=== PATIENT | female | born 1935 | race Caucasian/White ===

== ENCOUNTER → 2017-03-10 | Outpatient (CLI) | payer MEDICARE ==
--- NOTE | 2017-03-10 14:37 | REP ---
Clinical: COPD . Comparison: 06/25/2014 . Technique: PA and lateral. Findings: The mediastinum and cardiac silhouette are stable and within normal limits. The lung reese demonstrate chronic changes consistent with a history of COPD without acute consolidation, effusion, or pneumothorax. The skeletal structures are intact and normal. Impression: 1. No acute cardiopulmonary process. Signed by Fernando Pham MD 03/10/2017 02:28 P
== END ==
LOC: M SMT 13:45
PROVIDERS: ATTEND Internal Medicine Pulmonary Disease
DX: J44.9 Chronic obstructive pulmonary disease, unspecified (principal)

== ENCOUNTER → 2017-07-15 | Outpatient (CLI) | payer MEDICARE, MEDICAID | LOC: M SMT 14:03 | DX: J44.9 Chronic obstructive pulmonary disease, unspecified (principal); I51.7 Cardiomegaly | CPT/HCPCS: 71046 ==

== ENCOUNTER 2017-07-16 08:38 | Inpatient (IN) | payer MEDICARE, BC, OTHER ==
[2017-07-16 09:34] LABS: BASO % 0.2 % (0.0-1.0); EOS # 0.3 10^3/uL (0.0-0.50); EOS % 2.9 % (0.0-3.0); HEMATOCRIT 34.8 % (36.0-47.0); HEMOGLOBIN 10.9 g/dl (12.0-16.0); IMMATURE GRANULOCYTE % 0.3 % (0-3.0); LYMPH # 0.8 10^3/uL (1.5-4.5); MEAN CORPUSCULAR HEMOGLOBIN 28.2 pg (27.0-33.0); MEAN CORPUSCULAR HGB CONC 31.3 g/dl (32.0-36.5); MEAN CORPUSCULAR VOLUME 89.9 fl (80.0-96.0); MONO # 0.5 10^3/uL (0.0-0.8); MONO % 5.8 % (0.0-5.0); NEUTROPHILS # 7.7 10^3/uL (1.8-7.7); NEUTROPHILS % 82.8 % (36.0-66.0); PLATELET COUNT, AUTOMATED 266 10^3/uL (150-450); RED BLOOD COUNT 3.87 10^6/uL (4.00-5.40); RED CELL DISTRIBUTION WIDTH 15.9 % (11.5-14.5); WHITE BLOOD COUNT 9.4 10^3/uL (4.0-10.0)
[2017-07-16 09:45] LABS: PROTHROMBIN TIME 14.4 SECONDS (12.4-14.5)
[2017-07-16 10:04] LABS: ALBUMIN 2.5 GM/DL (3.2-5.2); ALBUMIN/GLOBULIN RATIO 0.66 (1.00-1.93); ALKALINE PHOSPHATASE 97 U/L (45-117); ALT/SGPT 43 U/L (12-78); ANION GAP 7 MEQ/L (8-16); AST/SGOT 18 U/L (7-37); BILIRUBIN,TOTAL 0.3 MG/DL (0.2-1.0); BLOOD UREA NITROGEN 16 MG/DL (7-18); CALCIUM LEVEL 7.9 MG/DL (8.8-10.2); CARBON DIOXIDE LEVEL 31 MEQ/L (21-32); CHLORIDE LEVEL 103 MEQ/L (98-107); CREATININE FOR GFR 0.84 MG/DL (0.55-1.30); GLOMERULAR FILTRATION RATE > 60.0 (>32); GLUCOSE, FASTING 149 MG/DL (70-100); POTASSIUM SERUM 3.2 MEQ/L (3.5-5.1); SODIUM LEVEL 141 MEQ/L (136-145); TOTAL PROTEIN 6.3 GM/DL (6.4-8.2)
[2017-07-16] MEDS ORDERED: KCL 10MEQ IN STERILE WATER 100ML As Ordered (10:10)
[2017-07-16] MEDS: KCL 10MEQ/100ML SWI (KRUN) 10 MEQ in APPROPRIATE DILUENT 1 EA IV ×2 (10:19→11:15)
[2017-07-16] MEDS ORDERED: MIDAZOLAM INJ 2 MG/2 ML VIAL (J2250) As Ordered ×4 (11:12)
[2017-07-16] MEDS ORDERED: FLUMAZENIL 0.5 MG/5 ML VIAL As Ordered (11:12)
[2017-07-16] MEDS ORDERED: LIDOCAINE 1% MDV 20ML VIAL As Ordered (11:13)
[2017-07-16] MEDS: NS 1,000 ML IV ×2 (11:25→16:15)
[2017-07-16] MEDS: MIDAZOLAM INJ 2 MG/2 ML VIAL (J2250) IV (11:30)
[2017-07-16] MEDS: LIDOCAINE 1% MDV 20ML VIAL SC (11:30)
[2017-07-16 11:36] LABS: CPK CREATINE PHOSPHOKINASE 39 U/L (26-192)
[2017-07-16] MEDS ORDERED: fentaNYL 100 MCG/2 ML INJECTION (J3010) As Ordered (11:43)
[2017-07-16] MEDS: fentaNYL 100 MCG/2 ML INJECTION (J3010) IV (11:50)
[2017-07-16 11:52] LABS: CK-MB VALUE MASS 1.2 NG/ML (<3.6); MB/CK RELATIVE INDEX 3.07 (< OR =4); TROPONIN I < 0.02 NG/ML (< 0.10)
[2017-07-16] MEDS ORDERED: POTASSIUM CHLORIDE 10% LIQ 20 MEQ/15 ML UDC PO (13:15)
[2017-07-16 13:18] LABS: LDH LACTATE DEHYDROGENASE 310 U/L (84-246)
[2017-07-16 13:55] LABS: BF MONONUCLEAR CELL % 52.1 % (0-0); BF POLYMORPHONUCLEAR CELL % 47.9 % (0-0); RBC BODY FLUID 8 10^3/uL (<2); WBC BODY FLUID 666 /uL (0-10)
[2017-07-16 14:06] LABS: SOURCE, BODY FLUID ALBUMIN PLEURAL; SOURCE, BODY FLUID TOT PROTEIN PLEURAL; TOTAL PROTEIN, BODY FLUID 3.3 G/DL (NOT ESTABLISHED)
[2017-07-16 14:07] LABS: SOURCE, BODY FLUID PLEURAL
[2017-07-16 14:08] LABS: APPEARANCE, BODY FLUID CLOUDY (CLEAR); BF DIFF IF INDICATED? YES (NO); PLEURAL FL COLOR YELLOW (COLORLESS)
[2017-07-16 14:38] LABS: AMYLASE, BODY FLUID 9 U/L (NOT ESTABLISHED); CHOLESTEROL, BODY FLUID < 50 MG/DL (NOT ESTABLISHED); LDH, BODY FLUID 383 U/L (NOT ESTABLISHED); SOURCE, BODY FLUID AMYLASE PLEURAL; SOURCE, BODY FLUID CHOL PLEURAL; SOURCE, BODY FLUID GLUCOSE PLEURAL; SOURCE, BODY FLUID LDH PLEURAL; SOURCE, BODY FLUID TRIG PLEURAL; TRIGLYCERIDE, BODY FLUID 20 MG/DL (NOT ESTABLISHED)
[2017-07-16] MEDS ORDERED: PILL CUTTER/CRUSHER XX (14:45)
[2017-07-16] MEDS: POTASSIUM CHLORIDE 10 MEQ SR TABLET PO (14:46)
[2017-07-16] MEDS: KETOROLAC 30 MG/ML VIAL (J1885) IV ×2 (14:50→20:02)
[2017-07-16] MEDS: PANTOPRAZOLE 40MG INJ (PROTONIX) (C9113) IV (14:50)
[2017-07-16 14:54] LABS: SOURCE, BODY FLUID pH PLEURAL
[2017-07-16 14:58] LABS: PH BODY FLUID > 7.800 UNITS (NOT ESTABLISHED)
[2017-07-16 16:28] LABS: CK-MB VALUE MASS 1.2 NG/ML (<3.6); CPK CREATINE PHOSPHOKINASE 36 U/L (26-192); MB/CK RELATIVE INDEX 3.33 (< OR =4); TROPONIN I 0.02 NG/ML (< 0.10)
[2017-07-16] MEDS: COLCHICINE 0.6 MG TAB PO (17:30)
[2017-07-16 18:11] LABS: BEDSIDE GLUCOSE 94 MG/DL (83-110)
[2017-07-16 22:33] LABS: CK-MB VALUE MASS 1.1 NG/ML (<3.6); CPK CREATINE PHOSPHOKINASE 40 U/L (26-192); MB/CK RELATIVE INDEX 2.75 (< OR =4); TROPONIN I 0.02 NG/ML (< 0.10)
[2017-07-17 01:00] LABS: BEDSIDE GLUCOSE 88 MG/DL (83-110)
[2017-07-17] MEDS: KETOROLAC 30 MG/ML VIAL (J1885) IV ×2 (02:41→12:39)
[2017-07-17 04:33] LABS: BASO % 0.3 % (0.0-1.0); EOS # 0.3 10^3/uL (0.0-0.50); EOS % 4.2 % (0.0-3.0); HEMATOCRIT 31.1 % (36.0-47.0); HEMOGLOBIN 9.5 g/dl (12.0-16.0); IMMATURE GRANULOCYTE % 0.2 % (0-3.0); LYMPH # 0.8 10^3/uL (1.5-4.5); LYMPH % 13.3 % (24.0-44.0); MEAN CORPUSCULAR HEMOGLOBIN 28.2 pg (27.0-33.0); MEAN CORPUSCULAR HGB CONC 30.5 g/dl (32.0-36.5); MEAN CORPUSCULAR VOLUME 92.3 fl (80.0-96.0); MONO # 0.4 10^3/uL (0.0-0.8); MONO % 7.1 % (0.0-5.0); NEUTROPHILS # 4.5 10^3/uL (1.8-7.7); NEUTROPHILS % 74.9 % (36.0-66.0); PLATELET COUNT, AUTOMATED 194 10^3/uL (150-450); RED BLOOD COUNT 3.37 10^6/uL (4.00-5.40); RED CELL DISTRIBUTION WIDTH 15.9 % (11.5-14.5); WHITE BLOOD COUNT 5.9 10^3/uL (4.0-10.0)
[2017-07-17 05:01] LABS: ALBUMIN 2.2 GM/DL (3.2-5.2); ALBUMIN/GLOBULIN RATIO 0.56 (1.00-1.93); ALKALINE PHOSPHATASE 81 U/L (45-117); ALT/SGPT 31 U/L (12-78); ANION GAP 4 MEQ/L (8-16); AST/SGOT 13 U/L (7-37); BILIRUBIN,TOTAL 0.3 MG/DL (0.2-1.0); BLOOD UREA NITROGEN 17 MG/DL (7-18); CALCIUM LEVEL 7.5 MG/DL (8.8-10.2); CARBON DIOXIDE LEVEL 32 MEQ/L (21-32); CHLORIDE LEVEL 110 MEQ/L (98-107); GLOMERULAR FILTRATION RATE > 60.0 (>32); GLUCOSE, FASTING 91 MG/DL (70-100); POTASSIUM SERUM 3.5 MEQ/L (3.5-5.1); SODIUM LEVEL 146 MEQ/L (136-145); TOTAL PROTEIN 6.1 GM/DL (6.4-8.2)
[2017-07-17] MEDS: PANTOPRAZOLE 40MG INJ (PROTONIX) (C9113) IV (09:32)
[2017-07-17] MEDS: COLCHICINE 0.6 MG TAB PO (09:32)
[2017-07-17] MEDS ORDERED: MIDAZOLAM INJ 2 MG/2 ML VIAL (J2250) As Ordered ×3 (10:55→10:56)
[2017-07-17] MEDS ORDERED: LIDOCAINE 1% MDV 20ML VIAL As Ordered (10:55)
[2017-07-17] MEDS ORDERED: fentaNYL 100 MCG/2 ML INJECTION (J3010) As Ordered (11:01)
[2017-07-17] MEDS: fentaNYL 100 MCG/2 ML INJECTION (J3010) IV (11:34)
[2017-07-17] MEDS: MIDAZOLAM INJ 2 MG/2 ML VIAL (J2250) IV (11:36)
[2017-07-17 12:37] LABS: LDH LACTATE DEHYDROGENASE 265 U/L (84-246); PH BODY FLUID 7.766 UNITS (NOT ESTABLISHED); SOURCE, BODY FLUID pH PLEURAL
[2017-07-17 12:44] LABS: BF MONONUCLEAR CELL % 77.8 % (0-0); BF POLYMORPHONUCLEAR CELL % 22.2 % (0-0); RBC BODY FLUID 503 10^3/uL (<2); WBC BODY FLUID 3285 /uL (0-10)
[2017-07-17 12:48] LABS: APPEARANCE, BODY FLUID TURBID (CLEAR); PLEURAL FL COLOR BROWN (COLORLESS); SOURCE, BODY FLUID PLEURAL
[2017-07-17 12:49] LABS: BF DIFF IF INDICATED? YES (NO)
[2017-07-17 12:51] LABS: SOURCE, BODY FLUID ALBUMIN PLEURAL; SOURCE, BODY FLUID TOT PROTEIN PLEURAL; TOTAL PROTEIN, BODY FLUID 4.2 G/DL (NOT ESTABLISHED)
[2017-07-17 12:59] LABS: AMYLASE, BODY FLUID 6 U/L (NOT ESTABLISHED); CHOLESTEROL, BODY FLUID 57 MG/DL (NOT ESTABLISHED); LDH, BODY FLUID 1682 U/L (NOT ESTABLISHED); SOURCE, BODY FLUID AMYLASE PLEURAL; SOURCE, BODY FLUID CHOL PLEURAL; SOURCE, BODY FLUID GLUCOSE PLEURAL; SOURCE, BODY FLUID LDH PLEURAL; SOURCE, BODY FLUID TRIG PLEURAL; TRIGLYCERIDE, BODY FLUID 60 MG/DL (NOT ESTABLISHED)
[2017-07-17] MEDS: ENOXAPARIN 30 MG/0.3 ML SYR (J1650) SC (14:16)
[2017-07-17] MEDS: PERCOCET 5MG/325MG TAB PO ×2 (16:36→21:06)
[2017-07-18 00:29] LABS: BEDSIDE GLUCOSE 114 MG/DL (83-110)
[2017-07-18] MEDS: KETOROLAC 30 MG/ML VIAL (J1885) IV (02:28)
[2017-07-18 04:35] LABS: BASO % 0.4 % (0.0-1.0); EOS # 0.3 10^3/uL (0.0-0.50); EOS % 4.3 % (0.0-3.0); HEMATOCRIT 32.1 % (36.0-47.0); HEMOGLOBIN 9.9 g/dl (12.0-16.0); IMMATURE GRANULOCYTE % 0.3 % (0-3.0); LYMPH # 0.9 10^3/uL (1.5-4.5); LYMPH % 12.8 % (24.0-44.0); MEAN CORPUSCULAR HEMOGLOBIN 28.3 pg (27.0-33.0); MEAN CORPUSCULAR HGB CONC 30.8 g/dl (32.0-36.5); MEAN CORPUSCULAR VOLUME 91.7 fl (80.0-96.0); MONO # 0.5 10^3/uL (0.0-0.8); MONO % 7.9 % (0.0-5.0); NEUTROPHILS % 74.3 % (36.0-66.0); PLATELET COUNT, AUTOMATED 199 10^3/uL (150-450); RED CELL DISTRIBUTION WIDTH 15.7 % (11.5-14.5); WHITE BLOOD COUNT 6.7 10^3/uL (4.0-10.0)
[2017-07-18 05:01] LABS: ALBUMIN 2.2 GM/DL (3.2-5.2); ALBUMIN/GLOBULIN RATIO 0.58 (1.00-1.93); ALKALINE PHOSPHATASE 79 U/L (45-117); ALT/SGPT 25 U/L (12-78); ANION GAP 3 MEQ/L (8-16); AST/SGOT 11 U/L (7-37); BILIRUBIN,TOTAL 0.2 MG/DL (0.2-1.0); BLOOD UREA NITROGEN 19 MG/DL (7-18); CALCIUM LEVEL 7.6 MG/DL (8.8-10.2); CARBON DIOXIDE LEVEL 32 MEQ/L (21-32); CHLORIDE LEVEL 109 MEQ/L (98-107); CREATININE FOR GFR 0.63 MG/DL (0.55-1.30); GLOMERULAR FILTRATION RATE > 60.0 (>32); GLUCOSE, FASTING 94 MG/DL (70-100); POTASSIUM SERUM 3.3 MEQ/L (3.5-5.1); SODIUM LEVEL 144 MEQ/L (136-145)
[2017-07-18] MEDS: PANTOPRAZOLE 40MG INJ (PROTONIX) (C9113) IV (09:08)
[2017-07-18] MEDS: ENOXAPARIN 30 MG/0.3 ML SYR (J1650) SC (09:08)
[2017-07-18] MEDS: POTASSIUM CHLORIDE 10% LIQ 20 MEQ/15 ML UDC PO (10:15)
[2017-07-18] MEDS ORDERED: IPRATROPIUM 0.5MG/ALBUTEROL 2.5MG INH SOL UD 3ML (DUONEB)(J7620) NEB (22:30)
[2017-07-18] MEDS: METOPROLOL 5 MG/5 ML VIAL IV (22:44)
[2017-07-18] MEDS: ACETAMINOPHEN TAB 650MG DOSE (2X325MG) PO (22:45)
[2017-07-18] MEDS: FUROSEMIDE 40 MG/4 ML VIAL (J1940) IV (23:00)
[2017-07-18] MEDS: IPRATROPIUM 0.5MG/ALBUTEROL 2.5MG INH SOL UD 3ML (DUONEB)(J7620) NEB (23:03)
[2017-07-18] MEDS: amLODIPine 10 MG TAB PO (23:47)
[2017-07-19] MEDS: IPRATROPIUM 0.5MG/ALBUTEROL 2.5MG INH SOL UD 3ML (DUONEB)(J7620) NEB ×6 (02:56→23:39)
[2017-07-19 03:18] LABS: BEDSIDE GLUCOSE 133 MG/DL (83-110)
[2017-07-19 04:26] LABS: BASO % 0.3 % (0.0-1.0); EOS # 0.2 10^3/uL (0.0-0.50); EOS % 3.5 % (0.0-3.0); HEMATOCRIT 34.2 % (36.0-47.0); HEMOGLOBIN 10.6 g/dl (12.0-16.0); IMMATURE GRANULOCYTE % 0.3 % (0-3.0); LYMPH # 0.9 10^3/uL (1.5-4.5); LYMPH % 14.6 % (24.0-44.0); MEAN CORPUSCULAR HEMOGLOBIN 27.8 pg (27.0-33.0); MEAN CORPUSCULAR VOLUME 89.8 fl (80.0-96.0); MONO # 0.5 10^3/uL (0.0-0.8); MONO % 7.8 % (0.0-5.0); NEUTROPHILS # 4.6 10^3/uL (1.8-7.7); NEUTROPHILS % 73.5 % (36.0-66.0); PLATELET COUNT, AUTOMATED 200 10^3/uL (150-450); RED BLOOD COUNT 3.81 10^6/uL (4.00-5.40); RED CELL DISTRIBUTION WIDTH 15.4 % (11.5-14.5); WHITE BLOOD COUNT 6.3 10^3/uL (4.0-10.0)
[2017-07-19 04:44] LABS: ALBUMIN 2.3 GM/DL (3.2-5.2); ALBUMIN/GLOBULIN RATIO 0.56 (1.00-1.93); ALKALINE PHOSPHATASE 83 U/L (45-117); ALT/SGPT 22 U/L (12-78); ANION GAP 3 MEQ/L (8-16); AST/SGOT 11 U/L (7-37); BILIRUBIN,TOTAL 0.3 MG/DL (0.2-1.0); BLOOD UREA NITROGEN 11 MG/DL (7-18); CALCIUM LEVEL 7.6 MG/DL (8.8-10.2); CARBON DIOXIDE LEVEL 37 MEQ/L (21-32); CHLORIDE LEVEL 104 MEQ/L (98-107); CREATININE FOR GFR 0.62 MG/DL (0.55-1.30); GLOMERULAR FILTRATION RATE > 60.0 (>32); GLUCOSE, FASTING 101 MG/DL (70-100); POTASSIUM SERUM 3.2 MEQ/L (3.5-5.1); SODIUM LEVEL 144 MEQ/L (136-145); TOTAL PROTEIN 6.4 GM/DL (6.4-8.2)
[2017-07-19] MEDS: METOPROLOL TART 25 MG TABLET PO (09:00)
[2017-07-19] MEDS: ADVAIR HFA 230/21MCG INHALER INH ×2 (09:14→20:37)
[2017-07-19] MEDS ORDERED: PILL CUTTER/CRUSHER XX (09:15)
[2017-07-19] MEDS: PANTOPRAZOLE 40MG TAB (PROTONIX) PO (09:24)
[2017-07-19] MEDS: POTASSIUM CHLORIDE 10 MEQ SR TABLET PO ×2 (09:25→12:47)
[2017-07-19] MEDS: SENNA 8.6 MG TAB (SENOKOT) PO (09:25)
[2017-07-19] MEDS: SERTRALINE HCL 50 MG TAB PO (09:25)
[2017-07-19] MEDS: amLODIPine 10 MG TAB PO (09:29)
[2017-07-19] MEDS: ENOXAPARIN 30 MG/0.3 ML SYR (J1650) SC (09:29)
[2017-07-19] MEDS: hydroCHLOROthiazide 12.5 MG CAPSULE PO (09:38)
[2017-07-19] MEDS: busPIRone 5 MG TAB PO ×2 (09:38→21:17)
[2017-07-19] MEDS: clonazePAM 0.5 MG TAB PO ×2 (14:09→21:17)
[2017-07-19] MEDS: ROSUVASTATIN 10 MG TAB (CRESTOR) PO (21:17)
[2017-07-20] MEDS: IPRATROPIUM 0.5MG/ALBUTEROL 2.5MG INH SOL UD 3ML (DUONEB)(J7620) NEB ×2 (03:44→08:00)
[2017-07-20 04:42] LABS: BASO % 0.5 % (0.0-1.0); EOS # 0.3 10^3/uL (0.0-0.50); EOS % 5.8 % (0.0-3.0); HEMATOCRIT 31.6 % (36.0-47.0); HEMOGLOBIN 9.8 g/dl (12.0-16.0); IMMATURE GRANULOCYTE % 0.2 % (0-3.0); LYMPH # 1.3 10^3/uL (1.5-4.5); LYMPH % 21.2 % (24.0-44.0); MEAN CORPUSCULAR HEMOGLOBIN 28.1 pg (27.0-33.0); MEAN CORPUSCULAR VOLUME 90.5 fl (80.0-96.0); MONO # 0.5 10^3/uL (0.0-0.8); MONO % 7.6 % (0.0-5.0); NEUTROPHILS # 3.8 10^3/uL (1.8-7.7); NEUTROPHILS % 64.7 % (36.0-66.0); PLATELET COUNT, AUTOMATED 173 10^3/uL (150-450); RED BLOOD COUNT 3.49 10^6/uL (4.00-5.40); WHITE BLOOD COUNT 5.9 10^3/uL (4.0-10.0)
[2017-07-20 05:19] LABS: ALBUMIN 2.2 GM/DL (3.2-5.2); ALBUMIN/GLOBULIN RATIO 0.59 (1.00-1.93); ALKALINE PHOSPHATASE 75 U/L (45-117); ALT/SGPT 21 U/L (12-78); ANION GAP 3 MEQ/L (8-16); AST/SGOT 10 U/L (7-37); BILIRUBIN,TOTAL 0.3 MG/DL (0.2-1.0); BLOOD UREA NITROGEN 17 MG/DL (7-18); CALCIUM LEVEL 7.9 MG/DL (8.8-10.2); CARBON DIOXIDE LEVEL 33 MEQ/L (21-32); CHLORIDE LEVEL 107 MEQ/L (98-107); GLOMERULAR FILTRATION RATE > 60.0 (>32); GLUCOSE, FASTING 100 MG/DL (70-100); POTASSIUM SERUM 3.7 MEQ/L (3.5-5.1); SODIUM LEVEL 143 MEQ/L (136-145); TOTAL PROTEIN 5.9 GM/DL (6.4-8.2)
[2017-07-20] MEDS: clonazePAM 0.5 MG TAB PO (08:27)
[2017-07-20] MEDS: SENNA 8.6 MG TAB (SENOKOT) PO (08:28)
[2017-07-20] MEDS: PANTOPRAZOLE 40MG TAB (PROTONIX) PO (08:28)
[2017-07-20] MEDS: SERTRALINE HCL 50 MG TAB PO (08:29)
[2017-07-20] MEDS: ENOXAPARIN 30 MG/0.3 ML SYR (J1650) SC (08:29)
[2017-07-20] MEDS: busPIRone 5 MG TAB PO (08:30)
[2017-07-20] MEDS: BISACODYL 5 MG TAB PO (08:30)
[2017-07-20] MEDS: ADVAIR HFA 230/21MCG INHALER INH (09:14)
[2017-07-20] MEDS: MAGNESIUM CITRATE 300 ML BTL PO (11:05)
== END 2017-07-20 11:40 | DRG 314 ==
LOC: M ICU 08:38
PROC: 0W9B30Z Drainage of Left Pleural Cavity with Drainage Device, Percutaneous Approach (ICD-10-PCS; principal; 2017-07-16)
PROC: 0W9D30Z Drainage of Pericardial Cavity with Drainage Device, Percutaneous Approach (ICD-10-PCS; 2017-07-17)
DX: T82.897A Other specified complication of cardiac prosthetic devices, implants and grafts, initial encounter (principal); I50.31 Acute diastolic (congestive) heart failure; I31.3 Pericardial effusion (noninflammatory); E87.0 Hyperosmolality and hypernatremia; J95.811 Postprocedural pneumothorax; J44.9 Chronic obstructive pulmonary disease, unspecified; I11.0 Hypertensive heart disease with heart failure; E78.5 Hyperlipidemia, unspecified; K44.9 Diaphragmatic hernia without obstruction or gangrene; S22.41XD Multiple fractures of ribs, right side, subsequent encounter for fracture with routine healing; I95.9 Hypotension, unspecified; F32.9 Major depressive disorder, single episode, unspecified; K59.00 Constipation, unspecified; E87.6 Hypokalemia; D64.9 Anemia, unspecified; I48.91 Unspecified atrial fibrillation; G47.33 Obstructive sleep apnea (adult) (pediatric); G25.0 Essential tremor; Z86.73 Personal history of transient ischemic attack (TIA), and cerebral infarction without residual deficits; Z79.02 Long term (current) use of antithrombotics/antiplatelets; Z79.899 Other long term (current) drug therapy; Z88.8 Allergy status to other drugs, medicaments and biological substances

== ENCOUNTER → 2017-08-05 | Outpatient (REF) ==
[2017-08-05 09:37] LABS: ANION GAP 7 MEQ/L (8-16); BLOOD UREA NITROGEN 14 MG/DL (7-18); CALCIUM LEVEL 8.6 MG/DL (8.8-10.2); CARBON DIOXIDE LEVEL 29 MEQ/L (21-32); CHLORIDE LEVEL 106 MEQ/L (98-107); CREATININE FOR GFR 0.89 MG/DL (0.55-1.30); GLOMERULAR FILTRATION RATE > 60.0 (>32); GLUCOSE, FASTING 147 MG/DL (70-100); POTASSIUM SERUM 4.1 MEQ/L (3.5-5.1); SODIUM LEVEL 142 MEQ/L (136-145)
== END ==
LOC: SKLAB5 07:45
DX: I10 Essential (primary) hypertension (principal)

== ENCOUNTER 2017-08-14 15:08 | Inpatient (IN) | payer MEDICARE ==
[2017-08-14] MEDS: predniSONE 20 MG TAB PO (09:00)
[2017-08-14 16:06] LABS: BASO % 0.4 % (0.0-1.0); EOS # 0.1 10^3/uL (0.0-0.50); EOS % 1.8 % (0.0-3.0); HEMATOCRIT 37.8 % (36.0-47.0); HEMOGLOBIN 11.8 g/dl (12.0-15.5); IMMATURE GRANULOCYTE % 0.4 % (0-3.0); LYMPH # 1.3 10^3/uL (1.5-4.5); LYMPH % 16.2 % (24.0-44.0); MEAN CORPUSCULAR HEMOGLOBIN 28.2 pg (27.0-33.0); MEAN CORPUSCULAR HGB CONC 31.2 g/dl (32.0-36.5); MEAN CORPUSCULAR VOLUME 90.2 fl (80.0-96.0); MONO # 0.5 10^3/uL (0.0-0.8); MONO % 6.3 % (0.0-5.0); NEUTROPHILS # 5.8 10^3/uL (1.8-7.7); NEUTROPHILS % 74.9 % (36.0-66.0); PLATELET COUNT, AUTOMATED 193 10^3/uL (150-450); RED BLOOD COUNT 4.19 10^6/uL (4.00-5.40); RED CELL DISTRIBUTION WIDTH 17.1 % (11.5-14.5); WHITE BLOOD COUNT 7.8 10^3/uL (4.0-10.0)
[2017-08-14 16:10] LABS: INR 1.06; PROTHROMBIN TIME 13.9 SECONDS (12.4-14.5)
[2017-08-14 16:13] LABS: D-DIMER QUANT 2319.2 ng/ml (<500)
[2017-08-14 16:20] LABS: ALBUMIN 3.6 GM/DL (3.2-5.2); ALBUMIN/GLOBULIN RATIO 0.73 (1.00-1.93); ALT/SGPT 20 U/L (12-78); ANION GAP 5 MEQ/L (8-16); AST/SGOT 13 U/L (7-37); BILIRUBIN,DIRECT < 0.1 MG/DL (0.0-0.2); BILIRUBIN,TOTAL 0.3 MG/DL (0.2-1.0); BLOOD UREA NITROGEN 15 MG/DL (7-18); C REACTIVE PROTEIN QUANTITATIV 2.49 MG/DL (0.00-0.30); CALCIUM LEVEL 8.6 MG/DL (8.8-10.2); CARBON DIOXIDE LEVEL 31 MEQ/L (21-32); CHLORIDE LEVEL 103 MEQ/L (98-107); CPK CREATINE PHOSPHOKINASE 50 U/L (26-192); CREATININE FOR GFR 0.75 MG/DL (0.55-1.30); GLOMERULAR FILTRATION RATE > 60.0 (>32); GLUCOSE, FASTING 96 MG/DL (70-100); LIPASE 69 U/L (73-393); SODIUM LEVEL 139 MEQ/L (136-145); TOTAL PROTEIN 8.5 GM/DL (6.4-8.2); TROPONIN I < 0.02 NG/ML (< 0.10)
[2017-08-14 16:25] LABS: ALKALINE PHOSPHATASE 77 U/L (45-117); CK-MB VALUE MASS < 1.0 NG/ML (<3.6); FREE T4 0.87 NG/DL (0.76-1.46); NT-PRO BNP 267 PG/ML (<450)
[2017-08-14] MEDS: ENOXAPARIN 80 MG/0.8 ML SYRINGE (J1650) SC (17:09)
[2017-08-14] MEDS ORDERED: FLEET ENEMA PR (18:45)
[2017-08-14] MEDS ORDERED: IPRATROPIUM 0.5MG/ALBUTEROL 2.5MG INH SOL UD 3ML (DUONEB)(J7620) NEB (18:45)
[2017-08-14] MEDS ORDERED: ACETAMINOPHEN TAB 650MG DOSE (2X325MG) PO (18:45)
[2017-08-14] MEDS ORDERED: ONDANSETRON 4 MG TAB (S0181) PO (18:45)
[2017-08-14] MEDS: IPRATROPIUM 0.5MG/ALBUTEROL 2.5MG INH SOL UD 3ML (DUONEB)(J7620) NEB (20:00)
[2017-08-14 20:20] LABS: NT-PRO BNP 273 PG/ML (<450)
[2017-08-14 20:20] LABS: CK-MB VALUE MASS < 1.0 NG/ML (<3.6); CPK CREATINE PHOSPHOKINASE 52 U/L (26-192); MB/CK RELATIVE INDEX 1.92 (< OR =4); TROPONIN I < 0.02 NG/ML (< 0.10)
[2017-08-14] MEDS: ADVAIR HFA 230/21MCG INHALER INH (21:00)
[2017-08-14] MEDS ORDERED: PILL CRUSHER/CUTTER 1 EACH XX (21:00)
[2017-08-14] MEDS: clonazePAM 1 MG TAB PO (21:52)
[2017-08-14] MEDS: ROSUVASTATIN 10 MG TAB (CRESTOR) PO (21:52)
[2017-08-14] MEDS: GABAPENTIN 100 MG CAP PO (21:53)
[2017-08-14] MEDS: SENOKOT S TAB PO (21:53)
[2017-08-14] MEDS: SIMETHICONE 80 MG CHEW TAB PO (21:55)
[2017-08-14] MEDS: busPIRone 5 MG TAB PO (23:14)
[2017-08-15 00:14] LABS: CK-MB VALUE MASS < 1.0 NG/ML (<3.6); CPK CREATINE PHOSPHOKINASE 42 U/L (26-192); MB/CK RELATIVE INDEX 2.38 (< OR =4); TROPONIN I < 0.02 NG/ML (< 0.10)
[2017-08-15] MEDS: IPRATROPIUM 0.5MG/ALBUTEROL 2.5MG INH SOL UD 3ML (DUONEB)(J7620) NEB ×5 (01:33→23:35)
[2017-08-15 04:03] LABS: BASO % 0.3 % (0.0-1.0); EOS # 0.1 10^3/uL (0.0-0.50); EOS % 2.3 % (0.0-3.0); HEMATOCRIT 33.6 % (36.0-47.0); HEMOGLOBIN 10.5 g/dl (12.0-15.5); IMMATURE GRANULOCYTE % 0.3 % (0-3.0); LYMPH # 1.2 10^3/uL (1.5-4.5); LYMPH % 20.8 % (24.0-44.0); MEAN CORPUSCULAR HEMOGLOBIN 27.4 pg (27.0-33.0); MEAN CORPUSCULAR HGB CONC 31.3 g/dl (32.0-36.5); MEAN CORPUSCULAR VOLUME 87.7 fl (80.0-96.0); MONO # 0.5 10^3/uL (0.0-0.8); MONO % 8.6 % (0.0-5.0); NEUTROPHILS % 67.7 % (36.0-66.0); PLATELET COUNT, AUTOMATED 174 10^3/uL (150-450); RED BLOOD COUNT 3.83 10^6/uL (4.00-5.40); RED CELL DISTRIBUTION WIDTH 16.9 % (11.5-14.5)
[2017-08-15 04:22] LABS: ANION GAP 6 MEQ/L (8-16); BLOOD UREA NITROGEN 14 MG/DL (7-18); CALCIUM LEVEL 8.4 MG/DL (8.8-10.2); CARBON DIOXIDE LEVEL 30 MEQ/L (21-32); CHLORIDE LEVEL 103 MEQ/L (98-107); CREATININE FOR GFR 0.65 MG/DL (0.55-1.30); GLOMERULAR FILTRATION RATE > 60.0 (>32); GLUCOSE, FASTING 89 MG/DL (70-100); POTASSIUM SERUM 3.8 MEQ/L (3.5-5.1); SODIUM LEVEL 139 MEQ/L (136-145)
[2017-08-15 05:04] LABS: INFLUENZA A AMPLIFICATION NEGATIVE (NEGATIVE); INFLUENZA B AMPLIFICATION NEGATIVE (NEGATIVE)
[2017-08-15] MEDS ORDERED: GI COCKTAIL 50ML BTL(HYOSCYAMINE/MAALOX/LIDOCAINE VISCOUS)(1:3:1) PO (08:15)
[2017-08-15] MEDS ORDERED: NITROGLYCERIN 0.4 MG SUBL TABLET SL (08:15)
[2017-08-15 08:18] LABS: CK-MB VALUE MASS < 1.0 NG/ML (<3.6); CPK CREATINE PHOSPHOKINASE 33 U/L (26-192); MB/CK RELATIVE INDEX 3.03 (< OR =4); TROPONIN I < 0.02 NG/ML (< 0.10)
[2017-08-15] MEDS: NITROGLYCERIN 0.4 MG SUBL TABLET SL (08:20)
[2017-08-15] MEDS: KETOROLAC 30 MG/ML VIAL (J1885) IV (08:22)
[2017-08-15] MEDS: FUROSEMIDE 40 MG/4 ML VIAL (J1940) IV (08:31)
[2017-08-15] MEDS: SERTRALINE HCL 50 MG TAB PO (08:32)
[2017-08-15] MEDS: PANTOPRAZOLE 40MG TAB (PROTONIX) PO (08:32)
[2017-08-15] MEDS: predniSONE 20 MG TAB PO (08:32)
[2017-08-15] MEDS: ADVAIR HFA 230/21MCG INHALER INH ×2 (08:43→21:00)
[2017-08-15] MEDS: GI COCKTAIL 50ML BTL(HYOSCYAMINE/MAALOX/LIDOCAINE VISCOUS)(1:3:1) PO (09:56)
[2017-08-15] MEDS: SUCRALFATE SUSP 1GM/10ML UD PO ×4 (09:56→20:54)
[2017-08-15] MEDS: busPIRone 5 MG TAB PO ×2 (09:56→20:55)
[2017-08-15] MEDS: MULTIVITAMINS/MINERALS THERAP 1 TAB PO (09:57)
[2017-08-15] MEDS: VITAMIN D 1,000 INTERNATIONAL UNITS TABLET PO (09:57)
[2017-08-15] MEDS: clonazePAM 1 MG TAB PO ×2 (09:57→20:55)
[2017-08-15] MEDS: CLOPIDOGREL 75 MG TAB PO (09:57)
[2017-08-15] MEDS: SENOKOT S TAB PO ×2 (09:57→20:54)
[2017-08-15] MEDS: traMADol 50 MG TAB PO (09:58)
[2017-08-15] MEDS: BISACODYL 5 MG TAB PO (11:09)
[2017-08-15] MEDS: MOM 30ML SUSPENSION UDC PO (11:09)
[2017-08-15] MEDS: ROSUVASTATIN 10 MG TAB (CRESTOR) PO (20:54)
[2017-08-15] MEDS: GABAPENTIN 100 MG CAP PO (20:55)
[2017-08-16 02:50] LABS: APPEARANCE, URINE HAZY (CLEAR); BACTERIA, URINE AUTO NEGATIVE (NEGATIVE); BILIRUBIN, URINE AUTO NEGATIVE (NEGATIVE); BLOOD, URINE BLOOD NEGATIVE (NEGATIVE); COLOR, URINE YELLOW (YELLOW); GLUCOSE, URINE (UA) AUTO NEGATIVE (NEGATIVE); KETONE, URINE AUTO NEGATIVE (NEGATIVE); LEUKOCYTE ESTERASE, URINE AUTO NEGATIVE (NEGATIVE); MUCUS, URINE SMALL (NEGATIVE); NITRITE, URINE AUTO NEGATIVE (NEGATIVE); PROTEIN, URINE AUTO NEGATIVE (NEGATIVE); RBC, URINE AUTO 3 /HPF (0-3); SPECIFIC GRAVITY URINE AUTO 1.017 (1.002-1.035); SQUAMOUS EPITHELIAL CELL UR AU 1 /HPF (0-6); UROBILINOGEN, URINE AUTO 0.2 mg/dL (0.0-2.0); WBC, URINE AUTO 4 /HPF (0-3)
[2017-08-16 06:46] LABS: BASO % 0.1 % (0.0-1.0); EOS # 0.1 10^3/uL (0.0-0.50); EOS % 0.9 % (0.0-3.0); HEMATOCRIT 31.1 % (36.0-47.0); HEMOGLOBIN 9.9 g/dl (12.0-15.5); IMMATURE GRANULOCYTE % 0.3 % (0-3.0); LYMPH # 1.4 10^3/uL (1.5-4.5); LYMPH % 18.5 % (24.0-44.0); MEAN CORPUSCULAR HEMOGLOBIN 28.1 pg (27.0-33.0); MEAN CORPUSCULAR HGB CONC 31.8 g/dl (32.0-36.5); MEAN CORPUSCULAR VOLUME 88.4 fl (80.0-96.0); MONO # 0.5 10^3/uL (0.0-0.8); MONO % 6.9 % (0.0-5.0); NEUTROPHILS # 5.4 10^3/uL (1.8-7.7); NEUTROPHILS % 73.3 % (36.0-66.0); PLATELET COUNT, AUTOMATED 169 10^3/uL (150-450); RED BLOOD COUNT 3.52 10^6/uL (4.00-5.40); RED CELL DISTRIBUTION WIDTH 16.9 % (11.5-14.5); WHITE BLOOD COUNT 7.4 10^3/uL (4.0-10.0)
[2017-08-16 07:06] LABS: ANION GAP 6 MEQ/L (8-16); BLOOD UREA NITROGEN 23 MG/DL (7-18); CALCIUM LEVEL 8.3 MG/DL (8.8-10.2); CARBON DIOXIDE LEVEL 30 MEQ/L (21-32); CHLORIDE LEVEL 105 MEQ/L (98-107); CREATININE FOR GFR 0.79 MG/DL (0.55-1.30); GLOMERULAR FILTRATION RATE > 60.0 (>32); GLUCOSE, FASTING 108 MG/DL (70-100); LDH LACTATE DEHYDROGENASE 132 U/L (84-246); POTASSIUM SERUM 3.9 MEQ/L (3.5-5.1); SODIUM LEVEL 141 MEQ/L (136-145); TOTAL PROTEIN 7.3 GM/DL (6.4-8.2)
[2017-08-16] MEDS: IPRATROPIUM 0.5MG/ALBUTEROL 2.5MG INH SOL UD 3ML (DUONEB)(J7620) NEB ×3 (07:11→20:00)
[2017-08-16] MEDS: ADVAIR HFA 230/21MCG INHALER INH ×2 (07:12→21:39)
[2017-08-16 08:21] LABS: RETIC HEMOGLOBIN EQUIVALENT 30.2 pg (24-36); RETICULOCYTE % 1.5 % (0.5-1.5)
[2017-08-16 08:38] LABS: SLIDE REVIEW Report; SOURCE PERIPHERAL SMEAR
[2017-08-16] MEDS: MULTIVITAMINS/MINERALS THERAP 1 TAB PO (08:47)
[2017-08-16] MEDS: SUCRALFATE SUSP 1GM/10ML UD PO ×4 (08:47→20:15)
[2017-08-16] MEDS: busPIRone 5 MG TAB PO ×2 (08:48→20:14)
[2017-08-16] MEDS: PANTOPRAZOLE 40MG TAB (PROTONIX) PO (08:48)
[2017-08-16] MEDS: SENOKOT S TAB PO ×2 (08:48→20:15)
[2017-08-16] MEDS: SERTRALINE HCL 50 MG TAB PO (08:48)
[2017-08-16] MEDS: predniSONE 20 MG TAB PO (08:48)
[2017-08-16] MEDS: VITAMIN D 1,000 INTERNATIONAL UNITS TABLET PO (08:48)
[2017-08-16] MEDS: clonazePAM 1 MG TAB PO ×2 (08:48→20:15)
[2017-08-16] MEDS: CLOPIDOGREL 75 MG TAB PO (10:00)
[2017-08-16 10:32] LABS: FERRITIN 129 NG/ML (8-252); IRON (FE) 27 UG/DL (50-170); PERCENT SATURATION 9.3 % (13.2-45.0); TOTAL IRON BINDING CAPACITY 291 UG/DL (250-450)
[2017-08-16 11:04] LABS: VITAMIN B12 LEVEL 1171 PG/ML (247-911)
[2017-08-16 11:05] LABS: FOLATE > 24.0 NG/ML (>5.4)
[2017-08-16] MEDS: MOM 30ML SUSPENSION UDC PO (12:46)
[2017-08-16] MEDS: FERROUS SULFATE 325MG TAB PO (12:47)
[2017-08-16] MEDS: ASCORBIC ACID 500 MG TAB PO (12:47)
[2017-08-16] MEDS: BISACODYL 5 MG TAB PO (12:47)
[2017-08-16] MEDS: GABAPENTIN 100 MG CAP PO (20:14)
[2017-08-16] MEDS: ROSUVASTATIN 10 MG TAB (CRESTOR) PO (20:14)
[2017-08-17] MEDS: IPRATROPIUM 0.5MG/ALBUTEROL 2.5MG INH SOL UD 3ML (DUONEB)(J7620) NEB ×2 (02:00→07:41)
[2017-08-17 07:12] LABS: BASO % 0.4 % (0.0-1.0); EOS # 0.1 10^3/uL (0.0-0.50); EOS % 1.1 % (0.0-3.0); HEMATOCRIT 32.4 % (36.0-47.0); HEMOGLOBIN 10.3 g/dl (12.0-15.5); IMMATURE GRANULOCYTE % 0.3 % (0-3.0); LYMPH # 1.5 10^3/uL (1.5-4.5); LYMPH % 19.6 % (24.0-44.0); MEAN CORPUSCULAR HEMOGLOBIN 28.2 pg (27.0-33.0); MEAN CORPUSCULAR HGB CONC 31.8 g/dl (32.0-36.5); MEAN CORPUSCULAR VOLUME 88.8 fl (80.0-96.0); MONO # 0.5 10^3/uL (0.0-0.8); MONO % 6.2 % (0.0-5.0); NEUTROPHILS # 5.5 10^3/uL (1.8-7.7); NEUTROPHILS % 72.4 % (36.0-66.0); PLATELET COUNT, AUTOMATED 210 10^3/uL (150-450); RED BLOOD COUNT 3.65 10^6/uL (4.00-5.40); RED CELL DISTRIBUTION WIDTH 16.7 % (11.5-14.5); WHITE BLOOD COUNT 7.6 10^3/uL (4.0-10.0)
[2017-08-17 07:25] LABS: ANION GAP 4 MEQ/L (8-16); BLOOD UREA NITROGEN 23 MG/DL (7-18); CALCIUM LEVEL 8.4 MG/DL (8.8-10.2); CARBON DIOXIDE LEVEL 30 MEQ/L (21-32); CHLORIDE LEVEL 107 MEQ/L (98-107); CREATININE FOR GFR 0.73 MG/DL (0.55-1.30); GLOMERULAR FILTRATION RATE > 60.0 (>32); GLUCOSE, FASTING 90 MG/DL (70-100); POTASSIUM SERUM 4.4 MEQ/L (3.5-5.1); SODIUM LEVEL 141 MEQ/L (136-145)
[2017-08-17] MEDS: ADVAIR HFA 230/21MCG INHALER INH (07:38)
[2017-08-17 08:06] LABS: HAPTOGLOBIN 276 mg/dL (34-200)
[2017-08-17] MEDS: SERTRALINE HCL 50 MG TAB PO (08:14)
[2017-08-17] MEDS: SUCRALFATE SUSP 1GM/10ML UD PO (08:14)
[2017-08-17] MEDS: ASCORBIC ACID 500 MG TAB PO (08:14)
[2017-08-17] MEDS: FERROUS SULFATE 325MG TAB PO (08:14)
[2017-08-17] MEDS: MULTIVITAMINS/MINERALS THERAP 1 TAB PO (08:14)
[2017-08-17] MEDS: CLOPIDOGREL 75 MG TAB PO (08:14)
[2017-08-17] MEDS: PANTOPRAZOLE 40MG TAB (PROTONIX) PO (08:14)
[2017-08-17] MEDS: SENOKOT S TAB PO (08:15)
[2017-08-17] MEDS: clonazePAM 1 MG TAB PO (08:15)
[2017-08-17] MEDS: VITAMIN D 1,000 INTERNATIONAL UNITS TABLET PO (08:15)
[2017-08-17] MEDS: busPIRone 5 MG TAB PO (08:15)
[2017-08-17] MEDS: predniSONE 20 MG TAB PO (09:53)
== END 2017-08-17 10:15 | DRG 187 ==
LOC: M MS5PR 08-15 18:22 → M ED 15:08 → M ED INP 17:54 → M PCU 20:34
DX: J90 Pleural effusion, not elsewhere classified (principal); I31.3 Pericardial effusion (noninflammatory); J44.1 Chronic obstructive pulmonary disease with (acute) exacerbation; G47.33 Obstructive sleep apnea (adult) (pediatric); E78.5 Hyperlipidemia, unspecified; K21.9 Gastro-esophageal reflux disease without esophagitis; F32.9 Major depressive disorder, single episode, unspecified; G62.9 Polyneuropathy, unspecified; K59.00 Constipation, unspecified; Z86.73 Personal history of transient ischemic attack (TIA), and cerebral infarction without residual deficits; Z95.0 Presence of cardiac pacemaker; Z79.899 Other long term (current) drug therapy; Z88.8 Allergy status to other drugs, medicaments and biological substances; Z88.5 Allergy status to narcotic agent; Z90.710 Acquired absence of both cervix and uterus; Z90.49 Acquired absence of other specified parts of digestive tract

== ENCOUNTER → 2017-08-31 | Outpatient (REF) | payer MEDICARE | LOC: SKLAB3 11:42 | DX: R06.02 Shortness of breath (principal); J90 Pleural effusion, not elsewhere classified | CPT/HCPCS: 71046 ==

== ENCOUNTER → 2017-09-01 | Outpatient (REF) ==
[2017-09-01 11:52] LABS: HEMATOCRIT 36.2 % (36.0-47.0); HEMOGLOBIN 11.3 g/dl (12.0-15.5); MEAN CORPUSCULAR HEMOGLOBIN 27.9 pg (27.0-33.0); MEAN CORPUSCULAR HGB CONC 31.2 g/dl (32.0-36.5); MEAN CORPUSCULAR VOLUME 89.4 fl (80.0-96.0); PLATELET COUNT, AUTOMATED 187 10^3/uL (150-450); RED BLOOD COUNT 4.05 10^6/uL (4.00-5.40); RED CELL DISTRIBUTION WIDTH 17.1 % (11.5-14.5); WHITE BLOOD COUNT 7.3 10^3/uL (4.0-10.0)
[2017-09-01 12:23] LABS: ANION GAP 6 MEQ/L (8-16); BLOOD UREA NITROGEN 14 MG/DL (7-18); CALCIUM LEVEL 8.1 MG/DL (8.8-10.2); CARBON DIOXIDE LEVEL 29 MEQ/L (21-32); CHLORIDE LEVEL 106 MEQ/L (98-107); CREATININE FOR GFR 0.69 MG/DL (0.55-1.30); GLOMERULAR FILTRATION RATE > 60.0 (>32); GLUCOSE, FASTING 134 MG/DL (70-100); POTASSIUM SERUM 3.8 MEQ/L (3.5-5.1); SODIUM LEVEL 141 MEQ/L (136-145)
== END ==
LOC: SKLAB3 11:08
DX: R50.9 Fever, unspecified (principal)

== ENCOUNTER → 2017-10-13 | Outpatient (REF) | payer MEDICARE ==
[2017-10-13 20:52] LABS: BASO % 0.5 % (0.0-1.0); EOS # 0.1 10^3/uL (0.0-0.50); EOS % 1.7 % (0.0-3.0); HEMATOCRIT 39.2 % (36.0-47.0); HEMOGLOBIN 12.2 g/dl (12.0-15.5); IMMATURE GRANULOCYTE % 0.4 % (0-3.0); LYMPH % 26.1 % (24.0-44.0); MEAN CORPUSCULAR HEMOGLOBIN 27.3 pg (27.0-33.0); MEAN CORPUSCULAR HGB CONC 31.1 g/dl (32.0-36.5); MEAN CORPUSCULAR VOLUME 87.7 fl (80.0-96.0); MONO # 0.7 10^3/uL (0.0-0.8); MONO % 8.5 % (0.0-5.0); NEUTROPHILS # 4.8 10^3/uL (1.8-7.7); NEUTROPHILS % 62.8 % (36.0-66.0); PLATELET COUNT, AUTOMATED 258 10^3/uL (150-450); RED BLOOD COUNT 4.47 10^6/uL (4.00-5.40); RED CELL DISTRIBUTION WIDTH 16.6 % (11.5-14.5); WHITE BLOOD COUNT 7.7 10^3/uL (4.0-10.0)
[2017-10-13 21:05] LABS: ESTIMATED AVERAGE GLUCOSE 123 MG/DL (60-110); HEMOGLOBIN A1c 5.9 %
[2017-10-13 21:07] LABS: ALBUMIN 3.5 GM/DL (3.2-5.2); ALBUMIN/GLOBULIN RATIO 0.78 (1.00-1.93); ALKALINE PHOSPHATASE 67 U/L (45-117); ALT/SGPT 32 U/L (12-78); ANION GAP 8 MEQ/L (8-16); AST/SGOT 19 U/L (7-37); BILIRUBIN,TOTAL 0.3 MG/DL (0.2-1.0); BLOOD UREA NITROGEN 19 MG/DL (7-18); CALCIUM LEVEL 8.3 MG/DL (8.8-10.2); CARBON DIOXIDE LEVEL 30 MEQ/L (21-32); CHLORIDE LEVEL 104 MEQ/L (98-107); CHOLESTEROL LEVEL 144 MG/DL (<200); CREATININE FOR GFR 0.92 MG/DL (0.55-1.30); GLOMERULAR FILTRATION RATE > 60.0 (>32); GLUCOSE, FASTING 90 MG/DL (70-100); HDL CHOLESTEROL 60 MG/DL (>40); NON-HDL-C 84 MG/DL; POTASSIUM SERUM 4.5 MEQ/L (3.5-5.1); SODIUM LEVEL 142 MEQ/L (136-145); TRIGLYCERIDES LEVEL 120 MG/DL (<150)
[2017-10-13 21:27] LABS: CREATININE, URINE 46.9 MG/DL; MALB URINE SIEMENS 13.1 MG/L; MAU/CREAT RATIO 27.9 MCG/MG (0.0-30.0)
== END ==
LOC: M SFHCLERA 16:46
DX: I10 Essential (primary) hypertension (principal); F41.9 Anxiety disorder, unspecified; G25.0 Essential tremor; M25.512 Pain in left shoulder
CPT/HCPCS: 84443

== ENCOUNTER → 2017-10-18 | Outpatient (CLI) | payer MEDICARE | LOC: M SMT 13:43 | DX: J94.8 Other specified pleural conditions (principal); R91.8 Other nonspecific abnormal finding of lung field; I51.7 Cardiomegaly | CPT/HCPCS: 71046 ==

== ENCOUNTER 2017-10-22 17:37 | Emergency (ER) | payer MEDICARE ==
[2017-10-22 16:30] LABS: ABG BASE EXCESS 2.5 (-2.0-2.0); ABG O2 SATURATION 96.1 % (95.0-99.0); ABG PARTIAL PRESSURE CO2 41.1 mmHg (35.0-45.0); ABG STANDARD HCO3 26.7 MEQ/L (22.0-26.0); ABG TOTAL CO2 28.2 MEQ/L (23.0-31.0); ABG pH (ARTERIAL) 7.435 UNITS (7.350-7.450)
[2017-10-22 16:59] LABS: BASO % 0.5 % (0.0-1.0); EOS # 0.1 10^3/uL (0.0-0.50); EOS % 2.3 % (0.0-3.0); HEMATOCRIT 39.1 % (36.0-47.0); HEMOGLOBIN 12.6 g/dl (12.0-15.5); IMMATURE GRANULOCYTE % 0.3 % (0-3.0); LYMPH # 1.3 10^3/uL (1.5-4.5); LYMPH % 22.9 % (24.0-44.0); MEAN CORPUSCULAR HEMOGLOBIN 27.9 pg (27.0-33.0); MEAN CORPUSCULAR HGB CONC 32.2 g/dl (32.0-36.5); MEAN CORPUSCULAR VOLUME 86.7 fl (80.0-96.0); MONO # 0.4 10^3/uL (0.0-0.8); MONO % 6.8 % (0.0-5.0); NEUTROPHILS # 3.8 10^3/uL (1.8-7.7); NEUTROPHILS % 67.2 % (36.0-66.0); PLATELET COUNT, AUTOMATED 236 10^3/uL (150-450); RED BLOOD COUNT 4.51 10^6/uL (4.00-5.40); RED CELL DISTRIBUTION WIDTH 16.1 % (11.5-14.5); WHITE BLOOD COUNT 5.7 10^3/uL (4.0-10.0)
[2017-10-22 17:21] LABS: ANION GAP 6 MEQ/L (8-16); BLOOD UREA NITROGEN 15 MG/DL (7-18); CALCIUM LEVEL 8.4 MG/DL (8.8-10.2); CARBON DIOXIDE LEVEL 30 MEQ/L (21-32); CHLORIDE LEVEL 110 MEQ/L (98-107); CREATININE FOR GFR 0.68 MG/DL (0.55-1.30); GLOMERULAR FILTRATION RATE > 60.0 (>32); GLUCOSE, FASTING 85 MG/DL (70-100); POTASSIUM SERUM 3.9 MEQ/L (3.5-5.1); SODIUM LEVEL 146 MEQ/L (136-145)
== END 2017-10-22 18:57 | disposition home or self-care (01) ==
LOC: M ED 17:37
DX: G47.14 Hypersomnia due to medical condition (principal); G47.33 Obstructive sleep apnea (adult) (pediatric); I51.7 Cardiomegaly; K21.9 Gastro-esophageal reflux disease without esophagitis; K44.9 Diaphragmatic hernia without obstruction or gangrene; J44.9 Chronic obstructive pulmonary disease, unspecified; Z87.891 Personal history of nicotine dependence; Z79.899 Other long term (current) drug therapy; Z91.013 Allergy to seafood; Z91.89 Other specified personal risk factors, not elsewhere classified; Z91.010 Allergy to peanuts; Z88.5 Allergy status to narcotic agent; Z88.8 Allergy status to other drugs, medicaments and biological substances
CPT/HCPCS: 71046

== ENCOUNTER 2017-11-08 21:38 | Inpatient (IN) | payer MEDICARE ==
[2017-11-08 22:51] LABS: BASO % 0.7 % (0.0-1.0); EOS # 0.2 10^3/uL (0.0-0.50); EOS % 2.6 % (0.0-3.0); HEMATOCRIT 39.4 % (36.0-47.0); HEMOGLOBIN 12.7 g/dl (12.0-15.5); IMMATURE GRANULOCYTE % 0.3 % (0-3.0); LYMPH # 1.6 10^3/uL (1.5-4.5); LYMPH % 27.2 % (24.0-44.0); MEAN CORPUSCULAR HEMOGLOBIN 27.9 pg (27.0-33.0); MEAN CORPUSCULAR HGB CONC 32.2 g/dl (32.0-36.5); MEAN CORPUSCULAR VOLUME 86.6 fl (80.0-96.0); MONO # 0.6 10^3/uL (0.0-0.8); MONO % 9.6 % (0.0-5.0); NEUTROPHILS # 3.6 10^3/uL (1.8-7.7); NEUTROPHILS % 59.6 % (36.0-66.0); PLATELET COUNT, AUTOMATED 202 10^3/uL (150-450); RED BLOOD COUNT 4.55 10^6/uL (4.00-5.40)
[2017-11-08 22:55] LABS: INR 1.01; PROTHROMBIN TIME 13.4 SECONDS (12.1-14.4)
[2017-11-08] MEDS: fentaNYL 100 MCG/2 ML INJECTION (J3010) IV (23:04)
[2017-11-08 23:06] LABS: ALBUMIN 3.5 GM/DL (3.2-5.2); ALBUMIN/GLOBULIN RATIO 0.88 (1.00-1.93); ALKALINE PHOSPHATASE 59 U/L (45-117); ALT/SGPT 29 U/L (12-78); ANION GAP 10 MEQ/L (8-16); AST/SGOT 21 U/L (7-37); BILIRUBIN,DIRECT < 0.1 MG/DL (0.0-0.2); BILIRUBIN,TOTAL 0.1 MG/DL (0.2-1.0); BLOOD UREA NITROGEN 17 MG/DL (7-18); C REACTIVE PROTEIN QUANTITATIV 0.44 MG/DL (0.00-0.30); CALCIUM LEVEL 8.3 MG/DL (8.8-10.2); CARBON DIOXIDE LEVEL 27 MEQ/L (21-32); CHLORIDE LEVEL 108 MEQ/L (98-107); CPK CREATINE PHOSPHOKINASE 250 U/L (26-192); CREATININE FOR GFR 0.69 MG/DL (0.55-1.30); FREE T4 0.88 NG/DL (0.76-1.46); GLOMERULAR FILTRATION RATE > 60.0 (>32); GLUCOSE, FASTING 88 MG/DL (70-100); POTASSIUM SERUM 3.3 MEQ/L (3.5-5.1); SODIUM LEVEL 145 MEQ/L (136-145); TOTAL PROTEIN 7.5 GM/DL (6.4-8.2); TROPONIN I < 0.02 NG/ML (< 0.10)
[2017-11-08 23:12] LABS: CK-MB VALUE MASS 3.9 NG/ML (<3.6); MB/CK RELATIVE INDEX 1.56 (< OR =4); NT-PRO BNP 366 PG/ML (<450)
[2017-11-09] MEDS: POTASSIUM CHLORIDE 10 MEQ SR TABLET PO ×2 (00:46→02:23)
[2017-11-09] MEDS: hydrALAZINE INJ 20 MG/ML VIAL IV (00:47)
[2017-11-09] MEDS ORDERED: IPRATROPIUM 0.5MG/ALBUTEROL 2.5MG INH SOL UD 3ML (DUONEB)(J7620) NEB (01:00)
[2017-11-09] MEDS: ADVAIR HFA 230/21MCG INHALER INH ×3 (01:12→21:00)
[2017-11-09] MEDS ORDERED: ACETAMINOPHEN TAB 650MG DOSE (2X325MG) PO (01:15)
[2017-11-09] MEDS ORDERED: BISACODYL 10 MG SUPP PR (01:15)
[2017-11-09] MEDS ORDERED: LORazepam 2 MG/ML VIAL (J2060) As Ordered (02:05)
[2017-11-09] MEDS: LORazepam 2 MG/ML VIAL (J2060) IV (02:18)
[2017-11-09] MEDS: LABETALOL HCL 100 MG/20 ML VIAL IV (02:24)
[2017-11-09] MEDS: AUGMENTIN 875 MG TAB PO ×3 (02:24→20:58)
[2017-11-09] MEDS: clonazePAM 1 MG TAB PO ×3 (02:45→20:57)
[2017-11-09] MEDS: GABAPENTIN 100 MG CAP PO ×2 (02:47→20:58)
[2017-11-09] MEDS: busPIRone 5 MG TAB PO ×3 (02:48→20:58)
[2017-11-09] MEDS: ROSUVASTATIN 10 MG TAB (CRESTOR) PO ×2 (02:48→20:57)
[2017-11-09] MEDS: SENOKOT S TAB PO ×2 (02:48→20:58)
[2017-11-09] MEDS: LACTOBACILLUS ACIDOPHILUS CAP (BACID) PO ×3 (02:48→20:58)
[2017-11-09] MEDS: NIFEdipine 30 MG XL TAB PO (02:49)
[2017-11-09 06:16] LABS: HEMOGLOBIN 11.7 g/dl (12.0-15.5); MEAN CORPUSCULAR HEMOGLOBIN 28.5 pg (27.0-33.0); MEAN CORPUSCULAR HGB CONC 32.5 g/dl (32.0-36.5); MEAN CORPUSCULAR VOLUME 87.6 fl (80.0-96.0); PLATELET COUNT, AUTOMATED 177 10^3/uL (150-450); RED BLOOD COUNT 4.11 10^6/uL (4.00-5.40); RED CELL DISTRIBUTION WIDTH 17.1 % (11.5-14.5); WHITE BLOOD COUNT 5.4 10^3/uL (4.0-10.0)
[2017-11-09 06:39] LABS: ANION GAP 7 MEQ/L (8-16); BLOOD UREA NITROGEN 15 MG/DL (7-18); CALCIUM LEVEL 7.9 MG/DL (8.8-10.2); CARBON DIOXIDE LEVEL 29 MEQ/L (21-32); CHLORIDE LEVEL 109 MEQ/L (98-107); CREATININE FOR GFR 0.64 MG/DL (0.55-1.30); GLOMERULAR FILTRATION RATE > 60.0 (>32); GLUCOSE, FASTING 98 MG/DL (70-100); POTASSIUM SERUM 3.5 MEQ/L (3.5-5.1); SODIUM LEVEL 145 MEQ/L (136-145); TROPONIN I 0.02 NG/ML (< 0.10)
[2017-11-09] MEDS: SUCRALFATE 1 GM TAB PO ×2 (08:52→17:44)
[2017-11-09] MEDS: SERTRALINE HCL 50 MG TAB PO (08:52)
[2017-11-09] MEDS: CLOPIDOGREL 75 MG TAB PO (08:52)
[2017-11-09] MEDS: ENOXAPARIN 40 MG/0.4 ML SYRINGE (J1650) SC (08:52)
[2017-11-09] MEDS: FERROUS SULFATE 325MG TAB PO (08:52)
[2017-11-09] MEDS: VITAMIN D 1,000 INTERNATIONAL UNITS TABLET PO (08:52)
[2017-11-09] MEDS: VALSARTAN 80 MG TAB (DIOVAN) PO (08:53)
[2017-11-09] MEDS: FAMOTIDINE 20 MG TAB PO (08:53)
[2017-11-09] MEDS ORDERED: ENOXAPARIN 40 MG/0.4 ML SYRINGE (J1650) SC (09:00)
[2017-11-09 14:18] LABS: TROPONIN I < 0.02 NG/ML (< 0.10)
[2017-11-09] MEDS ORDERED: SLF 3 ML SYR IV (17:30)
[2017-11-09] MEDS: SLF 3 ML SYR IV (21:01)
[2017-11-10] MEDS: SLF 3 ML SYR IV ×3 (06:00→21:57)
[2017-11-10 06:16] LABS: HEMATOCRIT 36.6 % (36.0-47.0); HEMOGLOBIN 11.6 g/dl (12.0-15.5); MEAN CORPUSCULAR HEMOGLOBIN 27.6 pg (27.0-33.0); MEAN CORPUSCULAR HGB CONC 31.7 g/dl (32.0-36.5); MEAN CORPUSCULAR VOLUME 86.9 fl (80.0-96.0); PLATELET COUNT, AUTOMATED 191 10^3/uL (150-450); RED BLOOD COUNT 4.21 10^6/uL (4.00-5.40); RED CELL DISTRIBUTION WIDTH 17.2 % (11.5-14.5); WHITE BLOOD COUNT 5.6 10^3/uL (4.0-10.0)
[2017-11-10 06:34] LABS: ANION GAP 7 MEQ/L (8-16); BLOOD UREA NITROGEN 15 MG/DL (7-18); CALCIUM LEVEL 8.3 MG/DL (8.8-10.2); CARBON DIOXIDE LEVEL 28 MEQ/L (21-32); CHLORIDE LEVEL 110 MEQ/L (98-107); CREATININE FOR GFR 0.63 MG/DL (0.55-1.30); GLOMERULAR FILTRATION RATE > 60.0 (>32); GLUCOSE, FASTING 88 MG/DL (70-100); POTASSIUM SERUM 3.7 MEQ/L (3.5-5.1); SODIUM LEVEL 145 MEQ/L (136-145)
[2017-11-10] MEDS: ADVAIR HFA 230/21MCG INHALER INH ×2 (08:16→21:00)
[2017-11-10] MEDS: SUCRALFATE 1 GM TAB PO ×2 (08:54→17:02)
[2017-11-10] MEDS: AUGMENTIN 875 MG TAB PO ×2 (08:54→21:56)
[2017-11-10] MEDS: VALSARTAN 80 MG TAB (DIOVAN) PO (08:55)
[2017-11-10] MEDS: LACTOBACILLUS ACIDOPHILUS CAP (BACID) PO ×2 (08:55→21:56)
[2017-11-10] MEDS: SERTRALINE HCL 50 MG TAB PO (08:56)
[2017-11-10] MEDS: VITAMIN D 1,000 INTERNATIONAL UNITS TABLET PO (08:56)
[2017-11-10] MEDS: amLODIPine 5 MG TAB PO (08:56)
[2017-11-10] MEDS: FERROUS SULFATE 325MG TAB PO (08:56)
[2017-11-10] MEDS: clonazePAM 1 MG TAB PO ×2 (08:56→21:54)
[2017-11-10] MEDS: FAMOTIDINE 20 MG TAB PO (08:56)
[2017-11-10] MEDS: CLOPIDOGREL 75 MG TAB PO (08:56)
[2017-11-10] MEDS: busPIRone 5 MG TAB PO ×2 (08:57→21:55)
[2017-11-10] MEDS: ENOXAPARIN 40 MG/0.4 ML SYRINGE (J1650) SC (08:57)
[2017-11-10] MEDS ORDERED: PILL CRUSHER/CUTTER 1 EACH XX (21:45)
[2017-11-10] MEDS: GABAPENTIN 100 MG CAP PO (21:55)
[2017-11-10] MEDS: SENOKOT S TAB PO (21:56)
[2017-11-10] MEDS: ROSUVASTATIN 10 MG TAB (CRESTOR) PO (21:56)
[2017-11-11] MEDS: SLF 3 ML SYR IV ×3 (05:19→21:42)
[2017-11-11 05:37] LABS: HEMATOCRIT 36.5 % (36.0-47.0); HEMOGLOBIN 11.4 g/dl (12.0-15.5); MEAN CORPUSCULAR HEMOGLOBIN 27.9 pg (27.0-33.0); MEAN CORPUSCULAR HGB CONC 31.2 g/dl (32.0-36.5); MEAN CORPUSCULAR VOLUME 89.5 fl (80.0-96.0); PLATELET COUNT, AUTOMATED 162 10^3/uL (150-450); RED BLOOD COUNT 4.08 10^6/uL (4.00-5.40); RED CELL DISTRIBUTION WIDTH 17.2 % (11.5-14.5); WHITE BLOOD COUNT 4.3 10^3/uL (4.0-10.0)
[2017-11-11 05:59] LABS: ANION GAP 7 MEQ/L (8-16); BLOOD UREA NITROGEN 14 MG/DL (7-18); CALCIUM LEVEL 8.2 MG/DL (8.8-10.2); CARBON DIOXIDE LEVEL 27 MEQ/L (21-32); CHLORIDE LEVEL 110 MEQ/L (98-107); CREATININE FOR GFR 0.61 MG/DL (0.55-1.30); GLOMERULAR FILTRATION RATE > 60.0 (>32); GLUCOSE, FASTING 87 MG/DL (70-100); POTASSIUM SERUM 4.1 MEQ/L (3.5-5.1); SODIUM LEVEL 144 MEQ/L (136-145)
[2017-11-11] MEDS: ADVAIR HFA 230/21MCG INHALER INH ×2 (07:44→20:42)
[2017-11-11] MEDS: SUCRALFATE 1 GM TAB PO ×2 (08:55→17:28)
[2017-11-11] MEDS: LACTOBACILLUS ACIDOPHILUS CAP (BACID) PO ×2 (08:56→20:33)
[2017-11-11] MEDS: VALSARTAN 80 MG TAB (DIOVAN) PO (08:56)
[2017-11-11] MEDS: busPIRone 5 MG TAB PO ×2 (08:56→20:33)
[2017-11-11] MEDS: AUGMENTIN 875 MG TAB PO ×2 (08:56→20:32)
[2017-11-11] MEDS: FERROUS SULFATE 325MG TAB PO (08:56)
[2017-11-11] MEDS: FAMOTIDINE 20 MG TAB PO (08:57)
[2017-11-11] MEDS: VITAMIN D 1,000 INTERNATIONAL UNITS TABLET PO (08:57)
[2017-11-11] MEDS: amLODIPine 5 MG TAB PO ×2 (08:57→21:42)
[2017-11-11] MEDS: CLOPIDOGREL 75 MG TAB PO (08:57)
[2017-11-11] MEDS: clonazePAM 1 MG TAB PO ×2 (08:57→20:33)
[2017-11-11] MEDS: SERTRALINE HCL 50 MG TAB PO (08:57)
[2017-11-11] MEDS: ENOXAPARIN 40 MG/0.4 ML SYRINGE (J1650) SC (08:58)
[2017-11-11 10:07] LABS: C REACTIVE PROTEIN QUANTITATIV < 0.30 MG/DL (0.00-0.30)
[2017-11-11] MEDS: ROSUVASTATIN 10 MG TAB (CRESTOR) PO (20:31)
[2017-11-11] MEDS: SENOKOT S TAB PO (20:31)
[2017-11-11] MEDS: ACETAMINOPHEN TAB 650MG DOSE (2X325MG) PO (20:32)
[2017-11-11] MEDS: GABAPENTIN 100 MG CAP PO (20:33)
[2017-11-12 05:53] LABS: HEMATOCRIT 37.3 % (36.0-47.0); HEMOGLOBIN 11.8 g/dl (12.0-15.5); MEAN CORPUSCULAR HEMOGLOBIN 27.4 pg (27.0-33.0); MEAN CORPUSCULAR HGB CONC 31.6 g/dl (32.0-36.5); MEAN CORPUSCULAR VOLUME 86.7 fl (80.0-96.0); PLATELET COUNT, AUTOMATED 189 10^3/uL (150-450); RED CELL DISTRIBUTION WIDTH 17.3 % (11.5-14.5); WHITE BLOOD COUNT 5.4 10^3/uL (4.0-10.0)
[2017-11-12] MEDS: SLF 3 ML SYR IV ×3 (06:01→21:55)
[2017-11-12 06:16] LABS: ANION GAP 7 MEQ/L (8-16); BLOOD UREA NITROGEN 18 MG/DL (7-18); CALCIUM LEVEL 8.6 MG/DL (8.8-10.2); CARBON DIOXIDE LEVEL 27 MEQ/L (21-32); CHLORIDE LEVEL 109 MEQ/L (98-107); CREATININE FOR GFR 0.64 MG/DL (0.55-1.30); GLOMERULAR FILTRATION RATE > 60.0 (>32); GLUCOSE, FASTING 89 MG/DL (70-100); POTASSIUM SERUM 3.9 MEQ/L (3.5-5.1); SODIUM LEVEL 143 MEQ/L (136-145)
[2017-11-12] MEDS: ADVAIR HFA 230/21MCG INHALER INH ×2 (07:47→20:29)
[2017-11-12] MEDS: busPIRone 5 MG TAB PO ×2 (08:21→19:47)
[2017-11-12] MEDS: FAMOTIDINE 20 MG TAB PO (08:22)
[2017-11-12] MEDS: VITAMIN D 1,000 INTERNATIONAL UNITS TABLET PO (08:22)
[2017-11-12] MEDS: FERROUS SULFATE 325MG TAB PO (08:22)
[2017-11-12] MEDS: clonazePAM 1 MG TAB PO ×2 (08:22→19:46)
[2017-11-12] MEDS: AUGMENTIN 875 MG TAB PO ×2 (08:22→19:47)
[2017-11-12] MEDS: LACTOBACILLUS ACIDOPHILUS CAP (BACID) PO ×2 (08:22→19:50)
[2017-11-12] MEDS: VALSARTAN 80 MG TAB (DIOVAN) PO (08:22)
[2017-11-12] MEDS: CLOPIDOGREL 75 MG TAB PO (08:22)
[2017-11-12] MEDS: SUCRALFATE 1 GM TAB PO ×2 (08:22→17:09)
[2017-11-12] MEDS: amLODIPine 5 MG TAB PO (08:22)
[2017-11-12] MEDS: ENOXAPARIN 40 MG/0.4 ML SYRINGE (J1650) SC (08:23)
[2017-11-12] MEDS: SERTRALINE HCL 50 MG TAB PO (08:23)
[2017-11-12] MEDS: **hydrALAZINE** 10 MG TAB PO ×2 (12:00→19:49)
[2017-11-12] MEDS: ACETAMINOPHEN TAB 650MG DOSE (2X325MG) PO (18:48)
[2017-11-12] MEDS: GABAPENTIN 100 MG CAP PO (19:48)
[2017-11-12] MEDS: ROSUVASTATIN 10 MG TAB (CRESTOR) PO (19:49)
[2017-11-12] MEDS: SENOKOT S TAB PO (19:49)
[2017-11-13] MEDS: SLF 3 ML SYR IV ×3 (05:18→20:31)
[2017-11-13] MEDS: **hydrALAZINE** 10 MG TAB PO ×3 (05:18→20:30)
[2017-11-13 05:58] LABS: HEMATOCRIT 37.3 % (36.0-47.0); MEAN CORPUSCULAR HEMOGLOBIN 27.8 pg (27.0-33.0); MEAN CORPUSCULAR HGB CONC 32.2 g/dl (32.0-36.5); MEAN CORPUSCULAR VOLUME 86.5 fl (80.0-96.0); PLATELET COUNT, AUTOMATED 203 10^3/uL (150-450); RED BLOOD COUNT 4.31 10^6/uL (4.00-5.40); RED CELL DISTRIBUTION WIDTH 17.3 % (11.5-14.5); WHITE BLOOD COUNT 5.2 10^3/uL (4.0-10.0)
[2017-11-13 06:20] LABS: ANION GAP 7 MEQ/L (8-16); BLOOD UREA NITROGEN 22 MG/DL (7-18); CALCIUM LEVEL 8.8 MG/DL (8.8-10.2); CARBON DIOXIDE LEVEL 30 MEQ/L (21-32); CHLORIDE LEVEL 109 MEQ/L (98-107); CREATININE FOR GFR 0.67 MG/DL (0.55-1.30); GLOMERULAR FILTRATION RATE > 60.0 (>32); GLUCOSE, FASTING 84 MG/DL (70-100); POTASSIUM SERUM 3.9 MEQ/L (3.5-5.1); SODIUM LEVEL 146 MEQ/L (136-145)
[2017-11-13] MEDS: SUCRALFATE 1 GM TAB PO ×2 (07:43→17:57)
[2017-11-13] MEDS: AUGMENTIN 875 MG TAB PO ×2 (08:28→20:30)
[2017-11-13] MEDS: busPIRone 5 MG TAB PO ×2 (08:28→20:29)
[2017-11-13] MEDS: VALSARTAN 80 MG TAB (DIOVAN) PO (08:29)
[2017-11-13] MEDS: VITAMIN D 1,000 INTERNATIONAL UNITS TABLET PO (08:29)
[2017-11-13] MEDS: LACTOBACILLUS ACIDOPHILUS CAP (BACID) PO ×2 (08:29→20:30)
[2017-11-13] MEDS: FAMOTIDINE 20 MG TAB PO (08:29)
[2017-11-13] MEDS: FERROUS SULFATE 325MG TAB PO (08:29)
[2017-11-13] MEDS: CLOPIDOGREL 75 MG TAB PO (08:29)
[2017-11-13] MEDS: clonazePAM 1 MG TAB PO ×2 (08:29→20:29)
[2017-11-13] MEDS: ENOXAPARIN 40 MG/0.4 ML SYRINGE (J1650) SC (08:30)
[2017-11-13] MEDS: SERTRALINE HCL 50 MG TAB PO (08:30)
[2017-11-13] MEDS: ADVAIR HFA 230/21MCG INHALER INH ×2 (12:29→20:55)
[2017-11-13] MEDS: SENOKOT S TAB PO (20:29)
[2017-11-13] MEDS: ROSUVASTATIN 10 MG TAB (CRESTOR) PO (20:30)
[2017-11-13] MEDS: GABAPENTIN 100 MG CAP PO (20:30)
[2017-11-14] MEDS: SLF 3 ML SYR IV (05:32)
[2017-11-14] MEDS: **hydrALAZINE** 10 MG TAB PO ×2 (05:32→13:27)
[2017-11-14 05:57] LABS: HEMATOCRIT 36.7 % (36.0-47.0); HEMOGLOBIN 11.6 g/dl (12.0-15.5); MEAN CORPUSCULAR HEMOGLOBIN 27.8 pg (27.0-33.0); MEAN CORPUSCULAR HGB CONC 31.6 g/dl (32.0-36.5); PLATELET COUNT, AUTOMATED 196 10^3/uL (150-450); RED BLOOD COUNT 4.17 10^6/uL (4.00-5.40); RED CELL DISTRIBUTION WIDTH 17.8 % (11.5-14.5); WHITE BLOOD COUNT 6.3 10^3/uL (4.0-10.0)
[2017-11-14 06:22] LABS: ANION GAP 8 MEQ/L (8-16); BLOOD UREA NITROGEN 22 MG/DL (7-18); CALCIUM LEVEL 8.4 MG/DL (8.8-10.2); CARBON DIOXIDE LEVEL 27 MEQ/L (21-32); CHLORIDE LEVEL 108 MEQ/L (98-107); CREATININE FOR GFR 0.71 MG/DL (0.55-1.30); GLOMERULAR FILTRATION RATE > 60.0 (>32); GLUCOSE, FASTING 86 MG/DL (70-100); POTASSIUM SERUM 3.8 MEQ/L (3.5-5.1); SODIUM LEVEL 143 MEQ/L (136-145)
[2017-11-14] MEDS: SUCRALFATE 1 GM TAB PO (07:44)
[2017-11-14] MEDS: busPIRone 5 MG TAB PO (08:38)
[2017-11-14] MEDS: clonazePAM 1 MG TAB PO (08:38)
[2017-11-14] MEDS: VITAMIN D 1,000 INTERNATIONAL UNITS TABLET PO (08:38)
[2017-11-14] MEDS: LACTOBACILLUS ACIDOPHILUS CAP (BACID) PO (08:38)
[2017-11-14] MEDS: AUGMENTIN 875 MG TAB PO (08:38)
[2017-11-14] MEDS: FERROUS SULFATE 325MG TAB PO (08:39)
[2017-11-14] MEDS: CLOPIDOGREL 75 MG TAB PO (08:39)
[2017-11-14] MEDS: SERTRALINE HCL 50 MG TAB PO (08:39)
[2017-11-14] MEDS: FAMOTIDINE 20 MG TAB PO (08:39)
[2017-11-14] MEDS: VALSARTAN 80 MG TAB (DIOVAN) PO (08:39)
[2017-11-14] MEDS: ENOXAPARIN 40 MG/0.4 ML SYRINGE (J1650) SC (08:39)
[2017-11-14] MEDS: ADVAIR HFA 230/21MCG INHALER INH (09:05)
[2017-11-14] MEDS: ACETAMINOPHEN TAB 650MG DOSE (2X325MG) PO (11:28)
== END 2017-11-14 14:00 | disposition home or self-care (01) | DRG 305 ==
LOC: M ED 21:38 → M ED INP 21:39 → M ICU 11-09 02:26 → M PCU 11-09 22:21
DX: I16.0 Hypertensive urgency (principal); I10 Essential (primary) hypertension; E78.5 Hyperlipidemia, unspecified; J44.9 Chronic obstructive pulmonary disease, unspecified; G47.33 Obstructive sleep apnea (adult) (pediatric); E87.6 Hypokalemia; K21.9 Gastro-esophageal reflux disease without esophagitis; F32.9 Major depressive disorder, single episode, unspecified; S50.811A Abrasion of right forearm, initial encounter; M19.012 Primary osteoarthritis, left shoulder; F41.9 Anxiety disorder, unspecified; J01.01 Acute recurrent maxillary sinusitis; W54.8XXA Other contact with dog, initial encounter; Z90.49 Acquired absence of other specified parts of digestive tract; Z90.710 Acquired absence of both cervix and uterus; Z79.02 Long term (current) use of antithrombotics/antiplatelets; Z95.0 Presence of cardiac pacemaker; Z79.899 Other long term (current) drug therapy; Y93.K9 Activity, other involving animal care; Y92.9 Unspecified place or not applicable

== ENCOUNTER 2018-01-06 20:41 | Inpatient (IN) | payer MEDICARE ==
[2018-01-06 21:27] LABS: BASO % 0.4 % (0.0-1.0); EOS # 0.1 10^3/uL (0.0-0.50); EOS % 1.5 % (0.0-3.0); HEMATOCRIT 38.7 % (36.0-47.0); HEMOGLOBIN 12.6 g/dl (12.0-15.5); LYMPH # 1.8 10^3/uL (1.5-4.5); MEAN CORPUSCULAR HEMOGLOBIN 29.6 pg (27.0-33.0); MEAN CORPUSCULAR HGB CONC 32.6 g/dl (32.0-36.5); MEAN CORPUSCULAR VOLUME 90.8 fl (80.0-96.0); MONO # 0.4 10^3/uL (0.0-0.8); NEUTROPHILS # 2.9 10^3/uL (1.8-7.7); NEUTROPHILS % 55.1 % (36.0-66.0); PLATELET COUNT, AUTOMATED 173 10^3/uL (150-450); RED BLOOD COUNT 4.26 10^6/uL (4.00-5.40); RED CELL DISTRIBUTION WIDTH 16.7 % (11.5-14.5); WHITE BLOOD COUNT 5.3 10^3/uL (4.0-10.0)
[2018-01-06 21:29] LABS: KETONE, URINE AUTO RFX NEGATIVE (NEGATIVE); LEUKOCYTE ESTERASE UR AUTO RFX NEGATIVE (NEGATIVE); NITRITE, URINE AUTO RFX NEGATIVE (NEGATIVE); RBC, URINE AUTO RFX 1 /HPF (0-3); SPECIFIC GRAVITY UR AUTO RFX 1.002 (1.002-1.035); SQUAM EPITHELIAL CELL UR AURFX 0 /HPF (0-6); WBC, URINE AUTO RFX 1 /HPF (0-3)
[2018-01-06] MEDS: hydrALAZINE INJ 20 MG/ML VIAL IV ×2 (21:39→23:52)
[2018-01-06 21:51] LABS: BEDSIDE GLUCOSE 90 MG/DL (83-110)
[2018-01-06 22:11] LABS: AMMONIA 24 uMOL/L (<32)
[2018-01-06 22:14] LABS: LACTIC ACID SEPSIS PROTOCOL 0.8 MMOL/L (0.4-2.0)
[2018-01-06 22:19] LABS: ALBUMIN 3.9 GM/DL (3.2-5.2); ALBUMIN/GLOBULIN RATIO 1.11 (1.00-1.93); ALKALINE PHOSPHATASE 44 U/L (45-117); ALT/SGPT 34 U/L (12-78); ANION GAP 8 MEQ/L (8-16); AST/SGOT 25 U/L (7-37); BILIRUBIN,DIRECT < 0.1 MG/DL (0.0-0.2); BILIRUBIN,TOTAL 0.2 MG/DL (0.2-1.0); BLOOD UREA NITROGEN 14 MG/DL (7-18); CALCIUM LEVEL 8.6 MG/DL (8.8-10.2); CARBON DIOXIDE LEVEL 25 MEQ/L (21-32); CHLORIDE LEVEL 113 MEQ/L (98-107); CPK CREATINE PHOSPHOKINASE 413 U/L (26-192); CREATININE FOR GFR 0.75 MG/DL (0.55-1.30); GLOMERULAR FILTRATION RATE > 60.0 (>32); GLUCOSE, FASTING 84 MG/DL (70-100); MB/CK RELATIVE INDEX 1.82 (< OR =4); POTASSIUM SERUM 3.6 MEQ/L (3.5-5.1); SODIUM LEVEL 146 MEQ/L (136-145); TOTAL PROTEIN 7.4 GM/DL (6.4-8.2); TROPONIN I < 0.02 NG/ML (< 0.10)
[2018-01-07] MEDS ORDERED: **hydrALAZINE HCL** 25 MG TAB As Ordered (01:33)
[2018-01-07] MEDS ORDERED: BISACODYL 10 MG SUPP PR (01:45)
[2018-01-07] MEDS: clonazePAM 1 MG TAB PO ×3 (01:52→21:45)
[2018-01-07] MEDS: **hydrALAZINE** 50 MG TAB PO ×3 (01:52→18:11)
[2018-01-07] MEDS: busPIRone 5 MG TAB PO ×3 (01:53→21:45)
[2018-01-07] MEDS: SENOKOT S TAB PO ×2 (01:53→21:45)
[2018-01-07] MEDS: GABAPENTIN 100 MG CAP PO ×2 (01:53→21:45)
[2018-01-07] MEDS: ADVAIR HFA 230/21MCG INHALER INH ×3 (01:54→20:51)
[2018-01-07] MEDS: ROSUVASTATIN 10 MG TAB (CRESTOR) PO ×2 (01:55→21:45)
[2018-01-07 06:08] LABS: TROPONIN I < 0.02 NG/ML (< 0.10)
[2018-01-07] MEDS: HEPARIN SOD (PORCINE) 5000 UNITS/ML VIAL SC ×3 (06:38→21:45)
[2018-01-07] MEDS ORDERED: PILL CRUSHER/CUTTER 1 EACH XX (08:10)
[2018-01-07] MEDS: SUCRALFATE 1 GM TAB PO ×2 (08:12→18:09)
[2018-01-07] MEDS: SERTRALINE HCL 50 MG TAB PO (08:12)
[2018-01-07] MEDS: FERROUS SULFATE 325MG TAB PO (08:13)
[2018-01-07] MEDS: CLOPIDOGREL 75 MG TAB PO (08:15)
[2018-01-07] MEDS: PANTOPRAZOLE 40MG TAB (PROTONIX) PO (08:15)
[2018-01-07] MEDS: VALSARTAN 80 MG TAB (DIOVAN) PO (08:15)
[2018-01-07] MEDS: VITAMIN D 1,000 INTERNATIONAL UNITS TABLET PO (08:16)
[2018-01-08] MEDS: **hydrALAZINE** 50 MG TAB PO ×3 (02:40→18:16)
[2018-01-08] MEDS: HEPARIN SOD (PORCINE) 5000 UNITS/ML VIAL SC ×3 (06:04→20:58)
[2018-01-08 06:14] LABS: HEMATOCRIT 36.3 % (36.0-47.0); HEMOGLOBIN 11.3 g/dl (12.0-15.5); MEAN CORPUSCULAR HEMOGLOBIN 28.8 pg (27.0-33.0); MEAN CORPUSCULAR HGB CONC 31.1 g/dl (32.0-36.5); MEAN CORPUSCULAR VOLUME 92.6 fl (80.0-96.0); PLATELET COUNT, AUTOMATED 161 10^3/uL (150-450); RED BLOOD COUNT 3.92 10^6/uL (4.00-5.40); RED CELL DISTRIBUTION WIDTH 17.5 % (11.5-14.5); WHITE BLOOD COUNT 4.7 10^3/uL (4.0-10.0)
[2018-01-08 06:48] LABS: ANION GAP 7 MEQ/L (8-16); BLOOD UREA NITROGEN 18 MG/DL (7-18); CALCIUM LEVEL 8.1 MG/DL (8.8-10.2); CARBON DIOXIDE LEVEL 28 MEQ/L (21-32); CHLORIDE LEVEL 111 MEQ/L (98-107); CREATININE FOR GFR 0.77 MG/DL (0.55-1.30); GLOMERULAR FILTRATION RATE > 60.0 (>32); GLUCOSE, FASTING 85 MG/DL (70-100); POTASSIUM SERUM 3.6 MEQ/L (3.5-5.1); SODIUM LEVEL 146 MEQ/L (136-145)
[2018-01-08] MEDS: ADVAIR HFA 230/21MCG INHALER INH ×2 (08:00→21:30)
[2018-01-08] MEDS: FERROUS SULFATE 325MG TAB PO (09:46)
[2018-01-08] MEDS: SUCRALFATE 1 GM TAB PO ×2 (09:46→16:38)
[2018-01-08] MEDS: busPIRone 5 MG TAB PO ×2 (09:46→20:58)
[2018-01-08] MEDS: SERTRALINE HCL 50 MG TAB PO (09:47)
[2018-01-08] MEDS: CLOPIDOGREL 75 MG TAB PO (09:47)
[2018-01-08] MEDS: PANTOPRAZOLE 40MG TAB (PROTONIX) PO (09:47)
[2018-01-08] MEDS: VITAMIN D 1,000 INTERNATIONAL UNITS TABLET PO (09:49)
[2018-01-08] MEDS: clonazePAM 1 MG TAB PO ×2 (09:50→20:58)
[2018-01-08] MEDS: VALSARTAN 80 MG TAB (DIOVAN) PO (09:50)
[2018-01-08] MEDS: ACETAMINOPHEN 500 MG TAB PO (09:50)
[2018-01-08] MEDS: ROSUVASTATIN 10 MG TAB (CRESTOR) PO (20:57)
[2018-01-08] MEDS: SENOKOT S TAB PO (20:57)
[2018-01-08] MEDS: GABAPENTIN 100 MG CAP PO (20:58)
[2018-01-09] MEDS: **hydrALAZINE** 50 MG TAB PO ×3 (02:32→18:16)
[2018-01-09] MEDS: HEPARIN SOD (PORCINE) 5000 UNITS/ML VIAL SC ×3 (06:05→21:11)
[2018-01-09 06:12] LABS: HEMATOCRIT 35.2 % (36.0-47.0); HEMOGLOBIN 11.1 g/dl (12.0-15.5); MEAN CORPUSCULAR HEMOGLOBIN 29.4 pg (27.0-33.0); MEAN CORPUSCULAR HGB CONC 31.5 g/dl (32.0-36.5); MEAN CORPUSCULAR VOLUME 93.4 fl (80.0-96.0); PLATELET COUNT, AUTOMATED 150 10^3/uL (150-450); RED BLOOD COUNT 3.77 10^6/uL (4.00-5.40); RED CELL DISTRIBUTION WIDTH 17.3 % (11.5-14.5); WHITE BLOOD COUNT 4.4 10^3/uL (4.0-10.0)
[2018-01-09 06:29] LABS: ANION GAP 7 MEQ/L (8-16); BLOOD UREA NITROGEN 15 MG/DL (7-18); CALCIUM LEVEL 8.3 MG/DL (8.8-10.2); CARBON DIOXIDE LEVEL 27 MEQ/L (21-32); CHLORIDE LEVEL 111 MEQ/L (98-107); CREATININE FOR GFR 0.74 MG/DL (0.55-1.30); GLOMERULAR FILTRATION RATE > 60.0 (>32); GLUCOSE, FASTING 83 MG/DL (70-100); POTASSIUM SERUM 3.6 MEQ/L (3.5-5.1); SODIUM LEVEL 145 MEQ/L (136-145)
[2018-01-09] MEDS: PANTOPRAZOLE 40MG TAB (PROTONIX) PO (08:35)
[2018-01-09] MEDS: SUCRALFATE 1 GM TAB PO ×2 (08:35→16:31)
[2018-01-09] MEDS: clonazePAM 1 MG TAB PO ×2 (08:35→21:12)
[2018-01-09] MEDS: VITAMIN D 1,000 INTERNATIONAL UNITS TABLET PO (08:36)
[2018-01-09] MEDS: SERTRALINE HCL 50 MG TAB PO (08:36)
[2018-01-09] MEDS: busPIRone 5 MG TAB PO ×2 (08:36→21:12)
[2018-01-09] MEDS: VALSARTAN 80 MG TAB (DIOVAN) PO (08:36)
[2018-01-09] MEDS: CLOPIDOGREL 75 MG TAB PO (08:36)
[2018-01-09] MEDS: FERROUS SULFATE 325MG TAB PO (08:36)
[2018-01-09] MEDS: ADVAIR HFA 230/21MCG INHALER INH ×2 (09:06→22:18)
[2018-01-09] MEDS ORDERED: LEVALBUTEROL 1.25 MG/0.5 ML CONCENTRATE NEB INH (13:30)
[2018-01-09] MEDS: ALBUTEROL SULFATE 2.5 MG/0.5 ML INH NEB SOLN NEB (15:49)
[2018-01-09] MEDS: SENOKOT S TAB PO (21:12)
[2018-01-09] MEDS: GABAPENTIN 100 MG CAP PO (21:12)
[2018-01-09] MEDS: ROSUVASTATIN 10 MG TAB (CRESTOR) PO (21:12)
[2018-01-10] MEDS: **hydrALAZINE** 50 MG TAB PO ×3 (02:47→17:00)
[2018-01-10 06:25] LABS: HEMATOCRIT 36.6 % (36.0-47.0); HEMOGLOBIN 11.7 g/dl (12.0-15.5); MEAN CORPUSCULAR HEMOGLOBIN 29.7 pg (27.0-33.0); MEAN CORPUSCULAR VOLUME 92.9 fl (80.0-96.0); PLATELET COUNT, AUTOMATED 152 10^3/uL (150-450); RED BLOOD COUNT 3.94 10^6/uL (4.00-5.40); RED CELL DISTRIBUTION WIDTH 17.2 % (11.5-14.5); WHITE BLOOD COUNT 4.2 10^3/uL (4.0-10.0)
[2018-01-10] MEDS: SUCRALFATE 1 GM TAB PO ×2 (06:27→17:00)
[2018-01-10] MEDS: HEPARIN SOD (PORCINE) 5000 UNITS/ML VIAL SC ×3 (06:27→22:52)
[2018-01-10 06:46] LABS: ANION GAP 10 MEQ/L (8-16); BLOOD UREA NITROGEN 16 MG/DL (7-18); CALCIUM LEVEL 8.5 MG/DL (8.8-10.2); CARBON DIOXIDE LEVEL 26 MEQ/L (21-32); CHLORIDE LEVEL 110 MEQ/L (98-107); CREATININE FOR GFR 0.76 MG/DL (0.55-1.30); GLOMERULAR FILTRATION RATE > 60.0 (>32); GLUCOSE, FASTING 90 MG/DL (70-100); SODIUM LEVEL 146 MEQ/L (136-145)
[2018-01-10] MEDS: ADVAIR HFA 230/21MCG INHALER INH ×2 (08:04→20:22)
[2018-01-10] MEDS: CLOPIDOGREL 75 MG TAB PO (09:16)
[2018-01-10] MEDS: PANTOPRAZOLE 40MG TAB (PROTONIX) PO (09:16)
[2018-01-10] MEDS: SERTRALINE HCL 50 MG TAB PO (09:17)
[2018-01-10] MEDS: VITAMIN D 1,000 INTERNATIONAL UNITS TABLET PO (09:17)
[2018-01-10] MEDS: busPIRone 5 MG TAB PO ×2 (09:17→20:08)
[2018-01-10] MEDS: FERROUS SULFATE 325MG TAB PO (09:18)
[2018-01-10] MEDS: clonazePAM 1 MG TAB PO ×2 (09:18→20:08)
[2018-01-10] MEDS: VALSARTAN 80 MG TAB (DIOVAN) PO (09:19)
[2018-01-10] MEDS: SENOKOT S TAB PO (20:09)
[2018-01-10] MEDS: GABAPENTIN 100 MG CAP PO (20:09)
[2018-01-10] MEDS: ROSUVASTATIN 10 MG TAB (CRESTOR) PO (20:09)
[2018-01-10] MEDS: ALBUTEROL SULFATE 2.5 MG/0.5 ML INH NEB SOLN NEB (20:22)
[2018-01-11] MEDS: **hydrALAZINE** 50 MG TAB PO ×3 (02:45→17:09)
[2018-01-11 05:48] LABS: HEMATOCRIT 35.1 % (36.0-47.0); HEMOGLOBIN 11.2 g/dl (12.0-15.5); MEAN CORPUSCULAR HEMOGLOBIN 29.5 pg (27.0-33.0); MEAN CORPUSCULAR HGB CONC 31.9 g/dl (32.0-36.5); MEAN CORPUSCULAR VOLUME 92.4 fl (80.0-96.0); PLATELET COUNT, AUTOMATED 166 10^3/uL (150-450); RED CELL DISTRIBUTION WIDTH 17.1 % (11.5-14.5); WHITE BLOOD COUNT 4.4 10^3/uL (4.0-10.0)
[2018-01-11 06:13] LABS: ANION GAP 5 MEQ/L (8-16); BLOOD UREA NITROGEN 19 MG/DL (7-18); CARBON DIOXIDE LEVEL 29 MEQ/L (21-32); CHLORIDE LEVEL 110 MEQ/L (98-107); CREATININE FOR GFR 0.85 MG/DL (0.55-1.30); GLOMERULAR FILTRATION RATE > 60.0 (>32); GLUCOSE, FASTING 90 MG/DL (70-100); SODIUM LEVEL 144 MEQ/L (136-145)
[2018-01-11] MEDS: HEPARIN SOD (PORCINE) 5000 UNITS/ML VIAL SC ×3 (06:15→20:21)
[2018-01-11] MEDS: ADVAIR HFA 230/21MCG INHALER INH ×2 (07:56→22:23)
[2018-01-11] MEDS: busPIRone 5 MG TAB PO ×2 (09:02→20:21)
[2018-01-11] MEDS: CLOPIDOGREL 75 MG TAB PO (09:02)
[2018-01-11] MEDS: SUCRALFATE 1 GM TAB PO ×2 (09:02→17:08)
[2018-01-11] MEDS: VITAMIN D 1,000 INTERNATIONAL UNITS TABLET PO (09:02)
[2018-01-11] MEDS: FERROUS SULFATE 325MG TAB PO (09:02)
[2018-01-11] MEDS: SERTRALINE HCL 50 MG TAB PO (09:02)
[2018-01-11] MEDS: PANTOPRAZOLE 40MG TAB (PROTONIX) PO (09:03)
[2018-01-11] MEDS: clonazePAM 1 MG TAB PO ×2 (09:03→20:22)
[2018-01-11] MEDS: VALSARTAN 80 MG TAB (DIOVAN) PO (09:05)
[2018-01-11] MEDS: ROSUVASTATIN 10 MG TAB (CRESTOR) PO (20:21)
[2018-01-11] MEDS: GABAPENTIN 100 MG CAP PO (20:22)
[2018-01-11] MEDS: SENOKOT S TAB PO (20:22)
[2018-01-12] MEDS: **hydrALAZINE** 50 MG TAB PO (02:22)
[2018-01-12] MEDS: HEPARIN SOD (PORCINE) 5000 UNITS/ML VIAL SC (05:16)
[2018-01-12 06:45] LABS: HEMATOCRIT 35.9 % (36.0-47.0); HEMOGLOBIN 11.3 g/dl (12.0-15.5); MEAN CORPUSCULAR HEMOGLOBIN 29.4 pg (27.0-33.0); MEAN CORPUSCULAR HGB CONC 31.5 g/dl (32.0-36.5); MEAN CORPUSCULAR VOLUME 93.2 fl (80.0-96.0); PLATELET COUNT, AUTOMATED 154 10^3/uL (150-450); RED BLOOD COUNT 3.85 10^6/uL (4.00-5.40); RED CELL DISTRIBUTION WIDTH 17.2 % (11.5-14.5); WHITE BLOOD COUNT 4.8 10^3/uL (4.0-10.0)
[2018-01-12 07:14] LABS: ANION GAP 7 MEQ/L (8-16); BLOOD UREA NITROGEN 21 MG/DL (7-18); CALCIUM LEVEL 8.3 MG/DL (8.8-10.2); CARBON DIOXIDE LEVEL 27 MEQ/L (21-32); CHLORIDE LEVEL 110 MEQ/L (98-107); CREATININE FOR GFR 0.83 MG/DL (0.55-1.30); GLOMERULAR FILTRATION RATE > 60.0 (>32); GLUCOSE, FASTING 84 MG/DL (70-100); POTASSIUM SERUM 4.1 MEQ/L (3.5-5.1); SODIUM LEVEL 144 MEQ/L (136-145)
[2018-01-12] MEDS: PANTOPRAZOLE 40MG TAB (PROTONIX) PO (07:47)
[2018-01-12] MEDS: busPIRone 5 MG TAB PO (07:47)
[2018-01-12] MEDS: SUCRALFATE 1 GM TAB PO (07:47)
[2018-01-12] MEDS: VALSARTAN 80 MG TAB (DIOVAN) PO (07:48)
[2018-01-12] MEDS: FERROUS SULFATE 325MG TAB PO (07:48)
[2018-01-12] MEDS: CLOPIDOGREL 75 MG TAB PO (07:48)
[2018-01-12] MEDS: VITAMIN D 1,000 INTERNATIONAL UNITS TABLET PO (07:48)
[2018-01-12] MEDS: SERTRALINE HCL 50 MG TAB PO (07:48)
[2018-01-12] MEDS: clonazePAM 1 MG TAB PO (07:49)
[2018-01-12] MEDS: ADVAIR HFA 230/21MCG INHALER INH (08:26)
== END 2018-01-12 13:17 | disposition home or self-care (01) | DRG 305 ==
LOC: M ED INP 01-07 00:15 → M MSPAV 01-07 13:03 → M ED 20:41
DX: I16.0 Hypertensive urgency (principal); E78.5 Hyperlipidemia, unspecified; J44.9 Chronic obstructive pulmonary disease, unspecified; G47.33 Obstructive sleep apnea (adult) (pediatric); K21.9 Gastro-esophageal reflux disease without esophagitis; F41.9 Anxiety disorder, unspecified; D64.9 Anemia, unspecified; Z86.73 Personal history of transient ischemic attack (TIA), and cerebral infarction without residual deficits; Z95.0 Presence of cardiac pacemaker; Z79.02 Long term (current) use of antithrombotics/antiplatelets; Z79.899 Other long term (current) drug therapy; Z88.6 Allergy status to analgesic agent; Z88.5 Allergy status to narcotic agent; Z91.010 Allergy to peanuts; Z88.8 Allergy status to other drugs, medicaments and biological substances; Z91.14 Patient's other noncompliance with medication regimen; G62.9 Polyneuropathy, unspecified

== ENCOUNTER → 2018-02-18 | Outpatient (CLI) | payer MEDICARE | LOC: M SLEEP 20:00 | DX: G47.33 Obstructive sleep apnea (adult) (pediatric) (principal) | CPT/HCPCS: 95811 ==

== ENCOUNTER → 2018-02-22 | Outpatient (CLI) | payer MEDICARE | LOC: M LRY 09:13 | DX: M19.012 Primary osteoarthritis, left shoulder (principal) | CPT/HCPCS: 73030; G0463 ==

== ENCOUNTER → 2018-08-15 | Outpatient (REF) | payer MEDICARE ==
[~2018-08-15] MED LIST: ACET-683 PO; ACET1TAB55 PO; ADVA230A INH; ALIG4CAP PO; AMLO5TAB6 PO; AMOX875T2 PO; BUDE0.5S6 INH; BUSP1TAB PO; CARA1TAB6 PO; CLON0.5T8 PO; CLON1TAB8 PO; CLOP75TA2 PO; CRES10TA PO; DEXI30CA2; DEXI30CA2 PO; DIOV80TA3 PO; DULC10SU2 PR; ENEMENE4 PR; ENEMENE6 PR; FERR1TAB8 PO; FOLBTAB3 PO; GABA-845 PO; HYDR-3910 PO; HYDR12.55 PO; HYDR50TA PO; IPRA0.00 INH; MILK120011 PO; NEUR100C PO; ONDA4TAB5 PO; PRED10TA2 PO; PROB1TAB PO; PROP80TA PO; PROT1TAB2 PO; RANI300T PO; SENN-50 PO; SENN1TAB10 PO; SERT-141 PO; SIME80TA PO; SUCR10SS PO; VALS1TAB66; VALS1TAB66 PO; VENTAER; VENTAER INH; VITA2000 PO; VITA500T PO; VITMTA PO
== END ==
LOC: M LAB REF 18:12
PROVIDERS: ATTEND Physician Assistant
DX: J44.1 Chronic obstructive pulmonary disease with (acute) exacerbation (principal)

== ENCOUNTER → 2018-09-07 | Outpatient (REF) | payer MEDICARE ==
[2018-09-07 11:20] LABS: BLOOD UREA NITROGEN 21 MG/DL (7-18); CALCIUM LEVEL 8.3 MG/DL (8.8-10.2); CARBON DIOXIDE LEVEL 28 MEQ/L (21-32); CHLORIDE LEVEL 107 MEQ/L (98-107); CREATININE FOR GFR 0.94 MG/DL (0.55-1.30); GLOMERULAR FILTRATION RATE > 60.0 (>32); GLUCOSE, FASTING 94 MG/DL (70-100); POTASSIUM SERUM 3.8 MEQ/L (3.5-5.1); SODIUM LEVEL 142 MEQ/L (136-145)
[2018-09-07 12:06] LABS: HEMOGLOBIN A1c 5.7 %
== END ==
LOC: M SFHCLERA 09:09
PROVIDERS: ATTEND Family Medicine
DX: I10 Essential (primary) hypertension (principal)

== ENCOUNTER → 2019-01-23 | Outpatient (REF) | payer MEDICARE ==
[2019-01-23 20:17] LABS: BASO % 0.7 % (0.0-1.0); EOS # 0.1 10^3/uL (0.0-0.5); EOS % 1.5 % (0.0-3.0); HEMATOCRIT 40.4 % (36.0-47.0); HEMOGLOBIN 13.2 g/dl (12.0-15.5); LYMPH # 1.8 10^3/uL (1.5-5.0); LYMPH % 29.4 % (24.0-44.0); MEAN CORPUSCULAR HEMOGLOBIN 31.8 pg (27.0-33.0); MEAN CORPUSCULAR HGB CONC 32.7 g/dl (32.0-36.5); MEAN CORPUSCULAR VOLUME 97.3 fl (80.0-96.0); MONO # 0.5 10^3/uL (0.0-0.8); MONO % 8.1 % (0.0-5.0); NEUTROPHILS # 3.7 10^3/uL (1.5-8.5); NEUTROPHILS % 60.1 % (36.0-66.0); PLATELET COUNT, AUTOMATED 182 10^3/uL (150-450); RED BLOOD COUNT 4.15 10^6/uL (4.00-5.40); WHITE BLOOD COUNT 6.1 10^3/uL (4.0-10.0)
[2019-01-23 20:38] LABS: CALCIUM LEVEL 8.3 MG/DL (8.8-10.2); CREATININE FOR GFR 1.07 MG/DL (0.55-1.30); POTASSIUM SERUM 3.7 MEQ/L (3.5-5.1); THYROID STIMULATING HORMONE 2.95 uIU/ML (0.358-3.740)
[2019-01-23 21:02] LABS: HEMOGLOBIN A1c 5.5 %
== END ==
LOC: M SFHCLERA 16:16
PROVIDERS: ATTEND Family Medicine
DX: R53.83 Other fatigue (principal); R63.5 Abnormal weight gain
CPT/HCPCS: 80048; 83036; 84443; 85025; 90471; 90715; G0463

== ENCOUNTER → 2019-01-26 | Outpatient (CLI) | payer MEDICARE ==
--- NOTE | 2019-01-26 15:31 | REP ---
HISTORY: Chest pain. COMPARISON: All priors were reviewed, the latest of which is dated 11/08/2017. The lack of intravenous contrast decreases the sensitivity of the exam. The mediastinum and pulmonary tee are unchanged. There is no gross mass or adenopathy. There is a large hiatal hernia, status quo. There are no pleural or pericardial effusions. There is no significant change in the appearance of the imaged upper abdomen or imaged osseous structures. The bones are demineralized and there are spinal degenerative changes. Evaluation of the lung reese shows a new tiny slightly asymmetric density in the anterior right upper lobe which measures 6 mm. Bibasilar curvilinear densities are noted, status quo. There is cylindrical bronchiectasis, status quo. There is a calcified granuloma in the right lower lobe, status quo. IMPRESSION: 1. New 6 mm sized slightly irregular and nodular density in the right upper lobe. According to the revised Lina Society criteria three month followup chest CT is recommended as the lesion represents a category 4A lesion. 2. There are chronic lung field changes as described above. 3. Stable large hiatal hernia. 4. Other findings and limitations as described above. Electronically Signed by Mihir Olvera DO 01/26/2019 04:43 P
== END ==
LOC: M RAD 12:05
PROVIDERS: ATTEND Internal Medicine Pulmonary Disease
DX: R07.89 Other chest pain (principal); R91.1 Solitary pulmonary nodule; K44.9 Diaphragmatic hernia without obstruction or gangrene; J47.9 Bronchiectasis, uncomplicated

== ENCOUNTER → 2019-05-04 | Outpatient (CLI) | payer MEDICARE ==
[~2019-05-04] MED LIST changes: +CLON0.5T2 PO; -CLON0.5T8 PO
--- NOTE | 2019-05-04 13:48 | REP ---
CT CHEST WITHOUT CONTRAST: HISTORY: Abnormal finding of the lung reese. Comparison CT study January 26, 2019. There is a November 08, [address] CT study from January 26, 2019 was dictated as showing a new 6 mm right upper lobe nodule. CT FINDINGS: There are stable linear fibrotic changes in both lower lobes. There is a hiatal hernia behind the heart. Pacemaker is seen in the right heart via the left side. There are degenerative changes in the thoracic spine. Minimal wedging is seen in what appears to be the L1 vertebral body. This is unchanged. I do not see a right upper lobe pulmonary nodule 6 mm in diameter. There is a alyssa-fissural nodule in the middle lobe along the minor fissure on the right on page 52 of 96 in series 201 of today's study. This is unchanged from October 2017 and January 26, 2019. There is another tiny alyssa-fissural nodule 2-3 mm in diameter medially adjacent to this. These are both unchanged. There are two bullae, which are small one in the right upper lobe and one in the superior segment right lower lobe. There is a centrally calcified nodule consistent with a granuloma in the right lower lobe on page 70 of 96, series 201. This is unchanged. There is a granulomatous calcification in the right lobe of the liver unchanged. There are clips in the gallbladder fossa. No adrenal lesion is seen. Some vascular calcification is noted. No mediastinal mass or adenopathy is seen. No bony destructive lesion. IMPRESSION: Stable chest CT findings. Hiatal hernia. Bibasilar fibrosis. Granulomatous change. Electronically Signed by Adriano Morrow MD 05/04/2019 06:29 P
== END ==
LOC: M RAD 08:20
PROVIDERS: ATTEND Internal Medicine Pulmonary Disease
DX: R91.8 Other nonspecific abnormal finding of lung field (principal)

== ENCOUNTER → 2019-07-31 | Outpatient (REF) | payer MEDICARE ==
[~2019-07-31] MED LIST changes: +ONDA-83 PO; -ONDA4TAB5 PO; -SUCR10SS PO; +SUCR1ORA2 PO
[2019-07-31 11:51] LABS: BASO # 0.1 10^3/uL (0.0-0.2); EOS # 0.1 10^3/uL (0.0-0.5); EOS % 2.4 % (0.0-3.0); LYMPH # 1.4 10^3/uL (1.5-5.0); LYMPH % 29.3 % (24.0-44.0); MEAN CORPUSCULAR HEMOGLOBIN 30.8 pg (27.0-33.0); MEAN CORPUSCULAR HGB CONC 32.5 g/dl (32.0-36.5); MEAN CORPUSCULAR VOLUME 94.8 fl (80.0-96.0); MONO # 0.5 10^3/uL (0.0-0.8); MONO % 9.6 % (0.0-5.0); NEUTROPHILS # 2.8 10^3/uL (1.5-8.5); NEUTROPHILS % 57.5 % (36.0-66.0); PLATELET COUNT, AUTOMATED 179 10^3/uL (150-450); RED BLOOD COUNT 4.22 10^6/uL (4.00-5.40); WHITE BLOOD COUNT 4.9 10^3/uL (4.0-10.0)
[2019-07-31 12:13] LABS: ALBUMIN 3.8 GM/DL (3.2-5.2); BILIRUBIN,TOTAL 0.4 MG/DL (0.2-1.0); CHOLESTEROL RISK RATIO 2.785 (<5); CREATININE FOR GFR 1.08 MG/DL (0.55-1.30); GLOMERULAR FILTRATION RATE 51.5 (>32); POTASSIUM SERUM 3.5 MEQ/L (3.5-5.1); THYROID STIMULATING HORMONE 3.51 uIU/ML (0.358-3.740); THYROXINE (T4) 9.2 UG/DL (4.5-12.0)
== END ==
LOC: M SFHCCLAY 08:21
PROVIDERS: ATTEND Family Medicine
DX: I10 Essential (primary) hypertension (principal); R73.01 Impaired fasting glucose; E55.9 Vitamin D deficiency, unspecified

== ENCOUNTER → 2019-08-06 | Outpatient (REF) | payer MEDICARE ==
[~2019-08-06] MED LIST changes: +VITA-243 PO; -VITA500T PO
== END ==
LOC: M LAB REF 11:20
PROVIDERS: ATTEND Physician Assistant
DX: R13.10 Dysphagia, unspecified (principal); R19.7 Diarrhea, unspecified; R14.3 Flatulence

== ENCOUNTER → 2019-08-08 | Outpatient (REF) | payer MEDICARE | LOC: M LAB REF 18:34 | PROVIDERS: ATTEND Dermatology | DX: C44.01 Basal cell carcinoma of skin of lip (principal) | CPT/HCPCS: 11102; 88305; G0463 ==

== ENCOUNTER → 2019-08-10 | Outpatient (CLI) | payer MEDICARE ==
[~2019-08-10] MED LIST changes: +BARIUM SULFATE 700 MG TABLET (E-Z-DISK) As Ordered ONE; +E-Z-GAS II EFFERVESCENT PACKET (SODIUM BICARB./CITRIC ACID/SIMETHICONE) As Ordered ONE; +E-Z-HD 98% w/w 340GM SUSP BTL As Ordered ONE; +E-Z-PAQUE 96% w/w SUSP 176GM BTL As Ordered ONE; +VARIBAR NECTAR 40% w/v 240ML SUSP BTL As Ordered ONE; +VARIBAR PUDDING 40% w/v 230ML TUBE As Ordered ONE
--- NOTE | 2019-08-10 14:41 | REP ---
COOKIE SWALLOW The procedure was performed under the direct supervision of Dr. Pop. The procedure was performed with Keesha Taylor from speech pathology present. 5 ml aliquots of thin, pudding, soft and mixed fruit consistency barium as well as a barium pill were administered. There is no evidence of penetration or aspiration. A detailed report of this examination will be provided by speech pathology. 1.3 minutes of fluoroscopy time was utilized for this procedure. Electronically Signed by ALTHEA Knight 08/10/2019 10:39 A Electronically Signed by Ibrahima Pop MD 08/10/2019 02:28 P
--- NOTE | 2019-08-10 14:41 | REP ---
Esophagram The procedure was performed under the direct supervision of Dr. Pop. The images were reviewed with Dr. Pop. A single view PA chest x-ray is submitted as a bowling ball mold assembler film. There is no change compared to a previous chest x-ray performed on 01/07/2018. Liquid barium was given in the erect and prone oblique positions in order to perform a single contrast esophagram examination. During the oral and pharyngeal stages of deglutition there is laryngeal penetration. There are esophageal transport there are tertiary waves demonstrated. There is no esophagitis stricture or mucosal ring. There is a large fixed hiatal hernia. There is gastroesophageal reflux demonstrated to above the level of the caryl. Impression: 1. There is laryngeal penetration. 2. Tertiary waves. 3. There is a large fixed hiatal hernia. There is gastroesophageal reflux demonstrated to above the level of the caryl. 1.9 minutes of fluoro time was utilized for this procedure. Electronically Signed by ALTHEA Knight 08/10/2019 10:37 A Electronically Signed by Ibrahima Pop MD 08/10/2019 02:28 P
== END ==
LOC: M RAD 08:18
PROVIDERS: ATTEND Physician Assistant
DX: R13.10 Dysphagia, unspecified (principal)

== ENCOUNTER → 2019-08-17 | Outpatient (REF) | payer MEDICARE ==
[~2019-08-17] MED LIST changes: -BARIUM SULFATE 700 MG TABLET (E-Z-DISK) As Ordered ONE; -E-Z-GAS II EFFERVESCENT PACKET (SODIUM BICARB./CITRIC ACID/SIMETHICONE) As Ordered ONE; -E-Z-HD 98% w/w 340GM SUSP BTL As Ordered ONE; -E-Z-PAQUE 96% w/w SUSP 176GM BTL As Ordered ONE; -VARIBAR NECTAR 40% w/v 240ML SUSP BTL As Ordered ONE; -VARIBAR PUDDING 40% w/v 230ML TUBE As Ordered ONE
== END ==
LOC: M LAB REF 10:24
PROVIDERS: ATTEND Dermatology
DX: C44.01 Basal cell carcinoma of skin of lip (principal); L90.5 Scar conditions and fibrosis of skin

== ENCOUNTER → 2019-08-21 | Outpatient (CLI) | payer MEDICARE | LOC: M ST 08:19 | PROVIDERS: ATTEND Physician Assistant | DX: R13.11 Dysphagia, oral phase (principal) ==

== ENCOUNTER → 2019-09-15 | Outpatient (REF) | payer MEDICARE | LOC: M LAB REF 16:19 | PROVIDERS: ATTEND Dermatology | DX: L57.0 Actinic keratosis (principal) | CPT/HCPCS: 11102; 88305; G0463 ==

== ENCOUNTER → 2019-09-25 | Outpatient (REF) | payer MEDICARE ==
[2019-09-26 12:08] LABS: CALCIUM LEVEL 8.5 MG/DL (8.8-10.2); CREATININE FOR GFR 1.07 MG/DL (0.55-1.30); URIC ACID 7.1 MG/DL (2.6-6.0)
== END ==
LOC: M SFHCCLAY 13:48
PROVIDERS: ATTEND Family Medicine
DX: M79.672 Pain in left foot (principal)

== ENCOUNTER → 2019-09-25 | Outpatient (CLI) | payer MEDICARE ==
--- NOTE | 2019-09-25 15:37 | REP ---
REASON FOR EXAM: Atraumatic foot pain. There are no priors for comparison. The bones are demineralized. Degenerative change is seen throughout the foot. Plantar and retrocalcaneal heel spurs are present. There is no evidence of acute fracture. IMPRESSION: Chronic changes as described above. Electronically Signed by Mihir Olvera DO 09/25/2019 05:13 P
== END ==
LOC: M CLY 13:59
PROVIDERS: ATTEND Family Medicine
DX: M19.072 Primary osteoarthritis, left ankle and foot (principal); M79.672 Pain in left foot
CPT/HCPCS: 73630; 80048; 84550; G0463

== ENCOUNTER → 2020-01-12 | Outpatient (REF) | payer MEDICARE ==
[~2020-01-12] MED LIST changes: +AMLO1TAB24 PO; -AMLO5TAB6 PO
== END ==
LOC: M LAB REF 17:04
PROVIDERS: ATTEND Physician Assistant
DX: J44.1 Chronic obstructive pulmonary disease with (acute) exacerbation (principal)

== ENCOUNTER → 2020-07-15 | Outpatient (CLI) | payer MEDICARE, OTHER ==
[~2020-07-15] MED LIST changes: +E-Z-GAS II EFFERVESCENT PACKET (SODIUM BICARB./CITRIC ACID/SIMETHICONE) As Ordered ONE; +E-Z-HD 98% w/w 340GM SUSP BTL As Ordered ONE; +E-Z-PAQUE 96% w/w SUSP 176GM BTL As Ordered ONE; +SIME80CH5 PO; -SIME80TA PO
== END ==
LOC: M RAD 08:18
PROVIDERS: ATTEND Specialist
DX: K21.9 Gastro-esophageal reflux disease without esophagitis (principal); K44.9 Diaphragmatic hernia without obstruction or gangrene

== ENCOUNTER → 2020-07-15 | Outpatient (CLI) | payer OTHER ==
[~2020-07-15] MED LIST changes: -E-Z-GAS II EFFERVESCENT PACKET (SODIUM BICARB./CITRIC ACID/SIMETHICONE) As Ordered ONE; -E-Z-HD 98% w/w 340GM SUSP BTL As Ordered ONE; -E-Z-PAQUE 96% w/w SUSP 176GM BTL As Ordered ONE
[2020-07-15 08:57] LABS: BASO % 0.6 % (0.0-1.0); EOS # 0.1 10^3/uL (0.0-0.5); EOS % 2.7 % (0.0-3.0); HEMATOCRIT 38.9 % (36.0-47.0); HEMOGLOBIN 12.8 g/dl (12.0-15.5); LYMPH # 1.4 10^3/uL (1.5-5.0); LYMPH % 27.9 % (24.0-44.0); MEAN CORPUSCULAR HEMOGLOBIN 31.4 pg (27.0-33.0); MEAN CORPUSCULAR HGB CONC 32.9 g/dl (32.0-36.5); MEAN CORPUSCULAR VOLUME 95.3 fl (80.0-96.0); MONO # 0.4 10^3/uL (0.0-0.8); NEUTROPHILS # 2.9 10^3/uL (1.5-8.5); NEUTROPHILS % 59.4 % (36.0-66.0); PLATELET COUNT, AUTOMATED 170 10^3/uL (150-450); RED BLOOD COUNT 4.08 10^6/uL (4.00-5.40); WHITE BLOOD COUNT 4.9 10^3/uL (4.0-10.0)
[2020-07-15 09:40] LABS: ALBUMIN 3.6 GM/DL (3.2-5.2); BILIRUBIN,TOTAL 0.3 MG/DL (0.2-1.0); CALCIUM LEVEL 8.2 MG/DL (8.8-10.2); CREATININE FOR GFR 1.35 MG/DL (0.55-1.30); GLOMERULAR FILTRATION RATE 39.7 (>32); POTASSIUM SERUM 3.7 MEQ/L (3.5-5.1); THYROID STIMULATING HORMONE 2.85 uIU/ML (0.358-3.740); TOTAL PROTEIN 6.9 GM/DL (6.4-8.2)
[2020-07-15 10:29] LABS: HEMOGLOBIN A1c 5.4 %
--- NOTE | 2020-07-15 18:41 | REP ---
INDICATION: IMPAIRED FASTING GLUCOSE/ PT HAS LABS FIRST. COMPARISON: Esophagram dated 08/10/2019 TECHNIQUE: This procedure was performed by Katia Payne [facility], under the direct supervision of Dr. Pop. Images were reviewed with Dr. Pop prior to dictation. Liquid barium and gas producing crystals were given in the erect position, as well as liquid barium in the prone oblique position in order to perform a double contrast upper GI examination. FINDINGS: The skinner pelts film shows no organomegaly or pathological masses. The intestinal gas pattern is unremarkable. There are surgical traci in the right upper quadrant. The oral and pharyngeal stages of deglutition were unremarkable. Esophageal transport is prompt and efficient and there is no evidence of esophagitis, stricture, or mucosal ring. However tertiary contractions were visualized during the exam. There is evidence of a large fixed hiatal hernia. Gastroesophageal reflux was again visualized to above the level of the caryl.. The stomach torrez are normally outlined. The rugal folds are smooth and regular. There is no gastritis, neoplasm, or ulcerative disease. The duodenal torrez are normally outlined. The mucosal folds are smooth and regular. There is no duodenitis, peptic ulcer disease or neoplasm. The visualized portion of the proximal small bowel appears normal in course and caliber. IMPRESSION: 1. Tertiary contractions. 2. Gastroesophageal reflux to above the level of the caryl. 3. Again visualized is a large fixed hiatal hernia. 1.3 minutes of fluoroscopy time was utilized for this procedure. Some fluoroscopic images are performed with last image hold technology. These images require no additional radiation. <Electronically signed by Katia Payne > 07/15/20 1603 <Electronically signed by Ibrahima Pop > 07/15/20 [id number]
== END ==
LOC: M LAB 08:21
PROVIDERS: ATTEND Family Medicine
DX: K44.9 Diaphragmatic hernia without obstruction or gangrene (principal); K21.9 Gastro-esophageal reflux disease without esophagitis; R73.01 Impaired fasting glucose; I10 Essential (primary) hypertension; I49.5 Sick sinus syndrome; E55.9 Vitamin D deficiency, unspecified

== ENCOUNTER → 2020-09-10 | Outpatient (REF) | payer MEDICARE ==
[~2020-09-10] MED LIST changes: +GABA-283 PO; -GABA-845 PO
== END ==
LOC: M LAB REF 17:01
PROVIDERS: ATTEND Internal Medicine Pulmonary Disease
DX: J44.9 Chronic obstructive pulmonary disease, unspecified (principal)

== ENCOUNTER → 2020-12-16 | Outpatient (REF) | payer OTHER ==
[~2020-12-16] MED LIST changes: +SIME125T PO
[2020-12-16 11:35] LABS: BASO % 0.7 % (0.0-1.0); EOS # 0.1 10^3/uL (0.0-0.5); HEMATOCRIT 39.8 % (36.0-47.0); HEMOGLOBIN 12.8 g/dl (12.0-15.5); LYMPH # 1.2 10^3/uL (1.5-5.0); LYMPH % 21.8 % (24.0-44.0); MEAN CORPUSCULAR HEMOGLOBIN 30.6 pg (27.0-33.0); MEAN CORPUSCULAR HGB CONC 32.2 g/dl (32.0-36.5); MEAN CORPUSCULAR VOLUME 95.2 fl (80.0-96.0); MONO # 0.5 10^3/uL (0.0-0.8); MONO % 9.1 % (2.0-8.0); NEUTROPHILS # 3.7 10^3/uL (1.5-8.5); PLATELET COUNT, AUTOMATED 191 10^3/uL (150-450); RED BLOOD COUNT 4.18 10^6/uL (4.00-5.40); WHITE BLOOD COUNT 5.6 10^3/uL (4.0-10.0)
[2020-12-16 11:53] LABS: HEMOGLOBIN A1c 5.7 %
[2020-12-16 12:34] LABS: ALBUMIN 3.4 GM/DL (3.2-5.2); BILIRUBIN,TOTAL 0.3 MG/DL (0.2-1.0); CALCIUM LEVEL 8.1 MG/DL (8.8-10.2); CREATININE FOR GFR 1.32 MG/DL (0.55-1.30); GLOMERULAR FILTRATION RATE 40.6 (>32); POTASSIUM SERUM 4.1 MEQ/L (3.5-5.1); TOTAL PROTEIN 6.9 GM/DL (6.4-8.2)
== END ==
LOC: M SFHCCLAY 09:12
PROVIDERS: ATTEND Nurse Practitioner Family
DX: R73.01 Impaired fasting glucose (principal); I10 Essential (primary) hypertension
CPT/HCPCS: 80053; 83036; 85025; G0463

== ENCOUNTER → 2021-02-01 | Outpatient (CLI) | payer OTHER | LOC: M LABSMTC 09:20 | PROVIDERS: ATTEND Anesthesiology | DX: Z01.818 Encounter for other preprocedural examination (principal); Z11.52 Encounter for screening for COVID-19 ==

== ENCOUNTER → 2021-02-06 | Day surgery (SDC) | payer OTHER ==
[~2021-02-06] VITALS: Ht 152.4 cm; Wt 64.0 kg
[~2021-02-06] MED LIST changes: +NS 1,000 ML IV ONE
--- OUTSIDE RECORDS SUMMARY | 2021-02-06 12:38 | CCD | Continuity of Care Document ---
Author Author Estefania GUPTA MD Organization Unknown Address [address] [place] [address] Phone [phone] Care Team Providers Care Agricultural Mechanic Name Role Phone Min Peters D.O. AUTM [phone] Problems Active Problems Provider Date Benign hypertension Clovis Chicas MD Onset: 10/10/2013 Slowing of urinary stream SANDY Marquez C.U.N.P[facility] Onset : 10/10/2013 Urge incontinence of urine SANDY Marquez C.U.N.P[facility] Onse t: 10/10/2013 Social History Type Date Description Comments Sex Unknown Tobacco Use Start: Unknown Never Smoked Cigarettes ETOH Use Never used alcohol Allergies and adverse reactions Active Allergies Criticality Reaction | Severity Comments Date Iodine Unable to assess criticality 10/10/2013 Wellbutrin Unable to assess criticality 10/10/2013 Bee Sting Unable to assess criticality 10/10/2013 Peanuts Unable to assess criticality 10/10/2013 Medications Active Medications SIG Qnty Indications Ordering Provide r Date Acetaminophen PM 500-25mg Tablets Unknown Clonazepam 1mg Tablets Unknown Epipen 2-Salo 0.3mg/0 .3ML Solution Auto-Inject Unknown Propranolol HCL 10mg Tablets Unknown Sertraline HCL 100mg Tablets Unknown Amlodipine Besylate 5mg Tablets Unknown Meclizine HCL 12.5mg Tablets Unknown Albuterol Sulfate 2mg Tablets Unknown Foltx 1.13-25-2mg Tablets Unknown Amitriptyline HCL 10mg Tablets 1 by mouth every night at bedtime 30tabs Unknown 0 Immunizations Description No Information Available Vital Signs Date Vital Result Comment 10/10/2013 1:26pm Height 60 inches 5'0" Weight 169.00 lb Weight 76.658 kg BMI (Body Mass Index) 33.0 kg/m2 BP Systolic 135 mmHg BP Diastolic 55 mmHg Heart Rate 59 /min Results Description No Information Available Procedures Date Code Description Status 01/11/2021 31970 Initial Hospital Car e; New Or Established Patient, Per Day For Completed Medical Devices Description No Information Available Encounters Type Date Location Provider Dx Diagnosis Office Visit 01/11/2021 2:07p [place]/ 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 10/10/2013 - FRANCOIS Marquez- C.U.N.P.* 788.33-1 Urinary Urgency * 788.31 Incontinence Urge * 788.62 Decreased Stream * 789.0-3 Flank Pain,NOS * All * Comments:* Impression: History of diminished force of stream with occasional urge incontinence, microhematuria and intermittent flank pain.Plan: Followup evaluation with CT of the abdomen and pelvis and cystoscopy. Urine cytology obtained and pending. Functional Status Description No Information Available Mental Status Description No Information Available Referrals Description No Information Available
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
--- OUTSIDE RECORDS SUMMARY | 2021-02-06 12:38 | CCD | Continuity of Care Document ---
Author Author [facility] Organization Unknown Address [address] [place] [address] Phone Unavailable Care Team Providers Care Ripening Room Attendant Name Role Phone Ray Gaston M.D. AUTM [phone] Min Peters D.O. AUTM [phone] Problems Active Problems Provider Date Transient cerebral ischemia Pantera Warren M.D. Onset: 11/30 Anxiety state Pantera Warren M.D. Onset: 11/30/2016 Essential hypertension Pantera Warren M.D. Onset: 11/30/2016 Pure hypercholesterolemia Pantera Warren M.D. Onset: 017 Sleep disorder Pantera Warren M.D. Onset: 11/30/2016 Carotid artery occlusion Pantera Warren M.D. Onset: 12/01/19 17 Social History Type Date Description Comments Sex Unknown ETOH Use Denies alcohol use Tobacco Use Start: Unknown End: Unknown Patient is a former smoker briefly smoked as a teenager Smoking Status Reviewed: 12/09/17 Patient is a former smoker br iefly smoked as a teenager Allergies, Adverse Reactions, Alerts Description No Known Drug Allergies Medications Active Medications SIG Qnty Indications Ordering Provide r Date Sertraline HCL 50mg Tablets q d Unknown Rosuvastatin Calcium 10mg Tablets Take One Tablet By Mouth Every Evening Unknown Esomeprazole Magnesium 40mg Capsul es DR Take One Capsule By Mouth Twice Daily Unknown Clopidogrel Bisulfate 75mg Tablets Take One Tablet By Mouth Once Daily Unknown 0 Amlodipine Besylate/Benazepril Hydrochlo ride 5-20mg Capsules Take One Capsule By Mouth Once Daily Unknown Clonazepam 1mg Tablets bid Fernando Stephenson P.A. Breo Ellipta 100-25mcg/Inh Aerosol Inhale One puff By Mouth Every Day Unknown Folic Acid qd Unknown Buspirone HCL 7.5mg Tablets q d Unknown Dexilant 30mg Capsules DR marroquin Unknown Iron 325(65Fe) mg Tablets qd Unknown Gabapentin 100mg Capsules 2 times a day Unknown Sucralfate 1gm Tablets fou r times a day Unknown Vitamin C 500mg Chewtabs 1 by mouth every day Unknown Vitamin D (Ergocalciferol) 2000Unit Capsules qd Unknown Immunizations Description No Information Available Vital Signs Date Vital Result Comment 12/04/2020 9:35am BP Systolic Right Arm 135 mmHg BP Diastolic Right Arm 60 mmHg BP Systolic Left Arm 117 mmHg BP Diastolic Left Arm 57 mmHg Heart Rate 60 /min Body Temperature 96.7 F Height 60 inches 5'0" 12/04/2019 8:54am BP Systolic Right Arm 120 mmHg BP Diastolic Right Arm 70 mmHg BP Systolic Left Arm 110 mmHg BP Diastolic Left Arm 70 mmHg Height 60 inches 5'0" Weight 154.00 lb Weight 69.854 kg BMI (Body Mass Index) 30.1 kg/m2 Results Test Acquired Date Facility Test Result H/L Range Note Xray 12/04/2020 Main Office [phone] Carotid Ultrasound Bilateral <pending> Procedures Date Code Description Status 12/04/2020 51441 Duplex Scan Extracranial Arterie s, Complete Bilateral Study Completed Medical Devices Description No Information Available Encounters Description No Information Available Assessments Date Code Description Provider 12/04/2020 I65.23 Occlusion and stenosis of bilate ral carotid arteries Pantera Warren M.D. 12/04/2020 I65.23 Occlusion and stenosis of bilate ral carotid arteries Vascular Lab Plan of Treatment Future Appointment(s):* 12/10/2021 11:00 am - Vascular Lab at Main Office 12/09/2017 - Miladys Woo* I65.23 Occlusion and stenosis of bilateral carotid arteries * * Follow up:* 1 YEAR OV/US/ CAROTID BILATERAL/ Functional Status Description No Information Available Mental Status Description No Information Available Referrals Description No Information Available
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
--- OUTSIDE RECORDS SUMMARY | 2021-02-06 12:38 | CCD | Continuity of Care Document ---
Author Author Estefania DOTSON MD Organization Unknown Address [address] [facility] [address] [place] [address] Phone [phone] Care Team Providers Care Ciaio Lumite Injector Name Role Phone AUTM Unavailable Min Peters D.O. AUTM [phone] Problems Active Problems Provider Date Chronic obstructive lung disease HERBER Arriaga Onset: 03/22/2017 Asthma without status asthmaticus HERBER Arriaga Onset: 03/22/2017 Abnormal weight gain HERBER Arriaga Onset: 03/22/2017 Obstructive sleep apnea syndrome HERBER Arriaga Onset: 03/22/2017 Disorder of pericardium Dilshad Sears, D.O. Onset: 8 Other specified pleural conditions Dilshad Sears, D.O. Onset : 2017 Cough Dilshad Sears, D.O. Onset: 01/10/2019 Dyspnea Dilshad Sears, D.O. Onset: 01/10/2019 Abdominal pain Dilshad Sears, D.O. Onset: 01/10/2019 Allergic rhinitis Dilshad Sears, D.O. Onset: 01/10/2019 Atypical chest pain Dilshad Sears, D.O. Onset: 01/10/2019 Abnormal findings on diagnostic imaging of lung Dilshad Sears, D.O. Onset: 02/06/2019 Social History Type Date Description Comments Sex Unknown ETOH Use Denies alcohol use Tobacco Use Reviewed: 01/12/20 Patient has never smoked Recreational Drug Use Denies Drug Use Smoking Status Reviewed: 09/10/20 Patient has never smoked Allergies, Adverse Reactions, Alerts Active Allergies Criticality Reaction | Severity Comments Date Wellbutrin Unable to assess criticality 01/27/2017 Peanut-containing Drug Products Unable to assess criticality 01/27/2017 Latex Unable to assess criticality 01/27/2017 Iodine Unable to assess criticality 07/28/2017 Morphine Unable to assess criticality 07/28/2017 Medications Active Medications SIG Qnty Indications Ordering Provide r Date Albuterol Sulfate (2 .5mg/3ML) 0.083% Nebulizer 1 vial four times a day as needed 360units J44.1 Dilshad pink D.O. 08/15/2018 CPAP 7cm lcw Dilshad Dasilva D.O. 02/25/20 18 Rosuvastatin Calcium 10mg Tablets 1 po qd Unknown Clopidogrel Bisulfate 75mg Tablets 1 tab by mouth every day 30tabs Unknown Sertraline HCL 100mg Tablets 1 tab by mouth every day 30tabs Unknown Buspirone HCL 7.5mg Tablets 1 tab by mouth every day 60tabs Unknown Advair HFA 230-21mcg/Act Aerosol 2 puff twice a day 12gm Dilshad Dasilva D.O. Ferrous Sulfate 325(65Fe) mg Table ts 1 tab by mouth every day 60tabs Unknown Gabapentin 100mg Capsules 2 by mouth at bedtime 90caps Unknown Folbic 1 tab by mouth every day Unknown Valsartan-Hydrochlorothiazide 320-25mg Tablets 1 tab by mouth every day Unknown Pantoprazole Sodium 40mg Tablets D R 1 tab by mouth every day Unknown Clonazepam 1mg Tablets 1 tab 2 times a day for tremors Unknown History Medications Cefdinir 300mg Capsules 1 tab by mouth twice a day x 10 days 20caps J44.1 Dilshad Dasilva D.O. 1 - 10/01/2020 Prednisone 10mg Tablets 4 tabs daily x 5days, then 3 tabs daily x 5 days, then 2 tabs daily x 5 days, then 1 tab daily x 5 days 50tabs J44.1 Dilshad Dasilva D.O. 09/10/2020 - Immunizations Description No Information Available Vital Signs Date Vital Result Comment 01/27/2021 10:54am BP Systolic 112 mmHg BP Diastolic 48 mmHg Heart Rate 76 /min Body Temperature 98.4 F Height 60 inches 5'0" Weight 142.50 lb BMI (Body Mass Index) 27.8 kg/m2 [place] Body Weight 100 lb Weight 64.638 kg BSA (Body Surface Area) 1.62 m2 10/01/2020 1:27pm BP Systolic 132 mmHg BP Diastolic 68 mmHg Heart Rate 61 /min O2 % BldC Oximetry 96 % Height 59.5 inches 4'11.50" Weight 152.00 lb BMI (Body Mass Index) 30.2 kg/m2 [place] Body Weight 100 lb Weight 68.947 kg BSA (Body Surface Area) 1.65 m2 Results Test Acquired Date Facility Test Result H/L Range Note FVL/[facility] 10/01/2020 [facility] SEE IMAGE FVC-Pred 1.86 L FVC-Pre 1.60 L FVC-%Pred-Pre 86 L FVC-LLN 1.26 L Fev1-Pred 1.35 L Fev1-Pre 1.07 L Fev1-%Pred-Pre 79 L Fev1-LLN 0.84 L Fev6-Pred 1.73 L Fev6-Pre 1.58 L Fev6-%Pred-Pre 91 L Fev6-LLN 1.14 L Yxx8wak-Iftr 73 % Vna9vnt-Yla 67 % Scn4hlo-%Pred-Pre 91 % Jtt1tdm-OGS 63 % Afo6zhw-Xazw 93 % Vbs3qmy-Jsb 99 % Xxn7phf-%Pred-Pre 106 % FEFMax-Pred 3.62 L/E/sec FEFMax-Pre 3.59 L/E/sec FEFMax-%Pred-Pre 99 L/E/sec FEFMax-LLN 2.14 L/E/sec Tig6941-Ekfl 0.90 L/E/sec Dww6587-Zom 0.59 L/E/sec Oua2136-%Pred-Pre 65 L/E/sec Pcc0415-NCU -0.17 L/E/sec ExpTime-Pre 7.68 sec Plx7mlf0-Jjxy 77 % Bjw5kku0-Wmf 68 % Kkv0xtb1-%Pred-Pre 88 % Aza5isc7-MPK 68 % Laboratory test finding 09/10/2020 [facility] [address] [place] [address] [phone] Sputum Culture And Gram Stain (SEE NOTE) Normal 1 1 QUALITY: GOOD MODERATE WBCS MODERATE EPITHELIAL CELLS MODERATE GRAM POSITIVE COCCI IN PAIRS, CHAINS AND CLUSTERS FEW GRAM NEGATIVE COCCI Procedures Date Code Description Status 10/01/2020 89449 Office/Outpatient Established Mo d MDM 30-39 Min Completed 10/01/2020 91048 Spirometry Completed 09/10/2020 03296 Office/Outpatient Established Mo d MDM 30-39 Min Completed Medical Devices Description No Information Available Encounters Type Date Location Provider Dx Diagnosis Office Visit 10/01/2020 1:30p [facility] Pulmonary/Thoracic HERBER Arriaga J44.9 Chronic obstructive pulmonary disease, u nspecified G47.33 Obstructive sleep apnea (khushboo lt) (pediatric) Office Visit 09/10/2020 12:30p [facility] Pulmonary/Thoracic HERBER Arriaga J44.1 Chronic obstructive pulmonary disease w (acute) exacerbation G47.33 Obstructive sleep apnea ([place]ushboo lt) (pediatric) Assessments Date Code Description Provider 10/01/2020 J44.9 Chronic obstructive pulmonary di sease, unspecified HERBER Arriaga 10/01/2020 G47.33 Obstructive sleep apnea (adult) (pediatric) HERBER Arriaga 09/10/2020 J44.1 Chronic obstructive pulmonary disease with (acute) exacerbation HERBER Arriaga 09/10/2020 G47.33 Obstructive sleep apnea (adult) (pediatric) HERBER Arriaga Plan of Treatment Future Appointment(s):* 02/25/2021 3:30 pm - Dilshad Dasilva D.O. at [facility] Pulmonary/Thoracic 10/01/2020 - HERBER Arriaga* J44.9 Chronic obstructive pulmonary disease, unspecified * G47.33 Obstructive sleep apnea (adult) (pediatric) * * New Labs:* FVL/[facility], Scheduled: 01/01/21 * Follow up:* Follow up in 3 months with Clancy Functional Status Description No Information Available Mental Status Description No Information Available Referrals Refer to Reason for Referral Status Appt Date Erwin Dotson JR, MD PEG TUBE Scheduled 1 [address] [facility] [address] [place] [address] [phone]
--- OUTSIDE RECORDS SUMMARY | 2021-02-06 12:38 | CCD | Continuity of Care Document ---
Author Author [facility] Organization Unknown Address [address] [place] [address] Phone Unavailable Care Team Providers Care Cushion Installer Name Role Phone Ray Gaston M.D. AUTM [phone] Min Peters D.O. AUTM [phone] Problems Active Problems Provider Date Transient cerebral [...] Unknown Clonazepam 1mg Tablets bid Fernando Stephenson P.AJoy Breo Ellipta 100-25mcg/Inh Aerosol Inhale One puff [...] Signs Date Vital Result Comment 12/04/2020 9:35am Body Temperature 96.7 F 12/04/2019 8:54am BP Systolic Right Arm 120 mmHg BP Diastolic Right Arm 70 mmHg BP Systolic Left Arm 110 mmHg BP Diastolic Left Arm 70 mmHg Height 60 inches 5'0" Weight 154.00 lb Weight 69.854 kg BMI (Body Mass Index) 30.1 kg/m2 Results Test Acquired Date Facility Test Result H/L Range Note Xray 12/04/2020 Main Office [phone] Carotid Ultrasound Bilateral <pending> Procedures Date Code Description Status 12/04/2020 11118 Duplex Scan Extracranial Arterie s, Complete Bilateral Study Completed Medical Devices Description No Information Available Encounters Description No Information Available Assessments Date Code Description Provider 12/04/2020 I65.23 Occlusion and stenosis of bilate ral carotid arteries [facility] Plan of Treatment 12/09/2017 - Ward Woo.* I65.23 Occlusion and stenosis of bilateral carotid arteries * * Follow up:* 1 YEAR OV/US/ CAROTID BILATERAL/ Functional Status Description No Information Available Mental Status Description No Information Available Referrals Description No Information Available
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
--- OUTSIDE RECORDS SUMMARY | 2021-02-06 12:43 | CCD ---
Author Author [facility] Organization [facility] Address Unknown Phone Unavailable Support Name Relationship Address Phone LATASHA JD Next Of Kin [address] [place] [address] [address] [place] [address] LATASHA TEX Next Of Kin [address] [place] [address] [address] [place] [address] LATASHA TEX/JD Next Of Kin [address] [place] [address] HEIDI PAGAN Next Of Kin Unknown Florencio BARTON Next Of Kin [address] [place] [address] Florencio PAGAN Next Of Kin [address] [place] [address] RET Next Of Kin Unknown Unavailable CONTACT, NO Next Of Kin Unknown Unavailable LAMONT PAGAN Next Of Kin [address] [place] [address] ARLIN PAGAN Next Of Kin [address] [place] [address] Unavailable JULIA PAGAN Next Of Kin [address] [place] [address] Unavailable RE Next Of Kin Unknown Unavailable UE Next Of Kin Unknown Unavailable LAMONT PAGAN/JULIA Next Of Kin Unknown RETIRED Next Of Kin Unknown Unavailable LAMONT PAGAN AND JULIA Next Of Kin MAYETTA, Sergey PAGAN Next Of Kin [address] [place] [address] TEX PAGAN/JD ECON [address] [place] [address] [phone] Care Team Providers Care Streetcar Motorman Name Role Phone Gilma DELGADILLO Unavailable Unavailable Gilma DELGADILLO Unavailable Unavailable Gilma DELGADILLO Unavailable Unavailable LEONA, W JOSE Unavailable Unavailable LEONA, W JOSE Unavailable Unavailable LEONA, W JOSE Unavailable Unavailable LEONA, W JOSE Unavailable Unavailable LEONA, W JOSE Unavailable Unavailable LEONA, W JOSE Unavailable Unavailable LEONA, W JOSE Unavailable Unavailable LEONA, W JOSE Unavailable Unavailable LEONA, W JOSE Unavailable Unavailable LEONA, W JOSE Unavailable Unavailable LEONA, W JOSE Unavailable Unavailable LEONA, W JOSE Unavailable Unavailable LEONA, W JOSE Unavailable Unavailable LEONA, W JOSE Unavailable Unavailable LEONA, W JOSE Unavailable Unavailable LEONA, W JOSE Unavailable Unavailable LEONA, W JOSE Unavailable Unavailable LEONA, W JOSE Unavailable Unavailable LEONA, W JOSE Unavailable Unavailable LEONA, W JOSE Unavailable Unavailable LEONA, W JOSE Unavailable Unavailable LEONA, W JOSE Unavailable Unavailable LEONA, W JOSE Unavailable Unavailable LEONA, W JOSE Unavailable Unavailable LEONA, W JOSE Unavailable Unavailable LEONA, W JOSE Unavailable Unavailable LEONA, W JOSE Unavailable Unavailable LEONA, W JOSE Unavailable Unavailable LEONA, W JOSE Unavailable Unavailable LEONA, W JOSE Unavailable Unavailable LEONA, W JOSE Unavailable Unavailable LEONA, W JOSE Unavailable Unavailable LEONA, W JOSE Unavailable Unavailable LEONA, W JOSE Unavailable Unavailable LEONA, W JOSE Unavailable Unavailable LEONA, W JOSE Unavailable Unavailable AzizBrandyy Renan MD Unavailable Unavailable AzizBrandyy Renan MD Unavailable Unavailable AzizBrandyy Renan MD Unavailable Unavailable AzizBrandyy Renan Unavailable Unavailable AzizBrandyy Renan MD Unavailable Unavailable AzizBrandyy Renan MD Unavailable Unavailable AzizBrandyy Renan MD Unavailable Unavailable AzizBrandyy Renan MD Unavailable Unavailable Aziz Adly Renan MD Unavailable Unavailable AzizBrandyy Renan MD Unavailable Unavailable AzizBrandyy Renan MD Unavailable Unavailable Aziz Adly Renan MD Unavailable Unavailable Aziz Adly Renan MD Unavailable Unavailable Aziz Adly Renan MD Unavailable Unavailable Aziz Adly Renan MD Unavailable Unavailable Aziz Adly Renan MD Unavailable Unavailable AzizBrandyy Renan Unavailable Unavailable AzizBrandyy Renan MD Unavailable Unavailable AzizBrandyy Renan MD Unavailable Unavailable AzizBrandyy Renan MD Unavailable Unavailable Aziz Adly Renan MD Unavailable Unavailable AzizBrandyy Renan MD Unavailable Unavailable AzizBrandyy Renan MD Unavailable Unavailable AzizBrandyy Renan Unavailable Unavailable Aziz Adly Renan MD Unavailable Unavailable Aziz, Adly Renan MD Unavailable Unavailable Aziz, Adly Renan MD Unavailable Unavailable Aziz, Adly Renan MD Unavailable Unavailable Aziz, Adly Renan MD Unavailable Unavailable Aziz, Adly Renan MD Unavailable Unavailable Aziz, Adly Renan MD Unavailable Unavailable Aziz, Adly Renan MD Unavailable Unavailable Aziz, Adly Renan MD Unavailable Unavailable Aziz, Adly Renan MD Unavailable Unavailable Aziz, Adly Renan MD Unavailable Unavailable Aziz, Adly Renan MD Unavailable Unavailable Aziz, Adly Renan MD Unavailable Unavailable Aziz, Adly Renan MD Unavailable Unavailable Aziz, Adly Renan MD Unavailable Unavailable Aziz, Adly Renan MD Unavailable Unavailable Aziz, Adly Renan MD Unavailable Unavailable Aziz, Adly Renan MD Unavailable Unavailable Aziz, Adly Renan MD Unavailable Unavailable Aziz, Adly Renan MD Unavailable Unavailable Aziz, Adly Renan MD Unavailable Unavailable Aziz, Adly Renan MD Unavailable Unavailable Aziz, Adly Renan MD Unavailable Unavailable Aziz, Adly Renan MD Unavailable Unavailable Aziz, Adly Renan MD Unavailable Unavailable Aziz, Adly Renan MD Unavailable Unavailable Aziz, Adly Renan MD Unavailable Unavailable Aziz, Adly Renan MD Unavailable Unavailable Aziz, Adly Renan MD Unavailable Unavailable Aziz, Adly Renan MD Unavailable Unavailable Aziz, Adly Renan MD Unavailable Unavailable Aziz, Adly Renan MD Unavailable Unavailable Aziz, Adly Renan MD Unavailable Unavailable Aziz, Adly Renan MD Unavailable Unavailable Aziz, Adly Renan MD Unavailable Unavailable Aziz, Adly Renan MD Unavailable Unavailable Aziz, Adly Renan MD Unavailable Unavailable Aziz, Adly Renan MD Unavailable Unavailable Aziz, Adly Renan MD Unavailable Unavailable Aziz, Adly Renan MD Unavailable Unavailable Aziz, Adly Renan MD Unavailable Unavailable Aziz, Adly Renan MD Unavailable Unavailable Aziz, Adly Renan MD Unavailable Unavailable Aziz, Adly Renan MD Unavailable Unavailable Aziz, Adly Renan MD Unavailable Unavailable Aziz, Adly Renan MD Unavailable Unavailable Aziz, Adly Reann MD Unavailable Unavailable Aziz, Adly Renan MD Unavailable Unavailable Aziz, Adly Renan MD Unavailable Unavailable Aziz, Adly Renan MD Unavailable Unavailable Aziz, Adly Renan MD Unavailable Unavailable Aziz, Adly Renan MD Unavailable Unavailable Aziz, Adly Renan MD Unavailable Unavailable Aziz, Adly Renan MD Unavailable Unavailable Aziz, Adly Renan MD Unavailable Unavailable Aziz, Adly Renan MD Unavailable Unavailable Aziz, Adly Renan MD Unavailable Unavailable Aziz, Adly Renan MD Unavailable Unavailable Aziz, Adly Renan MD Unavailable Unavailable Aziz, Adly Renan MD Unavailable Unavailable Aziz, Adly Renan MD Unavailable Unavailable Aziz, Adly Renan MD Unavailable Unavailable Aziz, Adly Renan MD Unavailable Unavailable Aziz, Adly Renan MD Unavailable Unavailable Aziz, Adly Renan MD Unavailable Unavailable Aziz, Adly Renan MD Unavailable Unavailable Aziz, Adly Renan MD Unavailable Unavailable Aziz, Adly Renan MD Unavailable Unavailable Aziz, Adly Renan MD Unavailable Unavailable Dator Rodrigo BALBUENA MD Unavailable Unavailable Dator Rodrigo BALBUENA MD Unavailable Unavailable Dator Rodrigo BALBUENA MD Unavailable Unavailable Dator Rodrigo BALBUENA MD Unavailable Unavailable Dator Rodrigo BALBUENA MD Unavailable Unavailable Dator Rodrigo BALBUENA MD Unavailable Unavailable Dator Rodrigo BALBUENA MD Unavailable Unavailable Dator Rodrigo BALBUENA MD Unavailable Unavailable Dator Rodrigo BALBUENA MD Unavailable Unavailable Dator Rodrigo BALBUENA MD Unavailable Unavailable Dator Rodrigo BALBEUNA MD Unavailable Unavailable Dator Rodrigo BALBUENA MD Unavailable Unavailable Dator Rodrigo BALBUENA MD Unavailable Unavailable Dator Rodrigo BALBUENA MD Unavailable Unavailable Dator Rodrigo BALBUENA MD Unavailable Unavailable Dator Rodrigo BALBUENA MD Unavailable Unavailable Dator Rodrigo BALBUENA MD Unavailable Unavailable Dator Rodrigo BALBUENA MD Unavailable Unavailable Dator Rodrigo BALBUENA MD Unavailable Unavailable Dator Rodrigo BALBUENA MD Unavailable Unavailable Dator Rodrigo BALBUENA MD Unavailable Unavailable Dator Rodrigo BALBUENA MD Unavailable Unavailable Dator Rodrigo BALBUENA MD Unavailable Unavailable Dator Rodrigo BALBUENA MD Unavailable Unavailable Dator Rodrigo BALBUENA MD Unavailable Unavailable Dator Rodrigo BALBUENA MD Unavailable Unavailable Dator Rodrigo BALBUENA MD Unavailable Unavailable Dator Rodrigo BALBUENA MD Unavailable Unavailable MATTES, L MARLY PA Unavailable Unavailable MATTES, L MARLY PA Unavailable Unavailable MATTES, L MARLY PA Unavailable Unavailable MATTES, L MARLY PA Unavailable Unavailable MATTES, L MARLY PA Unavailable Unavailable MATTES, L MARLY PA Unavailable Unavailable MATTES, L MARLY PA Unavailable Unavailable MATTES, L MARLY PA Unavailable Unavailable MATTES, L MARLY PA Unavailable Unavailable MATTES, L MARLY PA Unavailable Unavailable MATTES, L MARLY PA Unavailable Unavailable MATTES, L MARLY PA Unavailable Unavailable MATTES, L MARLY PA Unavailable Unavailable MATTES, L MARLY PA Unavailable Unavailable MATTES, L MARLY PA Unavailable Unavailable MATTES, L MARLY PA Unavailable Unavailable MATTES, L MARLY PA Unavailable Unavailable MATTES, L MARLY PA Unavailable Unavailable MATTES, L MARLY PA Unavailable Unavailable MATTES, L MARLY PA Unavailable Unavailable MATTES, L MARLY PA Unavailable Unavailable SYMENOW, G CHRISTOPHER PA Unavailable Unavailable SYMENOW, G CHRISTOPHER PA Unavailable Unavailable SYMENOW, G CHRISTOPHER PA Unavailable Unavailable SYMENOW, G CHRISTOPHER PA Unavailable Unavailable SYMENOW, G CHRISTOPHER PA Unavailable Unavailable SYMENOW, G CHRISTOPHER PA Unavailable Unavailable SYMENOW, G CHRISTOPHER PA Unavailable Unavailable SYMENOW, G CHRISTOPHER PA Unavailable Unavailable SYMENOW, G CHRISTOPHER PA Unavailable Unavailable SYMENOW, G CHRISTOPHER PA Unavailable Unavailable SYMENOW, G CHRISTOPHER PA Unavailable Unavailable SYMENOW, G CHRISTOPHER PA Unavailable Unavailable SYMENOW, G CHRISTOPHER PA Unavailable Unavailable SYMENOW, G CHRISTOPHER PA Unavailable Unavailable SYMENOW, G CHRISTOPHER PA Unavailable Unavailable SYMENOW, G CHRISTOPHER PA Unavailable Unavailable AMAIRANI (KAREL), Adrianna DUBOIS MD Unavailable Unavailab le AMAIRANI (KAREL), Adrianna DUBOIS MD Unavailable Unavailab le AMAIRANI (KAREL), Adrianna DUBOIS MD Unavailable Unavailab le AMAIRANI (KAREL), Adrianna DUBOIS MD Unavailable Unavailab le AMAIRANI (KAREL), Adrianna DUBOIS MD Unavailable Unavailab le AMAIRANI (KAREL), Adrianna DUBOIS MD Unavailable Unavailab le AMAIRANI (KAREL), Adrianna DUBOIS MD Unavailable Unavailab le AMAIRANI (KAREL), Adrianna DUBOIS MD Unavailable Unavailab le AMAIRANI (KAREL), Adrianna DUBOIS MD Unavailable Unavailab le AMAIRANI (KAREL), Adrianna DUBOIS MD Unavailable Unavailab le AMAIRANI (KAREL), Adrianna DUBOIS MD Unavailable Unavailab le AMAIRANI (KAREL), Adrianna DUBOIS MD Unavailable Unavailab le AMAIRANI (KAREL), Adrianna DUBOIS MD Unavailable Unavailab le AMAIRANI (KAREL), Adrianna DUBOIS MD Unavailable Unavailab le AMAIRANI (KAREL), Adrianna DUBOIS MD Unavailable Unavailab le AMAIRANI (KAREL), Adrianna DUBOIS MD Unavailable Unavailab le AMAIRANI (KAREL), Adrianna DUBOIS MD Unavailable Unavailab le AMAIRANI (KAREL), Adrianna DUBOIS MD Unavailable Unavailab le AMAIRANI (KAREL), Adrianna DUBOIS MD Unavailable Unavailab le AMAIRANI (KAREL), Adrianna DUBOIS MD Unavailable Unavailab le AMAIRANI (KAREL), Adrianna DUBOIS MD Unavailable Unavailab le AMAIRANI (KAREL), Adrianna DUBOIS MD Unavailable Unavailab le AMAIRANI (KAREL), Adrianna DUBOIS MD Unavailable Unavailab le AMAIRANI (KAREL), Adrianna DUBOIS MD Unavailable Unavailab le AMAIRANI (KAREL), Adrianna DUBOIS MD Unavailable Unavailab le AMAIRANI (KAREL), Adrianna DUBOIS MD Unavailable Unavailab le AMAIRANI (KAREL), Adrianna DUBOIS MD Unavailable Unavailab le AMAIRANI (KAREL), Adrianna DUBOIS MD Unavailable Unavailab le AMAIRANI (KAREL), Adrianna DUBOIS MD Unavailable Unavailab le AMAIRANI (KAREL), Adrianna DUBOIS MD Unavailable Unavailab le AMAIRANI (KAREL), Adrianna DUBOIS MD Unavailable Unavailab le AMAIRANI (KAREL), Adrianna DUBOIS MD Unavailable Unavailab le AMAIRANI (KAREL), Adrianna DUBOIS MD Unavailable Unavailab le AMAIRANI (KAREL), Adrianna DUBOIS MD Unavailable Unavailab le AMAIRANI (KAREL), Adrianna DUBOIS MD Unavailable Unavailab le AMAIRANI (KAREL), Adrianna DUBOIS MD Unavailable Unavailab le AMAIRANI (KAREL), Adrianna DUBOIS MD Unavailable Unavailab le AMAIRANI (KAREL), Adrianna DUBOIS MD Unavailable Unavailab le AMAIRANI (KAREL), Adrianna DUBOIS MD Unavailable Unavailab le AMAIRANI (KAREL), Adrianna DUBOIS MD Unavailable Unavailab le AMAIRANI (KAREL), Adrianna DUBOIS MD Unavailable Unavailab le AMAIRANI (KAREL), Adrianna DUBOIS MD Unavailable Unavailab le AMAIRANI (KAREL), Adrianna DUBOIS MD Unavailable Unavailab le AMAIRANI (KAREL), Adrianna DUBOIS MD Unavailable Unavailab le AMAIRANI (KAREL), Adrianna DUBOIS MD Unavailable Unavailab le AMAIRANI (KAREL), Adrinana DUBOIS MD Unavailable Unavailab le AMAIRANI (KAREL), Adrianna DUBOIS MD Unavailable Unavailab le AMAIRANI (KAREL), Adrianna DUBOIS MD Unavailable Unavailab le AMAIRANI (KAREL), Adrianna DUBOIS MD Unavailable Unavailab le AMAIRANI (KAREL), Adrianna DUBOIS MD Unavailable Unavailab le AMAIRANI (KAREL), Adrianna DUBOIS MD Unavailable Unavailab le AMAIRANI (KAREL), Adrianna DUBOIS MD Unavailable Unavailab le AMAIRANI (KAREL), Adrianna DUBOIS MD Unavailable Unavailab le AMAIRANI (KAREL), Adrianna DUBOIS MD Unavailable Unavailab le AMAIRANI (KAREL), Adrianna DUBOIS MD Unavailable Unavailab le AMAIRANI (KAREL), Adrianna DUBOIS MD Unavailable Unavailab le AMAIRANI (KAREL), Adrianna DUBOIS MD Unavailable Unavailab le AMAIRANI (KAREL), Adrianna DUBOIS MD Unavailable Unavailab le AMAIRANI (KAREL), Adrianna DUBOIS MD Unavailable Unavailab le AMAIRANI (KAREL), Adrianna DUBOIS MD Unavailable Unavailab le AMAIRANI (KAREL), Adrianna DUBOIS MD Unavailable Unavailab le AMAIRANI (KAREL), Adrianna DUBOIS MD Unavailable Unavailab le AMAIRANI (KAREL), Adrianna DUBOIS MD Unavailable Unavailab le AMAIRANI (KAREL), Adrianna DUBOIS MD Unavailable Unavailab le AMAIRANI (KAREL), Adrianna DUBOIS MD Unavailable Unavailab le AMAIRANI (KAREL), Adrianna DUBOIS MD Unavailable Unavailab le AMAIRANI (KAREL), Adrianna DUBOIS MD Unavailable Unavailab le AMAIRANI (KAREL), Adrianna DUBOIS MD Unavailable Unavailab le AMAIRANI (KAREL), Adrianna DUBOIS MD Unavailable Unavailab le AMAIRANI (KAREL), Adrianna DUBOIS MD Unavailable Unavailab le AMAIRANI (KAREL), Adrianna DUBOIS MD Unavailable Unavailab le AMAIRANI (KAREL), Adrianna DUBOIS MD Unavailable Unavailab le AMAIRANI (KAREL), Adrianna DUBOIS MD Unavailable Unavailab le AMAIRANI (KAREL), Adrianna DUBOIS MD Unavailable Unavailab le AMAIRANI (KAREL), Adrianna DUBOIS MD Unavailable Unavailab le AMAIRANI (KAREL), Adrianna DUBOIS MD Unavailable Unavailab le AMAIRANI (KAREL), Adrianna DUBOIS MD Unavailable Unavailab le AMAIRANI (KAREL), Adrianna DUBOIS MD Unavailable Unavailab le AMAIRANI (KAREL), Adrianna DUBOIS MD Unavailable Unavailab le MAAIRANI (KAREL), Adrianna DUBOIS MD Unavailable Unavailab le AMAIRANI (KAREL), Adrianna DUBOIS MD Unavailable Unavailab le AMAIRANI (KAREL), Adrianna DUBOIS MD Unavailable Unavailab le AMAIRANI (KAREL), Adrianna DUBOIS MD Unavailable Unavailab le AMAIRANI (KAREL), Adrianna DUBOIS MD Unavailable Unavailab le AMAIRANI (KAREL), Adrianna DUBOIS MD Unavailable Unavailab le AMAIRANI (KAREL), Adrianna DUBOIS MD Unavailable Unavailab le AMAIRANI (KAREL), Adrianna DUBOIS MD Unavailable Unavailab le Diliberto, A Cherie PA Unavailable Unavailable Diliberto, A Cherie PA Unavailable Unavailable Diliberto, A Cherie PA Unavailable Unavailable Diliberto, A Cherie PA Unavailable Unavailable Diliberto, A Cherie PA Unavailable Unavailable Diliberto, A Cherie PA Unavailable Unavailable Diliberto, A Cherie PA Unavailable Unavailable Diliberto, A Cherie PA Unavailable Unavailable Diliberto, A Cherie PA Unavailable Unavailable Diliberto, A Cherie PA Unavailable Unavailable Diliberto, A Cherie PA Unavailable Unavailable Diliberto, A Cherie PA Unavailable Unavailable Diliberto, A Cherie PA Unavailable Unavailable Diliberto, A Cherie PA Unavailable Unavailable Diliberto, A Cherie PA Unavailable Unavailable Diliberto, A Cherie PA Unavailable Unavailable Diliberto, A Cherie PA Unavailable Unavailable Diliberto, A Cherie PA Unavailable Unavailable Diliberto, A Cherie PA Unavailable Unavailable Diliberto, A Cherie PA Unavailable Unavailable Diliberto, A Cherie PA Unavailable Unavailable Diliberto, A Cherie PA Unavailable Unavailable Diliberto, A Cherie PA Unavailable Unavailable Diliberto, A Cherie PA Unavailable Unavailable Diliberto, A Cherie PA Unavailable Unavailable Diliberto, A Cherie PA Unavailable Unavailable Diliberto, A Cherie PA Unavailable Unavailable Diliberto, A Cherie PA Unavailable Unavailable Diliberto, A Cherie PA Unavailable Unavailable Diliberto, A Cherie PA Unavailable Unavailable Diliberto, A Cherie PA Unavailable Unavailable Diliberto, A Cherie PA Unavailable Unavailable GUNNFlorencia Barney MD Unavailable Unavailable GUNNFlorencia Barney MD Unavailable Unavailable GUNN, S MILLIE MD Unavailable Unavailable GUNN, S MILLIE HARTMAN Unavailable Unavailable GUNN, S MILLIE HARTMAN Unavailable Unavailable GUNN, S MILLIE HARTMAN Unavailable Unavailable GUNN, S MILLIE HARTMAN Unavailable Unavailable GUNN S MILLIE MD Unavailable Unavailable GUNN, S MILLIE HARTMAN Unavailable Unavailable GUNN, S MILLIE HARTMAN Unavailable Unavailable GUNN S MILLIE MD Unavailable Unavailable GUNN S MILLIE HARTMAN Unavailable Unavailable GUNN S MILLIE HARTMAN Unavailable Unavailable GUNN S MILLIE HARTMAN Unavailable Unavailable GUNN, S MILLIE HARTMAN Unavailable Unavailable GUNN, S MILLIE MD Unavailable Unavailable GUNN, S MILLIE HARTMAN Unavailable Unavailable GUNN, S MILLIE MD Unavailable Unavailable GUNN, S MILLIE MD Unavailable Unavailable GUNN, S MILLIE MD Unavailable Unavailable GUNN, S MILLIE MD Unavailable Unavailable GUNN, S MILLIE MD Unavailable Unavailable GUNN, S MILLIE MD Unavailable Unavailable GUNN, S MILLIE MD Unavailable Unavailable GUNN, S MILLIE MD Unavailable Unavailable GUNN, S MILLIE MD Unavailable Unavailable GUNN, S MILLIE MD Unavailable Unavailable GUNN, S MILLIE MD Unavailable Unavailable GUNN, S MILLIE MD Unavailable Unavailable GUNN, S MILLIE MD Unavailable Unavailable GUNN, S MILLIE MD Unavailable Unavailable GUNN, S MILLIE MD Unavailable Unavailable GUNN, S MILLIE MD Unavailable Unavailable GUNN, S MILLIE MD Unavailable Unavailable GUNN, S MILLIE MD Unavailable Unavailable GUNN, S MILLIE MD Unavailable Unavailable GUNN, S MILLIE MD Unavailable Unavailable GUNN, S MILLIE MD Unavailable Unavailable GUNN, S MILLIE MD Unavailable Unavailable GUNN, S MILLIE MD Unavailable Unavailable GUNN, S MILLIE MD Unavailable Unavailable GUNN, S MILLIE MD Unavailable Unavailable GUNN, S MILLIE MD Unavailable Unavailable GUNN, S MILLIE MD Unavailable Unavailable GUNN, S MILLIE MD Unavailable Unavailable GUNN, S MILLIE MD Unavailable Unavailable GUNN, S MILLIE MD Unavailable Unavailable GUNN, S MILLIE MD Unavailable Unavailable GUNN, S MILLIE MD Unavailable Unavailable GUNN, S MILLIE MD Unavailable Unavailable GUNN, S MILLIE MD Unavailable Unavailable GUNN, S MILLIE MD Unavailable Unavailable GUNN, S MILLIE MD Unavailable Unavailable FREY, M KENNETH PA Unavailable Unavailable FREY, M KENNETH PA Unavailable Unavailable FREY, M KENNETH PA Unavailable Unavailable FREY, M KENNETH PA Unavailable Unavailable FREY, M KENNETH PA Unavailable Unavailable FREY, M KENNETH PA Unavailable Unavailable FREY, M KENNETH PA Unavailable Unavailable FREY, M KENNETH PA Unavailable Unavailable FREY, M KENNETH PA Unavailable Unavailable FREY, M KENNETH PA Unavailable Unavailable FREY, M KENNETH PA Unavailable Unavailable FREY, M KENNETH PA Unavailable Unavailable FREY, M KENNETH PA Unavailable Unavailable FREY, M KENNETH PA Unavailable Unavailable FREY, M KENNETH PA Unavailable Unavailable FREY, M KENNETH PA Unavailable Unavailable FREY, M KENNETH PA Unavailable Unavailable FREY, M KENNETH PA Unavailable Unavailable FREY, M KENNETH PA Unavailable Unavailable FREY, M KENNETH PA Unavailable Unavailable FREY, M KENNETH PA Unavailable Unavailable FREY, M KENNETH PA Unavailable Unavailable FREY, M KENNETH PA Unavailable Unavailable FREY, M KENNETH PA Unavailable Unavailable FREY, M KENNETH PA Unavailable Unavailable FREY, M KENNETH PA Unavailable Unavailable FREY, M KENNETH PA Unavailable Unavailable FREY, M KENNETH PA Unavailable Unavailable FREY, M KENNETH PA Unavailable Unavailable FREY, M KENNETH PA Unavailable Unavailable FREY, M KENNETH PA Unavailable Unavailable FREY, M KENNETH PA Unavailable Unavailable FREY, M KENNETH PA Unavailable Unavailable FREY, M KENNETH PA Unavailable Unavailable FREY, M KENNETH PA Unavailable Unavailable MAINI, EMILY MD Unavailable Unavailable MAINI, EMILY MD Unavailable Unavailable MAINI, EMILY MD Unavailable Unavailable MAINI, EMILY MD Unavailable Unavailable MAINI, EMILY MD Unavailable Unavailable MAINI, EMILY MD Unavailable Unavailable MAINI, EMILY MD Unavailable Unavailable MAINI, EMILY MD Unavailable Unavailable MAINI, EMILY MD Unavailable Unavailable MAINI, EMILY MD Unavailable Unavailable MAINI, EMILY MD Unavailable Unavailable MAINI, EMILY MD Unavailable Unavailable MAINI, EMILY MD Unavailable Unavailable MAINI, EMILY MD Unavailable Unavailable MAINI, EMILY MD Unavailable Unavailable MAINI, EMILY MD Unavailable Unavailable MAINI, EMILY MD Unavailable Unavailable MAINI, EMILY MD Unavailable Unavailable MAINI, EMILY MD Unavailable Unavailable MAINI, EMILY MD Unavailable Unavailable MAINI, EMILY MD Unavailable Unavailable MAINI, EMILY MD Unavailable Unavailable MAINI, EMILY MD Unavailable Unavailable MAINI, EMILY MD Unavailable Unavailable MAINI, EMILY MD Unavailable Unavailable MAINI, EMILY MD Unavailable Unavailable MAINI, EMILY MD Unavailable Unavailable MAINI, EMILY MD Unavailable Unavailable MAINI, EMILY MD Unavailable Unavailable MAINI, EMILY MD Unavailable Unavailable MAINI, EMILY MD Unavailable Unavailable MAINI, EMILY MD Unavailable Unavailable MAINI, EMILY MD Unavailable Unavailable MAINI, EMILY MD Unavailable Unavailable MAINI, EMILY MD Unavailable Unavailable MAINI, EMILY MD Unavailable Unavailable MAINI, EMILY MD Unavailable Unavailable MAINI, EMILY MD Unavailable Unavailable MAINI, EMILY MD Unavailable Unavailable MAINI, EMILY MD Unavailable Unavailable MAINI, EMILY MD Unavailable Unavailable MAINI, EMILY MD Unavailable Unavailable MAINI, EMILY MD Unavailable Unavailable MAINI, EMILY MD Unavailable Unavailable MAINI, EMILY MD Unavailable Unavailable MAINI, EMILY MD Unavailable Unavailable MAINI, EMILY MD Unavailable Unavailable MAINI, EMILY MD Unavailable Unavailable MAINI, EMILY MD Unavailable Unavailable MAINI, EMILY MD Unavailable Unavailable MAINI, EMILY MD Unavailable Unavailable MAINI, EMILY MD Unavailable Unavailable MAINI, EMILY MD Unavailable Unavailable MAINI, EMILY MD Unavailable Unavailable MAINI, EMILY MD Unavailable Unavailable MAINI, EMILY MD Unavailable Unavailable MAINI, EMILY MD Unavailable Unavailable MAINI, EMILY MD Unavailable Unavailable MAINI, EMILY MD Unavailable Unavailable MAINI, EMILY MD Unavailable Unavailable MAINI, EMILY MD Unavailable Unavailable MAINI, EMILY MD Unavailable Unavailable MAINI, EMILY MD Unavailable Unavailable MAINI, EMILY MD Unavailable Unavailable MAINI, EMILY MD Unavailable Unavailable MAINI, EMILY MD Unavailable Unavailable MAINI, EMILY MD Unavailable Unavailable MAINI, EMILY MD Unavailable Unavailable Gilma Alan MD Unavailable Unavailable Gilma Alan MD Unavailable Unavailable Gilma Alan MD Unavailable Unavailable JahairazGilma prado MD Unavailable Unavailable JahairazGilma prado MD Unavailable Unavailable JahairazGilma prado MD Unavailable Unavailable SalzGilma prado MD Unavailable Unavailable SalzGilma prado MD Unavailable Unavailable JahairazGilma prado MD Unavailable Unavailable Gilma Alan MD Unavailable Unavailable JahairazGilma prado MD Unavailable Unavailable Gilma Alan MD Unavailable Unavailable Gilma Alan MD Unavailable Unavailable Gilma Alan MD Unavailable Unavailable Gilma Alan MD Unavailable Unavailable Gilma Alan MD Unavailable Unavailable JahairazGilma prado MD Unavailable Unavailable JahairazGilma prado MD Unavailable Unavailable SalzGilma prado MD Unavailable Unavailable JahairazGilma prado MD Unavailable Unavailable SalzGilma prado MD Unavailable Unavailable JahairazGilma prado MD Unavailable Unavailable JahairazGilma prado MD Unavailable Unavailable JahairazGilma prado MD Unavailable Unavailable SalzGilma prado MD Unavailable Unavailable JahairazGilma prado MD Unavailable Unavailable JahairazGilma prado MD Unavailable Unavailable SalzGilma prado MD Unavailable Unavailable SalzGilma prado MD Unavailable Unavailable JahairazGilma prado MD Unavailable Unavailable Salzhakenji, Gilma Kirk MD Unavailable Unavailable Salzhauer, Gilma Kirk MD Unavailable Unavailable Salzhauer, Gilma Kirk MD Unavailable Unavailable Salzhauer, Gilma Kirk MD Unavailable Unavailable Salzhauer, Gilma Kirk MD Unavailable Unavailable Salzhauer, Gilma Kirk MD Unavailable Unavailable Salzhauer, Gilma Kirk MD Unavailable Unavailable Salzhauer, Gilma Kirk MD Unavailable Unavailable Salzhauer, Gilma Kirk MD Unavailable Unavailable Salzhauer, Gilma Kirk MD Unavailable Unavailable Salzhauer, Gilma Kirk MD Unavailable Unavailable Salzhauer, Gilma Kirk MD Unavailable Unavailable Salzhauer, Gilma Kirk MD Unavailable Unavailable Salzhauer, Gilma Kirk MD Unavailable Unavailable Salzhauer, Gilma Kirk MD Unavailable Unavailable Salzhauer, Gilma Kirk MD Unavailable Unavailable Salzhauer, Gilma Kirk MD Unavailable Unavailable Salzhauer, Gilma Kirk MD Unavailable Unavailable Salzhauer, Gilma Kirk MD Unavailable Unavailable Salzhauer, Gilma Kirk MD Unavailable Unavailable Salzhauer, Gilma Kirk MD Unavailable Unavailable Salzhauer, Gilma Kirk MD Unavailable Unavailable Salzhauer, Gilma Kirk MD Unavailable Unavailable Salzhauer, Gilma Kirk MD Unavailable Unavailable Salzhauer, Gilma Kirk MD Unavailable Unavailable Salzhakenji, Gilma Kirk MD Unavailable Unavailable Salzhauer, Gilma Kirk MD Unavailable Unavailable Salzhauer, Gilma Kirk MD Unavailable Unavailable Salzhakenji, Gilma Kirk MD Unavailable Unavailable Salzjohan, Gilma Kirk MD Unavailable Unavailable Salzhauer, Gilma Kirk MD Unavailable Unavailable Salzhauer, Gilma Kirk MD Unavailable Unavailable Salzhauer, Gilma Kirk MD Unavailable Unavailable Salzhauer, Gilma Kirk MD Unavailable Unavailable Salzhauer, Gilma Kirk MD Unavailable Unavailable Salzhauer, Gilma Kirk MD Unavailable Unavailable Salzhakenji, Gilma Kirk MD Unavailable Unavailable Salzhauer, Gilma Kirk MD Unavailable Unavailable Salzhakenji, Gilma Kirk MD Unavailable Unavailable Salzjohan, Gilma Kirk MD Unavailable Unavailable Salzjohan, Gilma Kirk MD Unavailable Unavailable Salzjohan, Gilma Kirk MD Unavailable Unavailable Salzjohan, Gilma Kirk MD Unavailable Unavailable Salzjohan, Gilma Krik MD Unavailable Unavailable Salzhakenji, Gilma Kirk MD Unavailable Unavailable SalzhaGilma phillip MD Unavailable Unavailable Gilma Alan MD Unavailable Unavailable Gilma Alan MD Unavailable Unavailable Gilma Alan MD Unavailable Unavailable Aziz, Adly Renan MD Unavailable Unavailable Aziz, Adly Renan MD Unavailable Unavailable Aziz, Adly Renan MD Unavailable Unavailable Aziz, Adly Renan MD Unavailable Unavailable Aziz, Adly Renan MD Unavailable Unavailable Aziz, Adly Renan MD Unavailable Unavailable Aziz, Adly Renan MD Unavailable Unavailable Aziz, Adly Renan MD Unavailable Unavailable Aziz, Adly Renan MD Unavailable Unavailable Aziz, Adly Renan MD Unavailable Unavailable Aziz, Adly Renan MD Unavailable Unavailable Aziz, Adly Renan MD Unavailable Unavailable Aziz, Adly Renan MD Unavailable Unavailable Aziz, Adly Renan MD Unavailable Unavailable Aziz, Adly Renan MD Unavailable Unavailable Aziz, Adly Renan MD Unavailable Unavailable Aziz, Adly Renan MD Unavailable Unavailable Aziz, Adly Renan MD Unavailable Unavailable Aziz, Adly Renan MD Unavailable Unavailable Aziz, Adly Renan MD Unavailable Unavailable Aziz, Adly Renan MD Unavailable Unavailable Aziz, Adly Renan MD Unavailable Unavailable Aziz, Adly Renan MD Unavailable Unavailable Aziz, Adly Renan MD Unavailable Unavailable Aziz, Adly Renan MD Unavailable Unavailable Aziz, Adly Renan MD Unavailable Unavailable Aziz, Adly Renan MD Unavailable Unavailable Aziz, Adly Renan MD Unavailable Unavailable Aziz, Adly Renan MD Unavailable Unavailable Aziz, Adly Renan MD Unavailable Unavailable Aziz, Adly Renan MD Unavailable Unavailable Aziz, Adly Renan MD Unavailable Unavailable Aziz, Adly Renan MD Unavailable Unavailable Aziz, Adly Renan MD Unavailable Unavailable Aziz, Adly Renan MD Unavailable Unavailable Aziz, Adly Renan MD Unavailable Unavailable Aziz, Adly Renan MD Unavailable Unavailable Aziz, Adly Renan MD Unavailable Unavailable Aziz, Adly Renan MD Unavailable Unavailable Aziz, Adly Renan MD Unavailable Unavailable Aziz, Adly Renan MD Unavailable Unavailable Aziz, Adly Renan MD Unavailable Unavailable Aziz, Adly Renan MD Unavailable Unavailable Aziz, Adly Renan MD Unavailable Unavailable Aziz, Adly Renan MD Unavailable Unavailable Aziz, Adly Renan MD Unavailable Unavailable Aziz, Adly Renan MD Unavailable Unavailable Aziz, Adly Renan MD Unavailable Unavailable Aziz, Adly Renan MD Unavailable Unavailable Aziz, Adly Renan MD Unavailable Unavailable Aziz, Adly Renan MD Unavailable Unavailable Aziz, Adly Renan MD Unavailable Unavailable Aziz, Adly Renan MD Unavailable Unavailable Aziz, Adly Renan MD Unavailable Unavailable Aziz, Adly Renan MD Unavailable Unavailable Aziz, Adly Renan MD Unavailable Unavailable Aziz, Adly Renan MD Unavailable Unavailable Aziz, Adly Renan MD Unavailable Unavailable Aziz, Adly Renan MD Unavailable Unavailable Aziz, Adly Renan MD Unavailable Unavailable Aziz, Adly Renan MD Unavailable Unavailable Aziz, Adly Renan MD Unavailable Unavailable Aziz, Adly Renan MD Unavailable Unavailable Aziz, Adly Renan MD Unavailable Unavailable Aziz, Adly Renan MD Unavailable Unavailable Aziz, Adly Renan MD Unavailable Unavailable Aziz, Adly Renan MD Unavailable Unavailable Aziz, Adly Renan MD Unavailable Unavailable Aziz, Adly Renan MD Unavailable Unavailable Aziz, Adly Renan MD Unavailable Unavailable Aziz, Adly Renan MD Unavailable Unavailable Aziz, Adly Renan MD Unavailable Unavailable Aziz, Adly Renan MD Unavailable Unavailable Aziz, Adly Renan MD Unavailable Unavailable Aziz, Adly Renan MD Unavailable Unavailable Aziz, Adly Renan MD Unavailable Unavailable Aziz, Adly Renan MD Unavailable Unavailable Aziz, Adly Renan MD Unavailable Unavailable Aziz, Adly Renan MD Unavailable Unavailable Aziz, Adly Renan MD Unavailable Unavailable Aziz, Adly Renan MD Unavailable Unavailable Aziz, Adly Renan MD Unavailable Unavailable Aziz, Adly Renan MD Unavailable Unavailable Aziz, Adly Renan MD Unavailable Unavailable Aziz, Adly Renan MD Unavailable Unavailable Aziz, Adly Renan MD Unavailable Unavailable Aziz, Adly Renan MD Unavailable Unavailable Aziz, Adly Renan MD Unavailable Unavailable Aziz, Adly Renan MD Unavailable Unavailable Aziz, Adly Renan MD Unavailable Unavailable Aziz, Adly Renan MD Unavailable Unavailable Aziz, Adly Renan MD Unavailable Unavailable Aziz, Adly Renan MD Unavailable Unavailable Strong, A Ginger MODEL AND DYE PERSON Unavailable Unavailable Strong, A Ginger MODEL AND DYE PERSON Unavailable Unavailable Strong, A Ginger MODEL AND DYE PERSON Unavailable Unavailable Strong, A Ginger MODEL AND DYE PERSON Unavailable Unavailable Strong, A Ginger MODEL AND DYE PERSON Unavailable Unavailable Strong, A Ginger MODEL AND DYE PERSON Unavailable Unavailable Strong, A Ginger MODEL AND DYE PERSON Unavailable Unavailable Strong, A Ginger MODEL AND DYE PERSON Unavailable Unavailable Strong, A Ginger MODEL AND DYE PERSON Unavailable Unavailable Strong, A Ginger MODEL AND DYE PERSON Unavailable Unavailable Strong, A Ginger MODEL AND DYE PERSON Unavailable Unavailable Strong, A Ginger MODEL AND DYE PERSON Unavailable Unavailable Strong, A Ginger MODEL AND DYE PERSON Unavailable Unavailable Strong, A Ginger MODEL AND DYE PERSON Unavailable Unavailable Strong, A Ginger MODEL AND DYE PERSON Unavailable Unavailable Strong, A Ginger MODEL AND DYE PERSON Unavailable Unavailable Strong, A Ginger MODEL AND DYE PERSON Unavailable Unavailable Strong, A Ginger MODEL AND DYE PERSON Unavailable Unavailable Strong, A Ginger MODEL AND DYE PERSON Unavailable Unavailable Strong, A Ginger MODEL AND DYE PERSON Unavailable Unavailable Strong, A Ginger MODEL AND DYE PERSON Unavailable Unavailable Derosalia, R Keven HARTMAN Unavailable Unavailable Derosalia, R Keven HARTMAN Unavailable Unavailable Derosalia, R Keven HARTMAN Unavailable Unavailable Derosalia, R Keven HARTMAN Unavailable Unavailable Derosalia, R Keven HARTMAN Unavailable Unavailable Derosalia, R Keven HARTMAN Unavailable Unavailable Derosalia, R Keven HARTMAN Unavailable Unavailable Derosalia, R Keven HARTMAN Unavailable Unavailable Derosalia, R Keven HARTMAN Unavailable Unavailable Derosalia, R Keven HARTMAN Unavailable Unavailable Derosalia, R Keven HARTMAN Unavailable Unavailable Derosalia, R Keven HARTMAN Unavailable Unavailable Derosalia, R Keven HARTMAN Unavailable Unavailable Derosalia, R Keven HARTMAN Unavailable Unavailable Derosalia, R Keven HARTMAN Unavailable Unavailable Derosalia, R Keven HARTMAN Unavailable Unavailable Derosalia, R Keven HARTMAN Unavailable Unavailable Derosalia, R Keven HARTMAN Unavailable Unavailable Derosalia, R Keven HARTMAN Unavailable Unavailable Derosalia, R Keven HARTMAN Unavailable Unavailable Derosalia, R Keven HARTMAN Unavailable Unavailable Derosalia, R Keven HARTMAN Unavailable Unavailable Derosalia, R Keven HARTMAN Unavailable Unavailable Derosalia, R Keven HARTMAN Unavailable Unavailable Derosalia, R Keven HARTMAN Unavailable Unavailable Derosalia, R Keven HARTMAN Unavailable Unavailable Derosalia, R Keven HARTMAN Unavailable Unavailable Derosalia, R Keven HARTMAN Unavailable Unavailable Derosalia, R Keven HARTMAN Unavailable Unavailable Derosalia, R Keven HARTMAN Unavailable Unavailable Derosalia, R Keven HARTMAN Unavailable Unavailable Derosalia, R Keven HARTMAN Unavailable Unavailable Derosalia, R Keven HARTMAN Unavailable Unavailable Derosalia, R Keven HARTMAN Unavailable Unavailable Derosalia, R Keven MD Unavailable Unavailable Derosalia, R Keven MD Unavailable Unavailable Derosalia, R Keven MD Unavailable Unavailable Derosalia, R Keven MD Unavailable Unavailable Derosalia, R Keven MD Unavailable Unavailable Derosalia, R Keven MD Unavailable Unavailable Derosalia, R Keven MD Unavailable Unavailable Derosalia, R Keven MD Unavailable Unavailable Derosalia, R Keven MD Unavailable Unavailable Derosalia, R Keven MD Unavailable Unavailable Derosalia, R Keven MD Unavailable Unavailable Derosalia, R Keven MD Unavailable Unavailable Derosalia, R Keven MD Unavailable Unavailable Derosalia, R Keven MD Unavailable Unavailable Derosalia, R Keven MD Unavailable Unavailable Derosalia, R Keven MD Unavailable Unavailable Derosalia, R Keven MD Unavailable Unavailable Derosalia, R Keven MD Unavailable Unavailable Derosalia, R Keven MD Unavailable Unavailable Derosalia, R Keven MD Unavailable Unavailable Derosalia, R Keven MD Unavailable Unavailable Derosalia, R Keven MD Unavailable Unavailable Derosalia, R Keven MD Unavailable Unavailable Derosalia, R Keven MD Unavailable Unavailable Derosalia, R Keven MD Unavailable Unavailable Derosalia, R Keven MD Unavailable Unavailable Derosalia, R Keven MD Unavailable Unavailable Derosalia, R Keven MD Unavailable Unavailable Derosalia, R Keven MD Unavailable Unavailable Derosalia, R Keven MD Unavailable Unavailable Derosalia, R Keven MD Unavailable Unavailable Derosalia, R Keven MD Unavailable Unavailable SEARS, A YOHAN DO Unavailable Unavailable SEARS, A YOHAN DO Unavailable Unavailable SEARS, A YOHAN DO Unavailable Unavailable SEARS, A YOHAN DO Unavailable Unavailable SEARS, A YOHAN DO Unavailable Unavailable SEARS, A YOHAN DO Unavailable Unavailable SEARS, A YOHAN DO Unavailable Unavailable SEARS, A YOHAN DO Unavailable Unavailable SEARS, A YOHAN DO Unavailable Unavailable SEARS, A YOHAN DO Unavailable Unavailable SEARS, A YOHAN DO Unavailable Unavailable SEARS, A YOHAN DO Unavailable Unavailable SEARS, A YOHAN DO Unavailable Unavailable SEARS, A YOHAN DO Unavailable Unavailable SEARS, A YOHAN DO Unavailable Unavailable SEARS, A YOHAN DO Unavailable Unavailable SEARS, A YOHAN DO Unavailable Unavailable SEARS, A YOHAN DO Unavailable Unavailable SEARS, A YOHAN DO Unavailable Unavailable SEARS, A YOHAN DO Unavailable Unavailable SEARS, A YOHAN DO Unavailable Unavailable SEARS, A YOHAN DO Unavailable Unavailable SEARS, A YOHAN DO Unavailable Unavailable SEARS, A YOHAN DO Unavailable Unavailable SEARS, A YOHAN DO Unavailable Unavailable SEARS, A YOHAN DO Unavailable Unavailable SEARS, A YOHAN DO Unavailable Unavailable SEARS, A YOHAN DO Unavailable Unavailable SEARS, A YOHAN DO Unavailable Unavailable SEARS, A YOHAN DO Unavailable Unavailable SEARS, A YOHAN DO Unavailable Unavailable SEARS, A YOHAN DO Unavailable Unavailable SEARS, A YOHAN DO Unavailable Unavailable SEARS, A YOHAN DO Unavailable Unavailable SEARS, A YOHAN DO Unavailable Unavailable SEARS, A YOHAN DO Unavailable Unavailable SEARS, A YOHAN DO Unavailable Unavailable SEARS, A YOHAN DO Unavailable Unavailable SEARS, A YOHAN DO Unavailable Unavailable SEARS, A YOHAN DO Unavailable Unavailable SEARS, A YOHAN DO Unavailable Unavailable SEARS, A YOHAN DO Unavailable Unavailable SEARS, A YOHAN DO Unavailable Unavailable SEARS, A YOHAN DO Unavailable Unavailable SEARS, A YOHAN DO Unavailable Unavailable SEARS, A YOHAN DO Unavailable Unavailable SEARS, A YOHAN DO Unavailable Unavailable SEARS, A YOHAN DO Unavailable Unavailable Sun, Lew DO Unavailable Unavailable Sun, Lew DO Unavailable Unavailable Sun, Lew DO Unavailable Unavailable Sun, Lew DO Unavailable Unavailable Sun, Lew DO Unavailable Unavailable Sun, Lew DO Unavailable Unavailable Sun, Lew DO Unavailable Unavailable Sun, Lew DO Unavailable Unavailable Sun, Lew DO Unavailable Unavailable Sun, Lew DO Unavailable Unavailable Sun, Lew DO Unavailable Unavailable Sun, Lew DO Unavailable Unavailable Sun, Lew DO Unavailable Unavailable Sun, Lew DO Unavailable Unavailable Sun, Lew DO Unavailable Unavailable Sun, Lew DO Unavailable Unavailable Sun, Lew DO Unavailable Unavailable Sun, Lew DO Unavailable Unavailable Sun, Lew DO Unavailable Unavailable Sun, Lew DO Unavailable Unavailable Sun, Lew DO Unavailable Unavailable Sun, Lew DO Unavailable Unavailable Sun, Lew DO Unavailable Unavailable Sun, Lew DO Unavailable Unavailable Sun, Lew DO Unavailable Unavailable Sun, Lew DO Unavailable Unavailable Sun, Lew DO Unavailable Unavailable Sun, Lew DO Unavailable Unavailable Sun, Lew DO Unavailable Unavailable Sun, Lew DO Unavailable Unavailable Sun, Lew DO Unavailable Unavailable Sun, Lew DO Unavailable Unavailable Sun, Lew DO Unavailable Unavailable Sun, Lew DO Unavailable Unavailable Sun, Lew DO Unavailable Unavailable Sun, Lew DO Unavailable Unavailable Sun, Lew DO Unavailable Unavailable Sun, Lew DO Unavailable Unavailable Sun, Lew DO Unavailable Unavailable Sun, Lew DO Unavailable Unavailable Sun, Lew DO Unavailable Unavailable Sun, Lew DO Unavailable Unavailable Sun, Lew DO Unavailable Unavailable Sun, Lew DO Unavailable Unavailable Sun, Lew DO Unavailable Unavailable Sun, Lew DO Unavailable Unavailable Sun, Lew DO Unavailable Unavailable Sun, Lew DO Unavailable Unavailable Sun, Lew DO Unavailable Unavailable Sun, Lew DO Unavailable Unavailable Sun, Lew DO Unavailable Unavailable Sun, Lew DO Unavailable Unavailable Sun, Lew DO Unavailable Unavailable Sun, Lew DO Unavailable Unavailable Sun, Lew DO Unavailable Unavailable Sun, Lew DO Unavailable Unavailable Sun, Lew DO Unavailable Unavailable Sun, Lew DO Unavailable Unavailable Sun, Lew DO Unavailable Unavailable Sun, Lew DO Unavailable Unavailable Sun, Lew DO Unavailable Unavailable Sun, Lew DO Unavailable Unavailable Sun, Lew DO Unavailable Unavailable Sun, Lew DO Unavailable Unavailable Sun, Lew DO Unavailable Unavailable Sun, Lew DO Unavailable Unavailable Wadsworth, L Keesha PA Unavailable Unavailable Wadsworth, L Keesha PA Unavailable Unavailable Wadsworth, L Keesha PA Unavailable Unavailable Wadsworth, L Keesha PA Unavailable Unavailable Wadsworth, L Keesha PA Unavailable Unavailable Wadsworth, L Keesha PA Unavailable Unavailable Wadsworth, L Keesha PA Unavailable Unavailable Wadsworth, L Keesha PA Unavailable Unavailable Wadsworth, L Keesha PA Unavailable Unavailable Wadsworth, L Keesha PA Unavailable Unavailable Wadsworth, L Keesha PA Unavailable Unavailable Wadsworth, L Keesha PA Unavailable Unavailable Wadsworth, L Keesha PA Unavailable Unavailable Wadsworth, L Keesha PA Unavailable Unavailable Wadsworth, L Keesha PA Unavailable Unavailable Wadsworth, L Keesha PA Unavailable Unavailable Wadsworth, L Keesha PA Unavailable Unavailable Wadsworth, L Keesha PA Unavailable Unavailable Wadsworth, L Keesha PA Unavailable Unavailable Wadsworth, L Keesha PA Unavailable Unavailable Wadsworth, L Keesha PA Unavailable Unavailable Wadsworth, L Keesha PA Unavailable Unavailable Wadsworth, L Keesha PA Unavailable Unavailable Wadsworth, L Keesha PA Unavailable Unavailable Wadsworth, L Keesha PA Unavailable Unavailable Wadsworth, L Keesha PA Unavailable Unavailable Wadsworth, L Keesha PA Unavailable Unavailable Wadsworth, L Keesha PA Unavailable Unavailable Wadsworth, L Keesha PA Unavailable Unavailable Wadsworth, L Keesha PA Unavailable Unavailable Wadsworth, L Keesha PA Unavailable Unavailable Wadsworth, L Keesha PA Unavailable Unavailable Wadsworth, L Keesha PA Unavailable Unavailable Wadsworth, L Keesha PA Unavailable Unavailable Wadsworth, L Keesha PA Unavailable Unavailable Wadsworth, L Keesha PA Unavailable Unavailable Wadsworth, L Keesha PA Unavailable Unavailable Wadsworth, L Keesha PA Unavailable Unavailable Wadsworth, L Keesha PA Unavailable Unavailable HUMAYUN, U ARSALAN MD Unavailable Unavailable HUMAYUN, U ARSALAN MD Unavailable Unavailable HUMAYUN, U ARSALAN MD Unavailable Unavailable HUMAYUN, U ARSALAN MD Unavailable Unavailable HUMAYUN, U ARSALAN MD Unavailable Unavailable HUMAYUN, U ARSALAN MD Unavailable Unavailable HUMAYUN, U ARSALAN MD Unavailable Unavailable HUMAYUN, U ARSALAN MD Unavailable Unavailable HUMAYUN, U ARSALAN MD Unavailable Unavailable HUMAYUN, U ARSALAN MD Unavailable Unavailable HUMAYUN, U ARSALAN MD Unavailable Unavailable HUMAYUN, U ARSALAN MD Unavailable Unavailable HUMAYUN, U ARSALAN MD Unavailable Unavailable HUMAYUN, U ARSALAN MD Unavailable Unavailable HUMAYUN, U ARSALAN MD Unavailable Unavailable HUMAYUN, U ARSALAN MD Unavailable Unavailable HUMAYUN, U ARSALAN MD Unavailable Unavailable HUMAYUN, U ARSALAN MD Unavailable Unavailable HUMAYUN, U ARSALAN MD Unavailable Unavailable HUMAYUN, U ARSALAN MD Unavailable Unavailable HUMAYUN, U ARSALAN MD Unavailable Unavailable HUMAYUN, U ARSALAN MD Unavailable Unavailable HUMAYUN, U ARSALAN MD Unavailable Unavailable HUMAYUN, U ARSALAN MD Unavailable Unavailable HUMAYUN, U ARSALAN MD Unavailable Unavailable HUMAYUN, U ARSALAN MD Unavailable Unavailable HUMAYUN, U ARSALAN MD Unavailable Unavailable HUMAYUN, U ARSALAN MD Unavailable Unavailable HUMAYUN, U ARSALAN MD Unavailable Unavailable HUMAYUN, U ARSALAN MD Unavailable Unavailable HUMAYUN, U ARSALAN MD Unavailable Unavailable HUMAYUN, U ARSALAN MD Unavailable Unavailable HUMAYUN, U ARSALAN MD Unavailable Unavailable HUMAYUN, U ARSALAN MD Unavailable Unavailable Adrianna RODRIGUEZ MD Unavailable Unavailable Adrianna RODRIGUEZ MD Unavailable Unavailable Adrianna RODRIGUEZ MD Unavailable Unavailable Adrianna RODRIGUEZ MD Unavailable Unavailable Adrianna RODRIGUEZ MD Unavailable Unavailable Adrianna RODRIGUEZ MD Unavailable Unavailable Adrianna RODRIGUEZ MD Unavailable Unavailable Adrianna RODRIGUEZ MD Unavailable Unavailable Adrianna RODRIGUEZ MD Unavailable Unavailable Adrianna RODRIGUEZ MD Unavailable Unavailable Adrianna RODRIGUEZ MD Unavailable Unavailable Adrianna RODRIGUEZ MD Unavailable Unavailable Adrianna RODRIGUEZ MD Unavailable Unavailable VANVALKENBURG, Adrianna ROJAS MD Unavailable Unavailable VANVALKENBURG, Adrianna ROJAS MD Unavailable Unavailable VANVALKENBURG, Adrianna ROJAS MD Unavailable Unavailable VANVALKENBURG, Adrianna ROJAS MD Unavailable Unavailable VANVALKENBURG, M BOB HARTMAN Unavailable Unavailable VANVALKENBURG, Adrianna ROJAS MD Unavailable Unavailable VANVALKENBURG, Adrianna ROJAS MD Unavailable Unavailable VANVALKENBURG, Adrianna ROJAS MD Unavailable Unavailable VANVALKENBURG, Adrianna ROJAS MD Unavailable Unavailable VANVALKENBURG, Adrianna ROJAS MD Unavailable Unavailable VANVALKENBURG, M BOB HARTMAN Unavailable Unavailable VANVALKENBURG, M BOB HARTMAN Unavailable Unavailable VANVALKENBURG, M BOB HARTMAN Unavailable Unavailable VANVALKENBURG, M BOB HARTMAN Unavailable Unavailable VANVALKENBURG, M BOB HARTMAN Unavailable Unavailable VANVALKENBURG, M BOB HARTMAN Unavailable Unavailable VANVALKENBURG, M BOB HARTMAN Unavailable Unavailable VANVALKENBURG, M BOB HARTMAN Unavailable Unavailable VANVALKENBURG, Adrianna ROJAS MD Unavailable Unavailable VANVALKENBURG, Adrianna ROJAS MD Unavailable Unavailable VANVALKENBURG, Adrianna ROJAS MD Unavailable Unavailable VANVALKENBURG, Adrianna ROJAS MD Unavailable Unavailable VANVALKENBURG, Adrianna ROJAS MD Unavailable Unavailable VANVALKENBURG, M BOB HARTMAN Unavailable Unavailable VANVALKENBURG, Adrianna ROJAS MD Unavailable Unavailable VANVALKENBURG, Adrianna ROJAS MD Unavailable Unavailable VANVALKENBURG, Adrianna ROJAS MD Unavailable Unavailable VANVALKENBURG, Adrianna ROJAS MD Unavailable Unavailable VANVALKENBURG, Adrianna ROJAS MD Unavailable Unavailable VANVALKENBURG, Adrianna ROJAS MD Unavailable Unavailable VANVALKENBURG, Adrianna ROJAS MD Unavailable Unavailable VANVALKENBURG, Adrianna ROJAS MD Unavailable Unavailable VANVALKENBURG, Adrianna ROJAS MD Unavailable Unavailable VANVALKENBURG, Adrianna ROJAS MD Unavailable Unavailable VANVALKENBURG, Adrianna ROJAS MD Unavailable Unavailable VANVALKENBURG, Adrianna ROJAS MD Unavailable Unavailable VANVALKENBURG, Adrianna ROJAS MD Unavailable Unavailable VANVALKENBURG, Adrianna ROJAS MD Unavailable Unavailable VANVALKENBURG, Adrianna ROJAS MD Unavailable Unavailable VANVALKENBURG, Adrianna ROJAS MD Unavailable Unavailable VANVALKENBURG, Adrianna ROJAS MD Unavailable Unavailable VANVALKENBURG, Adrianna ROJAS MD Unavailable Unavailable VANVALKENBURG, Adrianna ROJAS MD Unavailable Unavailable VANVALKENBURG, Adrianna ROJAS MD Unavailable Unavailable VANVALKENBURG, Adrianna ROJAS MD Unavailable Unavailable VANVALKENBURG, Adrianna ROJAS MD Unavailable Unavailable VANVALKENBURG, Adrianna ROJAS MD Unavailable Unavailable VANVALKENBURG, Adrianna ROJAS MD Unavailable Unavailable VANVALKENBURG, Adrianna ROJAS MD Unavailable Unavailable VANVALKENBURG, Adrianna ROJAS MD Unavailable Unavailable VANVALKENBURG, Adrianna ROJAS MD Unavailable Unavailable VANVALKENBURG, Adrianna ROJAS MD Unavailable Unavailable VANVALKENBURG, Adrianna ROJAS MD Unavailable Unavailable VANVALKENBURG, Adrianna ROJAS MD Unavailable Unavailable VANVALKENBURG, Adrianna ROJAS MD Unavailable Unavailable VANVALKENBURG, Adrianna ROJAS MD Unavailable Unavailable VANVALKENBURG, Adrianna ROJAS MD Unavailable Unavailable VANVALKENKARRI, Adrianna ROJAS MD Unavailable Unavailable ALEKSIC, ILIJA MD Unavailable Unavailable ALEKSIC, ILIJA MD Unavailable Unavailable ALEKSIC, ILIJA MD Unavailable Unavailable ALEKSIC, ILIJA MD Unavailable Unavailable ALEKSIC, ILIJA MD Unavailable Unavailable ALEKSIC, ILIJA MD Unavailable Unavailable ALEKSIC, ILIJA MD Unavailable Unavailable ALEKSIC, ILIJA MD Unavailable Unavailable ALEKSIC, ILIJA MD Unavailable Unavailable ALEKSIC, ILIJA MD Unavailable Unavailable ALEKSIC, ILIJA MD Unavailable Unavailable ALEKSIC, ILIJA MD Unavailable Unavailable ALEKSIC, ILIJA MD Unavailable Unavailable ALEKSIC, ILIJA MD Unavailable Unavailable ALEKSIC, ILIJA MD Unavailable Unavailable ALEKSIC, ILIJA MD Unavailable Unavailable ALEKSIC, ILIJA MD Unavailable Unavailable ALEKSIC, ILIJA MD Unavailable Unavailable ALEKSIC, ILIJA MD Unavailable Unavailable ALEKSIC, ILIJA MD Unavailable Unavailable ALEKSIC, ILIJA MD Unavailable Unavailable ALEKSIC, ILIJA MD Unavailable Unavailable ALEKSIC, ILIJA MD Unavailable Unavailable ALEKSIC, ILIJA MD Unavailable Unavailable ALEKSIC, ILIJA MD Unavailable Unavailable ALEKSIC, ILIJA MD Unavailable Unavailable ALEKSIC, ILIJA MD Unavailable Unavailable ALEKSIC, ILIJA MD Unavailable Unavailable ALEKSIC, ILIJA MD Unavailable Unavailable ALEKSIC, ILIJA MD Unavailable Unavailable ALEKSIC, ILIJA MD Unavailable Unavailable ALEKSIC, ILIJA MD Unavailable Unavailable ALEKSIC, ILIJA MD Unavailable Unavailable ALEKSIC, ILIJA MD Unavailable Unavailable ALEKSIC, ILIJA MD Unavailable Unavailable Re-disclosure Warning The records that you are about to access may contain information from federally-assisted alcohol or drug abuse programs. If such information is present, then the following federally mandated warning applies: This information has been disclosed to you from records protected by federal confidentiality rules (42 CFR part 2). The federal rules prohibit you from making any further disclosure of this information unless further disclosure is expressly permitted by the written consent of the person to whom it pertains or as otherwise permitted by 42 CFR part 2. A general authorization for the release of medical or other information is NOT sufficient for this purpose. The Federal rules restrict any use of the information to criminally investigate or prosecute any alcohol or drug abuse patient.The records that you are about to access may contain highly sensitive health information, the redisclosure of which is protected by Article 27-F of the [facility] Public Health law. If you continue you may have access to information: Regarding HIV / AIDS; Provided by facilities licensed or operated by the [facility] Office of Mental Health; or Provided by the [facility] Office for People With Developmental Disabilities. If such information is present, then the following [facility] mandated warning applies: This information has been disclosed to you from confidential records which are protected by state law. State law prohibits you from making any further disclosure of this information without the specific written consent of the person to whom it pertains, or as otherwise permitted by law. Any unauthorized further disclosure in violation of state law may result in a fine or mcc sentence or both. A general authorization for the release of medical or other information is NOT sufficient authorization for further disc losure. Encounters Encounter Providers Location Date Indications Data Source(s ) Attender: Ginger HOLTPReferrer: Renan Fofana MD 02/03/2021 08:21:10 PM EDT [facility] Attender: Ginger Pradoferrer: Renan Fofana MD 02/03/2021 08:21:10 PM EDT [facility] Attender: Ginger HOLTPReferrer: Renan Fofana MD 02/03/2021 08:21:10 PM EDT [facility] Attender: Ginger Pradoferrer: Renan Fofana MD 02/03/2021 08:21:10 PM EDT [facility] Office Visit, Est Pt., Level 4 FC [address] [place] [address] 01/23/2021 12:00:00 AM EDT eCW1 ([facility]) Outpatient Attender: MARLY CRAVEN [id number] 01/21 12:00:00 AM EDT - 01/21/2021 11:55:07 AM EDT [facility] Unknown [address] [facility] [place] [address] 01/16/2021 12:00:00 AM EDT eCW1 ([facility]) Outpatient Attender: KRISSY Carlisle/ Diya Mitchell y 01/11/2021 02:07:00 PM EDT MEDENT ([facility]) Inpatient Attender: EMILY LY MDAdmit ter: EMILY LY MDConsultant: Rodrigo Ivy JRConsultant: Keven Pardo MDConsultant: ARSALAN GALEANO MDConsultant: Reagan Alan MDConsultant: MILLIE GUNN MDConsultant: Lew Rascon DO [id number] 12/23/2020 08:06:00 AM EDT - 01/14/2021 06:11:00 PM EDT [facility] Patient discharged. Outpatient Referrer: EMILY LY MD MOB-MOB.PAT 12/19/19 11:01:51 AM EDT - 12/18/2020 11:02:01 AM EDT [facility] Outpatient Attender: EMILY LY MDReferrer: EMILY Rodas OB-MOB.PAT 12/18/2020 12:00:00 AM EDT - 12/18/2020 12:25:09 PM EDT [facility] [address] [facility] [place] [address] 12/16/2020 12:00:00 AM EDT eCW1 ([facility]) Outpatient SJP.IGOR-SJP 12/01/2020 10:34:12 AM EDT [facility] Outpatient SJP.IGOR-[email or web address].IGOR 11/29/2020 12:00:00 AM EDT [facility] Unknown [address] [place] [address] 11/22/2020 12:00:00 AM EDT eCW1 ([facility]) [place] [address] [place] [address] 11/01/2020 12:00:00 AM EDT eCW1 ([facility]) [place] [address] [place] [address] 10/22/2020 12:00:00 AM EDT eCW1 ([facility]) [place] [address] [place] [address] 10/21/2020 12:00:00 AM EDT eCW1 ([facility]) NEPEUC-NEPESUR 10/17/2020 03:01:28 PM EDT [facility] Unknown [address] [facility] [place] [address] 10/11/2020 12:00:00 AM EDT eCW1 ([facility]) Outpatient [address] [place] [address] 10/04/2020 12:00:00 AM EDT eCW1 ([facility]) Outpatient Referrer: EMILY LY MD MOB-MOB.PAT 10/03/19 10:04:29 AM EDT - 10/02/2020 10:04:33 AM EDT [facility] Outpatient Attender: KENNETH Ryan/Jasbir/Nasir/Crispin arauz 10/01/2020 01:30:00 PM EDT MEDENT ([facility] [place] [address] [place] [address] 09/26/2020 12:00:00 AM EDT eCW1 ([facility]) Outpatient Attender: EMILY LY MDReferrer: EMILY Rodas OB-MOB.PAT 09/24/2020 12:00:00 AM EDT - 09/24/2020 11:13:32 AM EDT [facility] Outpatient Attender: Keesha BROOKSSJEDSTINY 12:00:00 AM EDT - 09/18/2020 04:11:17 PM EDT [facility] Outpatient Attender: KENNETH Ryan/Jasbir/Nasir/Crispin arauz 09/10/2020 12:30:00 PM EDT [facility] ([facility] [place] [address] [place] [address] 08/29/2020 12:00:00 AM EDT eCW1 ([facility]) Outpatient SJP.CT-SJP.SYR 08/15/2020 12:41:06 PM EDT [facility] Inpatient Attender: EMILY LY MDAdmitter: EMILY LY MD E S1-OR.PERIOP 08/09/2020 08:58:31 AM EDT [facility] Attender: Ginger Polanco FNPReferrer: Renan Fofana MD 07/22/2020 08:21:03 PM EDT [facility] Attender: Ginger Polanco FNPReferrer: Reann Fofana MD 07/22/2020 08:21:03 PM EDT [facility] Attender: Ginger Polanco FNPReferrer: Renan Fofana MD 07/22/2020 08:21:03 PM EDT [facility] Attender: Ginger Polanco FNPReferrer: Renan Fofana MD 07/22/2020 08:21:03 PM EDT [facility] Outpatient Attender: EMILY LY MDConsultant: EMILY [id number] 07/19/2020 12:00:00 AM EDT - 07/19/2020 12:28:49 PM EDT [facility] Outpatient [address] [place] [address] 07/12/2020 12:00:00 AM EDT eCW1 ([facility]) Outpatient Attender: EMILY LY MDRefer rer: SILVINO BURROUGHS) MDConsultant: EMILY SIDHUPE2P-NMPESUR 07/04/2020 12:00:00 AM EST - 07/04/2020 10:24:28 AM EST [facility] Unknown [address] [place] [address] 07/01/2020 12:00:00 AM EST eCW1 ([facility]) Unknown [address] [place] [address] 05/27/2020 12:00:00 AM EST eCW1 ([facility]) Unknown [address] [place] [address] 05/16/2020 12:00:00 AM EST eCW1 ([facility]) Outpatient SJP.CT-SJP.[facility] 05/10/2020 12:03:40 PM EST [facility] Unknown [address] [place] [address] 04/30/2020 12:00:00 AM EST eCW1 ([facility]) Attender: Ginger Polanco FNPReferrer: Renan Fofana MD 04/22/2020 08:20:12 PM EST [facility] Attender: Ginger Polanco FNPReferrer: Renan Fofana MD 04/22/2020 08:20:12 PM EST [facility] Outpatient Attender: YOHAN Ugalde/Jasbir/Nasir/Kimani 04/08/2020 09:00:00 AM EST MEDENT ([facility] Attender: Ginger Polanco FNPReferrer: Renan Fofana MD 04/04/2020 08:20:12 PM EST [facility] Attender: Ginger Polanco FNPReferrer: Renan Fofana MD 04/04/2020 08:20:12 PM EST [facility] Attender: Ginger Polanco FNPReferrer: Renan Fofana MD 04/04/2020 08:20:12 PM EST [facility] Attender: Ginger Polanco FNPReferrer: Renan Fofana MD 04/04/2020 08:20:12 PM EST [facility] [place] [address] [facility] [place] [address] 04/02/2020 12:00:00 AM EST eCW1 ([facility]) Outpatient Attender: BOB RODRIGUEZ MD 03/07/2020 12: 00:00 AM EST [facility] Unknown [address] [facility] [place] [address] 03/06/2020 12:00:00 AM EST eCW1 ([facility]) Outpatient SJP.CT-SJP.SYR 02/16/2020 04:25:02 PM EDT [facility] Outpatient Attender: BOB RODRIGUEZ MD 02/14/2020 12: 00:00 AM EDT [facility] Unknown [address] [place] [address] 02/01/2020 12:00:00 AM EDT eCW1 ([facility]) Outpatient Referrer: Renan Fofana MD 01/22/2020 02:57:51 PM EDT [facility] Outpatient SJP.IGOR-SJP 01/17/2020 11:32:47 AM EDT [facility] Outpatient Attender: BOB RODRIGUEZ MD 01/17/2020 12: 00:00 AM EDT [facility] Outpatient Attender: KENNETH Ryan/Jasbir/Nasir/Crispin arauz 01/12/2020 10:30:00 AM EDT MEDENT ([facility]) Attender: Cherie Guan PAReferrer: Renan Fofana MD 01/04/2020 08:20:09 PM EDT [facility] Attender: Cherie Guan PAReferrer: Renan Fofana MD 01/04/2020 08:20:09 PM EDT [facility] Attender: Cherie Guan PAReferrer: Renan Fofana MD 01/04/2020 08:20:09 PM EDT [facility] Attender: Cherie Guan PAReferrer: Renan Fofana MD 01/04/2020 08:20:09 PM EDT [facility] Attender: Cherie Guan PAReferrer: Renan Fofana MD 01/04/2020 08:20:09 PM EDT [facility] Attender: Cherie Guan PAReferrer: Renan Fofana MD 01/04/2020 08:20:09 PM EDT [facility] Attender: Cherie Guan PAReferrer: Renan Fofana MD 01/04/2020 08:20:09 PM EDT [facility] Attender: Cherie Guan PAReferrer: Renan Fofana MD 01/04/2020 08:20:09 PM EDT [facility] Outpatient Attender: BOB RODRIGUEZ MD 12/29/2019 12: 00:00 AM EDT [facility] Outpatient SJP.IGOR-SJP 12/25/2019 12:21:13 PM EDT [facility] Outpatient SJP.IGOR-SJP.IGOR 12/14/2019 12:00:00 AM EDT [facility] Emergency Attender: BAN Baugher : JOSE DELGADILLO EMERGENCY ROOM-ER 11/29/2019 07:47:00 PM EDT - 11/29/2019 10:46:00 PM EDT [facility] Patient discharged. Outpatient [email or web address].SYR 09/12/2019 03:47 :00 PM EDT - 11/30/2019 02:25:30 PM EDT [facility] Emergency Attender: BAN Portilloerrer: JOSE DELGADILLO 03/19/2019 05:08:00 PM EST - 03/19/2019 05:33:00 PM [facility] Patient discharged. Immunizations Vaccine Date Status Description Data Source(s) COVID-19 VACC, MRNA(PFIZER)/PF 12/12/2020 12:00:00 AM EDT completed [facility] COVID-19 VACCINE Pfizer 12/12/2020 12:00:00 AM EDT completed [facility] Vaccine Series Complete: YESThis Data wa s Submitted to [facility] [employer]. COVID-19 VACC, MRNA(PFIZER)/PF 11/16/2020 12:00:00 AM EDT completed [facility] COVID-19 VACCINE Pfizer 11/16/2020 12:00:00 AM EDT completed [facility] Vaccine Series Complete: NOThis Data was Submitted to [facility] [employer]. Medications Medication Brand Name Start Date Product Form Dose Route Admi nistrative Instructions Pharmacy Instructions Status Indications Reaction Description Data Source(s) Lidocaine Hydrochloride 20 MG/ML Mucous Membrane Topical Solution lidocaine Viscous HCl (XYLOCAINE) 2 % solution lidocaine Viscous HCl (XYLOCAINE) 2 % solution 01/21/2021 12:00:00 AM EDT 5 mL Oral active Take 5 mL by mouth as needed for pain BMX cocktail. Compounded to be viscous lidocaine, benadryl, malaox. 10 ml q 4 hours PRN [facility] Sucralfate 1000 MG Oral Tablet [Carafate] Carafate 1 GM Hoda fate 1 GM 01/14/2021 12:00:00 AM EDT 1.0 {tablet} active C arafate 1 GM eCW1 ([facility]) Balmex 11.3 % Balmex 11.3 % 01/14/2021 12:00:00 AM EDT active Balmex 11.3 % eCW1 ([facility]) Calcium Carbonate 500 MG Chewable Tablet calcium carbonate (TUMS) 500 MG chewable tablet calcium carbonate (TUMS) 500 MG chewable tablet 2020 12:00:00 AM EDT 500 mg Oral active Chew 1 tablet (500 mg total) 3 (three) times a day as needed for heartburn [facility] Diclofenac Sodium 0.01 MG/MG Topical Gel Diclofenac So dium 1 % Diclofenac Sodium 1 % 01/14/2021 12:00:00 AM EDT active Diclofenac Sodium 1 % eCW1 ([facility]) pantoprazole 40 MG Delayed Release Oral Tablet pantoprazole (PROTONIX) 40 MG tablet pantoprazole (PROTONIX) 40 MG tablet 01/14/2021 12:00:00 AM EDT 40 mg Oral active Take 1 tablet (40 mg total) by mouth 2 (two) times a day [facility] Sucralfate 1000 MG Oral Tablet sucralfate (CARAFATE) 1 g tablet sucralfate (CARAFATE) 1 g tablet 01/14/2021 12:00:00 AM EDT 1 g Oral active Take 1 tablet (1 g total) by mouth 4 (four) times a day [facility] Simethicone 80 MG Chewable Tablet simethicone (MYLICON ) 80 MG chewable tablet simethicone (MYLICON) 80 MG chewable tablet 01/14/2021 12:00:00 AM EDT 80 mg Oral active Chew 1 tablet (80 mg total) every 6 (six) hours as needed for flatulence [facility] Calcium Carbonate 500 MG Chewable Tablet Calcium Carbonate 5 00 MG 01/14/2021 12:00:00 AM EDT 1.0 {tablet_as_needed} active Calcium Carbonate 500 MG eCW1 ([facility]) Diclofenac Sodium 0.01 MG/MG Topical Gel Diclofenac So dium 1 % Diclofenac Sodium 1 % 01/14/2021 12:00:00 AM EDT active Diclofenac Sodium 1 % eCW1 ([facility]) Balmex 11.3 % Balmex 11.3 % 01/14/2021 12:00:00 AM EDT active Balmex 11.3 % eCW1 ([facility]) Calcium Carbonate 500 MG Chewable Tablet Calcium Carbonate 5 00 MG 01/14/2021 12:00:00 AM EDT 1.0 {tablet_as_needed} active Calcium Carbonate 500 MG eCW1 ([facility]) Sucralfate 1000 MG Oral Tablet [Carafate] Carafate 1 GM Hoda fate 1 GM 01/14/2021 12:00:00 AM EDT 1.0 {tablet} active C arafate 1 GM eCW1 ([facility]) Adult 3-in-1 TPN 01/13/2021 07:00:00 PM EDT Intravenous completed [facility] Medication administered onsite Clonazepam 0.5 MG Oral Tablet clonazePAM (KlonoPIN) ta blet 1 mg clonazePAM (KlonoPIN) tablet 1 mg 01/13/2021 10:00:00 AM EDT 1 mg Oral active 1 mg, Oral, 2 times daily, First dose (after last reorder) on Wed01/13/21 at 1000, For 7 days
For administration and preparation considerations, refer to Hazardous Drugs in the Workplace Policy on Intranet.
[facility] Medication administered onsite pantoprazole 40 MG Delayed Release Oral Tablet pantoprazole (PROTONIX) EC tablet 40 mg pantoprazole (PROTONIX) EC tablet 40 mg 01/13/2021 09:00:00 AM E DT 40 mg Oral active Stress Ulcer Prophylaxis 40 mg, Oral, 2 times daily, Indications: Stress Ulcer Prophylaxis, First dose on Wed01/13/21 at 0900 [facility] Stress Ulcer Prophylaxis Medication administered onsite Adult 3-in-1 TPN 01/12/2021 07:00:00 PM EDT Intravenous completed [facility] Medication administered onsite Adult 3-in-1 TPN 01/11/2021 07:00:00 PM EDT Intravenous completed [facility] Medication administered onsite Adult 3-in-1 TPN 01/10/2021 07:00:00 PM EDT Intravenous completed [facility] Medication administered onsite Adult 3-in-1 TPN 01/09/2021 07:00:00 PM EDT Intravenous completed [facility] Medication administered onsite sodium chloride 0.45% (HALF SALINE) infusion [id number] 01/09/2021 11:00:00 AM EDT Intravenous active at 3 0 mL/hr, Intravenous, Continuous, Starting on Wed01/09/21 at 1100 [facility] Medication administered onsite Prochlorperazine 5 MG/ML Injectable Solu tion Prochlorperazine Edisylate (COMPAZINE) injection 5 mg Prochlorperazine Edisylate (COMPAZINE) i njection 5 mg 01/09/2021 09:34:02 AM EDT 5 mg Intravenous active 5 mg, Intravenous, Every 6 hours PRN, nausea, vomiting, Starting on Tanesha 01/09/21 at 0934 [facility] Medication administered onsite Adult 3-in-1 TPN 01/08/2021 07:00:00 PM EDT Intravenous completed [facility] Medication administered onsite lactated ringers bolus 250 mL [id number] 01/08/2021 03:00:00 PM EDT 250 mL Intravenous active 250 mL, Intra venous, Administer over 2 Hours, Once, On Wed01/08/21 at 1500, For 1 dose [facility] Medication administered onsite perflutren lipid microsphere (DEFINITY) 8.476 mg in 10 mL NS IV drug or medication 01/08/2021 02:42:14 PM EDT mL Intravenous co mpleted 2-10 mL, Intravenous, Once as needed, to be used when clinically necessary, Starting on Wed01/08/21 at 1442, For 1 dose
To be given with aviation technician aircraft at bedside for exam 1. Activate in VIALMIX agitator for 45 seconds 2. Withdraw 1.3 ml of activated perflutren suspension and dilute in 8.7 ml of 0.9% NS (Total volume = 10 ml) 3. Inject 2 ml slowly over 30 seconds. Repeat in 2 ml aliquots as needed. DO NOT EXCEED 10 ML TOTAL DOSE!
[facility] Medication administered onsite lactated ringers bolus 500 mL [id number] 01/08/2021 11:00:00 AM EDT 500 mL Intravenous completed 500 mL, Intra venous, Administer over 2 Hours, Once, On Wed01/08/21 at 1100, For 1 dose [facility] Medication administered onsite Bisacodyl 10 MG Rectal Suppository bisacodyl (DULCOLAX ) suppository 10 mg bisacodyl (DULCOLAX) suppository 10 mg 01/08/2021 11:00:00 AM EDT 10 mg Rectal completed 10 mg, Rectal, Once, On Wed01/08/21 at 1100, For 1 dose
hold for loose stools
[facility] Medication administered onsite dextrose 5 % and sodium chloride 0.9 % infusion [id number] 01/08/2021 07:00:00 AM EDT Intravenous aborted at 5 0 mL/hr, Intravenous, Continuous, Starting on Wed01/08/21 at 0700 [facility] Medication administered onsite clopidogrel 75 MG Oral Tablet clopidogrel (PLAVIX) tab let 75 mg clopidogrel (PLAVIX) tablet 75 mg 01/07/2021 09:00:00 PM EDT 75 mg Oral active 75 mg, Oral, Nightly, First dose (after last reorder) on Wed01/07/21 at 2100 [facility] Medication administered onsite Adult 3-in-1 TPN 01/07/2021 07:00:00 PM EDT Intravenous completed [facility] Medication administered onsite Methylprednisolone 40 MG/ML Injectable S olution methylPREDNISolone sodium succinate (Solu-MEDROL) injection 10 mg methylPREDNISolone sodium succinate (Solu-MEDROL) injection 10 mg 01/07/2021 09:00:00 AM EDT 10 mg I ntravenous aborted 10 mg, Intraveno us, Daily, First dose (after last modification) on Wed01/07/21 at 0900, For 3 doses
Tomorrow and then stop
[facility] Medication administered onsite pantoprazole 4 MG/ML Injectable Solution pantoprazole (PROTONIX) injection 40 mg pantoprazole (PROTONIX) injection 40 mg 01/06/2021 09:00:00 PM EDT 40 mg Intravenous aborted Gastroesophageal Reflux Disease 40 mg, Intravenous, 2 times daily, Indications: Gastroesophageal Reflux Disease, First dose (after last modification) on Wed01/06/21 at 2100
For IV Push - Dilute with 10 mL of 0.9% NaCl and push over 2 minutes.
[facility] Gastroesophageal Reflux Disease Medication administered onsite Adult 3-in-1 TPN 01/06/2021 07:00:00 PM EDT Intravenous completed [facility] Medication administered onsite Clonazepam 0.5 MG Oral Tablet clonazePAM (KlonoPIN) ta blet 1 mg clonazePAM (KlonoPIN) tablet 1 mg 01/06/2021 01:00:00 PM EDT 1 mg Oral completed 1 mg, Oral, 2 times daily, First dose on Wed01/06/21 at 1300, For 7 days
For administration and preparation considerations, refer to Hazardous Drugs in the Workplace Policy on Intranet.
[facility] Medication administered onsite Diltiazem Hydrochloride 30 MG Oral Tablet diltiazem (C ARDIZEM) tablet 30 mg diltiazem (CARDIZEM) tablet 30 mg 01/06/2021 12:00:00 PM EDT 30 mg Oral aborted 30 mg, Oral, Every 1 2 hours (scheduled), First dose on Wed01/06/21 at 1200
Please hold for systolic BP < 130 , diastolic BP < 50 and/ or HR < 60. And please call the PA.
[facility] Medication administered onsite Sucralfate 1000 MG Oral Tablet sucralfate (CARAFATE) t ablet 1 g sucralfate (CARAFATE) tablet 1 g 01/06/2021 11:00:00 AM EDT 1 g Oral active 1 g, Oral, Every 6 hours (scheduled), First dose on Wed01/06/21 at 1100
1 hr before or after other medications or food Crush and make into a liquid slurry to drink
[facility] Medication administered onsite Adult 3-in-1 TPN 01/05/2021 07:00:00 PM EDT Intravenous completed [facility] Medication administered onsite Potassium Chloride 0.1 MEQ/ML Injectable Solution potassium chloride 10 mEq in 100 mL IVPB potassium chloride 10 mEq in 100 mL IVPB 01/05/2021 07:00:00 AM EDT 10 meq Intravenous completed Hypokalemia 10 mEq , Intravenous, Administer over 60 Minutes, Every 1 hour, First dose on 01/05/21 at 0700, For 4 doses [facility] Hypokalemia Medication administered onsite potassium chloride (KLOR-CON) packet 40 mEq [id number] 01/05/2021 07:00:00 AM EDT 40 meq Oral completed 40 mEq , Oral, Once, On 01/05/21 at 0700, For 1 dose [facility] Medication administered onsite Clonazepam 0.5 MG Oral Tablet clonazePAM (KlonoPIN) ta blet 1 mg clonazePAM (KlonoPIN) tablet 1 mg 01/04/2021 09:00:00 PM EDT 1 mg Oral aborted 1 mg, Oral, 2 times daily, First dose (after last reorder) on Wed01/04/21 at 2100, For 7 days, Post-op
For administration and preparation considerations, refer to Hazardous Drugs in the Workplace Policy on Intranet.
[facility] Medication administered onsite Adult 3-in-1 TPN 01/04/2021 07:00:00 PM EDT Intravenous completed [facility] Medication administered onsite normal saline flush 0.9 % injection 10 mL [id number] 01/03/2021 02:00:00 PM EDT 10 mL Intravenous active 10 m L, Intravenous, Every 8 hours (scheduled), First dose on Wed01/03/21 at 1400
Flush with 10 mL NS prior and post medication administration. Flush with 10 mL NS prior to blood specimen collection and flush with 20 mL to clear solution/drug post blood specimen collection
[facility] Medication administered onsite dextrose 10 % infusion [id number] 01/03/2021 11:39:35 AM EDT mL/h Intravenous active 1-150 mL/hr, Intravenous, at 1-150 mL/hr, Continuous PRN, For interruption of parenteral feeding (TPN), Starting on Wed01/03/21 at 1139
Nutrition Interrupted Orders 1. Notify provider and start D10W at parenteral nutrition (TPN) infusion rate 2. Check bedside blood glucose every hour for three hours once D10W infusion begins: & nbsp; a. If any glucose is under 70, follow hypoglycemia protocol, increase D10W infusion rate by 50%, and call provider &am p;nbsp; b. If any glucose is under 80, increase D10W infusion rate by 50% and call provider &a mp;nbsp; c. If any glucose is over 200, decrease D10W infusion rate by 50% and call provider& amp;nbsp; &nbsp ;d. If three consecutive Q1 hour bedside glucose are:&a mp;nbsp; i. between 80-200, reduce bedside blood glucose frequency to every 6 hours &a mp;nbsp; ii. not within 80-200, defer to Provider for insulin/bedside blood glucose/IV orders
[facility] Medication administered onsite Alprazolam 0.25 MG Oral Tablet ALPRAZolam (XANAX) tabl et 0.25 mg ALPRAZolam (XANAX) tablet 0.25 mg 01/02/2021 01:21:21 PM EDT 0.25 mg Oral aborted 0.25 mg, Oral, 3 times daily PRN, dyspha jaci, esophageal spasms, muscle relaxer prior to PO intake, Starting on Wed01/02/21 at 1321, For 7 days [facility] Medication administered onsite Albuterol 0.83 MG/ML Inhalant Solution a lbuterol (PROVENTIL) nebulizer solution 2.5 mg albuterol (PROVENTIL) nebulizer solution 2.5 mg 2020 08:43:00 AM EDT 2.5 mg completed 2.5 mg , Nebulization, Once, On Wed01/02/21 at 0900, For 1 dose
Please give patient albuterol neb following CXR
[facility] Medication administered onsite Sucralfate 1000 MG Oral Tablet sucralfate (CARAFATE) t ablet 1 g sucralfate (CARAFATE) tablet 1 g 12/31/2020 09:00:00 PM EDT 1 g Oral aborted 1 g, Oral, Every 6 hours (scheduled), First dose (after last modification) on Wed12/31/20 at 2100
If patient is unable to swallow the tablet, Nursing should dissolve tablet in 10-15 ml of water prior to administration. Sucralfate should NOT be administered via feeding tubes.
[facility] Medication administered onsite Methylprednisolone 40 MG/ML Injectable S olution methylPREDNISolone sodium succinate (Solu-MEDROL) injection 40 mg methylPREDNISolone sodium succinate (Solu-MEDROL) injection 40 mg 12/31/2020 09:00:00 AM EDT 40 mg I ntravenous completed 40 mg, Intraveno us, Daily, First dose (after last modification) on Wed12/31/20 at 0900, For 7 doses [facility] Medication administered onsite sennosides, ALF 8.6 MG Oral Tablet senna (SENOKOT) tab let 8.6 mg senna (SENOKOT) tablet 8.6 mg 12/29/2020 01:47:08 PM EDT 8.6 mg Oral act mac 8.6 mg, Oral, 2 times daily PRN, constipation, Starting on Wed12/29/20 at 1347
Please offer dose now if no further BM
[facility] Medication administered onsite Methylprednisolone 40 MG/ML Injectable S olution methylPREDNISolone sodium succinate (Solu-MEDROL) injection 40 mg methylPREDNISolone sodium succinate (Solu-MEDROL) injection 40 mg 12/28/2020 09:00:00 PM EDT 40 mg I ntravenous aborted 40 mg, Intraveno us, Every 12 hours (scheduled), First dose (after last modification) on 12/28/20 at 2100 [facility] Medication administered onsite dextrose 5 % and sodium chloride 0.45 % infusion [id number] 0 12/28/2020 05:00:00 PM EDT Intravenous aborted at 30 mL/hr, Intravenous, Continuous, Starting on 12/28/20 at 1700 [facility] Medication administered onsite BMX solution 12/28/2020 02:24:15 PM EDT 10 mL active 10 mL, Swish & Swallow, Every 4 hours PRN, abd pain,dyspepsia, Starting on 12/28/20 at 1424 [facility] Medication administered onsite diatrizoate meglumine-sodium (GASTROGRAFIN) solution 20 mL 2 [id number] 12/28/2020 11:00:00 AM EDT 20 mL Oral completed 20 mL, Oral, Once, On 12/28/20 at 1100, For 1 dose [facility] Medication administered onsite Simethicone 80 MG Chewable Tablet simethicone (MYLICON ) chewable tablet 80 mg simethicone (MYLICON) chewable tablet 80 mg 12/27/2020 09:32:58 AM EDT 80 mg Oral active 80 mg, Oral, E very 6 hours PRN, flatulence, Starting on Wed12/27/20 at 0932 [facility] Medication administered onsite pantoprazole 4 MG/ML Injectable Solution pantoprazole (PROTONIX) injection 40 mg pantoprazole (PROTONIX) injection 40 mg 12/26/2020 03:00:00 PM EDT 40 mg Intravenous aborted Gastroesophageal Reflux Disease 40 mg, Intravenous, Daily, Indications: Gastroesophageal Reflux Disease, First dose on Tanesha 12/26/20 at 1500
For IV Push - Dilute with 10 mL of 0.9% NaCl and push over 2 minutes.
[facility] Gastroesophageal Reflux Disease Medication administered onsite Methylprednisolone 40 MG/ML Injectable S olution methylPREDNISolone sodium succinate (Solu-MEDROL) injection 40 mg methylPREDNISolone sodium succinate (Solu-MEDROL) injection 40 mg 12/26/2020 03:00:00 PM EDT 40 mg I ntravenous aborted 40 mg, Intraveno us, Daily, First dose on Wed12/26/20 at 1500, For 5 days [facility] Medication administered onsite Famotidine 20 MG Oral Tablet famotidine (PEPCID) table t 40 mg famotidine (PEPCID) tablet 40 mg 12/26/2020 10:00:00 AM EDT 40 mg Oral completed 40 mg, Oral, Once, On Wed12/26/20 at 1000, For 1 dose [facility] Medication administered onsite Bisacodyl 10 MG Rectal Suppository bisacodyl (DULCOLAX ) suppository 10 mg bisacodyl (DULCOLAX) suppository 10 mg 12/26/2020 10:00:00 AM EDT 10 mg Rectal completed 10 mg, Rectal, Once, On Wed12/26/20 at 1000, For 1 dose
hold for loose stools
[facility] Medication administered onsite Calcium Carbonate 500 MG Chewable Tablet calcium carbonate (TUMS) chewable tablet 500 mg calcium carbonate (TUMS) chewable tablet 500 mg 2020 08:59:36 AM EDT 500 mg Oral active 500 mg, Oral, 3 times daily PRN, indigestion, heartburn, Starting on Wed12/26/20 at 0859 [facility] Medication administered onsite Sucralfate 1000 MG Oral Tablet sucralfate (CARAFATE) t ablet 1 g sucralfate (CARAFATE) tablet 1 g 12/25/2020 04:00:00 PM EDT 1 g Oral aborted 1 g, Oral, Every 8 hours (scheduled), First dose on Wed12/25/20 at 1600
If patient is unable to swallow the tablet, Nursing should dissolve tablet in 10-15 ml of water prior to administration. Sucralfate should NOT be administered via feeding tubes.
[facility] Medication administered onsite Dextromethorphan Hydrobromide 2 MG/ML / Guaifenesin 20 MG/ML Oral Suspension guaifenesin-dextromethorphan (ROBITUSSIN DM) 100-10 MG/5ML syrup 5 mL guaifenesin-dextromethorphan (ROBITUSSIN DM) 100-10 MG/5ML syrup 5 mL 12/25/2020 02:53:51 PM EDT 5 mL Oral active 5 mL, Oral, Every 6 hours PRN, other, Starting on Wed12/25/20 at 1453 [facility] Medication administered onsite Bisacodyl 10 MG Rectal Suppository bisacodyl (DULCOLAX ) suppository 10 mg bisacodyl (DULCOLAX) suppository 10 mg 12/25/2020 10:00:00 AM EDT 10 mg Rectal completed 10 mg, Rectal, Once, On Wed12/25/20 at 1000, For 1 dose
hold for loose stools
[facility] Medication administered onsite clopidogrel 75 MG Oral Tablet clopidogrel (PLAVIX) tab let 75 mg clopidogrel (PLAVIX) tablet 75 mg 12/24/2020 09:00:00 PM EDT 75 mg Oral aborted 75 mg, Oral, Nightly, First dose on Wed12/24/20 at 2100
Will hold until until ok w GI to resume
[facility] Medication administered onsite Hyoscyamine Sulfate 0.125 MG Sublingual Tablet hyoscyamine (LEVSIN/SL) SL tablet 125 mcg hyoscyamine (LEVSIN/SL) SL tablet 125 mcg 12/24/2020 09:00:00 AM EDT 125 ug Sublingual aborted 125 mcg, Sublingual, 3 times daily, First dose on Wed12/24/20 at 0900 [facility] Medication administered onsite ferrous sulfate 325 MG Oral Tablet ferrous sulfate tab let 325 mg ferrous sulfate tablet 325 mg 12/24/2020 07:00:00 AM EDT 325 mg Oral act mac 325 mg, Oral, Daily with breakfast, First dose on Wed12/24/20 at 0700, Post- op
Separate from antacids as far as possible. Take with food, do not crush
[facility] Medication administered onsite gabapentin 100 MG Oral Capsule gabapentin (NEURONTIN) capsule 200 mg gabapentin (NEURONTIN) capsule 200 mg 12/23/2020 09:00:00 PM EDT 200 mg Oral active 200 mg, Oral, Nightly, First dose on Wed12/23/20 at 2100, Post-op [facility] Medication administered onsite Albuterol 0.83 MG/ML Inhalant Solution a lbuterol (PROVENTIL) nebulizer solution 2.5 mg albuterol (PROVENTIL) nebulizer solution 2.5 mg 2020 03:00:00 PM EDT 2.5 mg active 2.5 mg, Nebulization, Every 6 hours while awake, First dose on Wed12/23/20 at 1500, Post-op [facility] Medication administered onsite 60 ACTUAT formoterol fumarate 0.005 MG/A CTUAT / mometasone furoate 0.2 MG/ACTUAT Metered Dose Inhaler mometasone-formoterol (DULERA) 200-5 MCG/ACT inhaler 2 puff mometasone-formoterol (DULERA) 200-5 MCG/ACT inhaler 2 puff 12/23/2020 03:00:00 PM EDT 2 {puff} Inhalation active 2 puff, Inhalation, 2 times daily, First dose on Wed12/23/20 at 1500, Post-op [facility] Medication administered onsite Sertraline 50 MG Oral Tablet sertraline (ZOLOFT) table t 75 mg sertraline (ZOLOFT) tablet 75 mg 12/23/2020 03:00:00 PM EDT 75 mg Oral active 75 mg, Oral, Daily, First dose on Wed12/23/20 at 1500, Post-op [facility] Medication administered onsite Hydrochlorothiazide 25 MG / valsartan 32 0 MG Oral Tablet valsartan- hydrochlorothiazide (DIOVAN-HCT) 320-25 MG per tablet 1 tablet valsartan- hydrochlorothiazide (DIOVAN-HCT) 320-25 MG per tablet 1 tablet 12/23/2020 03:00:00 PM EDT 1 {tbl} Oral aborted 1 tablet, Oral, Daily, First dose on Wed12/23/20 at 1500, Post-op
Please hold for systolic BP < 110 , diastolic BP < 50 and/ or HR < 60. And please call the PA.
[facility] Medication administered onsite Clonazepam 0.5 MG Oral Tablet clonazePAM (KlonoPIN) ta blet 0.5-1 mg clonazePAM (KlonoPIN) tablet 0.5-1 mg 12/23/2020 03:00:00 PM EDT mg Oral completed 0.5-1 mg, Oral, 2 times ondina y, First dose on Wed12/23/20 at 1500, For 25 doses, Post-op
For administration and preparation considerations, refer to Hazardous Drugs in the Workplace Policy on Intranet.
[facility] Medication administered onsite heparin (porcine) injection 5,000 Units 72217-812-81 12/24/19 03:00:00 PM EDT 5000 U Subcutaneous active 5,000 Units , Subcutaneous, Every 8 hours (scheduled), First dose on Wed12/23/20 at 1500, Post-op
If platelet count is less than 100,000 or hematocrit is less than 25, or if there is a 5 point decrea se in hematocrit, do not give the dose and call physician/designee.
[facility] Medication administered onsite dextrose 5 % and sodium chloride 0.45 % infusion [id number] 0 12/23/2020 03:00:00 PM EDT Intravenous aborted at 75 mL/hr, Intravenous, Continuous, Starting on Wed12/23/20 at 1500, Post-op [facility] Medication administered onsite Acetaminophen 325 MG Oral Tablet acetaminophen (TYLENO L) 325 MG tablet 650 mg acetaminophen (TYLENOL) 325 MG tablet 650 mg 12/23/2020 03:00:00 PM EDT 650 mg Oral active 650 mg, Or al, Every 6 hours (relative), First dose on Wed12/23/20 at 1500, Post-op
"Maximum dose of acetaminophen is 4,000 mg from all sources in 24 hours."
[facility] Medication administered onsite Simethicone 80 MG Chewable Tablet simethicone (MYLICON ) chewable tablet 80 mg simethicone (MYLICON) chewable tablet 80 mg 12/23/2020 03:00:00 PM EDT 80 mg Oral aborted 80 mg, Oral, 4 times daily, First dose on Wed12/23/20 at 1500, Post-op [facility] Medication administered onsite POLYETHYLENE GLYCOL 3350 142 MG/ML Oral Solution polyethylene glycol (GLYCOLAX) packet 17 g polyethylene glycol (GLYCOLAX) packet 17 g 12/23/2020 03:00:00 PM EDT 17 g Oral active 17 g, Or al, Daily, First dose on Wed12/23/20 at 1500, Post-op
hold for loose stools
[facility] Medication administered onsite Docusate Sodium 100 MG Oral Capsule docusate sodium (C OLACE) capsule 100 mg docusate sodium (COLACE) capsule 100 mg 12/23/2020 03:00:00 PM EDT 100 mg Oral active 100 mg, Oral, 2 times daily, First dose on Wed12/23/20 at 1500, Post-op
hold for loose stools
[facility] Medication administered onsite ondansetron (ZOFRAN) injection 4 mg [id number] 12/23/2020 02:30:4 8 PM EDT 4 mg Intravenous active 4 mg, In travenous, Every 6 hours PRN, nausea, vomiting, Starting on Wed12/23/20 at 1430, Post-op [facility] Medication administered onsite 2 ML Metoclopramide 5 MG/ML Prefilled Sy ringe metoclopramide (REGLAN) injection 10 mg metoclopramide (REGLAN) injection 10 mg 12/23/2020 02:30:48 PM E DT 10 mg Intravenous active 10 mg, I ntravenous, Every 6 hours PRN, nausea, vomiting, if zofran is not effective, Starting on Wed12/23/20 at 1430, Post-op [facility] Medication administered onsite Magnesium Hydroxide 80 MG/ML Oral Suspen marcia magnesium hydroxide (MILK OF MAGNESIA) 400 MG/5ML suspension 30 mL magnesium hydroxide (MILK OF MAGNESIA) 4 00 MG/5ML suspension 30 mL 12/23/2020 02:30:48 PM EDT 30 mL Oral active 30 mL, Oral, Daily PRN, constipation, Starting on Wed12/23/20 at 1430, Post- op
hold for loose stools
[facility] Medication administered onsite Oxycodone Hydrochloride 5 MG Oral Tablet oxyCODONE (ROXICODONE) immediate release tablet 2.5 mg oxyCODONE (ROXICODONE) immediate release tablet 2.5 mg 12/23/2020 02:30:48 PM EDT 2.5 mg Oral active 2.5 mg, Oral, Every 4 hours PRN, moderate pain (4-6), Starting on Wed12/23/20 at 1430, For 27 days 18 hours, Post-op [facility] Medication administered onsite Oxycodone Hydrochloride 5 MG Oral Tablet oxyCODONE (ROXICODONE) immediate release tablet 5 mg oxyCODONE (ROXICODONE) immediate release tablet 5 mg 12/23/2020 02:30:48 PM EDT 5 mg Oral active 5 mg, Oral, Every 4 hours PRN, severe pain (7-10), Starting on Wed12/23/20 at 1430, For 27 days 18 hours, Post-op [facility] Medication administered onsite Magnesium Chloride 0.59932 MEQ/ML / Pota ssium Chloride 0.0497 MEQ/ML / Sodium Acetate 0.0163 MEQ/ML / Sodium Chloride 0.0899 MEQ/ML / Sodium gluconate 5.02 MG/ML Injectable Solution [Normosol-R] electrolyte-R (NORMOSOL-R/PLASMALYTE-R) solution electrolyte-R (NORMOSOL-R/PLASMALYTE-R) solution 12/23 10:00:00 AM EDT Intravenous aborted at 1 00 mL/hr, Intravenous, Continuous, Starting on Wed12/23/20 at 1000, Pre-op [facility] Medication administered onsite Clonazepam 1 MG Oral Tablet clonazePAM 1 MG clonazePAM 1 MG 12/19/2020 12:00:00 AM EDT active clonazePAM 1 MG e 1 ([facility]) Clonazepam 1 MG Oral Tablet clonazePAM 1 MG clonazePAM 1 MG 12/19/2020 12:00:00 AM EDT active clonazePAM 1 MG e CW1 ([facility]) Lidocaine 5 % Lidocaine 5 % 10/11/2020 12:00:00 AM EDT active Lidocaine 5 % eCW1 ([facility]) Lidocaine 5 % Lidocaine 5 % 10/11/2020 12:00:00 AM EDT active Lidocaine 5 % eCW1 ([facility]) Lidocaine 5 % Lidocaine 5 % 10/11/2020 12:00:00 AM EDT active Lidocaine 5 % eCW1 ([facility]) Lidocaine 5 % Lidocaine 5 % 10/11/2020 12:00:00 AM EDT active Lidocaine 5 % eCW1 ([facility]) Lidocaine 5 % Lidocaine 5 % 10/11/2020 12:00:00 AM EDT active Lidocaine 5 % eCW1 ([facility]) Lidocaine 5 % Lidocaine 5 % 10/11/2020 12:00:00 AM EDT active Lidocaine 5 % eCW1 ([facility]) valacyclovir 1000 MG Oral Tablet valACYclovir HCl 1 GM valAC Yclovir HCl 1 GM 10/04/2020 12:00:00 AM EDT 1.0 {tablet} active valACYclovir HCl 1 GM eCW1 ([facility]) valacyclovir 1000 MG Oral Tablet valACYclovir HCl 1 GM valAC Yclovir HCl 1 GM 10/04/2020 12:00:00 AM EDT 1.0 {tablet} active valACYclovir HCl 1 GM eCW1 ([facility]) valacyclovir 1000 MG Oral Tablet valACYclovir HCl 1 GM valAC Yclovir HCl 1 GM 10/04/2020 12:00:00 AM EDT 1.0 {tablet} active valACYclovir HCl 1 GM eCW1 ([facility]) valacyclovir 1000 MG Oral Tablet valACYclovir HCl 1 GM valAC Yclovir HCl 1 GM 10/04/2020 12:00:00 AM EDT 1.0 {tablet} active valACYclovir HCl 1 GM eCW1 ([facility]) valacyclovir 1000 MG Oral Tablet valACYclovir HCl 1 GM valAC Yclovir HCl 1 GM 10/04/2020 12:00:00 AM EDT 1.0 {tablet} active valACYclovir HCl 1 GM eCW1 ([facility]) valacyclovir 1000 MG Oral Tablet valACYclovir HCl 1 GM valAC Yclovir HCl 1 GM 10/04/2020 12:00:00 AM EDT 1.0 {tablet} active valACYclovir HCl 1 GM eCW1 ([facility]) valacyclovir 1000 MG Oral Tablet valACYclovir HCl 1 GM valAC Yclovir HCl 1 GM 10/04/2020 12:00:00 AM EDT 1.0 {tablet} active valACYclovir HCl 1 GM eCW1 ([facility]) Prednisone 10 MG Oral Tablet Prednisone 09/10/2020 12:00:00 AM EDT completed MEDENT ([facility], ) cefdinir 300 MG Oral Capsule Cefdinir 09/10/2020 12:00:00 AM EDT ORAL completed MEDENT ([facility], ) Hydrochlorothiazide 25 MG / valsartan 32 0 MG Oral Tablet valsartan- hydrochlorothiazide (DIOVAN-HCT) 320-25 MG per tablet valsartan- hydrochlorothiazide (DIOVAN-HCT) 320-25 MG per tablet 03/27/2020 12:00:00 AM EST aborted Essential (primary) hype rtension TAKE ONE TABLET BY MOUTH @8AM [facility] Essential (primary) hypertension Prednisone 10 MG Oral Tablet Prednisone 01/12/2020 12:00:00 AM EDT completed MEDENT ([facility], ) cefdinir 300 MG Oral Capsule Cefdinir 01/12/2020 12:00:00 AM EDT ORAL completed MEDENT ([facility], ) pantoprazole 40 MG Delayed Release Oral Tablet pantoprazole (PROTONIX) 40 MG tablet pantoprazole (PROTONIX) 40 MG tablet 10/17/2019 12:00:00 AM EDT 40 mg Oral aborted Take 40 mg by mouth 2 (two) times a day [facility] Colchicine 0.6 MG Oral Tablet [Colcrys] COLCRYS 0.6 MG tablet COLCRYS 0.6 MG tablet 09/26/2019 12:00:00 AM EDT aborted as needed [facility] fluticasone (FLONASE) 50 MCG/ACT nasal spray [id number] 08/31/2019 12:00:00 AM EDT aborted INSTILL ONE SPRA Y IN EACH NOSTRIL TWICE DAILY [facility] Hydrocortisone 25 MG/ML Topical Cream hydrocortisone 2 .5 % cream hydrocortisone 2.5 % cream 08/29/2019 12:00:00 AM EDT aborte d APPLY A SMALL AMOUNT TO PERIRECTAL AREA THREE TIMES DAILY NEEDED FOR PAIN [facility] Amylases [id number] UNT / Endopeptidases 760 00 UNT / Lipase 35316 UNT Delayed Release Oral Capsule [Creon] CREON [id number] units CPEP CREON [id number] units CPEP 08/15/2019 12:00:00 AM EDT aborted TAKE TWO CAPSULES BY MOUTH THREE TIMES DAILY WITH MEALS AND ONE CAPSULE WITH SNACKS [facility] Albuterol 0.833 MG/ML / Ipratropium Brom quan 0.167 MG/ML Inhalant Solution ipratropium-albuterol (DUO-NEB) 0.5-2.5 mg/mL nebulizer ipratropium-albuterol (DUO-NEB) 0.5-2.5 mg/mL nebulizer 07/28/2017 12:00:00 AM EDT 3 mL Inhalation aborted Inhale 3 mL every 6 (six) hours [facility] Simethicone 125 MG Chewable Tablet simethicone (MYLICO N) 125 MG chewable tablet simethicone (MYLICON) 125 MG chewable tablet 07/28/2017 12:00:00 AM EDT aborted as needed [facility] Acetaminophen 325 MG Oral Capsule Acetaminophen (TYLEN OL) 325 MG CAPS Acetaminophen (TYLENOL) 325 MG CAPS 07/28/2017 12:00:00 AM EDT aborted TYLENOL 325 MG CAPS [facility] Clonazepam 1 MG Oral Tablet clonazePAM (KLONOPIN) 1 MG tablet clonazePAM (KLONOPIN) 1 MG tablet 07/25/2012 12:00:00 AM EDT aborted TAKE 1 TABLET QID NEEDED [facility] albuterol (VENTOLIN HFA) 108 (90 Base) MCG/ACT inhaler 5699-8453-78 1 {puff} Inhalation aborted Inhale 1 puff 4 (four) times a day as needed for wheezing [facility] EPINEPHrine (EPIPEN 2-DAREN) 0.3 MG/0.3ML SOA [id number] 0.3 mg Intramuscular aborted Inject 0.3 mg into the shoul rody, thigh, or buttocks once [facility] 30 ACTUAT fluticasone furoate 0.2 MG/ACT UAT / vilanterol 0.025 MG/ACTUAT Dry Powder Inhaler Fluticasone Furoate-Vilanterol (BREO ELLIPTA) 200-25 MCG/INH AEPB Fluticasone Furoate-Vilanterol (BREO ELLIPTA) 200-25 MCG/INH AEPB 1 {puff} Inhalation aborted Inhale 1 puff [facility] Sucralfate 1000 MG Oral Tablet sucralfate (CARAFATE) 1 g tablet sucralfate (CARAFATE) 1 g tablet 1 g Oral aborted Take 1 g by mouth every morning [facility] cefdinir 300 MG Oral Capsule cefdinir (OMNICEF) 300 MG capsule cefdinir (OMNICEF) 300 MG capsule 300 mg Oral aborted Take 300 mg by mouth 2 (two) times a day [facility] Prednisone 10 MG Oral Tablet predniSONE (DELTASONE) 10 MG tablet predniSONE (DELTASONE) 10 MG tablet 10 mg Oral aborted Take 10 mg by mouth Take 4 tablets by daily, for 5 days, then 3 tablets daily for 5 days, then 2 tablets daily for 5 days, then 1 tablet daily for 5 days [facility] Sucralfate 1000 MG Oral Tablet sucralfate (CARAFATE) 1 g tablet sucralfate (CARAFATE) 1 g tablet 1 g Oral aborted Ta ke 1 g by mouth nightly [facility] Sucralfate 1000 MG Oral Tablet sucralfate (CARAFATE) 1 g tablet sucralfate (CARAFATE) 1 g tablet 0.5 g Oral aborted Take 0.5 g by mouth daily At 2 pm [facility] Insurance Providers Payer name Policy type / Coverage type Policy ID Covered alliance party ID Covered alliance party's relationship to desai Policy Desai Plan Information MEDICARE [id number] SP [id number] [place]ATIONWIDE 2 [id number] 1 [id number] [place] [id number] S [id number] MEDICARE A [id number] Self [id number] MEDICARE 4 [id number] 1 [id number] A MEDICARE [id number] [place] [id number] [employer] MEDICARE DIVISION [id number] S [id number] MEDICARE [id number] MEDICARE [id number] Celestino [id number] [id number] MEDICARE [id number] Medicare Part B [facility] [id number] Medicare Part B [facility] [id number] [place] [employer]ISION [id number] S [id number] [place]IC[place] [id number] S [id number] MEDICARE A [id number] Self [id number] A [place] MED[employer]ARE DIVISION [id number] S [id number] [place]IC[place] [id number] S [id number] [place] 1 [id number] Y [id number] TODAYS OPT MEDICARE 11 [id number] 1 [id number] TODAYS OPTIONS 11 [id number] Todays Options [place] [employer] [id number] 0 [id number] AMER PROG TODAYS OPTIONS G [id number] Self [id number] [place] CENTRAL MUTUAL E [id number] Self [id number] AARP U [id number] Self [id number] [employer] Option [id number] AARP U [id number] Self [id number] Medicaid Dental S [id number] MEDICAID [facility] [id number] INSURANCE COVID-19 COVID Celestino C OVID INSURANCE COVID-19 [id number] xOVID 2 [id number] INSURANCE COVID-19 [id number] xOVID 2 [id number] INSURANCE COVID-19 COVID Celestino C OVID [employer] MEDICARE [id number] Celestino [id number] HU[employer]NA MEDICARE [id number] Celestino [id number] HUMANA GOLD [id number] SP [id number] [employer]NA MEDICARE [id number] Celestino [id number] HU[employer]NA MEDICARE [id number] HU[employer]NA MEDICARE [id number] Celestino [id number] HUMANA CLAIMS PFFS [id number] HUMANA GOLD [id number] SP [id number] [employer]NA MEDICARE [id number] Celestino [id number] ANSI-Medicare Part B i82hou92-l867-83ur-n994-[id number] l84czr78-g497-93pk-v725-g32798835477 ANSI-Commercial u3y07yw4-cel2-0o47-a855-05t5s481x453 h0c04jh1-mna6-2d24-v316-02z8p823r429 ANSI-Commercial 2y1q3522-457m-0199-pz3j-2b925l66k2z6 6e4q6522-286c-8996-wi8m-1w655t79p0d7 ANSI-Medicare Part B [id number]-cq8i-8t6y-7927-9k7c50n45y65 8ox62lu3-sk6w-8n1b-2476-4d2r06z32j39 ANSI-Medicare Part B 82h8nx3n-t8v8-9218-05a9-26l867669bzq 57z4ta5u-m5h2-9712-22f4-80w332834tug ANSI-Commercial 695z8s6i-47d9-1ki5-093m-937al086jh60 703d3m5b-32q7-3bm8-813a-908nt044os80 ANSI-Medicare Part B 23l674m2-5gc4-4s61-z05a-29465r5t20c2 45w559p2-4sn6-1f33-i30d-69213r6t93o4 ANSI-Commercial 6239zn36-sz34-4xxd-uf5h-2ia0w1714632 4223pu11-ut66-2ljz-yn0u-1cg0x4584854 ANSI-Medicare Part B q9ax889i-9484-98r4-83h6-1t63njo9j9m6 k3th069w-3714-10z0-70d7-6m00sil5f9s5 ANSI-Commercial 2q4i2bn0-kbf4-8113-9677-y96qu1146gtn 0c8v5ns5-iju7-4699-2284-y40vo1524exh ANSI-Medicare Part B un5950g5-43a2-74e8-696j-zrx58651j197 ek6934o3-16q9-03w4-416f-vcx66234q496 ANSI-Commercial 69w21m2w-2c27-4i72-zg5n-6i1t9u359k0b 68w06f6u-4n93-5m14-id5o-2g8f6d806e6e ANSI-Medicare Part B f51s25h2-3253-9846-0241-1m298x947a86 z49e61a7-1493-3705-1564-5a779p561p24 ANSI-Commercial 256447o2-kod2-4671-i952-6bqf35e9nl43 252800q6-tsg9-9101-o767-0yuc43j6zb10 ANSI-Commercial p777396n-7v25-98rr-jp9e-p7jz8a25py99 l758904c-2e84-88nk-wc8l-r3af6k29ys90 ANSI-Medicare Part B 695n3t18-9r13-6g18-t7g0-a00w3mipz7x0 697h7c85-2n20-0m05-l7s6-c51b7eama8n8 ANSI-Commercial o849zmy9-sb27-3b3d-a395-c6u369251m1v m036qye1-ll31-6z4c-h855-d4r567781e4a ANSI-Medicare Part B 90b514h8-h181-97iq-x946-7x14e0573f35 66f565b3-v775-02lh-o907-6z86z9795j48 MEDICARE 2V57-VZ4-RX0 SP 1K78-MN 8-UJ2 ANSI-Commercial 28027jmn-0414-3v39-l23o-06k2028w7z9i 71403yuu-2884-1b24-z88x-93r0887y6d5f ANSI-Medicare Part B a42d3652-1589-65a7-268h-8ig3mn41l95g c62h3244-3953-55r1-828e-4di8sp15n26e ANSI-Commercial 19gf92q6-rg82-5gzq-nh19-92w8st3p512p 44zp18k5-hz87-7occ-hu97-75q2oz0z631b ANSI-Medicare Part B w856bl92-jz3x-2s09-26e7-p7dfs5h02982 w128zo73-pz5v-2l03-74r9-r9hrk7d15604 ANSI-Medicare Part B 0z661h2o-03nq-6pe2-p808-c3sgi0i910t3 8u873v6x-54wq-0di5-t084-i0opm1d513q3 ANSI-Commercial i10s6hl8-7543-9543-0ed5-05n2824221zh l43r5ph9-4293-7665-8mq5-81l9467324yo ANSI-Commercial w4553gl4-214n-1189-2062-31t471z60669 s1259vo6-873j-3938-9323-75a334m42103 ANSI-Medicare Part B [id number]-0c13-7b3e5x61s182 1a393576-4794-1wsn-3u47-3v7c2v41x013 ANSI-Medicare Part B [id number]-0793-iz25-96u41k5hg5e3 6o075r92-62zh-6815-jl57-05k53d6xv0w0 ANSI-Commercial r00829x6-c9tn-86u8-6oj5-n70z6xp27436 f36270j1-d1ec-15e6-4ko0-x99j0kh71132 AARP O [id number] S [id number] MEDICARE C [id number] S [id number] A AARP S [id number] S [id number] Medicare P [id number] S [id number] A Medicaid O [id number] S [id number] MEDICAID [id number] SP [id number] BCBS OF [place] 306/806 [id number] SP [id number] TODAYS OPTIONS [id number] SP [id number] MEDICARE [id number] SP [id number] A GABONESE PROGRESSIVE MC [id number] S [id number] [facility] NF CLAIM #[id number] S CLAIM #[id number] SELF PAY 2 UNAVAILABLE 1 UNAVAILA BLE GABONESE PROGRESSIVE O [id number] S [id number] MEDICARE DIOGO O [id number] S [id number] TODAYS OPT AMER PROG O [id number] S [id number] [facility] MUTUAL O [id number] S [id number] [facility] NF [id number] S [id number] HUMANA GOLD [id number] SP [id number] HUMANA GOLD [id number] SP [id number] MEDICARE [id number] SP [id number] [facility] OPTIONS [id number] SP [id number] HUMANA GOLD [id number] SP [id number] HUMANA GOLD H SP H [facility] OPTIONS [id number] S [id number] [facility] OPTIONS [id number] S [id number] [place] [facility] [id number] S [id number] MEDICARE - [place] [id number] S [id number] [employer] OPTIONS [id number] S [id number] TOD[employer]YS OPTIONS [id number] S [id number] TOD[employer] OPTIONS [id number] S [id number] MEDICARE [id number] SP [id number] A ANSI-Medicare Part B [id number]-[id number] 44h89b31-0bb2-5945-31ul-0awp5de76j87 ANSI-Commercial [id number]-ob80-4eja-0254-213b1fn759e7 73791860-mp66-8jxc-0485-859o4nl194x9 ANSI-Commercial 0j6yj28k-8792-822j-7c6o-f87334491b06 9z1pn25h-4940-243a-9v1e-d02746119f83 ANSI-Medicare Part B [id number]-2yd0-mf5k-73b99f48un21 x3462360-528g-9hv8-en5v-74s25j03rn59 ANSI-Medicare Part B dt7w116b-6012-4426-c844-3s52892g10sw ux0e217r-4328-8989-k810-4w93338v16dl ANSI-Commercial 6s732q56-7f78-643m-l803-1y15g499f273 8n503b53-3u51-615h-h029-7l08x081u068 ANSI-Commercial 28608078-mb2g-2t56-uu41-g81y25l42l3l 30983874-yr5k-0f77-zs29-t23o01q33v3p ANSI-Medicare Part B 4467s3c0-475f-3759-979j-04zm9438vp62 4191n2t6-630x-3161-953w-01yj2230eu20 ANSI-Commercial 195uc889-145j-0n67-4z39-tma89j289281 963gf815-902p-1h39-7m25-ioy49p134320 ANSI-Medicare Part B m0f8j2k1-70sx-5538-l572-go3njka5816h z9z6i6u7-91fq-2372-k628-bq3rnsr8702i ANSI-Commercial g9951209-835e-0521-2j85-eh3n9795785y c8893864-181y-5212-1k16-gg9o0554851x ANSI-Medicare Part B u9w932c5-m3s9-5b6a-70m4-ymc0o660pkep w5d030d7-t3e1-0w9i-96c3-nsq4j900lhsy ANSI-Commercial 54y4g8nk-t833-25h2-3325-t9i30j5y209y 58h2n2ng-b468-54w8-7221-h9h53s9k902d ANSI-Medicare Part B 3l3t79h5-062t-5h4b-768q-7825k14fft91 6c9n67s2-090r-6x2g-462e-6008t36asi97 ANSI-Commercial o70tgg6x-306a-7p13-7td1-oe5f44g5753d g81ucm5b-714m-1e31-8yz3-sf3k24w0848k ANSI-Medicare Part B c0ebv249-z262-59tq-h0wn-39664911uz2e l6qqc043-q571-02pp-x0yj-30610759ch4k ANSI-Commercial 046z746n-7193-12gh-u2m0-369w91f199d1 074s711p-2310-20qz-k0y0-913e34s175a6 ANSI-Medicare Part B nfs346zs-v2z0-1zt9-g7b6-e3r6326mrm4y mxf608wj-s9u5-1sn6-p1a1-n4l7961okb6g ANSI-Commercial 21696uw3-0046-6127-v95w-1tqkcy1dh9mg 78270rp3-6163-3903-z96g-4cxmsi3ar3ug ANSI-Medicare Part B 66a217p2-y421-16e3-e876-33u8804ky9k9 24u165u3-d083-04e8-b784-73a3868qr5j9 ANSI-Commercial 24ywr8uj-867m-5t10-5u97-gzvmcy9q5xte 01bfm6ei-006s-7g41-1k11-rxmubq3c8yem ANSI-Medicare Part B bx210wz0-d02x-0r29-o050-86368eih50i4 dq566gz7-o23j-8e75-b559-04763lrq93c7 ANS-Medicare Part B [id number]-iu78-972z-z37z-58s72u046omn 8598452k-id28-513u-n46q-06n17r931akx ANSI-Commercial 5c73714i-36l4-54by-5vu1-4424b98q71io 0w17622u-68f4-24na-7hb9-5224b31d13kw [facility]-Medicare Part B [id number]-00j3-4a49n7gv067u e618273r-v291-3s3u-79v3-7h15a1jj727f ANSI-Commercial v015h4u6-554v-6z36-hsz1-ag23w8pv6a19 g894y8o6-973l-2g45-vha2-im73e9kd9j16 Problems, Conditions, and Diagnoses Code Display Name Description Problem Type Effective Dates Data Source(s) R13.19 Other dysphagia Other dysphagia Diagnosis 12/23/2020 08:0 6:00 AM EDT [facility] 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, w ithout gangrene Diaphragmatic hernia with obstruction, w Diagnosis 12/23/2020 08:06:00 AM EDT [facility] U07.1 COVID-19 COVID-19 Diagnosis 10/02/2020 10:04:29 AM ED T [facility] K31.89 Other diseases of stomach and duodenum O ther diseases of stomach and duodenum Diagnosis 09/24/2020 10:12:52 AM EDT [facility] Z01.818 Encounter for other preprocedural examin ation Encounter for other preprocedural examin Diagnosis 09/18/2020 02:48:38 PM EDT [facility] 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 Occlusion and stenosis of bilateral bucio Diagnosis 09/18/2020 02:48:38 PM EDT [facility] R06.00 Dyspnea, unspecified Dyspnea, unspecified Diagnosis 09/18/2020 02:48:38 PM EDT [facility] G47.33 Obstructive sleep apnea (adult) (pediatr ic) Obstructive sleep apnea (adult) (pediatr Diagnosis 09/18/2020 02:48:38 PM EDT [facility] Z95.0 Presence of cardiac pacemaker Presence of cardiac pace maker Diagnosis 09/18/2020 02:48:38 PM EDT [facility] E78.2 Mixed hyperlipidemia Mixed hyperlipidemia Diagnosis 09/18/2020 02:48:38 PM EDT [facility] I10 Essential (primary) hypertension Essential (primary) h ypertension Diagnosis 09/18/2020 02:48:38 PM EDT [facility] N28.89 [id number] Right kidney mass Problem 01/23/2021 12:00:0 0 AM EDT eCW1 ([facility]) J44.9 Chronic obstructive pulmonary disease Ch ronic obstructive pulmonary disease [id number] 01/09/2021 12:00:00 AM EDT [facility] R10.13 Dyspepsia Dyspepsia [id number] 01/09/2021 12:00:00 AM ED T [facility] N17.9 JOHNNY (acute kidney injury) JOHNNY (acute kidney injury) [id number] 01/09/2021 12:00:00 AM EDT [facility] N28.89 Renal mass, right Renal mass, right [id number] 01/09/2021 12:00:00 AM EDT [facility] G45.9 TIA (transient ischemic attack) TIA (transient ischemi c attack) [id number] 12/23/2020 12:00:00 AM EDT [facility] I50.9 CHF (congestive heart failure) CHF (congestive heart f ailure) [id number] 12/23/2020 12:00:00 AM EDT [facility] I65.23 [id number] Bilateral carotid artery stenosis Problem 12/16/2020 12:00:00 AM EDT eCW1 ([facility]) R13.19 Other dysphagia Other dysphagia [id number] 10/21/2020 12:0 0:00 AM EDT [facility] 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 Problem 021 12:00:00 AM EDT eCW1 ([facility]) Z01.818 Preop examination Preop examination [id number] 09/18/2020 12:00:00 AM EDT [facility] K31.89 Chronic gastric volvulus Chronic gastric volvulus 6457 200007/19/2020 12:00:00 AM EDT [facility] 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 [id number] 07/19/2020 12:00:00 AM EDT [facility] K21.9 Hiatal hernia with GERD Hiatal hernia with GERD [id number] 07/04/2020 12:00:00 AM EST [facility] Surgeries/Procedures Procedure Description Date Indications Data Source(s) GLUC BLD GLUC MNTR DEV CLEARED FDA SPEC HOME USE <td>P OCT GLUCOSE</td><td>Routine</td><td>01/14/2021 7:22 AM EDT</td><td></td><td> </td> 01/14/2021 07:22:00 AM EDT [facility] BLOOD COUNT COMPLETE AUTOMATED <td>CBC</td><td>Timed</ td><td>01/14/2021 5:16 AM EDT</td><td></td><td> </td> 01/14/2021 05:16:00 AM EDT [facility] BASIC METABOLIC PANEL CALCIUM TOTAL <td>BASIC METABOLI C PANEL</td><td>Timed</td><td>01/14/2021 5:16 AM EDT</td><td></td><td> </td> 01/14/2021 05:16:00 AM EDT [facility] GLUC BLD GLUC MNTR DEV CLEARED FDA SPEC HOME USE <td>P OCT GLUCOSE</td><td>Routine</td><td>01/13/2021 6:06 PM EDT</td><td></td><td> </td> 01/13/2021 06:06:00 PM EDT [facility] GLUC BLD GLUC MNTR DEV CLEARED FDA SPEC HOME USE <td>P OCT GLUCOSE</td><td>Routine</td><td>01/13/2021 1:51 PM EDT</td><td></td><td> </td> 01/13/2021 01:51:00 PM EDT [facility] GLUC BLD GLUC MNTR DEV CLEARED FDA SPEC HOME USE <td>P OCT GLUCOSE</td><td>Routine</td><td>01/13/2021 7:28 AM EDT</td><td></td><td> </td> 01/13/2021 07:28:00 AM EDT [facility] GLUC BLD GLUC MNTR DEV CLEARED FDA SPEC HOME USE <td>P OCT GLUCOSE</td><td>Routine</td><td>01/13/2021 5:39 AM EDT</td><td></td><td> </td> 01/13/2021 05:39:00 AM EDT [facility] TRIGLYCERIDE <td>TRIGLYCERIDE</td><td>Rou ayde</td><td>01/13/2021 5:17 AM EDT</td><td></td><td> </td> 01/13/2021 05:17:00 AM EDT [facility] THROMBOPLASTIN TIME PARTIAL PLASMA/WHOLE BLOOD <td>APTT</td><td>Routine</td><td>01/13/2021 5:17 AM EDT</td><td></td><td> </td> 01/13/2021 05:17:00 AM EDT [facility] PROTHROMBIN TIME <td>PROTIME-INR</td><td>Rout ine</td><td>01/13/2021 5:17 AM EDT</td><td></td><td> </td> 01/13/2021 05:17:00 AM EDT [facility] BLOOD COUNT COMPLETE AUTOMATED <td>CBC</td><td>Routine </td><td>01/13/2021 5:17 AM EDT</td><td></td><td> </td> 01/13/2021 05:17:00 AM EDT [facility] PHOSPHORUS INORGANIC <td>PHOSPHORUS</td><td>Routi ne</td><td>01/13/2021 5:17 AM EDT</td><td></td><td> </td> 01/13/2021 05:17:00 AM EDT [facility] MAGNESIUM <td>MAGNESIUM</td><td>Routin e</td><td>01/13/2021 5:17 AM EDT</td><td></td><td> </td> 01/13/2021 05:17:00 AM EDT [facility] CALCIUM IONIZED <td>CALCIUM, IONIZED</td><td >Routine</td><td>01/13/2021 5:17 AM EDT</td><td></td><td> </td> 01/13/2021 05:17:00 AM EDT [facility] HEPATIC FUNCTION PANEL <td>HEPATIC FUNCTION PANEL</td><td>Routine</td><td>01/13/2021 5:17 AM EDT</td><td></td><td> </td> 01/13/2021 05:17:00 AM EDT [facility] BASIC METABOLIC PANEL CALCIUM TOTAL <td>BASIC METABOLI C PANEL</td><td>Routine</td><td>01/13/2021 5:17 AM EDT</td><td></td><td> </td> 01/13/2021 05:17:00 AM EDT [facility] GLUC BLD GLUC MNTR DEV CLEARED FDA SPEC HOME USE <td>P OCT GLUCOSE</td><td>Routine</td><td>01/12/2021 4:36 PM EDT</td><td></td><td> </td> 01/12/2021 04:36:00 PM EDT [facility] PHOSPHORUS INORGANIC <td>PHOSPHORUS</td><td>Routi ne</td><td>01/12/2021 5:37 AM EDT</td><td></td><td> </td> 01/12/2021 05:37:00 AM EDT [facility] MAGNESIUM <td>MAGNESIUM</td><td>Routin e</td><td>01/12/2021 5:37 AM EDT</td><td></td><td> </td> 01/12/2021 05:37:00 AM EDT [facility] BASIC METABOLIC PANEL CALCIUM TOTAL <td>BASIC METABOLI C PANEL</td><td>Routine</td><td>01/12/2021 5:37 AM EDT</td><td></td><td> </td> 01/12/2021 05:37:00 AM EDT [facility] GLUC BLD GLUC MNTR DEV CLEARED FDA SPEC HOME USE <td>P OCT GLUCOSE</td><td>Routine</td><td>01/12/2021 5:32 AM EDT</td><td></td><td> </td> 01/12/2021 05:32:00 AM EDT [facility] GLUC BLD GLUC MNTR DEV CLEARED FDA SPEC HOME USE <td>P OCT GLUCOSE</td><td>Routine</td><td>01/11/2021 4:46 PM EDT</td><td></td><td> </td> 01/11/2021 04:46:00 PM EDT [facility] BLOOD COUNT COMPLETE AUTOMATED <td>CBC</td><td>Timed</ td><td>01/11/2021 5:01 AM EDT</td><td></td><td> </td> 01/11/2021 05:01:00 AM EDT [facility] PHOSPHORUS INORGANIC <td>PHOSPHORUS</td><td>Timed </td><td>01/11/2021 5:01 AM EDT</td><td></td><td> </td> 01/11/2021 05:01:00 AM EDT [facility] MAGNESIUM <td>MAGNESIUM</td><td>Timed< /td><td>01/11/2021 5:01 AM EDT</td><td></td><td> </td> 01/11/2021 05:01:00 AM EDT [facility] BASIC METABOLIC PANEL CALCIUM TOTAL <td>BASIC METABOLI C PANEL</td><td>Timed</td><td>01/11/2021 5:01 AM EDT</td><td></td><td> </td> 01/11/2021 05:01:00 AM EDT [facility] INITIAL HOSPITAL CARE/DAY 50 MINUTES 01/11/2021 12:00: 00 AM EDT [facility] ([facility] GLUC BLD GLUC MNTR DEV CLEARED FDA SPEC HOME USE <td>P OCT GLUCOSE</td><td>Routine</td><td>01/10/2021 5:15 PM EDT</td><td></td><td> </td> 01/10/2021 05:15:00 PM EDT [facility] GLUC BLD GLUC MNTR DEV CLEARED FDA SPEC HOME USE <td>P OCT GLUCOSE</td><td>Routine</td><td>01/10/2021 11:35 AM EDT</td><td></td><td> </td> 01/10/2021 11:35:00 AM EDT [facility] GLUC BLD GLUC MNTR DEV CLEARED FDA SPEC HOME USE <td>P OCT GLUCOSE</td><td>Routine</td><td>01/10/2021 5:06 AM EDT</td><td></td><td> </td> 01/10/2021 05:06:00 AM EDT [facility] BLOOD COUNT COMPLETE AUTOMATED <td>CBC</td><td>Timed</ td><td>01/10/2021 4:59 AM EDT</td><td></td><td> </td> 01/10/2021 04:59:00 AM EDT [facility] PHOSPHORUS INORGANIC <td>PHOSPHORUS</td><td>Timed </td><td>01/10/2021 4:59 AM EDT</td><td></td><td> </td> 01/10/2021 04:59:00 AM EDT [facility] MAGNESIUM <td>MAGNESIUM</td><td>Timed< /td><td>01/10/2021 4:59 AM EDT</td><td></td><td> </td> 01/10/2021 04:59:00 AM EDT [facility] BASIC METABOLIC PANEL CALCIUM TOTAL <td>BASIC METABOLI C PANEL</td><td>Timed</td><td>01/10/2021 4:59 AM EDT</td><td></td><td> </td> 01/10/2021 04:59:00 AM EDT [facility] GLUC BLD GLUC MNTR DEV CLEARED FDA SPEC HOME USE <td>P OCT GLUCOSE</td><td>Routine</td><td>01/09/2021 6:26 PM EDT</td><td></td><td> </td> 01/09/2021 06:26:00 PM EDT [facility] GLUC BLD GLUC MNTR DEV CLEARED FDA SPEC HOME USE <td>P OCT GLUCOSE</td><td>Routine</td><td>01/09/2021 9:20 AM EDT</td><td></td><td> </td> 01/09/2021 09:20:00 AM EDT [facility] TRIGLYCERIDE <td>TRIGLYCERIDE</td><td>Rou ayde</td><td>01/09/2021 5:40 AM EDT</td><td></td><td> </td> 01/09/2021 05:40:00 AM EDT [facility] BLOOD COUNT COMPLETE AUTOMATED <td>CBC</td><td>Timed</ td><td>01/09/2021 5:40 AM EDT</td><td></td><td> </td> 01/09/2021 05:40:00 AM EDT [facility] THYROID STIMULATING HORMONE TSH <td>TSH</td><td>Add-On </td><td>01/09/2021 5:40 AM EDT</td><td></td><td> </td> 01/09/2021 05:40:00 AM EDT [facility] THYROXINE FREE <td>T4, FREE</td><td>Add-On< /td><td>01/09/2021 5:40 AM EDT</td><td></td><td> </td> 01/09/2021 05:40:00 AM EDT [facility] PHOSPHORUS INORGANIC <td>PHOSPHORUS</td><td>Timed </td><td>01/09/2021 5:40 AM EDT</td><td></td><td> </td> 01/09/2021 05:40:00 AM EDT [facility] MAGNESIUM <td>MAGNESIUM</td><td>Timed< /td><td>01/09/2021 5:40 AM EDT</td><td></td><td> </td> 01/09/2021 05:40:00 AM EDT [facility] CORTISOL TOTAL <td>CORTISOL</td><td>Add-On< /td><td>01/09/2021 5:40 AM EDT</td><td></td><td> </td> 01/09/2021 05:40:00 AM EDT [facility] CALCIUM IONIZED <td>CALCIUM, IONIZED</td><td >Routine</td><td>01/09/2021 5:40 AM EDT</td><td></td><td> </td> 01/09/2021 05:40:00 AM EDT [facility] HEPATIC FUNCTION PANEL <td>HEPATIC FUNCTION PANEL</td><td>Routine</td><td>01/09/2021 5:40 AM EDT</td><td></td><td> </td> 01/09/2021 05:40:00 AM EDT [facility] BASIC METABOLIC PANEL CALCIUM TOTAL <td>BASIC METABOLI C PANEL</td><td>Timed</td><td>01/09/2021 5:40 AM EDT</td><td></td><td> </td> 01/09/2021 05:40:00 AM EDT [facility] GLUC BLD GLUC MNTR DEV CLEARED FDA SPEC HOME USE <td>P OCT GLUCOSE</td><td>Routine</td><td>01/09/2021 5:38 AM EDT</td><td></td><td> </td> 01/09/2021 05:38:00 AM EDT [facility] URNLS DIP STICK/TABLET RGNT AUTO W/O MICROSCOPY <td>UR INALYSIS W/O MICRO</td><td>Routine</td><td>01/09/2021 1:00 AM EDT</td><td></td><td> </td> 01/09/2021 01:00:00 AM EDT [facility] GLUC BLD GLUC MNTR DEV CLEARED FDA SPEC HOME USE <td>P OCT GLUCOSE</td><td>Routine</td><td>01/08/2021 6:32 PM EDT</td><td></td><td> </td> 01/08/2021 06:32:00 PM EDT [facility] Transthoracic echocardiography with cont rast, or without contrast followed by with contrast, real-time with image documentation (2d), includes m-mode recording, when performed, complete, with spectral doppler echocardiography, and with color flow doppler echocardiography <td>ECHOCARDIOGRAM TRANSTHORACIC COMPLETE W/ CONTRAST</td><td>Routine</td><td>01/08/2021 3:50 PM EDT</td><td></td><td> </td> 01/08/2021 03:50:27 PM EDT [facility] US RETROPERITONEAL REAL TIME W/IMAGE COMPLETE <td>US R ENAL KIDNEY BILATERAL</td><td>Routine</td><td>01/08/2021 1:34 PM EDT</td><td></td><td> </td> 01/08/2021 01:34:22 PM EDT [facility] XR ABDOMEN AP <td>XR ABDOMEN AP</td><td>Ro utine</td><td>01/08/2021 12:36 PM EDT</td><td></td><td> </td> 01/08/2021 12:36:31 PM EDT [facility] NT PRO BNP <td>NT PRO BNP</td><td>Add-O n</td><td>01/08/2021 6:10 AM EDT</td><td></td><td> </td> 01/08/2021 06:10:00 AM EDT [facility] BLOOD COUNT COMPLETE AUTOMATED <td>CBC</td><td>Timed</ td><td>01/08/2021 6:10 AM EDT</td><td></td><td> </td> 01/08/2021 06:10:00 AM EDT [facility] PHOSPHORUS INORGANIC <td>PHOSPHORUS</td><td>Routi ne</td><td>01/08/2021 6:10 AM EDT</td><td></td><td> </td> 01/08/2021 06:10:00 AM EDT [facility] MAGNESIUM <td>MAGNESIUM</td><td>Routin e</td><td>01/08/2021 6:10 AM EDT</td><td></td><td> </td> 01/08/2021 06:10:00 AM EDT [facility] CALCIUM IONIZED <td>CALCIUM, IONIZED</td><td >Routine</td><td>01/08/2021 6:10 AM EDT</td><td></td><td> </td> 01/08/2021 06:10:00 AM EDT [facility] BASIC METABOLIC PANEL CALCIUM TOTAL <td>BASIC METABOLI C PANEL</td><td>Routine</td><td>01/08/2021 6:10 AM EDT</td><td></td><td> </td> 01/08/2021 06:10:00 AM EDT [facility] GLUC BLD GLUC MNTR DEV CLEARED FDA SPEC HOME USE <td>P OCT GLUCOSE</td><td>Routine</td><td>01/08/2021 5:43 AM EDT</td><td></td><td> </td> 01/08/2021 05:43:00 AM EDT [facility] CYTOLOGY <td>[facility] CYTOLOGY</td><td>Rou ayde</td><td>01/08/2021 12:00 AM EDT</td><td></td><td> </td> 01/08/2021 12:00:00 AM EDT [facility] GLUC BLD GLUC MNTR DEV CLEARED FDA SPEC HOME USE <td>P OCT GLUCOSE</td><td>Routine</td><td>01/07/2021 11:12 PM EDT</td><td></td><td> </td> 01/07/2021 11:12:00 PM EDT [facility] GLUC BLD GLUC MNTR DEV CLEARED FDA SPEC HOME USE <td>P OCT GLUCOSE</td><td>Routine</td><td>01/07/2021 10:08 AM EDT</td><td></td><td> </td> 01/07/2021 10:08:00 AM EDT [facility] BLOOD COUNT COMPLETE AUTOMATED <td>CBC</td><td>Timed</ td><td>01/07/2021 6:20 AM EDT</td><td></td><td> </td> 01/07/2021 06:20:00 AM EDT [facility] PHOSPHORUS INORGANIC <td>PHOSPHORUS</td><td>Routi ne</td><td>01/07/2021 6:20 AM EDT</td><td></td><td> </td> 01/07/2021 06:20:00 AM EDT [facility] MAGNESIUM <td>MAGNESIUM</td><td>Routin e</td><td>01/07/2021 6:20 AM EDT</td><td></td><td> </td> 01/07/2021 06:20:00 AM EDT [facility] CALCIUM IONIZED <td>CALCIUM, IONIZED</td><td >Routine</td><td>01/07/2021 6:20 AM EDT</td><td></td><td> </td> 01/07/2021 06:20:00 AM EDT [facility] BASIC METABOLIC PANEL CALCIUM TOTAL <td>BASIC METABOLI C PANEL</td><td>Routine</td><td>01/07/2021 6:20 AM EDT</td><td></td><td> </td> 01/07/2021 06:20:00 AM EDT [facility] GLUC BLD GLUC MNTR DEV CLEARED FDA SPEC HOME USE <td>P OCT GLUCOSE</td><td>Routine</td><td>01/07/2021 6:19 AM EDT</td><td></td><td> </td> 01/07/2021 06:19:00 AM EDT [facility] LEVEL IV SURG PATHOLOGY GROSS&MICROSCOPIC EXAM <td>[facility] HISTOLOGY</td><td>Routine</td><td>01/06/2021 1:28 PM EDT</td><td></td><td> </td> 01/06/2021 01:28:00 PM EDT [facility] UPR GI NDSC DILAT GSTR OUTLET FOR OBSTRCJ <td>ENDOSCOP Y, WITH DILATION</td><td></td><td>01/06/2021 10:25 AM EDT</td><td> Other dysphagia Esophageal ulcer with bleeding S/P laparoscopic fundoplication Other acute gastritis without hemorrhage</td><td></td> 01/06/2021 10:25:00 AM EDT - 01/06/2021 10:48:00 AM EDT Other acute gastritis without hemorrhage S/P laparoscopic fundoplicationEsophageal ulcer with bleedingOther dysphagia [facility] Other acute gastritis without hemorrhage S/P laparoscopic fundoplication Esophageal ulcer with bleeding Other dysphagia GLUC BLD GLUC MNTR DEV CLEARED FDA SPEC HOME USE <td>P OCT GLUCOSE</td><td>Routine</td><td>01/06/2021 5:49 AM EDT</td><td></td><td> </td> 01/06/2021 05:49:00 AM EDT [facility] TRIGLYCERIDE <td>TRIGLYCERIDE</td><td>Rou ayde</td><td>01/06/2021 4:11 AM EDT</td><td></td><td> </td> 01/06/2021 04:11:00 AM EDT [facility] THROMBOPLASTIN TIME PARTIAL PLASMA/WHOLE BLOOD <td>APTT</td><td>Routine</td><td>01/06/2021 4:11 AM EDT</td><td></td><td> </td> 01/06/2021 04:11:00 AM EDT [facility] PROTHROMBIN TIME <td>PROTIME-INR</td><td>Rout ine</td><td>01/06/2021 4:11 AM EDT</td><td></td><td> </td> 01/06/2021 04:11:00 AM EDT [facility] BLOOD COUNT COMPLETE AUTOMATED <td>CBC</td><td>Timed</ td><td>01/06/2021 4:11 AM EDT</td><td></td><td> </td> 01/06/2021 04:11:00 AM EDT [facility] PHOSPHORUS INORGANIC <td>PHOSPHORUS</td><td>Routi ne</td><td>01/06/2021 4:11 AM EDT</td><td></td><td> </td> 01/06/2021 04:11:00 AM EDT [facility] MAGNESIUM <td>MAGNESIUM</td><td>Routin e</td><td>01/06/2021 4:11 AM EDT</td><td></td><td> </td> 01/06/2021 04:11:00 AM EDT [facility] CALCIUM IONIZED <td>CALCIUM, IONIZED</td><td >Routine</td><td>01/06/2021 4:11 AM EDT</td><td></td><td> </td> 01/06/2021 04:11:00 AM EDT [facility] HEPATIC FUNCTION PANEL <td>HEPATIC FUNCTION PANEL</td><td>Routine</td><td>01/06/2021 4:11 AM EDT</td><td></td><td> </td> 01/06/2021 04:11:00 AM EDT [facility] BASIC METABOLIC PANEL CALCIUM TOTAL <td>BASIC METABOLI C PANEL</td><td>Routine</td><td>01/06/2021 4:11 AM EDT</td><td></td><td> </td> 01/06/2021 04:11:00 AM EDT [facility] POTASSIUM SERUM PLASMA/WHOLE BLOOD <td>POTASSIUM</td><td>Routine</td><td>01/05/2021 10:24 PM EDT</td><td></td><td> </td> 01/05/2021 10:24:00 PM EDT [facility] GLUC BLD GLUC MNTR DEV CLEARED FDA SPEC HOME USE <td>P OCT GLUCOSE</td><td>Routine</td><td>01/05/2021 5:30 PM EDT</td><td></td><td> </td> 01/05/2021 05:30:00 PM EDT [facility] 2019 NCOV AMPLIFIED <td>2019 NCOV AMPLIFIED</td> <td>STAT</td><td>01/05/2021 3:30 PM EDT</td><td></td><td> </td> 01/05/2021 03:30:00 PM EDT [facility] GLUC BLD GLUC MNTR DEV CLEARED FDA SPEC HOME USE <td>P OCT GLUCOSE</td><td>Routine</td><td>01/05/2021 6:01 AM EDT</td><td></td><td> </td> 01/05/2021 06:01:00 AM EDT [facility] BLOOD COUNT COMPLETE AUTOMATED <td>CBC</td><td>Timed</ td><td>01/05/2021 4:15 AM EDT</td><td></td><td> </td> 01/05/2021 04:15:00 AM EDT [facility] PHOSPHORUS INORGANIC <td>PHOSPHORUS</td><td>Routi ne</td><td>01/05/2021 4:15 AM EDT</td><td></td><td> </td> 01/05/2021 04:15:00 AM EDT [facility] MAGNESIUM <td>MAGNESIUM</td><td>Routin e</td><td>01/05/2021 4:15 AM EDT</td><td></td><td> </td> 01/05/2021 04:15:00 AM EDT [facility] CALCIUM IONIZED <td>CALCIUM, IONIZED</td><td >Routine</td><td>01/05/2021 4:15 AM EDT</td><td></td><td> </td> 01/05/2021 04:15:00 AM EDT [facility] BASIC METABOLIC PANEL CALCIUM TOTAL <td>BASIC METABOLI C PANEL</td><td>Routine</td><td>01/05/2021 4:15 AM EDT</td><td></td><td> </td> 01/05/2021 04:15:00 AM EDT [facility] BLOOD COUNT COMPLETE AUTOMATED <td>CBC</td><td>Timed</ td><td>01/04/2021 6:00 AM EDT</td><td></td><td> </td> 01/04/2021 06:00:00 AM EDT [facility] PHOSPHORUS INORGANIC <td>PHOSPHORUS</td><td>Routi ne</td><td>01/04/2021 6:00 AM EDT</td><td></td><td> </td> 01/04/2021 06:00:00 AM EDT [facility] MAGNESIUM <td>MAGNESIUM</td><td>Routin e</td><td>01/04/2021 6:00 AM EDT</td><td></td><td> </td> 01/04/2021 06:00:00 AM EDT [facility] CALCIUM IONIZED <td>CALCIUM, IONIZED</td><td >Routine</td><td>01/04/2021 6:00 AM EDT</td><td></td><td> </td> 01/04/2021 06:00:00 AM EDT [facility] BASIC METABOLIC PANEL CALCIUM TOTAL <td>BASIC METABOLI C PANEL</td><td>Routine</td><td>01/04/2021 6:00 AM EDT</td><td></td><td> </td> 01/04/2021 06:00:00 AM EDT [facility] TRIGLYCERIDE <td>TRIGLYCERIDE</td><td>STA T</td><td>01/03/2021 11:41 AM EDT</td><td></td><td> </td> 01/03/2021 11:41:00 AM EDT [facility] THROMBOPLASTIN TIME PARTIAL PLASMA/WHOLE BLOOD <td>APTT</td><td>Routine</td><td>01/03/2021 11:41 AM EDT</td><td></td><td> </td> 01/03/2021 11:41:00 AM EDT [facility] PROTHROMBIN TIME <td>PROTIME-INR</td><td>Rout ine</td><td>01/03/2021 11:41 AM EDT</td><td></td><td> </td> 01/03/2021 11:41:00 AM EDT [facility] BLOOD COUNT COMPLETE AUTOMATED <td>CBC</td><td>STAT</t d><td>01/03/2021 11:41 AM EDT</td><td></td><td> </td> 01/03/2021 11:41:00 AM EDT [facility] PHOSPHORUS INORGANIC <td>PHOSPHORUS</td><td>STAT< /td><td>01/03/2021 11:41 AM EDT</td><td></td><td> </td> 01/03/2021 11:41:00 AM EDT [facility] MAGNESIUM <td>MAGNESIUM</td><td>STAT</ td><td>01/03/2021 11:41 AM EDT</td><td></td><td> </td> 01/03/2021 11:41:00 AM EDT [facility] CALCIUM IONIZED <td>CALCIUM, IONIZED</td><td >STAT</td><td>01/03/2021 11:41 AM EDT</td><td></td><td> </td> 01/03/2021 11:41:00 AM EDT [facility] HEPATIC FUNCTION PANEL <td>HEPATIC FUNCTION PANEL</td><td>STAT</td><td>01/03/2021 11:41 AM EDT</td><td></td><td> </td> 01/03/2021 11:41:00 AM EDT [facility] BASIC METABOLIC PANEL CALCIUM TOTAL <td>BASIC METABOLI C PANEL</td><td>STAT</td><td>01/03/2021 11:41 AM EDT</td><td></td><td> </td> 01/03/2021 11:41:00 AM EDT [facility] WHOLE BLD LACTATE <td>WHOLE BLD LACTATE</td><t d>Routine</td><td>01/03/2021 7:50 AM EDT</td><td></td><td> </td> 01/03/2021 07:50:00 AM EDT [facility] LIPASE <td>LIPASE</td><td>Routine</ td><td>01/03/2021 7:50 AM EDT</td><td></td><td> </td> 01/03/2021 07:50:00 AM EDT [facility] AMYLASE <td>AMYLASE</td><td>Routine< /td><td>01/03/2021 7:50 AM EDT</td><td></td><td> </td> 01/03/2021 07:50:00 AM EDT [facility] XR ABDOMEN AP <td>XR ABDOMEN AP</td><td>ST AT</td><td>01/02/2021 2:30 PM EDT</td><td></td><td> </td> 01/02/2021 02:30:42 PM EDT [facility] XR CHEST PORTABLE <td>XR CHEST PORTABLE</td><t d>STAT</td><td>01/02/2021 9:23 AM EDT</td><td></td><td> </td> 01/02/2021 09:23:00 AM EDT [facility] BLOOD COUNT COMPLETE AUTOMATED <td>CBC</td><td>Routine </td><td>01/02/2021 9:22 AM EDT</td><td></td><td> </td> 01/02/2021 09:22:00 AM EDT [facility] UPR GI NDSC DILAT GSTR OUTLET FOR OBSTRCJ <td>ENDOSCOP Y, WITH DILATION</td><td></td><td>12/31/2020 3:24 PM EDT</td><td> 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</td><td></td> 12/31/2020 03:24:00 PM EDT - 12/31/2020 03:57:00 PM EDT 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 [facility] Paraesophageal hernia with obstruction b ut no gangrene LEVEL IV SURG PATHOLOGY GROSS&MICROSCOPIC EXAM <td>[facility] HISTOLOGY</td><td>Routine</td><td>12/31/2020 12:15 PM EDT</td><td></td><td> </td> 12/31/2020 12:15:00 PM EDT [facility] COVID/FLU AB/RSV PCR <td>COVID/FLU AB/RSV PCR</td ><td>STAT</td><td>12/31/2020 11:07 AM EDT</td><td></td><td> </td> 12/31/2020 11:07:00 AM EDT [facility] BLOOD COUNT COMPLETE AUTOMATED <td>CBC</td><td>Timed</ td><td>12/30/2020 6:04 AM EDT</td><td></td><td> </td> 12/30/2020 06:04:00 AM EDT [facility] BASIC METABOLIC PANEL CALCIUM TOTAL <td>BASIC METABOLI C PANEL</td><td>Timed</td><td>12/30/2020 6:04 AM EDT</td><td></td><td> </td> 12/30/2020 06:04:00 AM EDT [facility] BLOOD COUNT COMPLETE AUTOMATED <td>CBC</td><td>Timed</ td><td>12/29/2020 6:31 AM EDT</td><td></td><td> </td> 12/29/2020 06:31:00 AM EDT [facility] BASIC METABOLIC PANEL CALCIUM TOTAL <td>BASIC METABOLI C PANEL</td><td>Timed</td><td>12/29/2020 6:31 AM EDT</td><td></td><td> </td> 12/29/2020 06:31:00 AM EDT [facility] BLOOD COUNT COMPLETE AUTOMATED <td>CBC</td><td>STAT</t d><td>12/28/2020 5:29 PM EDT</td><td></td><td> </td> 12/28/2020 05:29:00 PM EDT [facility] BASIC METABOLIC PANEL CALCIUM TOTAL <td>BASIC METABOLI C PANEL</td><td>STAT</td><td>12/28/2020 5:29 PM EDT</td><td></td><td> </td> 12/28/2020 05:29:00 PM EDT [facility] RADEX GI TRACT UPPER W/WO DELAYED FILMS W/O KUB <td>XR UPPER GI W KUB</td><td>Routine</td><td>12/28/2020 12:07 PM EDT</td><td></td><td> </td> 12/28/2020 12:07:03 PM EDT [facility] BLOOD COUNT COMPLETE AUTOMATED <td>CBC</td><td>STAT</t d><td>12/27/2020 2:53 PM EDT</td><td></td><td> </td> 12/27/2020 02:53:00 PM EDT [facility] BASIC METABOLIC PANEL CALCIUM TOTAL <td>BASIC METABOLI C PANEL</td><td>STAT</td><td>12/27/2020 2:53 PM EDT</td><td></td><td> </td> 12/27/2020 02:53:00 PM EDT [facility] BLOOD COUNT COMPLETE AUTOMATED <td>CBC</td><td>Timed</ td><td>12/25/2020 6:38 AM EDT</td><td></td><td> </td> 12/25/2020 06:38:00 AM EDT [facility] XR CHEST PORTABLE <td>XR CHEST PORTABLE</td><t d>STAT</td><td>12/24/2020 6:28 PM EDT</td><td></td><td> </td> 12/24/2020 06:28:26 PM EDT [facility] BLOOD COUNT COMPLETE AUTOMATED <td>CBC</td><td>Routine </td><td>12/24/2020 6:05 AM EDT</td><td></td><td> </td> 12/24/2020 06:05:00 AM EDT [facility] BASIC METABOLIC PANEL CALCIUM TOTAL <td>BASIC METABOLI C PANEL</td><td>Routine</td><td>12/24/2020 6:05 AM EDT</td><td></td><td> </td> 12/24/2020 06:05:00 AM EDT [facility] LEVEL IV SURG PATHOLOGY GROSS&MICROSCOPIC EXAM <td>[facility] HISTOLOGY</td><td>Routine</td><td>12/23/2020 11:50 AM EDT</td><td></td><td> </td> 12/23/2020 11:50:00 AM EDT [facility] LAPS RPR PARAESPHGL HRNA INCL FUNDPLSTY W/O MESH <td>F UNDOPLICATION, ROBOT- ASSISTED, LAPAROSCOPIC,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 off steroids, 1/2 dose tomorrow, then stop.5. Follow up pathology to rule out a viral esophagitis.Procedure: EGD with biopsySedation: Monitored Anesthesia Care (MAC) (see anesthesia report).ASA Class: IIIOther Equipment Type Equipment Setting Setting Low Setting High Applied By Endoscope ENDOSCOPE PENTAX [id number] LUZ MARIA Medranoonsent:After obtaining history and performing the physical examination, the procedure,indications, potential complications, including but not limited to bleeding,perforation, infection, adverse medication reaction, and alternatives wereexplained to the patient. Patient appeared to understand the benefits and risksof this procedure. Informed consent was obtained from the patient afterproviding opportunity for questions.Procedure Details:The patient was placed in the left lateral decubitus position and monitored perendoscopy protocol. The gastroscope was inserted into the mouth and advancedunder direct visualization to second portion of the duodenum. A carefulinspection was made as the gastroscope was withdrawn, including a retroflexedview of the proximal stomach; findings and interventions are described below.After completion of the examination, the patient was transferred to the recoveryroom.* No implants in log *Findings:Oropharynx: NormalEsophagus: Middle third of esophagus with a 2 cm cratered ulceration, biopsiedfor histology.EG Junction: slightly narrow, but no resistance or stricturing seen.Cardia: Evidence of prior fundoplication, but no resistance with passing scopeor narrowing.Fundus: NormalBody: NormalAntrum: Minimal erythema, biopsied for H pylori infection.Pylorus: NormalDuodenum Bulb: NormalDuodenum 2nd Portion: NormalSpecimens:ID Type Source Tests Collected by Time DestinationA : antrum,. assess for H pylori Tissue Biopsy SURGICAL PATHOLOGY EXAM MD Kala 01/06/2021 1031B : middle third of esophagus Tissue Biopsy SURGICAL PATHOLOGY EXAM MD Kala 01/06/2021 1032Implants/Grafts: NoneComplications: None; patient tolerated the procedure well.Estimated Blood Loss: Nida Dotson MD110:35 AM Name Value Range Interpretation Code Description Data Edilma rce(s) Supporting Document(s) ID Date Data Source [id number] 01/06/2021 08:15:10 AM EDT [facility] NT INFORMATIONPatient MRN Name Date of Age Gend*PT [id number] Tyra Pagan 1935 85 years F IPPT Location Admission Date/Time Visit ID Attending [id number] 12/23/20805 --- Emily Ly MD([id number]) EPI ID CSN Admitting Provider [id number] Emily Ly MD([id number])H&P reviewed. The patient was examined and there are no changes to the H&P.Silvino Dotson MD8:14 AM Name Value Range Interpretation Code Description Data Edilam rce(s) Supporting Document(s) ID Date Data Source [id number] 01/06/2021 05:51:54 AM EDT [facility] Name Value Range Interpretation Code Description Data Edilma rce(s) Supporting Document(s) POC NOVA GLU 109 mg/dL (70-99) H [facility] [place] [facility] [place] [facility] ID Date Data Source [id number] 01/06/2021 10:15:29 AM EDT [facility] [place] Name Value Range Interpretation Code Description Data Edilma rce(s) Supporting Document(s) TRIGLYCERIDE 135 mg/dL (30-200) [facility] [place] [facility] [place] ID Date Data Source [id number] 01/06/2021 10:15:29 AM EDT [facility] [place] Name Value Range Interpretation Code Description Data Edilma rce(s) Supporting Document(s) PHOSPHORUS 2.7 mg/dL (2.5-4.5) [facility] [place] ID Date Data Source [id number] 01/06/2021 10:15:29 AM EDT [facility] [place] Name Value Range Interpretation Code Description Data Edilma rce(s) Supporting Document(s) MAGNESIUM 1.6 mg/dL (1.7-2.4) L [facility] [place] [facility] [place] ID Date Data Source [id number] 01/06/2021 10:15:29 AM EDT [facility] [place] Name Value Range Interpretation Code Description Data Edilma rce(s) Supporting Document(s) TOTAL PROTEIN 6.2 g/dL (6.4-8.2) L [facility] [place] [facility] [place] ALBUMIN 3.0 g/dL (3.2-4.5) L [facility] [place] GLOBULIN 3.2 g/dL (2.7-4.3) [facility] [place] ALB/GLOB RATIO 0.9 RATIO [facility] [place] BILIRUBIN,TOTAL 0.2 mg/dL (0.0-1.0) [facility] [place] [facility] [place] PLEASE NOTE:Total bilirubin results may be falselyelevated in patients taking Eltrombopag. BILIRUBIN,CONJUGATED <0.1 mg/dL (0.0-0.3) [facility] BILIRUBIN,UNCONJ. (0.0-0.7) [facility] [place] ALKALINE PHOSPHATASE 47 U/L (45-117) [facility] AST (SGOT) 14 U/L (11-39) [facility] [place] ALT (SGPT) 43 U/L (12-78) [facility] [place] ID Date Data Source [id number] 01/06/2021 10:15:29 AM EDT [facility] [place] Name Value Range Interpretation Code Description Data Edilma rce(s) Supporting Document(s) SODIUM 143 mmol/L (136-145) [facility] [place] POTASSIUM 3.8 mmol/L (3.6-5.2) [facility] [place] [place] CHLORIDE 108 mmol/L (100-108) [facility] [place] CO2 27 mmol/L (22-31) [facility] [place] ANION GAP 8 mmol/L (7-16) [facility] [place] UREA NITROGEN 30 mg/dL (7-24) H [facility] [place] CREATININE 0.95 mg/dL (0.60-1.00) [facility] [place] BUN/CREAT RATIO 31.6 RATIO (10.0-20.0) H [facility] GLUCOSE 92 mg/dL (70-99) [facility] [place] CALCIUM 8.3 mg/dL (8.4-10.2) L [facility] [place] GFR 56 ml/min/1.73m2 (>59) L [facility] [place] GFR ( AMER) >60 ml/min/1.73m2 (>59) [facility] [place] GFR INTERPRETATION [facility] --NORMAL KIDNEY FUNCTION OR MILD DISEASE - GFR >OR= 60CHRONIC KIDNEY DISEASE - GFR 15 - 59RENAL FAILURE - GFR <15 Est. GFR calculation based on the MDRDstudy equation, which assumes a steadystate for creatinine. Est. GFR should notbe used for medication dosing. ID Date Data Source [id number] 01/06/2021 09:57:26 AM EDT [facility] [place] Name Value Range Interpretation Code Description Data Edilma rce(s) Supporting Document(s) CALCIUM IONIZED 4.84 mg/dL (4.64-5.28) [facility] [place] IONIZED CALCIUM NORMALIZED TO PH 7.40 AN D 37 DEGREES C. ID Date Data Source [id number] 01/06/2021 09:33:27 AM EDT [facility] [place] Name Value Range Interpretation Code Description Data Edilma rce(s) Supporting Document(s) APTT 34.8 s (22.0-34.3) H [facility] [place] ID Date Data Source [id number] 01/06/2021 09:33:27 AM EDT [facility] [place] Name Value Range Interpretation Code Description Data Edilma rce(s) Supporting Document(s) PT 11.8 s (9.2-11.9) [facility] [place] INR 1.13 [facility] [place] SUGGESTED THERAPEUTIC RANGES USING INR F ORSTABILIZED ANTICOAGULATED PATIENTS:STANDARD DOSE THERAPY INR 2.0-3.0 DVT, PE, PREVENT DVT OR EMBOLISMHIGH DOSE THERAPY INR 2.5-3.5 PREVENT EMBOLISM FROM MECHANICAL HEART VALVE ID Date Data Source [id number] 01/06/2021 09:22:21 AM EDT [facility] [place] [facility] [place] Name Value Range Interpretation Code Description Data Edilma rce(s) Supporting Document(s) WBC 7.2 10*3/uL (4.1-11.0) [facility] [place] [facility] [place] RBC 3.67 10*6/uL (4.00-5.40) L [facility] [place] [place] [facility] [place] HGB 11.4 g/dL (12.0-16.0) L [facility] [place] [facility] [place] HCT 34.2 % (36.0-47.0) L [facility] [place] [facility] [place] MCV 93.0 fL (80.0-95.0) [facility] [place] [facility] [place] MCH 31.1 pg (27.0-32.0) [facility] [place] [facility] [place] MCHC 33.4 g/dL (32.0-36.0) [facility] [place] [facility] [place] RDW 14.0 % (10.5-14.5) [facility] [place] [facility] [place] PLT 162 10*3/uL (150-450) [facility] [place] [place] [facility] [place] Ashley MPV 8.9 fL (7.1-10.7) [facility] Date Data Source [id number] 01/06/2021 01:03:49 AM EDT [facility] [place] Name Value Range Interpretation Code Description Data Edilma rce(s) Supporting Document(s) POTASSIUM 3.8 mmol/L (3.6-5.2) Lab [facility] [place] ID Date Data Source [id number] 01/05/2021 05:32:07 PM EDT [facility] [place] [facility] [place] Name Value Range Interpretation Code Description Data Edilma rce(s) Supporting Document(s) POC NOVA GLU 160 mg/dL (70-99) H Lab [employer] MARY CARMEN PERFORMED BY [facility] STAFF ID Date Data Source [id number] 01/05/2021 03:30:00 PM EDT [place] Name Value Range Interpretation Code Description Data Edilma rce(s) Supporting Document(s) SARS coronavirus 2 RNA [Presence] in Res piratory specimen by LORNE with probe detection NOT DETECTED [facility] This lab was reported by Lab [facility]. ID Date Data Source [id number] 01/05/2021 08:46:25 PM EDT [facility] [place] [facility] [place] Name Value Range Interpretation Code Description Data Edilma rce(s) Supporting Document(s) SPECIMEN DESCRIPTION [facility] [place] COVID19 RESULT (NDET) Lab [facility] THIS ASSAY AMPLIFIES AND DETECTSTHE TARG ET RNA USING REAL-TIME PCR.TESTING PERFORMED ON THE [employer] COMMENT Lab [facility] UNDER AN EMERGENCY USE AUTHORIZATION(EUA ) FOR THE DETECTION AND/OR DIAGNOSISOF THE VIRUS THAT CAUSES COVID-19.NEGATIVE 2019_NCOV RT-PCR RESULTS DONOT PRECLUDE 2019_NCOV INFECTION ANDSHOULD NOT BE USED THE SOLE BASISFOR PATIENT MANAGEMENT DECISIONS. FIRST TEST [facility] [place] [facility] [place] EMPLOYED IN HLTHCARE [facility] [place] SYMPTOMATIC [facility] [place] [facility] [place] DATE OF SYMPT ONSET [facility] [place] HOSPITALIZED [facility] [place] [facility] [place] ICU [facility] [place] [facility] [place] CONGREGATE CARE SET [facility] [place] [facility] [place] [facility] [place] ID Date Data Source [id number] 01/05/2021 06:03:21 AM EDT [facility] [place] [facility] [place] Name Value Range Interpretation Code Description Data Edilma rce(s) Supporting Document(s) POC NOVA GLU 140 mg/dL (70-99) H [facility] [place] [facility] [place] PERFORMED BY [facility] STA[facility] ID Date Data Source [id number] 01/05/2021 05:35:08 AM EDT [facility] [place] [facility] [place] Name Value Range Interpretation Code Description Data Edilma rce(s) Supporting Document(s) CALCIUM IONIZED 5.00 mg/dL (4.64-5.28) [facility] [place] IONIZED CALCIUM NORMALIZED TO PH 7.40 AN D 37 DEGREES C. ID Date Data Source [id number] 01/05/2021 05:23:23 AM EDT [facility] [place] [facility] [place] Name Value Range Interpretation Code Description Data Edilma rce(s) Supporting Document(s) PHOSPHORUS 3.0 mg/dL (2.5-4.5) [facility] [place] [facility] [place] ID Date Data Source [id number] 01/05/2021 05:23:23 AM EDT [facility] [place] [facility] [place] [facility] [place] Name Value Range Interpretation Code Description Data Edilma rce(s) Supporting Document(s) MAGNESIUM 1.9 mg/dL (1.7-2.4) [facility] [place] [place] [facility] [place] ID Date Data Source [id number] 01/05/2021 05:23:23 AM EDT [facility] [place] [place] Name Value Range Interpretation Code Description Data Edilma rce(s) Supporting Document(s) SODIUM 142 mmol/L (136-145) [facility] [place] [facility] [place] POTASSIUM 3.1 mmol/L (3.6-5.2) L [facility] [place] [facility] [place] CHLORIDE 105 mmol/L (100-108) [facility] [place] [facility] [place] CO2 30 mmol/L (22-31) [facility] [place] [facility] [place] ANION GAP 7 mmol/L (7-16) [facility] [place] [facility] [place] UREA NITROGEN 21 mg/dL (7-24) [facility] [place] [facility] [place] CREATININE 0.95 mg/dL (0.60-1.00) [facility] [place] [facility] [place] BUN/CREAT RATIO 22.1 RATIO (10.0-20.0) H [facility] [place] GLUCOSE 124 mg/dL (70-99) H [facility] [place] [facility] [place] CALCIUM 8.1 mg/dL (8.4-10.2) L [facility] [place] [facility] [place] GFR 56 ml/min/1.73m2 (>59) L [facility] [place] [facility] [place] GFR ( AMER) >60 ml/min/1.73m2 (>59) [facility] [place] [facility] [place] GFR INTERPRETATION [facility] [place] --NORMAL KIDNEY FUNCTION OR MILD DISEASE - GFR >OR= 60CHRONIC KIDNEY DISEASE - GFR 15 - 59RENAL FAILURE - GFR <15 Est. GFR calculation based on the MDRDstudy equation, which assumes a steadystate for creatinine. Est. GFR should notbe used for medication dosing. ID Date Data Source [id number] 01/05/2021 04:49:52 AM EDT [facility] [place] [facility] [place] Name Value Range Interpretation Code Description Data Edilma rce(s) Supporting Document(s) WBC 7.0 10*3/uL (4.1-11.0) [facility] [place] [facility] [place] RBC 3.59 10*6/uL (4.00-5.40) L [facility] [place] [facility] [place] HGB 11.3 g/dL (12.0-16.0) L [facility] [place] [facility] [place] HCT 33.4 % (36.0-47.0) L [facility] [place] [facility] [place] MCV 93.1 fL (80.0-95.0) [facility] [place] [facility] [place] MCH 31.4 pg (27.0-32.0) [facility] [place] [facility] [place] MCHC 33.8 g/dL (32.0-36.0) [facility] [place] [facility] [place] RDW 13.7 % (10.5-14.5) [facility] [place] [facility] [place] PLT 153 10*3/uL (150-450) [facility] [place] [facility] [place] MPV 8.3 fL (7.1-10.7) [facility] [place] [facility] [place] ID Date Data Source [id number] 01/04/2021 08:49:35 AM EDT [facility] [place] [place] [facility] [place] Name Value Range Interpretation Code Description Data Edilma rce(s) Supporting Document(s) PHOSPHORUS 3.5 mg/dL (2.5-4.5) [facility] [place] [facility] [place] ID Date Data Source [id number] 01/04/2021 08:49:35 AM EDT [facility] [place] [facility] [place] Name Value Range Interpretation Code Description Data Edilma rce(s) Supporting Document(s) SODIUM 142 mmol/L (136-145) [facility] [place] [facility] [place] POTASSIUM 3.4 mmol/L (3.6-5.2) L [facility] [place] [facility] [place] CHLORIDE 104 mmol/L (100-108) [facility] [place] [facility] [place] CO2 33 mmol/L (22-31) H [facility] [place] [facility] [place] ANION GAP 5 mmol/L (7-16) L [facility] [place] [facility] [place] UREA NITROGEN 16 mg/dL (7-24) [facility] [place] [facility] [place] CREATININE 0.96 mg/dL (0.60-1.00) [facility] [place] [facility] [place] BUN/CREAT RATIO 16.7 RATIO (10.0-20.0) [facility] [place] GLUCOSE 78 mg/dL (70-99) [facility] [place] [facility] [place] CALCIUM 8.5 mg/dL (8.4-10.2) [facility] [place] [facility] [place] GFR 55 ml/min/1.73m2 (>59) L [facility] [place] [facility] [place] GFR ( AMER) >60 ml/min/1.73m2 (>59) [facility] [place] [facility] [place] GFR INTERPRETATION [facility] [place] --NORMAL KIDNEY FUNCTION OR MILD DISEASE - GFR >OR= 60CHRONIC KIDNEY DISEASE - GFR 15 - 59RENAL FAILURE - GFR <15 Est. GFR calculation based on the MDRDstudy equation, which assumes a steadystate for creatinine. Est. GFR should notbe used for medication dosing. ID Date Data Source [id number] 01/04/2021 08:49:35 AM EDT [facility] [place] [facility] [place] Name Value Range Interpretation Code Description Data Edilma rce(s) Supporting Document(s) MAGNESIUM 2.0 mg/dL (1.7-2.4) [facility] [place] [facility] [place] ID Date Data Source [id number] 01/04/2021 08:16:54 AM EDT [facility] [place] [facility] [place] Name Value Range Interpretation Code Description Data Edilma rce(s) Supporting Document(s) CALCIUM IONIZED 5.04 mg/dL (4.64-5.28) [facility] [place] IONIZED CALCIUM NORMALIZED TO PH 7.40 AN D 37 DEGREES C. ID Date Data Source [id number] 01/04/2021 08:09:04 AM EDT [facility] [place] [facility] [place] Name Value Range Interpretation Code Description Data Edilma rce(s) Supporting Document(s) WBC 5.9 10*3/uL (4.1-11.0) [facility] [place] [facility] [place] RBC 3.76 10*6/uL (4.00-5.40) L [facility] [place] [facility] [place] HGB 11.6 g/dL (12.0-16.0) L [facility] [place] [facility] [place] HCT 34.9 % (36.0-47.0) L [facility] [place] [facility] [place] MCV 92.9 fL (80.0-95.0) [facility] [place] [facility] [place] MCH 30.9 pg (27.0-32.0) [facility] [place] [facility] [place] MCHC 33.2 g/dL (32.0-36.0) [facility] [place] [facility] [place] RDW 14.2 % (10.5-14.5) [facility] [place] [facility] [place] PLT 156 10*3/uL (150-450) [facility] [place] [facility] [place] MPV 8.7 fL (7.1-10.7) [facility] [place] [facility] [place] ID Date Data Source [id number] 01/03/2021 06:52:18 PM EDT [facility] [place] [facility] [place] Name Value Range Interpretation Code Description Data Edilma rce(s) Supporting Document(s) CALCIUM IONIZED 5.12 mg/dL (4.64-5.28) [facility] [place] IONIZED CALCIUM NORMALIZED TO PH 7.40 AN D 37 DEGREES C. ID Date Data Source [id number] 01/03/2021 06:30:42 PM EDT [facility] [place] [facility] [place] Name Value Range Interpretation Code Description Data Edilma rce(s) Supporting Document(s) TRIGLYCERIDE 162 mg/dL (30-200) [facility] [place] [facility] [place] ID Date Data Source [id number] 01/03/2021 06:30:42 PM EDT [facility] [place] [facility] [place] Name Value Range Interpretation Code Description Data Edilma rce(s) Supporting Document(s) PHOSPHORUS 3.3 mg/dL (2.5-4.5) [facility] [place] [facility] [place] ID Date Data Source [id number] 01/03/2021 06:30:42 PM EDT [facility] [place] [facility] [place] Name Value Range Interpretation Code Description Data Edilma rce(s) Supporting Document(s) MAGNESIUM 2.2 mg/dL (1.7-2.4) [facility] [place] [facility] [place] ID Date Data Source [id number] 01/03/2021 06:30:42 PM EDT [facility] [place] [facility] [place] Name Value Range Interpretation Code Description Data Edilma rce(s) Supporting Document(s) TOTAL PROTEIN 6.4 g/dL (6.4-8.2) [facility] [place] [facility] [place] ALBUMIN 3.3 g/dL (3.2-4.5) [facility] [place] [facility] [place] GLOBULIN 3.1 g/dL (2.7-4.3) [facility] [place] [facility] [place] ALB/GLOB RATIO 1.1 RATIO [facility] [place] [facility] [place] BILIRUBIN,TOTAL 0.3 mg/dL (0.0-1.0) [facility] [place] [facility] [place] PLEASE NOTE:Total bilirubin results may be falselyelevated in patients taking Eltrombopag. BILIRUBIN,CONJUGATED 0.1 mg/dL (0.0-0.3) [facility] [place] BILIRUBIN,UNCONJ. 0.2 mg/dL (0.0-0.7) [facility] [place] [facility] [place] ALKALINE PHOSPHATASE 53 U/L (45-117) [facility] [place] AST (SGOT) 20 U/L (11-39) [facility] [place] [facility] [place] ALT (SGPT) 65 U/L (12-78) [facility] [place] [facility] [place] ID Date Data Source [id number] 01/03/2021 06:30:42 PM EDT [facility] [place] [facility] [place] Name Value Range Interpretation Code Description Data Edilma rce(s) Supporting Document(s) SODIUM 143 mmol/L (136-145) [facility] [place] [facility] [place] POTASSIUM 3.6 mmol/L (3.6-5.2) [facility] [place] [facility] [place] CHLORIDE 104 mmol/L (100-108) [facility] [place] [facility] [place] CO2 31 mmol/L (22-31) [facility] [place] [facility] [place] ANION GAP 8 mmol/L (7-16) [facility] [place] [facility] [place] UREA NITROGEN 18 mg/dL (7-24) [facility] [place] [facility] [place] CREATININE 0.94 mg/dL (0.60-1.00) [facility] [place] [facility] [place] BUN/CREAT RATIO 19.1 RATIO (10.0-20.0) [facility] [place] GLUCOSE 71 mg/dL (70-99) [facility] [place] [facility] [place] CALCIUM 8.9 mg/dL (8.4-10.2) [facility] [place] [facility] [place] GFR 56 ml/min/1.73m2 (>59) L [facility] [place] [facility] [place] GFR ( AMER) >60 ml/min/1.73m2 (>59) [facility] [place] [facility] [place] GFR INTERPRETATION [facility] [place] --NORMAL KIDNEY FUNCTION OR MILD DISEASE - GFR >OR= 60CHRONIC KIDNEY DISEASE - GFR 15 - 59RENAL FAILURE - GFR <15 Est. GFR calculation based on the MDRDstudy equation, which assumes a steadystate for creatinine. Est. GFR should notbe used for medication dosing. ID Date Data Source [id number] 01/03/2021 06:28:56 PM EDT [facility] [place] [facility] [place] Name Value Range Interpretation Code Description Data Edilma rce(s) Supporting Document(s) APTT 27.5 s (22.0-34.3) [facility] [place] [facility] [place] ID Date Data Source [id number] 01/03/2021 06:28:56 PM EDT [facility] [place] [facility] [place] Name Value Range Interpretation Code Description Data Edilma rce(s) Supporting Document(s) PT 11.4 s (9.2-11.9) [facility] [place] [facility] [place] INR 1.09 [facility] [place] [facility] [place] SUGGESTED THERAPEUTIC RANGES USING INR F ORSTABILIZED ANTICOAGULATED PATIENTS:STANDARD DOSE THERAPY INR 2.0-3.0 DVT, PE, PREVENT DVT OR EMBOLISMHIGH DOSE THERAPY INR 2.5-3.5 PREVENT EMBOLISM FROM MECHANICAL HEART VALVE ID Date Data Source [id number] 01/03/2021 06:01:10 PM EDT [facility] [place] [place] Name Value Range Interpretation Code Description Data Edilma rce(s) Supporting Document(s) WBC 5.2 10*3/uL (4.1-11.0) [facility] [place] [facility] [place] RBC 3.87 10*6/uL (4.00-5.40) L [facility] [place] [facility] [place] HGB 12.1 g/dL (12.0-16.0) [facility] [place] [facility] [place] HCT 36.0 % (36.0-47.0) [facility] [place] [facility] [place] MCV 93.0 fL (80.0-95.0) [facility] [place] [facility] [place] MCH 31.3 pg (27.0-32.0) [facility] [place] [facility] [place] MCHC 33.7 g/dL (32.0-36.0) [facility] [place] [facility] [place] RDW 13.9 % (10.5-14.5) [facility] [place] [facility] [place] PLT 166 10*3/uL (150-450) [facility] [place] [facility] [place] MPV 8.9 fL (7.1-10.7) [facility] [place] [facility] [place] ID Date Data Source [id number] 01/03/2021 09:04:05 AM EDT [facility] [place] [facility] [place] Name Value Range Interpretation Code Description Data Edilma rce(s) Supporting Document(s) LIPASE 69 U/L (65-230) [facility] [place] [facility] [place] ID Date Data Source [id number] 01/03/2021 09:04:05 AM EDT [facility] [place] [facility] [place] Name Value Range Interpretation Code Description Data Edilma rce(s) Supporting Document(s) AMYLASE 20 U/L (25-115) L Lab [facility] [place] ID Date Data Source [id number] 01/03/2021 08:27:18 AM EDT [facility] [place] Name Value Range Interpretation Code Description Data Edilma rce(s) Supporting Document(s) WHOLE BLD LACTATE 1.3 mmol/L (0.4-2.0) Lab [employer] This result was obtained using whole blo odinstead of plasma. The whole blood referencerange is slightly different from the plasmareference range (0.4-2.0). ID Date Data Source [id number] 01/02/2021 02:58:53 PM EDT [place] [address]Patient Name: TYRA NEGRETEWITHDOB: 1935Sex: FOrdering Provider: SCOOBY Whitney Prov: SCOOBY Kendrick Provider: Procedure Performed: / XR ABDOMEN APExam Date: 01/02/2021 14:30MRN: [id number] Number: [id number] Class: InpatientAccount #: [id number] for Exam: epigastric pain, history of dilatationTechnique: AP portable view obtained.Comparison: December 28bdominal series. Chest radiographs January 02, 2021Findings: Mild dilatation of the stomach, small bowel and colon is not significantly changed. No free air, mass, ascites or organomegaly demonstrated. Visualized lung bases are unremarkable.IMPRESSION: Nonspecific Mild gastric, small bowel and colonic dilatation unchanged. Ileus is most likely. Enteritis is also possible. Ischemia cannot be totally excluded. Partial obstruction should also be considered.These findings were communicated utilizing the departmental critical results pr otocol..Report electronically signed by: JOSH HERNÁNDEZ On 01/02/2021 2:58 PMWorkstation ID: [id number] Name Value Range Interpretation Code Description Data Edilma rce(s) Supporting Document(s) ID Date Data Source [id number] 01/02/2021 11:05:21 AM EDT [address] [address]Bxjuqsh Name: TYRA NEGRETEWITHDOB: 1935Sex: FOrdering Provider: CASSANDRA Bird Prov: CASSANDRA Wade Provider: Procedure Performed: / XR CHEST PORTABLEExam Date: 01/02/2021 09:23MRN: [id number] Number: [id number] Class: InpatientAccount #: [id number] for Exam: SOB, new coughTechnique: Single AP view obtained.Comparison: December 24, 2020Findings: Mild left basilar airspace disease. Possible tiny right pleural effusion. Cardiomegaly and pulmonary vascular congestion. Cardiac device again noted. Atherosclerotic changes of the aorta. No pneumothorax. Old right-sided rib fractures again noted. Arthritic changes.IMPRESSION: Mild left basilar density which could be related to atelectasis or pneumonia.Tiny right pleural effusion.Cardiomegaly and pulmonary vascular congestion.Report electronically signed by: SURJIT DUFFY On 01/02/2021 11:05 AMWorkstation ID: [id number] Name Value Range Interpretation Code Description Data Edilma rce(s) Supporting Document(s) ID Date Data Source [id number] 01/02/2021 01:26:52 PM EDT [facility] [place] [facility] [place] Name Value Range Interpretation Code Description Data Edilma rce(s) Supporting Document(s) WBC 5.6 10*3/uL (4.1-11.0) [facility] [place] [facility] [place] RBC 4.01 10*6/uL (4.00-5.40) [facility] [place] [facility] [place] HGB 12.4 g/dL (12.0-16.0) [facility] [place] [facility] [place] HCT 37.4 % (36.0-47.0) [facility] [place] [facility] [place] MCV 93.2 fL (80.0-95.0) [facility] [place] [facility] [place] MCH 30.9 pg (27.0-32.0) [facility] [place] [facility] [place] MCHC 33.2 g/dL (32.0-36.0) [facility] [place] [facility] [place] RDW 13.9 % (10.5-14.5) [facility] [place] [facility] [place] PLT 184 10*3/uL (150-450) [facility] [place] [facility] [place] MPV 8.5 fL (7.1-10.7) [facility] [place] [facility] [place] ID Date Data Source [id number] 12/31/2020 04:03:03 PM EDT [facility] NT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 [facility] [place] [facility] [place] MPV 9.1 fL (7.1-10.7) [facility] [place] [facility] [place] ID Date Data Source [id number] 12/18/2020 08:17:53 PM EDT [facility] [place] [facility] Name Value Range Interpretation Code Description Data Edilma rce(s) Supporting Document(s) SODIUM 141 mmol/L (136-145) [facility] [place] [facility] [place] POTASSIUM 4.2 mmol/L (3.6-5.2) [facility] [place] [facility] [place] CHLORIDE 107 mmol/L (100-108) [facility] [place] [facility] [place] CO2 26 mmol/L (22-31) [facility] [place] [facility] ANION GAP 8 mmol/L (7-16) [facility] [place] [facility] [place] UREA NITROGEN 36 mg/dL (7-24) H [facility] [place] [facility] [place] CREATININE 1.34 mg/dL (0.60-1.00) H [facility] [place] [facility] [place] BUN/CREAT RATIO 26.9 RATIO (10.0-20.0) H [facility] GLUCOSE 112 mg/dL (70-99) H [facility] [place] [facility] [place] CALCIUM 7.9 mg/dL (8.4-10.2) L [facility] [place] [facility] GFR 38 ml/min/1.73m2 (>59) L [facility] [place] [facility] [place] GFR ( AMER) 45 ml/min/1.73m2 (>59) L [facility] [place] [facility] [place] GFR INTERPRETATION [facility] --NORMAL KIDNEY FUNCTION OR MILD DISEASE - GFR >OR= 60CHRONIC KIDNEY DISEASE - GFR 15 - 59RENAL FAILURE - GFR <15 Est. GFR calculation based on the MDRDstudy equation, which assumes a steadystate for creatinine. Est. GFR should notbe used for medication dosing. ID Date Data Source [id number] 12/18/2020 10:25:00 AM EDT [facility] Name Value Range Interpretation Code Description Data Edilma rce(s) Supporting Document(s) SARS coronavirus 2 RNA [Presence] in Res piratory specimen by LORNE with probe detection NOT DETECTED [facility] This lab was reported by [facility] [place] [facility]. ID Date Data Source [id number] 12/19/2020 07:11:06 AM EDT [facility] [place] [facility] Name Value Range Interpretation Code Description Data Edilma rce(s) Supporting Document(s) SPECIMEN DESCRIPTION [facility] [place] COVID 19 RESULT (NDET) [facility] [place] [facility] NEGATIVE COVID-19 RESULTS DONOT PRECLUDE COVID-2019 INFECTION ANDSHOULD NOT BE USED THE SOLE BASISFOR PATIENT MANAGEMENT DECISIONS. COMMENT [facility] [place] [facility] THE [place] FDA HAS MADE THIS TEST AVAILABL EUNDER AN EMERGENCY USE AUTHORIZATION(EUA) FOR THE DETECTION AND/OR DIAGNOSISOF THE VIRUS THAT CAUSES COVID-19.THIS ASSAY AMPLIFIES AND DETECTS T[employer] USING FRONT OFFICE CLERK- MEDIATEDAMPLIFICATIONTESTING PERFORMED ON [place] FIRST TEST [facility] [place] [facility] EMPLOYED IN HLTHCARE [facility] SYMPTOMATIC [facility] [place] [facility] DATE OF SYMPT ONSET [facility] [place] HOSPITALIZED [facility] [place] [facility] ICU [facility] [place] [facility] CONGREGATE CARE SET [facility] [place] [facility] [place] [facility] ID Date Data Source [id number] 12/16/2020 12:00:00 AM EDT eCW1 ([facility]) Name Value Range Interpretation Code Description Data Edilma rce(s) Supporting Document(s) Hemoglobin A1c/Hemoglobin.total in Blood 5.7 HEMOGLOBIN A1c [facility] ([facility]) ID Date Data Source Comprehensive Metabolic Profile (CMP) 12/16/2020 12:00:00 AM EDT eCW1 ([facility]) Name Value Range Interpretation Code Description Data Edilma rce(s) Supporting Document(s) 89 70-100 GLUCOSE, FASTING eCW1 ([facility]) 36 7-18 BLOOD UREA NITROGEN eCW1 ([facility]) 1.32 0.55-1.30 CREATININE FOR GFR eCW1 ([facility] hospital) 40.6 >32 GLOMERULAR FILTRATION RATE eCW 1 ([facility]) 142 136-145 SODIUM LEVEL eCW1 ([facility]) 4.1 3.5-5.1 POTASSIUM SERUM eCW1 ([facility]) 25 21-32 CARBON DIOXIDE LEVEL eCW1 ([facility]) 109 98-107 CHLORIDE LEVEL eCW1 ([facility]) 8.1 8.8-10.2 CALCIUM LEVEL eCW1 ([facility]) 20 7-37 AST/SGOT eCW1 ([facility]) 32 12-78 ALT/SGPT eCW1 ([facility]) 0.3 0.2-1.0 BILIRUBIN,TOTAL eCW1 ([facility]) 40 45-117 ALKALINE PHOSPHATASE eCW1 ([facility]) 3.4 3.2-5.2 ALBUMIN eCW1 ([facility]) 6.9 6.4-8.2 TOTAL PROTEIN eCW1 ([facility]) 1.0 1.2-2.2 ALBUMIN/GLOBULIN RATIO eCW1 (Counts include 234 beds at the [facility]) ID Date Data Source CBC with Differential 12/16/2020 12:00:00 AM EDT eCW1 ([facility] hospital) Name Value Range Interpretation Code Description Data Edilma rce(s) Supporting Document(s) 5.6 4.0-10.0 WHITE BLOOD COUNT eCW1 ([facility]) 4.18 4.00-5.40 RED BLOOD COUNT eCW1 ([facility]) 12.8 12.0-15.5 HEMOGLOBIN eCW1 ([facility]) 39.8 36.0-47.0 HEMATOCRIT eCW1 ([facility]) 95.2 80.0-96.0 MEAN CORPUSCULAR VOLUME e CW1 ([facility]) 30.6 27.0-33.0 MEAN CORPUSCULAR HEMOGLOB IN eCW1 ([facility]) 32.2 32.0-36.5 MEAN CORPUSCULAR HGB CONC eCW1 ([facility]) 66.0 36.0-66.0 NEUTROPHILS % eCW1 ([facility]) 13.4 11.5-14.5 RED CELL DISTRIBUTION WID TH eCW1 ([facility]) 191 150-450 PLATELET COUNT, AUTOMATED eCW1 ([facility]) 9.1 2.0-8.0 MONO % eCW1 ([facility]) 2.0 0.0-3.0 EOS % eCW1 ([facility]) 21.8 24.0-44.0 LYMPH % eCW1 ([facility]) 0.7 0.0-1.0 BASO % eCW1 ([facility]) 3.7 1.5-8.5 NEUTROPHILS # eCW1 ([facility]) 1.2 1.5-5.0 LYMPH # eCW1 ([facility]) 0.1 0.0-0.5 EOS # eCW1 ([facility]) 0.5 0.0-0.8 MONO # eCW1 ([facility]) 0.0 0.0-0.2 BASO # eCW1 ([facility]) ID Date Data Source [id number] 12/04/2020 09:39:00 AM EDT GRISEL ([facility]) Name Value Range Interpretation Code Description Data Edilma rce(s) Supporting Document(s) Carotid Ultrasound Bilateral Laboratory test result GRISEL ([facility]) ID Date Data Source [id number] 12/01/2020 10:30:59 AM EDT [facility] Name Value Range Interpretation Code Description Data Edilma rce(s) Supporting Document(s) &PDF [facility] NUXOPm2cPlHCBeAs11/CHMypRLGin0OeYNkzFCp2LXfpIIDlU3BrkLjzSNRVE3lIDVUHEM4YUx4MMXHr yKE [file] AgICAgICAgICAgICAgICAgICAgICAgICAgICAgICAgICAgICAgICAgICAgICAgICAgICAgICAgICAgIC AgICAgICAgICAgICAgICAgICANCiAgICAgICAgICAgICAgICAgICAgICAgICAgICAgICAgICAgICAgIC AgICAgICAgICAgICAgICAgICAgICAgICAgICAgICAg ICAgICAgICAgICAgICAgICAgICAgICAgICAgICANCiAgICAgICAgICAgICAgICAgICAgICAgICAgICAg ICAgICAgICAgICAgICAgICAgICAgICAgICAgICAgICAgICAgICAgICAgICAgICAgICAgICAgICAgICAg ICAgICAgICAgICANCiAgICAgICAgICAgICAgICAgIC AgICAgICAgICAgICAgICAgICAgICAgICAgICAgICAgICAgICAgICAgICAgICAgICAgICAgICAgICAgIC AgICAgICAgICAgICAgICAgICAgICANCiAgICAgICAgICAgICAgICAgICAgICAgICAgICAgICAgICAgIC AgICAgICAgICAgICAgICAgICAgICAgICAgICAgICAg ICAgICAgICAgICAgICAgICAgICAgICAgICAgICAgICANCiAgICAgICAgICAgICAgICAgICAgICAgICAg ICAgICAgICAgICAgICAgICAgICAgICAgICAgICAgICAgICAgICAgICAgICAgICAgICAgICAgICAgICAg ICAgICAgICAgICAgICANCiAgICAgICAgICAgICAgIC AgICAgICAgICAgICAgICAgICAgICAgICAgICAgICAgICAgICAgICAgICAgICAgICAgICAgICAgICAgIC AgICAgICAgICAgICAgICAgICAgICAgICANCiAgICAgICAgICAgICAgICAgICAgICAgICAgICAgICAgIC AgICAgICAgICAgICAgICAgICAgICAgICAgICAgICAg ICAgICAgICAgICAgICAgICAgICAgICAgICAgICAgICAgICANCiAgICAgICAgICAgICAgICAgICAgICAg ICAgICAgICAgICAgICAgICAgICAgICAgICAgICAgICAgICAgICAgICAgICAgICAgICAgICAgICAgICAg ICAgICAgICAgICAgICAgICANCiAgICAgICAgICAgIC AgICAgICAgICAgICAgICAgICAgICAgICAgICAgICAgICAgICAgICAgICAgICAgICAgICAgICAgICAgIC AgICAgICAgICAgICAgICAgICAgICAgICAgICANCjw/fZMqN4rrdXEsgvP2Z3hyLo0OTx5CHB5kw1OtUS TiUUbfwkFvBsbSBbKtIONxXsmKVyb9EFlwKS9HkPCi N7XiH0MhAAwhPV0KEEMoSURkrDVbLSOkNHDqEwU4QEFzYGnfIW8LrYMvGPfvSYXuCOJgIqGaTCXvPI3W UHClE883gkUoPk8GEw0SYyLtDC4dmy6YArOaCIQnWlcITxe2MMnlFA3HiCXiF4DkiPApu1pUWpSeX6EY TMIjMQGcWe0ZGEQyCxJcLHOtZIcoMJ9tNXKqLNXGwI nmmaJ1WR8XTP6bgaTyMJ0XVwXmZv0jQj7JJhPsZ9VnC9OzJECoLVFILHbbSW7VALEpDXN4SHAcDnGuKU QQLbSmC59xAZ8FS1Ncv96iLhM4XEWrAeNaANeaEH98uLonajLydZWfuZiiBG1HYy4+DQplbmRvYmoNCn lgFWRIYfHySbNWTiGzYMUgUZCuVAUxClH9VhBePj6E DZHvFKQuSUUsReUaBBZoWDIvWWmjKJJrNDR9WPN9ESYlYFWfSK5SErQsAACqQQb1QfldACVcVEHlct0O WQLyYJAbBYZ1XlCuTXFrIAQvAVwkJNFgSIDpFrM1STQaCXBoYJ1XFhEwAQGmCMA6EEHdMQLxJTHmfu0E ETJhUZEoVPV2OBNzAGUwOKFtQEgyFWWqHRP1QzUeMO CrAXUmSQ5OYvDzFQIrZZZjFbUpTEAdIUNrws2GFMItCZZlOyS0SKVaNJItADHcAPimZENjRFB7AqS6HA IeVSTlXZ3WTgTjDMVlEIn9RVoiECMaQINuah6XIQHdKOAlLzvyDCQtTENrVVFsHTrcRXQvDED6UHo3JZ SdZXDgYJ8BHkDrOPJwZPY8ZUFfYZBhMKJhpu7CNKOw GXOrIbD4DCYtHOGvIEFxVXvbKGJuRNNqBtkoPIJzHKOoJP7YWlZnBCBuROD4LPQqEAKfJNWpuk8YFFWc FQAfMjb3HHWoGKVqZEZtYBvcCZYoDBH2WwYjEFIoODGlAZ9QLwPyINRtXZU9IIlqRUWqJPHmrc1AYVXx CPPoAVQ1WBBeGAQmCTMwRLeyTCNgTXT4FDYqGMVoUV ZxSI4MCjIfOEIhLYIyCUoiDVPnFTWsoc1TBHXlPGCiHzV4BvWuCILaZLCwKPdpTVThZSV9Lhz8ENKhZQ LeXO7VDuPfFYXyZRqqEUZyUMXoPZJfdz1RLFWmIPOxCmQfWDMyXGBnRAEzQEueYKQxRVY7LVxtFPJjKN NvWW3ZQyCwLXLkMFp8SGEsIYRsWAVxgi2KDZDxBDMk NPYcBdGmVEBfZJQeRXvwFREpFXK1NkL0ZCUhWTYkGP3ZAyFaUCQlFpKvDATdSRKoDHSrxx1XyFZzgPro nv7PZDwGMb6IhHiqNHU5MZxuRu2msBYsVvQwIHNOKk1RzkYrIRSuLHMJGTsfJPIeGUTrZiHaPAUjUjLb ZCslUNouObSeESDdEpDdWaXuDCeoXtF8CcY7XWN7Ks PlFPV0OJByL6F0DkR3TlCpFFUdIwSrCaE+IQ8aKZa+Dv7Ny2OmupY1mpBhFUnuKPC1WE8YZSNAS2GLRx == ID Date Data Source [id number] 10/17/2020 03:01:28 PM EDT [facility] NT INFORMATIONPatient MRN Name Date of Age Gend*PT [id number] Tyra Pagan 1935 84 years F ---PT Location Admission Date/Time Visit ID Attending Provider --- --- --- --- EPI ID CSN Admitting Provider [id number] ---Addended by: EMILY LY on: 10/17/2020 03:01 PM Modules accepted: Orders Name Value Range Interpretation Code Description Data Edilma rce(s) Supporting Document(s) ID Date Data Source [id number] 10/02/2020 09:45:00 AM EDT [facility] Name Value Range Interpretation Code Description Data Edilma rce(s) Supporting Document(s) SARS coronavirus 2 RNA Not Detected [facility] This lab was ordered by [facility] and reported by [employer]. ID Date Data Source [id number] 10/03/2020 01:07:44 PM EDT [facility] Name Value Range Interpretation Code Description Data Edilma rce(s) Supporting Document(s) SARS-COV-2 [facility] Not DetectedReference range: Not Detecte d This nucleic acid amplification test was developed and its performance characteristics determined by [employer]. Nucleic acid amplification tests include RT-PCR and TMA. This test has not been FDA cleared or approved. This test has been authorized by FDA under an Emergency Use Authorization (EUA). This test is only authorized for the duration of time the declaration that circumstances exist justifying the authorization of the emergency use of in vitro diagnostic tests for detection of SARS-CoV-2 virus and/or diagnosis of COVID-19 infection under section 564(b)(1) of the Act, 21 U.S.C. 360bbb-3(b) (1), unless the authorization is terminated or revoked sooner. When diagnostic testing is negative, the possibility of a false negative result should be considered in the context of a patient's recent exposures and the presence of clinical signs and symptoms consistent with COVID- 19. An individual without symptoms of COVID- 19 and who is not shedding S ARS-CoV-2 virus would expect to have a negative (not detected) result in this assay. Performed At: [facility] [place], [place] [id number] Lisa Gagnon PhD Ph:[phone] ID Date Data Source [id number] 10/01/2020 01:22:00 PM EDT [facility] ([facility]) Name Value Range Interpretation Code Description Data Edilma rce(s) Supporting Document(s) FVC-Pred 1.86 L [facility] ([facility]) PDFReport Laboratory test result [facility] ([facility]) FVC-Pre 1.60 L [facility] ([facility]) Fev1-Pred 1.35 L [facility] ([facility]) FVC-LLN 1.26 L [facility] ([facility]) FVC-%Pred-Pre 86 L [facility] ([facility]) Fev1-%Pred-Pre 79 L [facility] ([facility]) Fev1-Pre 1.07 L [facility] ([facility]) Fev6-Pred 1.73 L [facility] ([facility]) Fev6-Pre 1.58 L [facility] ([facility]) Fev1-LLN 0.84 L [facility] ([facility]) Cqu6tdm-Kwsd 73 % [facility] ([facility]) Fev6-%Pred-Pre 91 L [facility] ([facility]) Fev6-LLN 1.14 L [facility] ([facility]) Fdk2rdz-Xit 67 % [facility] ([facility]) Xik3xgp-%Pred-Pre 91 % [facility] ([facility]) Rqw1fzg-Ajg 99 % [facility] ([facility]) Ebh2zij-QGR 63 % [facility] ([facility]) Gkd9hpo-Sklg 93 % [facility] ([facility]) Ake4vqd-%Pred-Pre 106 % [facility] ([facility]) FEFMax-Pred 3.62 L/E/sec [facility] ([facility]) FEFMax-Pre 3.59 L/E/sec [facility] ([facility]) FEFMax-%Pred-Pre 99 L/E/sec [facility] ([facility]) FEFMax-LLN 2.14 L/E/sec [facility] ([facility]) Ojc3462-Njkg 0.90 L/E/sec [facility] ([facility]) Enj7790-Nxb 0.59 L/E/sec [facility] ([facility]) Upi1259-GUY -0.17 L/E/sec [facility] ([facility]) Nzg6033-%Pred-Pre 65 L/E/sec [facility] ([facility]) Pnz2aby6-Usuw 77 % [facility] ([facility]) Sbs2fql8-Dwv 68 % [facility] ([facility]) ExpTime-Pre 7.68 sec [facility] ([facility]) Hws7fxo6-%Pred-Pre 88 % [facility] ([facility]) Hvz3cqe5-ZOV 68 % [facility] ([facility]) ID Date Data Source [id number] 09/24/2020 03:04:56 PM EDT [facility] Name Value Range Interpretation Code Description Data Edilma rce(s) Supporting Document(s) WBC 10.4 10*3/uL (4.1-11.0) [facility] RBC 4.15 10*6/uL (4.00-5.40) [facility] HGB 13.1 g/dL (12.0-16.0) [facility] HCT 38.9 % (36.0-47.0) [facility] MCV 93.7 fL (80.0-95.0) [facility] MCH 31.6 pg (27.0-32.0) [facility] MCHC 33.7 g/dL (32.0-36.0) [facility] RDW 14.4 % (10.5-14.5) [facility] PLT 168 10*3/uL (150-450) [facility] MPV 9.2 fL (7.1-10.7) [facility] ID Date Data Source [id number] 09/24/2020 03:00:05 PM EDT [facility] Name Value Range Interpretation Code Description Data Edilma rce(s) Supporting Document(s) SODIUM 139 mmol/L (136-145) [facility] POTASSIUM 4.7 mmol/L (3.6-5.2) [facility] CHLORIDE 108 mmol/L (100-108) [facility] CO2 22 mmol/L (22-31) [facility] ANION GAP 9 mmol/L (7-16) [facility] UREA NITROGEN 45 mg/dL (7-24) H [facility] CREATININE 1.62 mg/dL (0.60-1.00) H [facility] BUN/CREAT RATIO 27.8 RATIO (10.0-20.0) H [facility] GLUCOSE 87 mg/dL (70-99) [facility] CALCIUM 8.4 mg/dL (8.4-10.2) [facility] GFR 30 ml/min/1.73m2 (>59) L [facility] GFR ( AMER) 37 ml/min/1.73m2 (>59) L [facility] GFR INTERPRETATION [facility] --NORMAL KIDNEY FUNCTION OR MILD DISEASE - GFR >OR= 60CHRONIC KIDNEY DISEASE - GFR 15 - 59RENAL FAILURE - GFR <15 Est. GFR calculation based on the MDRDstudy equation, which assumes a steadystate for creatinine. Est. GFR should notbe used for medication dosing. ID Date Data Source [id number] 09/24/2020 11:06:04 AM EDT [facility] NT INFORMATIONPatient MRN Name Date of Age Gend*PT [id number] Tyra Pagan 1935 84 years F OPPT Location Admission Date/Time Visit ID Attending Provider --- --- --- Emily Ly MD([id number]) EPI ID CSN Admitting Provider [id number] ---OUTPATIENT / OBSERVATIONAL SURGICAL OR INVASIVE PROCEDUREName: Tyra Pagan : 1935 Sex: female Care Provider: GHISLAINE WHITE DOAttending Physician: Dr. Ly.HISTORY OF PRESENT ILLNESS: 84 years old white female with a history ofparaesophageal hernia and chronic gastric volvulus who presents with alongstanding complaint of epigastric pain, abdominal bloating, belching anddysphagia. Patient tells me dysphagia worsened in the last 2 months[address] by Dr[address] Dotson gastroenterology and underwent esophageal dilation afterwhich dysphagia improved. She also complains of occasional nausea and diarrhea.Denies any vomiting, constipation, blood in the stool or weight loss.Subsequently she was referred to Dr. Ly for surgical evaluation. Alltreatment options have been reviewed and she elected to undergo FUNDOPLICATION,ROBOT-ASSISTED, LAPAROSCOPIC, USING XI, WITH PARAESOPHAGEAL HERNIA REPAIR on10/07/2020.PAST MEDICAL HISTORY:Past Medical History:Diagnosis Date Anxiety 04/12/2012 Asthma Avascular necrosis of talus 02/16/2013 Benign essential hypertension 04/12/2012 Bilateral carotid artery stenosis Cataract 09/01/2010 Chronic gastric volvulus Closed fracture of one rib of right side 06/25/2017 Overview: Right posterior 5th rib fracture Complicated migraine 09/2016 COPD (chronic obstructive pulmonary disease) CUS 12/15/2018 50-69% INDIGO, less then 50% LICA CUS 06/2014 50-69% stenosis in right Internal Carotid Artery, less than 50% LICA Delayed emergence from anesthesia Depression Diaphragmatic hernia 10/01/2009 Diverticulosis of large intestine 01/15/2011 Echocardiogram 01/08/2018 mild LVH, LV EF 65-70%, mild AI, mild MR, trace pericardial effusion. Echocardiogram 08/14/2017 [facility], . Small pericardial effusion.No compression. LV EF 65%, mild AI,trace MR, mild pulmonary HTN Echocardiogram 07/16/2017 [facility]. . LV EF 50-55%, mild AI, mild TR, moderate periocardial effusionwith early signs of compression Echocardiogram 09/2016 [facility]. LVEF 55-60%, mild AI, mild MR. Echocardiogram 06/2014 LV EF 65%, PAP mildly elevated. Mild AI. 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 Gated SPECT LVEFcalculated at 63%. Study is considered normal. TIA (transient ischemic attack) x2 Transient cerebral ischemia Vitamin D deficiency 04/12/2012PAST SURGICAL HISTORY:Past Surgical History:Procedure Laterality Date BELPHAROPTOSIS REPAIR Bilateral CARDIAC PACEMAKER PLACEMENT CHOLECYSTECTOMY ESOPHAGEAL DILATION FOOT SURGERY Right HYSTERECTOMY lip biopsy 2020 NECK SURGERY SINUS SURGERY TONSILLECTOMY VAGINAL PROLAPSE REPAIRALLERGIES:AllergiesAllergen Reactions Bee Venom Anaphylaxis Bupropion Other (See Comments) Headache and dizziness Iodinated Diagnostic Agents Per diagnostic criteria in 2011, patient didn't have a reaction afterreceiving iohexol. Iodine Other (See Comments) Shrimp - vomiting Other Peanut (Diagnostic) Vitamin D Colestid [Colestipol Hcl] Colesevelam Reaction: Swelling Conjugated Estrogens Reaction: Dizziness Multiple Vitamin Reaction: stomach pain Multiple Vitamin Reaction: stomach pain Peanut-Containing Drug Products Nausea And VomitingMEDICATIONS:Prior to Admission medicationsMedication Sig Start Date End Date Taking? Authorizing ProviderADVAIR HFA 230-21 MCG/ACT inhaler 2 puffs 2 (two) times a day 09/01/19Historical Provider, Joanlbuterol (PROVENTIL) (2.5 MG/3ML) 0.083% nebulizer solution INHALE CONTENTS OFONE VIAL VIA NEBULIZER FOUR TIMES DAILY NEEDED 09/01/19 Historical Provider,Joanlbuterol (VENTOLIN HFA) 108 (90 Base) MCG/ACT inhaler Ventolin HFA 90mcg/actuation aerosol inhaler Historical Provider, busPIRone (BUSPAR) 7.5 MG tablet Take 7.5 mg by mouth 2 (two) times a dayHistorical Provider, Luz Mariaefdinir (OMNICEF) 300 MG capsule Take 300 mg by mouth 2 (two) times a dayHistorical Provider, Luz Marialopidogrel (PLAVIX) 75 MG tablet Take 75 mg by mouth daily HistoricalProvider, LUZ MARIAOLCRYS 0.6 MG tablet as needed 09/26/19 Historical Provider, EPINEPHrine (EPIPEN 2-DAREN) 0.3 MG/0.3ML SOAJ EPIPEN 2-DAREN 0.3 MG/0.3ML SOAJHistorical Provider, MDF Q-Ncyynmvlqg-Ckzmjvyuzkhjkj (FOLBIC PO) Take by mouth daily HistoricalProvider, MDferrous sulfate 325 (65 FE) MG tablet Take 325 mg by mouth daily with breakfastHistorical Provider, gabapentin (NEURONTIN) 100 MG capsule Take 200 mg by mouth nightlyHistorical Provider, ipratropium-albuterol (DUO- NEB) 0.5-2.5 mg/mL nebulizer IPRATROPIUM-ALBUTEROL0.5-2.5 (3) MG/3ML SOLN 07/28/17 Historical Provider, Chrisantoprazole (PROTONIX) 40 MG tablet Take 40 mg by mouth 2 (two) times a day10/17/19 Historical Provider, MDpredniSONE (DELTASONE) 10 MG tablet Take 10 mg by mouth daily as neededHistorical Provider, MDrosuvastatin (CRESTOR) 10 MG tablet Take 10 mg by mouth nightly HistoricalProvider, MDsertraline (ZOLOFT) 50 MG tablet Take 75 mg by mouth daily HistoricalProvider, Kodakimethicone (MYLICON) 125 MG chewable tablet as needed 07/28/17 HistoricalProvider, KODAKTIMULANT LAXATIVE 8.6-50 MG Take 1 tablet by mouth nightly 10/17/19Historical Provider, MDsucralfate (CARAFATE) 1 g tablet Take 1 g by mouth 4 (four) times a dayHistorical Provider, Patosartan- hydrochlorothiazide (DIOVAN-HCT) 320-25 MG per tablet TAKE ONE TABLETBY MOUTH @8AM 03/27/20 Keesha Wadsworth, PAsertraline (ZOLOFT) 100 MG tablet TAKE 1 TABLET DAILY. 07/25/12 09/24/20 KODAK Salvadorocial HistoryTobacco Use Smoking status: Never Smoker Smokeless tobacco: Never UsedSubstance Use Topics Alcohol use: Not Currently Drug use: NeverFamily HistoryProblem Relation Age of Onset Dementia Mother Heart attack Father Malig Hyperthermia Neg HxREVIEW OF SYSTEMS:Respiratory: Denies any shortness of breath, cough, yellow sputum production orwheezing.Cardiovascular: Denies any chest pain, pressure or tightness. Denies anyparoxysmal nocturnal dyspnea or orthopnea.GI: Reports occasional nausea, belching, dysphagia and diarrhea. Dysphagiaimproved after recent esophageal dilation. Denies vomiting, constipation ormelena.Neurologic: Denies any numbness, tingling, tremors or syncope.Vascular: Denies any edema. Denies claudication.PHYSICAL EXAM:GENERAL: She is a 84 years old, pleasant white female, in no acute distress attime of examination. Vitals on arrival to the office are BP 109/52 (BP Location:Right upper arm, Patient Position: Sitting) | Pulse 66 | Temp 96.8 F(Temporal) | Ht 1.524 m (5') | Wt 70.6 kg (155 lb 11.2 oz) | SpO2 95% | BMI30.41 kg/m Body mass index is 30.41 kg/m ..Skin is pink, warm, and dry.NECK: She has a grade 4 airway. Neck is supple, midline, without cervicaladenopathy. No thyromegaly. No carotid bruits.MENTAL / NEUROLOGICAL STATUS: PMOd0HFLVL: Clear to auscultation. No wheezes, rhonchi or crackles.HEART: Rate rhythm regular. S1, S2. No murmur, rub or gallop. Left CW pacerintact.ABDOMEN: Bowel sounds positive times four. Soft, epigastric tenderness. Nohepatosplenomegaly. Negative CVAT.EXTREMITIES: Pulses are symmetrical. No left ankle edema. Right foot braceintact.OPERATIVE SITE: Abdomen without rash or lesions.Anesthesia complications: delayed emergenceCSHA Frailty Scale :: 4/10 Vulnerable (while not dependent on others for dailyhelp, often symptoms limit activities. A common complaint is being "slowed up",and /or being tired during the day).ASSESSMENT: Primary Diagnosis/Indication: Paraesophageal hernia withobstruction but no gangrene. Chronic gastric volvulus.PLAN:1. Procedure: FUNDOPLICATION, ROBOT-ASSISTED, LAPAROSCOPIC, USING XI, WITHPARAESOPHAGEAL HERNIA REPAIR on 10/07/2020.2. Cardiology preoperative optimization note in [facility] dated 09/18/2020.09/24/2020 11:02 Marcela Steele, NPThis document or parts of this document, were dictated using [employer] speaking software. A reasonable attempt at proofreading has beenmade to minimize errors. Please call with any questions or corrections. Name Value Range Interpretation Code Description Data Edilma rce(s) Supporting Document(s) ID Date Data Source [id number] 09/10/2020 11:49:00 AM EDT [facility] ([facility], ) Name Value Range Interpretation Code Description Data Edilma rce(s) Supporting Document(s) Bacteria identified in Sputum by Aerobe culture Laboratory test result Normal (applies to non-numeric results) [facility] ([facility], ) QUALITY: GOOD MODERATE WBCS MODERATE EPITHELIAL CELLS MODERATE GRAM POSITIVE COCCI IN PAIRS, CHAINS AND CLUSTERS FEW GRAM NEGATIVE COCCI ID Date Data Source [id number] 08/01/2020 10:15:00 AM EDT [facility] Name Value Range Interpretation Code Description Data Edilma rce(s) Supporting Document(s) Follow Up [facility] GQTXSc0wDtPJCeKuOMRhCvzOYWxeTCblUGGmV1P6YAvyUy8MHXajesStTRCxXq6+EPJiMQ9cnk8eKLKf gMy [file] 1xYNl1bzfPsgMTnh2ZQ1JlVa9Sf2kUf6Zf+mxKTUIA7h6+STjw/net developer programmer+Km/OalmNKcvkvQjJnhJhE7JK/ [file] JPM/transformer [file] yZFtnner7j0bxo9nPGA1BO/Ortho Assistant/4DUDerBNzfYU49rGHfW5k0MHi0xaqUyow7GSyrH0LXP1SgIgyHSx9 [file] O94CDpYiRUH3sY5gYNPdvKblDXAlHSZOXCS4o+FaxbmUXJXBaG5yZ+h10+v8jklxX9R9DuVH3PUM+[place] [file] iQVqoc0PXWDO30hJvQwMIoiJ/6VuCz4QSUxWXzM4yJkHwCD0YtjPDxmrxEIKl2NThV9wc5EIw1+shearer printed circuit boards/O 1zHM0TlC9l+rn8wLgPvlurMMpiIB3JlVdyqWz7S+zj Uwj31mTnvC+dJrsZbgnDuP0Zl4asjYBhw6lIVMF5RXlo9YUtTuiA84/hdSmAzUe+yeZW/8xMtnerXvi5 Bro3/3Fr6TzxN1l1vYsgaad9hj0E/TQtSN6wwhPgkIU6RQmMfhdbsJrLxbIhQK9NdoZGdEN+NRuZx+fo s9jt68w8fyY9OnyOXUwTvurrqkC8qaAFGoKM9+iFmo NUHC0v9X84vg5Jc8PV6qH2WOA0i+EY1msiTPipl2ZuWkE6dD8kx6bve7+D84+Z5AuBbvWXO1+lIl5YeE fV8DvOSVNOvlp60p5beqCDBVzRQgoq16nz0h6gPOu58r/2iKhMKG2CuNXUzJCdo9trC4f4YTfatklBcP YqzlCLKuFv4ihDp+EfBHVHb0diNFJT9VXOxiLY3pdh A+yWSjYXrvSmtPAftS9zRiXDaEX7axD1Uak29Q5udZkk2U9DaZR9mi0t5n9JtBN97l+fIzsw6XEqSEis 0wKTUmD6u403EC2+8xmx0j2blPLLkj/SUfw5zDx7bKHOSQhEeA09sDYEOtSqBjw1wJk//3IUuferGubr qpneJsaAP91X74nE8P9p4JVkB7ZqJLNywqlPDk5SCQ e11VdEZ1ZtGf0j6//2qOT9MYlwmSb2Q9+6zQy5z0Ns7hL4NQJyP+pze0tPc4+x9A5VhPs6cQ09Ivbxpj 8xW1leKnUgvDCWgQfeTke7OHbUnfHuSW/rbfBVN2PTk8Dn7jpFyF+xw6920YPcxj0jCNN+/hcJGwY/V8 hrV4RTBlr3smuiCr7K8EuXYmlnBYRJb0ivGz/9zH8C SocMy1GLA0kOwPF10KRf5vx6nkKEI1AzqidACdKYz6u/224CeSN+XGTQgR9m3xh6Boh5HGgn+L58Ff7P 945GrWvGWaHa9tux29h7VnhDcaTrmhuu8QVgor25XwnC+O/e61LWMQ80e7bIkKHYHHrQV3OEdfKkYneN k9dcksM4/EdKWcnuK197Cwrph6wDqEFjYKkIWHo4lj PF9GkMHrEssKn3p0BP8s/TOEiBd0UN5W0lMQhSvr8EYBfck8lh8iJ1krMRCUERXnxKJ7feDzr1taZl/U qlunckD6dWkjL6Nx/uX7lEN9GqqzZcf2rkfgDvKp0Nfcuu3EhqnSRGdVA+jGqf7gvuwZdyiDRmotnxbl 8+sJJawWf7v5rZr/estrU1GtvTNnjgmU/hndTejvrb smvjo5pTA+Tsd5K90GrAuxcSrmw4c+hEjr5Pik1QkdbE8/mvCYgsineo23lsnOnCtqzGapSoS2I/JXlA RAMÓN+LrxtxkHmIUJg1DBgM9tCNPJb7ip5CjfLQ2j3pg1r/+Ic5n3dHZlDcf2IgLKZ4AWLIaAB0Ts0mWMR [file] Martínez+eHxGadi+ZsaFDhQ98T6kUwdTxrFhyGNu6PpfkV3sP2hiDqN53S4ropPg2TkkyjCuH2ERYp+VjQLU [file] W6Qeznaq41Rld97CqSWubuvxpI45TsTdlwshcg8fNI9nOghJPqL/1W42FZP7Fsl6xQHk/cnZq9k2+HOGSHEAD BUILDER n1u6KN4KBrtLftSswPThyjKEyJ/rggytswpkT/KD+/VY8rJMDunOMT5JZE9pdgk5Fefnnjid3Zht0gRG Fkru3asvpo6crRd8l6n3PzD45gavxyGbT8goOGqR3R r9rl47IywZbzSSFZq/WGcr/eXFiGxAstSw6RMSd6bpUuVK1P580OMpXf0vMXTQoYidWb3UTOR6ALwjnG hUrT6K7M6NZZHXLxHREb+Bx9HjrRACvaIgZcjQhcf84KTgwSZ3APU9aYo0qXXpaab+7JartuVhCgfn8P 7Ek3mc8+GFfenRPOr+irxKtQLDjgrWi6rF+ol3WWEb BmJMRF5lCxZTo2X5lqA9/+cUp556K+hJ8VpLJO/Kin2EEcH+KxoJ35m+PV5cULIkB6y74Hw2c7FaEl8d 9i7gAUTzpatnu2l30OPeNc8Avz0I6zk5O/PYM/ZjSYsPDy2uQ33DJb03ZRcp1AR3BXBnCIZvqIjrcRZO 03nQ2NYlKBJYT84xTfRIizYEZgbPoYMd1Kg4dWk7P9 lQg38bGCGhmzF8FnFEqZvhWfO8DfBHl+8PzW1H9+Buckner+k/B6Avx+uwY5bxA1MedyoJDoFN7q3W69BF+X [file] wGbcpGIPmHBiQUGQe/OVmm0K/lYJ5Mrq+tXaRV961jPTF1tuTDirm3jt78Rx7EU4+evp managing director+Fy2km9miDv8I [file] JLqYtz3SbEJBYy8VkfUrHoZX5W/3Txe0HvitSIiIMK4Wrz0XYo/pUCO+Debbie/LRkj/M/BVvOCNqe+aXb EtQYApW/uZY/qbPM7vdd0Ewd3YSyxE2JUFVkhgdBHa pavAZ9OZydp7PAoCA+hAJ8j89YlYlmxJObacY7JufpXAmprm2X8D4xmfPS04P2zEulyHCkwm1GlSAqrj 5Kz3+3+BkpIUhsFcqM23xWgnFEGyTRSMF6So1A1zK4EtkbaRMK3Jd2FoT5k0cF+VJup4HcPyZckW7Ls4 ssUZOY0Lun2d1jIFJwydQ5UPpCkZHw1xqSVIBgGeEC Uu92RITU0S37gW2tKMhB/2GLQEoD0FtkKFMEXq6myH2x7g/zpo+sQN15+T5PiYMkiqjyRY2uNBg3WyA+ G70ayqo2Z3HTxBRFOSeOSCdMiyYCaFn1164akXqd9804i71RBFVeWiERa1BWiZ2jKmCylleDYchhEYzM jle1LfsqAWaaTvXZvidNRWFR9epG0NvN+JLT5kWPiJ 5Fr9coh9Hx4iYuEKZLfP+9aarPTXDxPFyl3d2k+OmPIq+SBfGX1dMdSjDe1+wIzFAJafK3vBmnlPMyfy CBceoitlU7GW+h/NTEIKUSxloCPCo4aTRPMMzqdrdTHWPASCPNIONjWKWc0sCYUvY3Qv5+2T4x+EGpN1 gwMZ/Ve/asNBiMeZBXrlm/PYboNSTIDmo6ns2iLMDT 7h31B4gXYrmWd8h2Jzjyt9UWmAZLu7IxmYVRy6+8c72n6/qG48JtwKb/We31d+v5bS9QIsVdKiQnk47/ ZZQHP8XeScysagGEJhPAuVU0WZQXC25lG4KyM8uOxCqGBqRCAaKiuohqiKk017Vvoe2tlhmMI6is6qcu Maria [file] g/meW3mwd+Velásquez+dqHqTID02PCfGayICMmsEIo4jPxRPKIqaSCdnVdAoQPJbe5J7uopISArZI5Lduiw [file] 1hPWQKWo0Dc++fjHGoWJ6Lw221jnBFSrygEuwJ [file] Cd/abHDMdZT/FvEZluSa/A4W7TpvPztALMlW/qHK6YK6V4gE/RpprvygPaPz+xbay/belén+shu999eApr [file] evp managing director+KpHfBxGlfX5VvHm5hjTzV2P0+5lw6/G9MeKzYRi769HNVA5D6gvjjflwDUHjGz3QKKt3KsiFWRr1e [file] EDGARD+maib2dZ/JDsO2TVnmWgC3eHICYQY9gxeDO6WXryU05919dAasawCSA5PUmPnJawDyqk2ElH0neUC B4ED5Fa8WZ2KVMgBK1WE/oZxLVQjOo5ctHVSv2fuaf X5J6wiQG7mS/wdudwoxxL5+V0JeCXMKwanvKBwrsIyF7+RHqDy3UYC0uQHahoMYjePZ8ED4GCgN6xavB Hotel [employer]ge+n1PF8MIxIgi64eiRMns2EscTJLx6j6cFJynboz0AyzJG9LiRQK4AIDAXsWWgBabMexPy8ADlMKufr [file] DOK/Apollo+e1IuXenMFeue/4mxC+M/V//QWir2yeoELk 0LiZp+5n2amr6PmGYsZjncUhi/aI+c3NrrGHkllSS5O3QaPp1kA/HeNo3ETqF0MRTWe0Ro5Di2YfjTXx JXXFa5Efsb917GfwrHwkNW+Ut7fMRcEc/purQfPJhsEtKki5zqnJzn/V1CSMdhodVaEiZwDUU7eUNTfO dQQBvUk8SlTSRIKi/DYAOcUwkuHxIuTar5I0udkmln Vp5V+2tPsIJ+FVjdW/Ux1U/smmP94T+e+Qgv530mNAecP2H+TUn5VX1J95rYPkYNyyn/GgEnF3/7wf1I dYVGAAZKA1LfXq0uU87erznm8cx8z2Nre2CFAHM3LtbQXYP49PNwlH71P6nmZvyKWvBmifYjs3rSR1aB ydwoMoAX2i0ChhbqsJP9i90gUiSTolrzKnqkkanKH0 Lii36JwXyNSGzXzdn3S2mR3Y7TeTl+AtgjRWIkq66c/keJLfhx/nlH0IMovTIYvGKtnSkTbOnhc45IHX iyyL3cq16goWpbcVHitnzvL3G8rDX9j8uNXFAUV0JUCOgny2+/pyjAt4zf9n2maOr5nLBwSUfkGxwMMo t5xLg3+m3Kb8QM3Ja1WTEFZhu2uvoD+hlhEHEqYqao fcynHYqmkCZl652jue0qDvRfxt5ZPcSfWxEcURw2FuedtyW2GOcSYWm0AztnQNci8181avEY4rZtMy+2 vBm7TN1yVyh/F05L4j9rWzqO3L+oBA/Jo899+caTTJcdVCx+3kV2WB2vsLa7xNB2fUlUJq0fEB6EAczC mmf76dT7IAl43Nwjge7GuL0Uxgr0Ea84990UYfIa67 DsnmgyDn9qOqdXyufww9rf0+pBhPixEEBUcoKZ9sVjkD/AzncALXgTKQMjlY+rNoQs0HwQ1gpJo0Nvmz 1Y4I8PnytYe/vcm3DvHc4Y6h7VaPVptEbm7a/Bev6EhWFcfQsDTDxh8HKIVRD9Jspx81x1eDPpvgs5nU XjO3E4NCFr2N25WwfXhB2Q6WuB2BR3JXfRZ3ogHaMM UnAt6VSkw5apogzLfAE67p2oNQBFT+qZQF1yHHuneqisUBxpz3aDnxR0qHJXS1ygmRTgMY2PXguHHV6V EmtCGcSXxRwpAj5DeTgdxaLhDk000LRtqASq/NAFfiPCkhyDuFnTsJzdIrXTNupPou94H+VaHorj1rs0 TpvAgyCXcZ5FJrbij7TdYDc10utgQbU/55MPF30nJH MDnVjDZDmwvzY/IQogUjh1EOo/iRzrSVa+obXrmuoWrLTWyIkbm2IlVlfafTCGzZ0YPfU1Ppsd94kzYL Ia3jbvodlG0wVGvzcoVLN+N+ugzyTmYefk+3Wpt2WGxbvuK9uZrVT8WPrY5YmnA4kFlHgtm36nIa7h4J LirOPzV+VRIi32TcBvUKCgBERm4LmL80G8rmYt66RM /Eyq5HDxynq+OQUgtyyXNV8GZPdS5HdMsk+aMXirFASlRX78CQ2DeBqWd/8L6hbr4lwQAuS5VuDxone9 JrJROOeFz0JYxYJbv5yq37tq2rgtaBfZfIuG0WLMKNUSc3U4H6C37SDnI4LaxmQ8dQEJMn19aNDNsDpo QrPL6+q0ep/6Z6sOsQuRabynHRlKLtRwELuAxKQ9Bc Patternmaker Wood+cembyv91zf9wfuBMEA4caQdxEk7qixihQGKq8MidQMiCFnfW0Jxy6/Td3k4aKy/IKafNVW1oQbcV [file] wIXc2u/+LXwWrSq8DAPln1Rbqt/Sangeeta/Lcl/muPte3pvrW43rcT+0GJ+FMRUEHZWlYqWt9QwYNq4m5Te cQsx5pMVGCjjA5IS85mhaOndA/BBrXBUJN7hwgy4Sw y2bDU4j/Wm+J2bDEJEzgyc7y4Q77nRmB3klgE6jBTFcb/qRpy2TQQN1YG4/KXe4+falO7b3ukaTal+P3 oMv8MH75+EJHrav+5RgNiH4/OkBlbF+OE5p6+LlrhGlE5gcKhzOvBp/Vpq4lRliTOWazbKb3A9mSo5P8 Hf2I4lsxmePYxnjLqoXMoc3qpAczgjxvCQH02EI1XR xtDYVTSmp4zkRiJS00hx+YgI11JCf01o3HRC8fbECkSHn3CzHPPjoBRU9s2m+M8+C/OTr5/BTAFMT/6w evp managing director+ZkioBudtyjbUgAV6lkx6V0cC9oitv+/34QYjfQQSjBZnUgzHPy/U3iHCQHGj2Ft7fzb4rEI8engaW [file] signal maintenance technician/RF91hj0/OeWtrJs8C7BRfZBLBlT1DLpf09ozDFTmMBG3gJG68VjECe92GBIpzOszpfmUhlqcSwFJ hxQSYYnXUpfUvaKglCwuIrUoOMkGhU1X/XH5tj9fs7 CI5CXehwDRAohpMmgSgkAflLieRHh2gtMD3BbGukO1Vl73f+xlIenSUPQ24m/52c1I+IEV59wwRutu53 XzqlC60MbccuYIYYOAlIOctgzgVlXpSVXat0aZul1RjL2WOnWS5l3Xe3QhjbYWVYwpC1tTbgeBKAPZ+1 fi3uqj1P5t+Sn+FHwiXJKnGGqYE+w4+F682F2iXMuS 1lgLnm4O6etwAU3W7Y6jtLwr5XcLcCXGziXmoFbey/6Np4y2F7ZGX3XJ819wNKjD7+eLXlCqqZxJNGeh 4bOvmnYwvT6tVZQ0fkRcefXNcEB6oMQReKAOwLlNHrbIf0/J1SXd0xZaslzq+sRRd+JCsByerpRfRt2e Kristi+13zu4cWa2tfaKKysPgnOKAYY4ty9F7yk+fzcEV [file] cb/Culinary Arts Instructor/ZQ0Zy/FbFfurBJ/wHLacThWlamPdRMRJiKYZd9WkX1dBLNPla9QIpJ0QuhdtaBOkT87dwZHrC [file] TQs8dan6KBrV7UCY++Mejía/8nC2wCXS4+dS0dG/KkWri2gmVhv2Ihs/AMvm2jPpsQ18RhD6kWfd0kBLiF fQXtzAP1R7fwB97WAOjnkirSct9F9+caocEvdAUki/hqO/PcEzEhyXn/ukdqcxtp9MGGQbGCrlX4OzQJ 2p0Nni4yTpwO+2HBUO1UPcN391revTdZCPnuRTixNP WtQqLyBEuw344imk84zz9qsYB9GApZntVGNQzxv859t8QEpNGcw8npD2E3EbIWD0r4p2IajCRraL2C7q iwqkUdaLUduAdRELlP97kXUchV0ffR1CDcd8HF1K51fAvTiee2G6VrGQvOxw+IjEcPeoKhhfzk9zFvp/ VM4pYqGGxf49UedShphcA3YJ3QxxN8Nzn/FOADkehF zE7UoZhZ8W4OkHBzjdKTGNJ3Em8EqjxwnU31fAYwLA0X+ILVZfujO+sf/9QJWwHH4D4sA4wV3R6UX9RP YcbaPzhZGFv7sno/wBhB85xkisloyec0FFEaBZJzbxhhP1WY7rxrKuhbwWtDjlKV2/HsvgOUqxcObLf7 8cbHjqTV+oxKC/JACINTA/dI90paFDmApZGASHlN1CNRqW [file] Hotel [employer]ge/2jmiMsbyvvmJw1Q4imNYBKC00qjQ27gbYNgBswY [file] sQ8xNaYkd1n7CWUsVXXhZz1gH4e91xURjPeF03t8QmZ3sL8MVSf7vyYqmhFmYH/HyN6zy/+Suleiman/268Oi Oz798P+V2sgHFIQDb1+HJLYa/k0VraRc8UHvatAASz6P6qZ9BKb4ooZ2PT8I8i95kPTlX+QKnQjXJHut /D1JK7ZZpP5ce+Qq4V3GTkTPyvuEzrE9rx+kq7tF2Y qtKsSlqUG5kggfXChzggGYGN4Lu6iYW2NRJrzUkVoLdX7qVh6JlFf0UU6EnDGKyammjs90FjsQ2bAvIh 1KLwNJyHBrKp74mn/EJ1mqi9gWbD+3CuOdk7/8H6ba2yOmZZ881kZVXmJAgbY6yCfFU1mYH5DD/muAyy tp+zLchgVdeNwvGqnzWe3VWoDO2qT4uxpTXz6/EwDV ItbaRJzyspJmpVLjSQ3PNS6un7OuYYKxVWEkc7NmKIz7L4bsxgu7aTPqBV1+h2AnSLIyTJjqMhUmEpDc ZYBjSwllZERmVSMbwVnhBX7mBmDVvzsYVKwdriJfhJEtIL9YIQ5ao8AjHJWxJYTcx5XbMPb2U8VjfZHq kpPjYhxwiVMWFGNfYETwXKZjL0OmUUl2P9oPHTr2MB ZcZPK3Klw5JJQ1GJp7KjlWTpR5WJCJINYDLOyZRjT+RDq4BuS0FmUrVMezIkh6OOfzLOWRPWJJXJL1VA SVC9TSVn8eJ4Xtp7UeRSYiJFJcZV0mwiEdWDYqDc9ZsEokAZCcL0R2kSUxT1aKFEAqHiBaZID4EXAzBq 6xmYYzCA5JXwgeJ1HtUKRvKZQTQMKTJhi+YXWRQ0Bj gaaVTYVwTSQuWFOpBOiV9QTYHU1HsoL8UBDLihLIXcnQleSKTkn9kFfjPeds2oDUHLe+YFL91aRgUoT4 2UgHlBxFQBCylNYpOShmclRqpHMhHY4SFmToGH1qrj2LZlB0TLM7nHSpQh1CJKP4ZUg7Yy8ZHWDLR6F= ID Date Data Source [id number] 07/19/2020 01:58:10 PM EDT [facility] NT INFORMATIONPatient MRN Name Date of Age Gend*PT [id number] LatashaTyra morillo 1935 84 years F ---PT Location Admission Date/Time Visit ID Attending Provider --- --- --- --- EPI ID CSN Admitting Provider [id number] ---NameTyra PaganMRN:[id number] The patient is following up after UGI for GERD. She is here fordiscussion of the results and further management plan. Past Medical HistoryPast Medical History:Diagnosis Date Anxiety 04/12/2012 Asthma Avascular necrosis of talus 02/16/2013 Benign essential hypertension 04/12/2012 Bilateral carotid artery stenosis Cataract 09/01/2010 Closed fracture of one rib of right side 06/25/2017 Overview: Right posterior 5th rib fracture Complicated migraine 09/2016 COPD (chronic obstructive pulmonary disease) CUS 12/15/2018 50-69% INDIGO, less then 50% LICA CUS 06/2014 50-69% stenosis in right Internal Carotid Artery, less than 50% LICA Depression Diaphragmatic hernia 10/01/2009 Diverticulosis of large intestine 01/15/2011 Echocardiogram 01/08/2018 mild LVH, LV EF 65-70%, mild AI, mild MR, trace pe ricardial effusion. Echocardiogram 08/14/2017 [facility], . Small pericardial effusion.No compression. LV EF 65%, mild AI,trace MR, mild pulmonary HTN Echocardiogram 07/16/2017 [facility]. . LV EF 50-55%, mild AI, mild TR, moderate periocardial effusionwith early signs of compression Echocardiogram 09/2016 [facility]. LVEF 55-60%, mild AI, mild MR. Echocardiogram 06/2014 LV EF 65%, PAP mildly elevated. Mild AI. Mild TR, grade II diastolicdysfunction Esophageal dysphagia Essential tremor GERD (gastroesophageal reflux disease) Head CTA 10/20/2016 extensive atherosclerotic disease of carotids involving bifurcation resultingin 60% stenosis Hyperlipidemia Obstructive sleep apnea Osteopenia 04/12/2012 Overweight 01/15/2011 Presence of cardiac pacemaker SPECT 06/2014 Perfusion study is normal; no ischemia or infarction noted. Gated SPECT LVEFcalculated at 63%. Study is considered normal. Transient cerebral ischemia Vitamin D deficiency 04/12/2012Past Surgical HistoryPast Surgical History:Procedure Laterality Date CARDIAC PACEMAKER PLACEMENT CHOLECYSTECTOMY FOOT SURGERY Right lip biopsy 2020 NECK SURGERY SINUS SURGERY VAGINAL PROLAPSE REPAIRBee venom; Bupropion; Iodinated diagnostic agents; Iodine; Other; Peanut(diagnostic); Vitamin d; Colestid [colestipol hcl]; Colesevelam; Conjugatedestrogens; Multiple vitamin; Multiple vitamin; and Peanut-containing drugproductsFamily HistoryProblem Relation Age of Onset Dementia Mother Heart attack FatherSocial HistoryTobacco Use Smoking status: Never Smoker Smokeless tobacco: Never UsedSubstance Use Topics Alcohol use: Not Currently Drug use: NeverReview of SystemsPhysical Exam:There were no vitals filed for this visit.Exam:Const: Appears healthy and well developed. No signs of acute distress present.Neuro: Alert and oriented x3.Head/Face: Atraumatic, normoce phalic on inspection.Eyes: Sclerae are anicteric.ENMT: Oral mucosa: pink, smooth and moist.Neck: No masses appreciated. Trachea midline.Resp: Respiration rate is normal. No use of accessory muscles noted. Nowheezing.CV: Rate is regular. Rhythm is regular.Extremities: No clubbing, cyanosis or edema.Abdomen: Soft non distended non tenderNo inguinal hernias bilaterally. No palpable hepatosplenomegaly.Upper Extremities: Normal to inspectionLower Extremities: Normal to inspectionSkin: Skin is warm and dry.Labs, Imaging and other Diagnostics Reviewed:EGD: 06/20/20 with dilation. Ring in the GE junction. Hiatal hernia and milderythema in the antrum. BXESOPHAGEAL MOTILITY STUDY:24 HOUR PH: .DeMeester score-Service Date and Time: 07/15/2020 0934Technologist: Geo Requested: Upper G.I. Series w- KUBReason for Patient Visit: IMPAIRED FASTING GLUCOSEReason for Exam: IMPAIRED FASTING GLUCOSE/ PT HAS LABS FIRSTINDICATION:IMPAIRED FASTING GLUCOSE/ PT HAS LABS FIRST.COMPARISON:Esophagram dated 08/10/2019TECHNIQUE:This procedure was performed by Katia Payne [facility], under the directsupervision of Dr. Pop. Images were reviewed with Dr. Pop prior todictation.Liquid barium and gas producing crystals were given in the erect position, aswell asliquid barium in the prone oblique position in order to perform a doublecontrastupper GI examination.FINDINGS:The residential remodeling subcontractor film shows no organomegaly or pathological masses. The intestinal gaspattern is unremarkable. There are surgical traci in the right upperquadrant.The oral and pharyngeal stages of deglutition were unremarkable. Esophagealtransportis prompt and efficient and there is no evidence of esophagitis, stricture, ormucosalring. However tertiary contractions were visualized during the exam. There isevidence of a large fixed hiatal hernia. Gastroesophageal reflux was againvisualizedto above the level of the caryl..The stomach torrez are normally outlined. The rugal folds are smooth andregular.There is no gastritis, neoplasm, or ulcerative disease.The duodenal torrez are normally outlined. The mucosal folds are smooth andregular.There is no duodenitis, peptic ulcer disease or neoplasm. The visualizedportion ofthe p roximal small bowel appears normal in course and caliber.IMPRESSION:1. Tertiary contractions.2. Gastroesophageal reflux to above the level of the caryl.3. Again visualized is a large fixed hiatal hernia.1.3 minutes of fluoroscopy time was utilized for this procedure. Somefluoroscopicimages are performed with last image hold technology. These images require noadditional radiation.<Electronically signed by Katia Payne > 07/15/20 1603<Electronically signed by Jose Pop > 07/15/20 1837DD: CHIRE 07/15/2020 1837DT: MMODAL 07/15/2020 183ssessment and plan:Patient presents with chronic and progressive recurrent gastric torsion symptomsalong with significant symptoms of gastroesophageal reflux disease.Patient is elderly 84 years of age however the gastric torsion on and off couldbe life-threatening.She has a fixed paraesophageal hernia I explained to her that and alsosignificant reflux disease. I had a detailed discussion with her that she hasoptions of not doing surgical procedure at this point of time versus goingthrough a robotic paraesophageal hernia repair and fundoplication.Patient and 2 sons have recently she does live [facility] who would help the patient in the postoperative. Patient wants to gothrough with surgery as soon as possible.We will proceed with robotic paraesophageal hernia repair and partialfundoplication. Complications from surgery include but not limited to infection,bleeding, injury to bowel or other organs, including spleen, with its ownserious consequences. Side effects also include gas bloat syndrome, inabi lityto vomit, and short and long-term dysphagia.Emily Ly MDFormerly [facility] 11:53 PM Name Value Range Interpretation Code Description Data Edilma rce(s) Supporting Document(s) ID Date Data Source TSH 07/15/2020 12:00:00 AM EDT eCW1 ([facility]) Name Value Range Interpretation Code Description Data Edilma rce(s) Supporting Document(s) 2.850 0.358-3.740 THYROID STIMULATING HORM ONE eCW1 ([facility]) ID Date Data Source IRON (FE) 07/15/2020 12:00:00 AM EDT eCW1 ([facility]) Name Value Range Interpretation Code Description Data Edilma rce(s) Supporting Document(s) [id number] IRON (FE) eCW1 ([facility]) ID Date Data Source [id number] 07/04/2020 04:10:33 PM EST [facility]anner[facility]IE NT INFORMATIONPatient MRN Name Date of Age Gend*PT [id number] Tyra Pagan 1935 84 years F ---PT Location Admission Date/Time Visit ID Attending Provider --- --- --- --- EPI ID CSN Admitting Provider [id number] ---NameTyra PaganMRN:[id number]: The patient presents for consultation of paraesophageal hernia. Thepatient has been referred by Dr Dotson. Patient on pantoprazole 40 bid, withincreased difficulty swallowing. Along with CarafateGastroesophageal RefluxShe complains of abdominal pain (epigastric), belching, choking, coughing, earlysatiety, globus sensation, heartburn, a hoarse voice, nausea and a sore throat.She reports no chest pain, no dysphagia or no wheezing. This is a chronicproblem. The current episode started more than 1 year ago. The problem occursconstantly. The problem has been rapidly worsening. The heartburn duration isseveral minutes (since starting carafate no heartburn). The heartburn is locatedin the substernum. The symptoms are aggravated by bending, certain foods andexertion. Associated symptoms include fatigue. Pertinent negatives include nomelena or weight loss. Risk factors include hiatal hernia. She has tried a PPIand head elevation (with pillows) for the symptoms. The treatment provided mildrelief. Past procedures include an EGD and a UGI (think wialta Foster).HB Intake Assessment Consult 07/04/20Heartburn Intake Call/QuestionaireHow Bad Is Your Heartburn? 3Heartburn lying down? 2Heartburn when standing up? 3Heartburn after meals? 3Does heartburn change your diet? 4Does heartburn wake you from sleep 1Do you have difficulty swallowing 0Do you have bloating or gassy feelings? 3Do you have pain with swallowing? 0Heartburn total score 19If you take medication does heartburn still affect your daily life? noHow satisfied are you with your present condition? noGERD/Medication HistoryHow many months/years have you taken anti-reflux medications? yearsWhat medications (including dose) have you taken and are currently taking? SeeaboveHow many months/years have you experienced heartburn? Years as long as she canrememberPast Medical HistoryPast Medical History:Diagnosis Date Anxiety 04/12/2012 Asthma Avascular necrosis of talus 02/16/2013 Benign essential hypertension 04/12/2012 Bilateral carotid artery stenosis Cataract 09/01/2010 Closed fracture of one rib of right side 06/25/2017 Overview: Right posterior 5th rib fracture Complicated migraine 09/2016 COPD (chronic obstructive pulmonary disease) CUS 12/15/2018 50-69% INDIGO, less then 50% LICA CUS 06/2014 50-69% stenosis in right Internal Carotid Artery, less than 50% LICA Depression Diaphragmatic hernia 10/01/2009 Diverticulosis of large intestine 01/15/2011 Echocardiogram 01/08/2018 mild LVH, LV EF 65-70%, mild AI, mild MR, trace pericardial effusion. Echocardiogram 08/14/2017 [facility], . Small pericardial effusion.No compression. LV EF 65%, mild AI,trace MR, mild pulmonary HTN Echocardiogram 07/16/2017 [facility]. . LV EF 50-55%, mild AI, mild TR, moderate periocardial effusionwith early signs of compression Echocardiogram 09/2016 [facility]. LVEF 55-60%, mild AI, mild MR. Echocardiogram 06/2014 LV EF 65%, PAP mildly elevated. Mild AI. Mild TR, grade II diastolicdysfunction Esophageal dysphagia Essential tremor GERD (gastroesophageal reflux disease) Head CTA 10/20/2016 extensive atherosclerotic disease of carotids involving bifurcation resultingin 60% stenosis Hyperlipidemia Obstructive sleep apnea Osteopenia 04/12/2012 Overweight 01/15/2011 Presence of cardiac pacemaker SPECT 06/2014 Perfusion study is normal; no ischemia or infarction noted. Gated SPECT LVEFcalculated at 63%. Study is considered normal. Transient cerebral ischemia Vitamin D deficiency 04/12/2012Past Surgical HistoryPast Surgical History:Procedure Laterality Date CARDIAC PACEMAKER PLACEMENT CHOLECYSTECTOMY FOOT SURGERY Right lip biopsy 2020 NECK SURGERY SINUS SURGERY VAGINAL PROLAPSE REPAIRBee venom; Bupropion; Iodinated diagnostic agents; Iodine; Other; Peanut(diagnostic); Vitamin d; Colestid [colestipol hcl]; Colesevelam; Conjugatedestrogens; Multiple vitamin; Multiple vitamin; and Peanut-containing drugproductsFamily HistoryProblem Relation Age of Onset Dementia Mother Heart attack FatherSocial HistoryTobacco Use Smoking status: Never Smoker Smokeless tobacco: Never UsedSubstance Use Topics Alcohol use: Not Currently Drug use: NeverReview of SystemsConstitutional: Positive for fatigue. Negative for weight loss.HENT: Positive for hoarse voice and sore throat.Respiratory: Positive for cough and choking. Negative for wheezing.Cardiovascular: Negative for chest pain.Gastrointestinal: Positive for abdominal pain (epigastric), heartburn andnausea. Negative for dysphagia and melena.Physical Exam:Vitals: 07/04/20 1001BP: 120/55Pulse: 69Weight: 68.9 kg (152 lb)Height: 1.524 m (5')Exam:Const: Appears healthy and well developed. No signs of acute distress present.Neuro: Alert and oriented x3.Head/Face: Atraumatic, normocephalic on inspection.Eyes: Sclerae are anicteric.ENMT: Oral mucosa: pink, smooth and moist.Neck: No masses appreciated. Trachea midli ne.Resp: Respiration rate is normal. No use of accessory muscles noted. Nowheezing.CV: Rate is regular. Rhythm is regular.Extremities: No clubbing, cyanosis or edema.Abdomen: Soft non distended non tenderNo inguinal hernias bilaterally. No palpable hepatosplenomegaly.Upper Extremities: Normal to inspectionLower Extremities: Normal to inspectionSkin: Skin is warm and dry.Labs, Imaging and other Diagnostics Reviewed:EGD: 06/20/20 with dilation. Ring in the GE junction. Hiatal hernia and milderythema in the antrum. BXBARIUM SWALLOW:ESOPHAGEAL MOTILITY STUDY:24 HOUR PH: .DeMeester score- Assessment and plan:Patient presents with chronic and progressive gastroesophageal reflux diseasedespite maximal medical therapy. Patient is elderly patient with what appearsto be GERD symptoms and also possibly chronic gastric volvulus on and offsymptoms if she does have a large paraesophageal hernia. Her last endoscopydemonstrated food in and is possible that her symptoms are coming from chronicgastric volvulus. Patient lives alone her and her 2 children passedaway recently.She does have some family across the street however they work so she is prettymuch on her own.At this point of time I think we will start with upper GI patient come back andsee us and if she indeed has a large paraesophageal hernia causing her symptomsthen she might be considered for a surgical approach.She will come back and see us after upper GI is done for further discussion andmanagement.Juan Toussaint :37 PM Name Value Range Interpretation Code Description Data Edilma rce(s) Supporting Document(s) ID Date Data Source [id number] 06/20/2020 09:30:00 AM EST [facility] Name Value Range Interpretation Code Description Data Edilma rce(s) Supporting Document(s) EGD-dil [facility] ANXZPb0tVdRUHhZeGSYaHltDVYgwZEdyBGEpS5O7HHyjUi7XCEvfzeFgVQQoJz8+WCZnXH5ent8dNVPy gMy 3tCMFdEymnW8JeVUTti16SFAHkULkJTlKpOjOfBpY3OVDmPPD3GNQ5NwMjLwzfTB9tYPW4PYVfUOnuZD JzNXPuCLBgGkAoJS5mPMywWFvvSi5GLO6xj1CxMWRnRIZpVdxFXTqyCZgcKXGgPAQkDQHhE612glGcKy 0NpVVoGXj4KWEkUbE0BXBaToL9LPDkCm9lUgNjy8Fz L1SqHUg4D4bJBwyvI1AbNVldCZ8pFBY3JSZgNx2KlLxnFIsjVSGFO6yzDfXtWOJbUQDNPm5+Pj4+DWVu YE1pkn11VMCwl6SoBFy7C8Y9oOYdJ0HgY5AsHOBgkFIKx9juNxCzWML4YKToPpjiYH4AMRBppTBsJSUi NHjvQW9fwxDfnQF5AL2GkEilBOMlFBNZIr1+Pi9QYX EpiyWdAtEnQKKaQ67eaCJsoHEkOokbLBSSZH1+PQPmUU1uzz09WHNtn2RfPQq9N9ytjwk4wSMiFJD2Gd atRsFtCARwDA9aMT1GmUV3fAZcGK7XnYTqMN3NbOUcEQ6AQ4CjKGL0Q5WcnZFzedBeS8JgIXBhPMXaf7 DsLS2TE5QAQHYnFTOrO8BbdZ0pC5XnC9SmA6Aboccu TEOQNn8GsLD7xIMxJVMdI0pzpNrneGZwRQksF7QoaFLVNKAQm91zy12geoHqLQ3+k9NhLMNhWSs11jp7 ZVAcX/haEWWAGnd6NRdhWUBdIgUYdl5sV5mcTnQ1TTo4GldaiAF9R8sNoXFD6//cfpk9ptm2vh/eD+/z 9GWPxy9+z7ak0kTc4rLh5UODBWhoEYQNwNTWXCVQ58 rinSq4WBsczPuitKxT+EUbDIBNgLHci8gI2K3Nl6GQucNeMaU26+Mr7ojn1nzo3pLj3+Lm/BioPL9vo1 ZHQyfGwCDmfEv+lvP/RM32BEvxsGvnqqYGNbWPEtOMO+CbL5EUBWRdQuaSQW4bXQlOYuLmk5Bqt2L2VJ CPDXiFAAS+QgQiISEi/u31+omLCUJAhp3K1ENKU8mQ [file] bqG/zp+pC4Fru4OeItQMATOUyfpagsdwAtOXnS+fund development manager [file] 30DvojZ/funeral director/embalmer/owner+dayP+QGkF6d6LVEdaey1hSo4Gvy0jtZ2fwEzsnET0ZOefgJ4eicMe+SzGO+HaZZDb2Th [file] 5pRkTZEOyePF1P0RSR+80u5mG+TeX1nQlZ6mKWuSfno63N4LmhCRWgpN0Q/Gl0V/pipelines manager+QTPZLxUm7F9U [file] ed+uQ+xih/DP10rof8mMTQ4bI39Fkid4SgakJx c+ofWatPWUHiM/TD/f6beuty/Clint/sSVDy443pKwgkuUlFhlBM/xiwj+L9i5oA9E/m3CThCMU5SvvWGsD [file] UfI1uKxTX+INSPECTOR SHELLS/GuPk2XSwfgbo9gVfTv72XoBtNPbbbqdFGh1JuHGz8rYa60d0R3U1yuZzWtdZ/zxhgJp [file] EwhZJAXMhDbCAlwCmT6Wyg8Hd+integrated campaign manager/XHPr+/zSHztsi [file] Fo+aS/INSPECTOR SHELLS+6XsdHGwWTjVQUa+ATr7L/QtUOlSk8LjdNpQtfLRtRtGtEfSLipZvlVwkIr2W92i/1spQBXu ZOHYjx326lf1xLboF2PVGY4TjF6jgEmS7tKCob1ZrBmTn7TNq5/bmz3P+m8SCD7lTp5WpBWhkfR2+mpw AFfr+bqCu9/b04Yq3CJ3jos6cpljrkLv5mFVfy4H2p eWsz/MavlBUjoZmhStofSXWe2wb1zf8+l8j+w7iyTnJ+FAcG0eF7nVI6Aca/WqqYOQVXijm9+hNyg3u5 NvIcllB7NB+0NcIRI7MoqNoxyMxpGDCVudniiWY8Mi6kiZR2b5pDP+SpmvvP2kmqvSHhPr9h6yN/wTod kUtAKUOnA6O/Oe9NTBKRc4Buz9wQsE/tBs+yIcbzb2 2LCFr9cUEoRqWckn3bM0LVNKBJGxUj2krmzaSoxggtShW0HaCYy/Lf3EhW6V0fE9p81sBhtmoucabtM8 GmYIldftEd3JbkvcZ21aS0ktfYpwbuTDWHQykP/0/BIuMMVQ4kjEOkg7g1ep3g7/vXLkfRdyxvbqqJPP O7PPt3jD37ijBdZNU6Q91Ng1trfT/YqaIVOreGj4x3 SR7W+3duQWNi4i9/2sMCg5k4GT4KaUo3T+nUttloOmPFjr7U5NPYkYkSeBS1GFjkX+6lm9FdmCBP7ZUI com/1placmOpkSXOqmrlvcZv97cp3i6ZO5/ayVORdMcrilwxCHg0DzfzgSOMRX3xRjgcBbseEo257qjJ pmGIdGXssXQ//SiIpfqQMWU/Dvl/hreFzLTrKTuFGd [file] ugalurEHiblzkZ0cRvBOGLGi00A0jLYtf+gitZKo5MZVEmgegyQdQBFPGu3/diversified crops farmworker+9L1IdrFGQerP2FFF [file] YU2mt0BsELLnTPkoqpNaEmaKUZyaoSGmpXrsFINLSfG2YHg3We9NSSTWN7X= ID Date Data Source [id number] 06/17/2020 10:00:00 AM EST [facility] Name Value Range Interpretation Code Description Data Edilma rce(s) Supporting Document(s) SARS coronavirus 2 RNA Not Detected [facility] This lab was ordered by [employer] [facility] and reported by [facility]. ID Date Data Source [id number] 04/17/2020 10:00:00 AM EST [facility] Name Value Range Interpretation Code Description Data Edilma rce(s) Supporting Document(s) SARS coronavirus 2 RNA [facility] This lab was ordered by [employer] [facility] and reported by [facility]. ID Date Data Source [id number] 04/08/2020 09:32:00 AM EST [facility] ([facility]) Name Value Range Interpretation Code Description Data Edilma rce(s) Supporting Document(s) FVC-Pred 1.86 L [facility] ([facility]) PDFReport Laboratory test result [facility] ([facility]) FVC-%Pred-Pre 72 L [facility] ([facility]) FVC-Pre 1.34 L [facility] ([facility]) FVC-LLN 1.26 L [facility] ([facility]) Fev1-Pred 1.35 L [facility] ([facility]) Fev1-Pre 0.91 L [facility] ([facility]) Fev1-LLN 0.84 L [facility] ([facility], ) Fev6-Pred 1.73 L [facility] ([facility]) Fev1-%Pred-Pre 67 L [facility] ([facility], ) Fev6-LLN 1.14 L [facility] ([facility]) Fev6-Pre 1.34 L [facility] ([facility], ) Fev6-%Pred-Pre 77 L [facility] ([facility], ) Tny9nqi-Advd 73 % [facility] ([facility]) Xph3bmq-Yig 68 % [facility] ([facility]) Diz1dat-XKL 63 % [facility] ([facility]) Cwd5tnc-Sbtk 93 % [facility] ([facility]) Qut7fcr-%Pred-Pre 92 % [facility] ([facility]) FEFMax-Pred 3.62 L/E/sec [facility] ([facility]) Qvz4bkg-Zgz 100 % [facility] ([facility]) Xzw4mvy-%Pred-Pre 107 % [facility] ([facility]) FEFMax-Pre 2.53 L/E/sec [facility] ([facility]) FEFMax-%Pred-Pre 69 L/E/sec [facility] ([facility]) FEFMax-LLN 2.14 L/E/sec [facility] ([facility]) Gen7081-Ifdw 0.90 L/E/sec [facility] ([facility]) Yyl5109-Yix 0.45 L/E/sec [facility] ([facility]) Tzb4182-%Pred-Pre 49 L/E/sec [facility] ([facility]) ExpTime-Pre 6.93 sec [facility] ([facility]) Srh9559-LTX -0.17 L/E/sec [facility] ([facility]) Jrr1pzv4-Poz 68 % [facility] ([facility], ) Nui8hhu0-%Pred-Pre 87 % [facility] ([facility]) Dbn2aek1-Cktw 77 % [facility] ([facility]) Zec2evu7-VOZ 68 % [facility] ([facility]) ID Date Data Source [id number] 04/04/2020 11:00:00 AM EST [facility] Name Value Range Interpretation Code Description Data Edilma rce(s) Supporting Document(s) [facility] VMGNTr7qDnSURiOyLUVyMgsWMPhuHByqPLGgS5O6OGcmOt3BSGrbmvCoWDTlHk5+TTFvEH9ndf8dVEPz gMy [file] 99Lc3T+5c1nhp/DYasegj+PRODUCTION DESIGNER+Fb8LY4H1mTaCeMO7iugSN6nFTM/seLpEEaCeyXc1SS4J90WcM3HMDzn [file] aMJbPZgsSdKpsyHFwUJ2f1x9rO2qrAwlfTOCr+2gxCbSASwzqH6vJ1nB8Bs47UMOJV3+web content manager/ItEz0VSI [file] Y8fMwI4aEgsdWWh4U0KMNWktIUKF+vqe1cx22HQ24AZsOrkpI4jH2uvPpPk7g2EJPUMUflyuqFh4y+MASON xbVWstD6M8depQ8jBtrI6aYZfBPrzt5ggYJ09kCWG56gks5Po+3YP43lSLwBmrcOUTMhyrYtwc095odb DEsIFYhe/nWTUtP0PQZhxBalc+eoKL8MLyw/UpsxLq H01BOCscWjqfhie1UllB9cDCR9VJSLgkttuy8da6h5ce9l82/GPbZ+yWowNVFlZLWziDA5GCVO6vAlt6 CWyvUvlabGdD/maintenance supervisor mechanical+Ybh4knV/DeHo7K1M+LlrjWBnUkdLvj0vd9W72/pfF+eIOWU702uNORTwTFJlqjr [file] v8BqftcQNC9qscikXyL9jcbxnMIcGLvRimxITeSrTARdFr6oye1sxi3vZ0Qdo/Mark Anthony+CCV+V+yB6xQuBN [file] WTw/LGX3ueaJoGndzsPw8+Raúl/zwBhwMfmw5Nv+J4 [file] mPNWxDPlc9iteoe/5+sZG8ZdLPLSo+0WWa++vw9JwcmK32+evp managing director/I6vN07Dj4gdg7dRmK9gxM1qve/DFG0 ISL2fVKf85DoIKKDoZBmMyh+vmqJHYpIYBwu1r5o5a TckipiBj04EPEx5i/3jRAJ0oiF0vpjOEeVRWsAzwa/vuqlh7lyGn8+Uvk18cwG5F7Xbe+D4mMSjZuG+v SDuSQ5L2bP+EuU92uWgV+muDuYEIZOkzuF3WlHZAhULUteJCWUdp6+YUmYMNMX+oSvVrbRLqiHhDvwmd e32rfH6872jMD8Njv6X7UOrfai74Ubq22fK5OzfP1k [file] jyIlAr7pHc+Kl0m6/Vijay/W4a7kuvVoo5xl7JTV+relief cook [file] b9QhG/G20QFjjgWe7fwEoWTZW+/public safety telecommunicator/UGKM6AZstxbMLuHrJSkPAWf7KnxV856ruoFiWaIKyEbg6rQFYx [file] 5L3IXoBykNxfNV08+f5L/DMrO4utdcxz7tRDEvV+director of resource development+HNqY4xmCc01kuefIBU1omoBFifkap+BzTpWa [file] w2EdxXwq+director ehs/I4CqDoQ39fk6Fsa72WcWkHFqEGMq0FQ1N09KFElzdeGYAOp+pRYoZuNiHn5WBb5gOtq UDq6bAHregOkn3lYzEYnlxit+tVUiFlusdXBPWfMNvdcFn/HXV2bvgpDEKaGjjhPSbdz+lVInHiM5Fto pmIz5WwaNrdXM4f/SkftX0JnXhBPIgvfVhjKJH5ww7 TgLbFzqSVd8o3B5hli8Wbrp9hsPULwYUYQvato4GV2QKW3IUC0CYvBk6ZhFWpPQwtLgLSec7KHxuWpD5 os3v63ZKuMnrn3sn0ijGbMW+H1sT3GGf9+YjtbbxDMC36u28WmD86m7190uKme9UmilLXiDYsmlxiPtF T2Q7qcw1mroRJReoKyGS2AywagciVV0Cl9nCQ8Lw1x UsXMzX1N7W5AvtcFQv3lDbT/hCW2TzhB6XedSZB9+WsIBTC390Cw7Jn/rRGf+QOAblHgOymTuSWQ/7Ty 4UTea28C6tKb7qUglg9vl0IAnzk0yhMFYzP1Br2CVWLPmxVw22EOHbCncquBxFiixkpZfXVJhl20IO7q 47/tEQ/3ZZJNfWlZV+SHU6VtkgwkbiNOV4rI1MsMgj vuRZfQ0cPyQffu4pRXBYpViDU9VRGDY6G7UA/uLrzkMQJECiufaBwS+JshLX6eq5MExFgZybME9teUr6 bOt0mCYOkSAzFEkcnKs80YVbSE9FM95+Oz28U+8c1xAOsbLJSbbo10P7EBkqgFlbgidGfhsSCZueWNaz Vnw6/pKAijT7ap/hb/zelggnvpnugkJufud1PcbyjO [file] bkBoQnOf+vc78GUiIuxRbSey0lH8Nyc/9jXcP40IrpW3alQd1jAQdC4zYnRDzGh+5/long term+NlE3f+8kml [file] Juan Antonio/5yHJtcslYFSgKNx6m2ZYnUIO+svqd/u3A8RpLh [file] tYY/xx3kRTpTBMlht4VfyspsTBR9s/o6+Xlsd9lTfj3ljQ9PSd8kI7Vzmcniz2wnUtjaFPIlX+3R2/public safety telecommunicator CVjnqEUGDhrMd/gnWhn+ikNLRyoeQGpBLpJxjhLtGwMsNBA9iusZ4i3XSM97xsNS3sDMWVz88m0zk2OY Cq+Hvg9NIu8hLJ7rZxNd4epKTv9QNQczgkERwn5M92 Wll9aNVFl1Du4GLDXS+Y9RA2TEQthJ6xvM21hDEzfyCwOZ5spimWds8aMkcFVhbFceBiJZyKhHXBB/INDRA [file] Gw1p6kh+Juan Antonio/j/9008jCvAkHPveg8agjTH8KpBKXOa gnMem2aXm5puKOiwUw2zlcuXnC0HslSnDpQ2DszzWKMuiRQA2vqNbh31LFt31aToMJQNdeU06yGJIuv7 fEpT07/xdOQIx2p2T8Ji+glNPn4e2Q8UhJyfQAsmBScF39+XMs0N6s8jwXCCpAplg6xjui4pwLT6syIc 7HaILaT9S/2awtPo7t9HyjdxENH2MybRQqEflmeM2Y pt2xSiTc5lzO1D8EZoOCC4ESAyUQ04YNu+ntzq+DT7qJjghjvWdr0ayj73WwRaUR6hereJ20QfL5XYNk rx+IjVPtTAO4unr447qatKI02YwKss4toOcr0VMfApOHH8Re1Cn06gI4GGitpa9bKQOgh61WMteAxklp H9/warehouse production [file] tumbler machine operator helper/B5If87KLOon86yHNRCTRIpPDtoneuh0G9bDffEUVqkYGC1hSWr9KTptUs7qpDymChPVaDXCanFg6 [file] PifBh7RpHWk8Bj3v+atlhRbWqg+roaTHGr3+YEsXNAf+LEo83dD9afadHNMuiCKyFF4Gca+rotating equipment engineer+hSrS4 3VQ2VV3o5NBzi+gTY9cNz6RmRMRGIN69vgBSD4CobF0yO4v1V4pNlmWwGQkrP87tUoTEc15KQqALSa58 p/3Q72t6l5BH+FVqf56Z1SNQH7v8q6H1AMJi7hY46/ [file] UojUOpShzkyUin38KJ/1DZMdbs0plOuIxFjEcavLloaB+public safety telecommunicator+LdXTwWJRW5uONJBLqmCMKpr3b0wWF77y [file] Juan Antonio/nGMi7YOZyVvv2BCa8j/fJDSooBw7kjiJnnj6il [file] gJQIvJ0MxSkOdfx8gk8Xjjjybfjp5OFtjILUyHI+PRODUCTION DESIGNER [file] Y6ojKhsW2JCA5te9JcJN3Mx4RxuaW5qnKpJBekEwX5MkPgJAdlSOCSHq== ID Date Data Source [id number] 02/23/2020 01:00:00 PM [facility]T [facility] ERVICAL SPINE WO CONTRASTCLINICAL HISTORY: Transient cerebral ischemic attack. Other abnormalities of gait and mobility.COMPARISON: 11/09/2013TECHNIQUE: Spiral images through the cervical spine were performed. 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 Fusion of C5 through C72. Severely osteopenic bones3. Multilevel spondylotic change worse at C4-5 level with mild spinal stenosis.Dictated by: HUMBERTO BAGLEY M.D. on 02/23/2020 Transcribed by: shabnam on 02/23/2020 01:40 PMCDS G code: ,CDS Modifier: ,cc: Name Value Range Interpretation Code Description Data Edilma rce(s) Supporting Document(s) ID Date Data Source [id number] 02/23/2020 12:59:00 PM EDT [facility] B RAIN WO IV CONTRASTCLINICAL HISTORY: Transient cerebral ischemic attack. Other abnormalities of gait and mobility.COMPARISON: 02/24/2017TECHNIQUE: Axial images through the head performedFINDINGS: The ventricles, cisterns, and sulci are appropriate.No masses, mass-effect, cortical infarcts, or acute hemorrhage identified.There is chronic appearing right maxillary sinus disease with densely calcified 5 mm structure within the right maxillary sinus. There is a thick wall of mucosal thickening in the right maxillary sinus.The mastoid air cells are clear.The v isualized orbits are intact.No fractures are identified.IMPRESSION:1. Unremarkable brain2. Right maxillary sinus disease with thick rind of mucosal thickening and 5 mm calcified object within the sinusDictated by: HUMBERTO BAGLEY M.D. on 02/23/2020 Transcribed by: shabnam on 02/23/2020 01:39 PMCDS G code: ,CDS Modifier: ,cc: Name Value Range Interpretation Code Description Data Edilma rce(s) Supporting Document(s) ID Date Data Source [id number] 02/08/2020 04:27:38 PM EDT [facility] Name Value Range Interpretation Code Description Data Edilma rce(s) Supporting Document(s) UREA NITROGEN 29 mg/dL (7-24) H [facility] ID Date Data Source [id number] 02/08/2020 04:27:38 PM EDT [facility] Name Value Range Interpretation Code Description Data Edilma rce(s) Supporting Document(s) CREATININE 1.24 mg/dL (0.60-1.00) H [facility] [place] [facility] GFR 41 ml/min/1.73m2 (>59) L [facility] [place] [facility] GFR ( AMER) 50 ml/min/1.73m2 (>59) L [facility] [place] [facility] [place] - [facility] GFR INTERPRETATION [facility] [place] [facility] - [facility]ORE --NORMAL KIDNEY FUNCTION OR MILD DISEASE - GFR >OR= 60CHRONIC KIDNEY DISEASE - GFR 15 - 59RENAL FAILURE - GFR <15 Est. GFR calculation based on the MDRDstudy equation, which assumes a steadystate for creatinine. Est. GFR should notbe used for medication dosing. ID Date Data Source [id number] 01/17/2020 11:32:30 AM EDT [facility] Name Value Range Interpretation Code Description Data Edilma rce(s) Supporting Document(s) &PDF [facility] BWAZHn2pCsFZBjIh24/EDQdwQTUzk9NjHWphTDc3JRxxLSNiJ0UvoUrdGGUYL2gSYDKEKG6XUl8EFNRc vci [file] admissions recruiter+BXAODAicZ/LuIcZsKTUQhqHDOuXktQMHmzRN218GeSvjrQXfaG66ryhuWxWtIKj3gibXO6pGM6Us [file] M+GT3tXZk+Qa8Nm6AcqlF5ehTbPJflEOLaIN8JKWYLO5KHYa== ID Date Data Source [id number] 01/12/2020 10:56:00 AM EDT [facility] ([facility]) Name Value Range Interpretation Code Description Data Edilma rce(s) Supporting Document(s) Bacteria identified in Sputum by Aerobe culture Laboratory test resul t [facility] ([facility]) ID Date Data Source [id number] 01/12/2020 10:56:00 AM EDT [facility] ([facility]) Name Value Range Interpretation Code Description Data Edilma rce(s) Supporting Document(s) Gram Stain Laboratory test result Normal (applies to non-n umeric results) [facility] ([facility]) QUALITY: GOOD FEW WBCS FEW GRAM POSITIVE COCCI IN PAIRS Sputum Culture Laboratory test result Normal (applies to non-numeric results) [facility] ([facility]) [facility] NORMAL TRICIA PRESENT ID Date Data Source [id number] 01/04/2020 10:45:00 AM EDT [facility] Name Value Range Interpretation Code Description Data Edilma rce(s) Supporting Document(s) [facility] DIBYEe8yFuDJUnApAJHmPczISZchXSahOQFpL4M9YWoxNw7HGJocbsAeGSAzVv7+SEDrOG1zpf7cIQYo gMy [file] s1FeKMGReKK2HtrYOAGs/Jr0gqyJAduuJxEkMPjx7PVAa8G6RvF4O6w2eTt4O3UdNrZF3Tn0y0LQ/Juan Antonio [file] XrOyQrBYF+evp managing director+dAMzT1b2oTYppDYElXNDKvMKrtJG6jjVCrlBLPXSnbl80w0S8DrDg2WLZIH9iyJIYZe [file] 2WSTyjY39e72YciMg593+K2k5W6NCk23E86mtzlEhp xH87hXp6iZ9SAL379Ewk3P2xQ/1kkw0cH9gyUKll0mUWW8tqjEwIz/VxyvcOa3g/64EAybScENmY+2xp NrF3KaNsuSDF6PRde0n2S6AU2tUlA0x/ozH9WVn+/EoM+I1LMMK8Fuw8mM1VZZbzGpw0hA0RVvH3okN8 Nc6kV7qKBeYcL/v7gVyOI/TrtKccQzRWell[facility]G [file] Eq1wMXLtouU32kQG1rIUNqOBwM9qH/ikW/apQbj3KwmH5JabXeycMEE8WojqpH+Xc/S7HZWHIr4IU/integrated campaign manager [file] buffing line set up worker+vJiiVVMz8wesytrGzgYEjA7pdXj5RhdJ+ckmVt9k3bnYKCBMrxwh2C19lMvQXhrVuAkukRXJIU1N SvGl5Qe62EVc2ay2GAmQTplxeAkhb56omAZRxx6sRb vD6z+9XB0l1C1IWeMO/7mswEdC2MMiVTU+PMweqA8/UnS0+BhXhEkZ9SjcPMriTavBWZ4zzpwo5XAqL/ t+Y/p1kZk9fdJ2Iu/fU+WVui4Qp8yPW2mm216q3VMY62c4/10zIeSxzAyM5ihrtztUaMlbVNasLnYdZ6 8f9lTI1yUI/v/KGKprfdaxbuyKS13Cp6pP8bqkecCv OchmKFqtp8MXYEQ+r/R3lFaPou0uLdMl1AOnpU8bt7tWM6HKwE4Vy+bTy5yEWuYGWjTDpwo3bciDq6n7 aY1wh9FrSfabmocpkdfjidsnCab4QfPnAx4oiaR1X/QQpX9Yngd1fSYz7kUhK2GlLSieYevlD/vleiY7 9X3Gz2mbvZN+A9kIDu0voP6Spnf/8a997jTac+V3Wi B+cBZSFvf4ufnzX0Yal66gkeZUW942yujlB29TdwfIh/KsgO9OvUVs1Tj0NGZbmyi7dZgU/ywt50FVKr f8vlPAmXPOvWta3x2rKy4rlvKwy3dXPO36Jm/uS0z5TaPYKcUa1j0LU8Vy8iT7k3Vb1mtxFOB6JzTw0T N1A6pfsCWkhwS9UPDWnIjptqZQHjiv+jBCR2AAnZM4 g1C4xvHe6sYLBTGjBgFA0TFOsll8bnZhrI0gLMo461aw/ShZRs2rts1vPb9dZ34j/XrxSCZ/f4E22oWY F+7Kl7JTzynUpIc5Z6wF4GXUZNCfOD0LyEi5K8jdAi+oCnqZHT0aGXeAlUnv1S1dquIir5+QWSa5PCev fkEHetnZANpLEQ0MHJwXNhhMcVOJUv7Xm7u/izB0BM CH/7PIzYURk+E0upEoqrNtBSIdXyIXZTSKZ4cvYGZdAfCO643Icz28zebj5yOrJQMLfsMLW/9JzWQBfj Ruth+aUbGS+YaVX/IoFVl662Su8qyuY0vGSXZWIyGNxmdhf6WN9WB4O/99+k3tEpASwC3LCJd0hhaldRJ [file] eWs3xsPBf2TTYoKRzm3z+Ym6jt0cgOpY2ycVLro [file] TN8fg0GRM+N4jeA6bzz6zFwuxKzOqxMI35U8n+uKoQWJvx/Elver+17R3+[employer]/HruYoZl5KOMW0ReiJqVoKo [file] evp managing director+/u057TMv7iFm0azDGBq8ArDd63K7TsabCuExmoPv0ieLkPjMz5uo0rve5W44u9HkWwa6KTGP64OTp [file] cGFWslpfT2QXDcxGwaYIdA+Jvpw+stave cutting supervisor++lbg5A6VxXHGINeg7u6esAqejS/Xr2N/9bXE+rEth7aM0Mlx [file] sD3u1QxqpfS/A2qBk95Sb1laMwZi9fbB+NPKE485Zehi2rC+dz/0axk/QZZWHz7eiNqXZ/UZh+BOAT CLEANING SUPERVISOR+oF [file] P9dT5sC209O1F97CwR4e96moo6Yz1bbeS+YcVf1Ff0 8JQfRPp7tiJirhyP5H+vrIWeEMaBTth9naet0JVRrUU8vDgGHHDoExk7DHqa5sbpA6C5w+AQbQR17+Substation Maintenance Technician [file] BELÉN/dedg1nG1eowZW84hkdgGgwbLbiV4kx0WwPYdPt [file] FCqOms3wayAgsS/ncuP2/aJwStri72RCigD3ck+ [file] +O+alGGLP8Vyp1nFkl8b2ombrnWEzb16oYJLtD+juan luis [file] 5GCvEkvah5l1MBPupWd4HdS2XrF4z/X+PJZDtNy/PRODUCTION DESIGNER [file] YzZbWxXAsgbBnMySRi1nGTY/Jose Alberto+LM2kTYlgiwzc2rgkSAr38oQqNZ8b5PFtj8YmAsFG8Tu+1Dhq6BMG [file] IegJ4v9Ja/LF01jP3w4gG2GW57aoJ26VLsw1sZZl/Substation Maintenance Technician+B7Xz28SojObyzyVewpDhSNMWiwTlqeZngT5j [file] 2lSXOMhfieTupPFqVZ4UPmEcKF9ilv1BIgB6LVM1dSFkMy4GTYS8ZFy1CC7IWDKKE5J= ID Date Data Source [id number] 12/25/2019 12:20:59 PM EDT [facility] Name Value Range Interpretation Code Description Data Edilma rce(s) Supporting Document(s) &PDF [facility] RASCUd9sEkTGPpYr85/RKGlgKHCse4SiWHyeBEf4FWnzCBUzZ0NetWzzAOOZI7yQSQPNGV3IUe4COINr vci [file] ICAgICAgICAgICAgICAgICAgICAgICAgICAgICAgIC AgICAgICAgICAgICAgICAgICAgICAgICAgICAgICAgICAgICAgICAgICAgICAgICAgICAgDQogICAgIC AgICAgICAgICAgICAgICAgICAgICAgICAgICAgICAgICAgICAgICAgICAgICAgICAgICAgICAgICAgIC AgICAgICAgICAgICAgICAgICAgICAgICAgICAgICAg ICAgDQogICAgICAgICAgICAgICAgICAgICAgICAgICAgICAgICAgICAgICAgICAgICAgICAgICAgICAg ICAgICAgICAgICAgICAgICAgICAgICAgICAgICAgICAgICAgICAgICAgICAgDQogICAgICAgICAgICAg ICAgICAgICAgICAgICAgICAgICAgICAgICAgICAgIC AgICAgICAgICAgICAgICAgICAgICAgICAgICAgICAgICAgICAgICAgICAgICAgICAgICAgICAgDQogIC AgICAgICAgICAgICAgICAgICAgICAgICAgICAgICAgICAgICAgICAgICAgICAgICAgICAgICAgICAgIC AgICAgICAgICAgICAgICAgICAgICAgICAgICAgICAg ICAgICAgDQogICAgICAgICAgICAgICAgICAgICAgICAgICAgICAgICAgICAgICAgICAgICAgICAgICAg ICAgICAgICAgICAgICAgICAgICAgICAgICAgICAgICAgICAgICAgICAgICAgICAgDQogICAgICAgICAg ICAgICAgICAgICAgICAgICAgICAgICAgICAgICAgIC AgICAgICAgICAgICAgICAgICAgICAgICAgICAgICAgICAgICAgICAgICAgICAgICAgICAgICAgICAgDQ ogICAgICAgICAgICAgICAgICAgICAgICAgICAgICAgICAgICAgICAgICAgICAgICAgICAgICAgICAgIC AgICAgICAgICAgICAgICAgICAgICAgICAgICAgICAg ICAgICAgICAgDQogICAgICAgICAgICAgICAgICAgICAgICAgICAgICAgICAgICAgICAgICAgICAgICAg ICAgICAgICAgICAgICAgICAgICAgICAgICAgICAgICAgICAgICAgICAgICAgICAgICAgDQogICAgICAg ICAgICAgICAgICAgICAgICAgICAgICAgICAgICAgIC AgICAgICAgICAgICAgICAgICAgICAgICAgICAgICAgICAgICAgICAgICAgICAgICAgICAgICAgICAgIC ZeYDe9E9lmMEHjMQQpTQ4jERe0Ow2+HYwDDeEiRIR0ccVjlZ0ELN2pe0SlZHnaKACtj3BiZZd8SY1YZJ NaGXdmBY5RVQhaki2FSHXyWHKfxWBMn3peZpGmIKM4 EWSiAgsbEF0ZDGOfT0ajdyEpBGKcPPTLNM5JHgPaF7TgnS05YONDYg8+LTmzhqYeVonTBmE9VHIru2Ps VUf5MR0MSXAbJAyjKF6TQULfjX9sDTfjYU8HChWrVdZuTCRWVcYmR18gnZXwFKj1X7TiZxPhMKElKvwk ZXMgPDwvTmFtZXMgWyBdDQogID4+ID4+VNipXX3XVW itotBcDAEmNf6NCIQiZMW7VWOehSQjAYovAACCCKueJT9BaYRuOAC6kJ5fDLskCHQyNKWfA1sKEqHgtV xpSE74jQsaciUezFNgYXp+Js5RSW6ot1PoKEk2acQvEXdhYYXjOAubJLCkMILzXWKfMVO2XRP4WAVDOa ImGMDhYIPpSKvrCRAaZCObfw1MQQKgKUNbNJj9YDCy CQMwQXFmUXinYOMtRWY7ZQZ6KUWlUCYiKT5ZNmDvIHAyFMTbEJQaZDLlPMLzpb8RWFLaAXGfDltiPGEu PPJfUCKtKLndHRYeGIFlLMJuUDHxTWTaKR7AHqOmSFHuPKG7SEKiYGCqLSEloj2QTDKtPBOcXSZ3DlYu TGQlIVTxVSajXIYtXSE6KfE2ATHvBFWtIN1SIdYuFK NaGYPpYYUmEFXjSTNbvj8GNMMlCDOuBCDiXeWyYGKtSCBmNJhiXKEbHID9NnA3JMSgGRDuXU4BKmTzEY JxKQG9WkVjTFOqPCUmdd5VYQTvUZLpWzi6XiZbQMPxIKPdFQbsOBOsAIV0QXV8KBUfIUPpLC0EMwXvEA ZzRCZ9NWBpSCMaMRRytx0WXQBzAGTmHNy5UPIgNEQr DELeLKtjDHWmQTJ3ZHa9ZPTzKPIdAP8YXaDxZYEyXCp7ObCxQEJbBQLrsr9OiEXfoMjzkc7HUJxKSz1H qKpjUHGiAUbuLs2asPMlIPAzMFAZNr0VpjZmRKMqHSYZSVszRQKcXFwgBRX4FVw4IlbzBlMiDbfhNYZt RGWyDaBiELL8YHzvDhD3NFZbSqk2NEUzKqHcWNE7CW T1ExEaXVZlOlS3UCn7GYM+AK8pTAl+Cs0Xh1GjcnD6urDqLUazRyjpJd6VOSCAT9EPLl== Procedure Social History Code Duration Value Status Description Data Source(s ) Smoking 01/23/2021 12:00:00 AM EDT Never Smoker completed Never S moker eCW1 ([facility]) Smoking 01/23/2021 12:00:00 AM EDT Never Smoker completed Never S moker eCW1 ([facility]) Alcohol intake 01/10/2021 12:00:00 AM EDT Ex-drinker (finding) comp leted Ex- drinker (finding) [facility] Alcohol intake 12/18/2020 12:00:00 AM EDT Ex-drinker (finding) comp leted Ex- drinker (finding) [facility] Smoking 12/16/2020 12:00:00 AM EDT Never Smoker completed Never S moker eCW1 ([facility]) Smoking 10/04/2020 12:00:00 AM EDT Never Smoker completed Never S moker eCW1 ([facility]) Smoking 10/04/2020 12:00:00 AM EDT Never Smoker completed Never S moker eCW1 ([facility]) Smoking 10/04/2020 12:00:00 AM EDT Never Smoker completed Never S moker eCW1 ([facility]) Smoking 10/04/2020 12:00:00 AM EDT Never Smoker completed Never S moker eCW1 ([facility]) Smoking 10/04/2020 12:00:00 AM EDT Never Smoker completed Never S moker eCW1 ([facility]) Smoking 10/04/2020 12:00:00 AM EDT Never Smoker completed Never S moker eCW1 ([facility]) Alcohol intake 09/24/2020 12:00:00 AM EDT Ex-drinker (finding) comp leted Ex- drinker (finding) [facility] Smoking 09/10/2020 12:00:00 AM EDT Patient has never smoked co mpleted Patient has never smoked MEDENT ([facility]) Smoking 07/12/2020 12:00:00 AM EDT Never Smoker completed Never S moker eCW1 ([facility]) Smoking 07/12/2020 12:00:00 AM EDT Never Smoker completed Never S moker eCW1 ([facility]) Smoking 07/12/2020 12:00:00 AM EDT Never Smoker completed Never Florencia matute eCW1 ([facility]) Vital Signs ID Date Data Source UNK Name Value Range Interpretation Code Description Data Source(s) Systolic blood pressure 112 mm[Hg] 112 mm[Hg] M EDENT ([facility]) Diastolic blood pressure 48 mm[Hg] 48 mm[Hg] MEDENT ([facility]) Heart rate 76 /min 76 /min [facility] ([facility]) Body temperature 98.4 [degF] 98.4 [degF] [facility] Body height 60 [in_i] 60 [in_i] [facility] ([facility]) 5'0" Body weight 142.50 [lb_av] 142.50 [lb_av] MEDEN T ([facility]) Body mass index (BMI) [Ratio] 27.8 kg/m2 27.8 k g/m2 [facility] ([facility]) [place] body weight 100 [lb_av] 100 [facility]_av[facility] Body weight 64.638 kg 64.638 kg [facility] ([facility]) Body surface area Derived from formula 1.62 m2 1.62 m2 [facility] ([facility]) Body height 58.5 [in_i] 58.5 [in_i] eCW1 ([facility]) Body weight 149.4 [lb_av] 149.4 [lb_av] eCW1 (Counts include 234 beds at the [facility]) Body weight 67.77 kg 67.77 kg eCW1 ([facility]) Body mass index (BMI) [Ratio] 30.69 kg/m2 30.69 kg/m2 W1 ([facility]) Heart rate 66 /min 66 /min eCW1 ([facility]) Respiratory rate 18 /min 18 /min eCW1 ([facility]) Body temperature 98.0 [degF] 98.0 [degF] eCW1 ( [facility]) Systolic blood pressure 114 mm[Hg] 114 mm[Hg] e CW1 ([facility]) Diastolic blood pressure 67 mm[Hg] 67 mm[Hg] eCW1 ([facility]) Systolic blood pressure 139 mm[Hg] 139 mm[Hg] [facility] Diastolic blood pressure 80 mm[Hg] 80 mm[Hg] [facility] Heart rate 60 /min 60 /min [facility] Body temperature 36.67 Olamide 36.67 Olamide [facility] Respiratory rate 16 /min 16 /min [facility] Oxygen saturation in Arterial blood by Pulse oximetry 97 % 97 % [facility] Body weight 69.7 kg 69.7 kg [facility] Body mass index (BMI) [Ratio] 30.01 kg/m2 30.01 kg/m2 [facility] Body height 152.4 cm 152.4 cm [facility] Systolic blood pressure 141 mm[Hg] 141 mm[Hg] [facility] Diastolic blood pressure 62 mm[Hg] 62 mm[Hg] [facility] Heart rate 60 /min 60 /min [facility] Body height 152.4 cm 152.4 cm [facility] Body weight 71.668 kg 71.668 kg [facility] Body mass index (BMI) [Ratio] 30.86 kg/m2 30.86 kg/m2 [facility] Oxygen saturation in Arterial blood by Pulse oximetry 94 % 94 % [facility] Body weight 158.8 [lb_av] 158.8 [lb_av] eCW1 (Counts include 234 beds at the [facility]) Body weight 72.03 kg 72.03 kg [facility] ([facility]) Body height 58.5 [in_i] 58.5 [in_i] [facility] (Critical access hospital) Body mass index (BMI) [Ratio] 32.62 kg/m2 32.62 kg/m2 [facility] ([facility]) Heart rate 82 /min 82 /min eCW1 ([facility]) Respiratory rate 20 /min 20 /min eCW1 ([facility]) Body temperature 97.8 [degF] 97.8 [degF] eCW1 ( [facility]) Systolic blood pressure 128 mm[Hg] 128 mm[Hg] e CW1 ([facility]) Diastolic blood pressure 62 mm[Hg] 62 mm[Hg] eCW1 ([facility]) Systolic blood pressure 135 mm[Hg] 135 mm[Hg] M EDENT ([facility]) Body temperature 96.7 [degF] 96.7 [degF] MEDENT ([facility]) Body height 60 [in_i] 60 [in_i] MED[facility] ([facility] 5'0" Diastolic blood pressure 60 mm[Hg] 60 mm[Hg] MEDENT ([facility]) Systolic blood pressure 117 mm[Hg] 117 mm[Hg] M EDENT ([facility]) Diastolic blood pressure 57 mm[Hg] 57 mm[Hg] [facility] ([facility]) Heart rate 60 /min 60 /min [facility] ([facility] Body weight 158 [lb_av] 158 [lb_av] eCW1 [facility] Body height 58.5 [in_i] 58.5 [in_i] eCW1 ([facility]) Body mass index (BMI) [Ratio] 32.46 kg/m2 32.46 kg/m2 eCW1 ([facility]) Heart rate 62 /min 62 /min eCW1 ([facility]) Respiratory rate 16 /min 16 /min eCW1 ([facility]) Body temperature 97.2 [degF] 97.2 [degF] eCW1 ( [facility]) Systolic blood pressure 112 mm[Hg] 112 mm[Hg] e CW1 ([facility]) Diastolic blood pressure 56 mm[Hg] 56 mm[Hg] eCW1 ([facility]) [place] body weight 100 [lb_av] 100 [lb_av] MEDEN T ([facility]) Body surface area Derived from formula 1.65 m2 1.65 m2 [facility] ([facility]) Oxygen saturation in Arterial blood by Pulse oximetry 96 % 96 % [facility] Body height 59.5 [in_i] 59.5 [in_i] [facility] 4'11.50" Body weight 152.00 [lb_av] 152.00 [lb_av] MEDEN T ([facility]) Body mass index (BMI) [Ratio] 30.2 kg/m2 30.2 k g/m2 [facility] ([facility]) Body weight 68.947 kg 68.947 kg [facility] ([facility]) Systolic blood pressure 132 mm[Hg] 132 mm[Hg] M EDENT ([facility]) Diastolic blood pressure 68 mm[Hg] 68 mm[Hg] [facility] ([facility]) Heart rate 61 /min 61 /min [facility] ([facility]) Oxygen saturation in Arterial blood by Pulse oximetry 96 % 96 % [facility] ([facility]) Body height 59.5 [in_i] 59.5 [in_i] [facility] ([facility]) 4'11.50" Body weight 152.00 [lb_av] 152.00 [lb_av] MEDEN T ([facility]) Body mass index (BMI) [Ratio] 30.2 kg/m2 30.2 k g/m2 [facility] ([facility]) [place] body weight 100 [lb_av] 100 [lb_av] MEDEN T ([facility]) Body weight 68.947 kg 68.947 kg [facility] ([facility]) Body surface area Derived from formula 1.65 m2 1.65 m2 [facility] ([facility]) Systolic blood pressure 109 mm[Hg] 109 mm[Hg] [facility] Diastolic blood pressure 52 mm[Hg] 52 mm[Hg] [facility] Heart rate 66 /min 66 /min [facility] Body temperature 36 Olamide 36 Olamide [facility] Body height 152.4 cm 152.4 cm [facility] Body weight 70.625 kg 70.625 kg [facility] Body mass index (BMI) [Ratio] 30.41 kg/m2 30.41 kg/m2 [facility] Oxygen saturation in Arterial blood by Pulse oximetry 95 % 95 % [facility] Diastolic blood pressure 60 mm[Hg] 60 mm[Hg] [facility] Heart rate 60 /min 60 /min [facility] Body height 152.4 cm 152.4 cm [facility] Body weight 70.308 kg 70.308 kg [facility] Body mass index (BMI) [Ratio] 30.27 kg/m2 30.27 kg/m2 [facility] Oxygen saturation in Arterial blood by Pulse oximetry 96 % 96 % [facility] Systolic blood pressure 124 mm[Hg] 124 mm[Hg] [facility] Systolic blood pressure 116 mm[Hg] 116 mm[Hg] M EDENT ([facility], ) Diastolic blood pressure 76 mm[Hg] 76 mm[Hg] MEDENT ([facility], ) Heart rate 67 /min 67 /min MEDENT ([facility], ) Oxygen saturation in Arterial blood by Pulse oximetry 93 % 93 % MEDENT ([facility], ) Body height 59.5 [in_i] 59.5 [in_i] MEDENT ([facility], ) 4'11.50" [place] body weight 100 [lb_av] 100 [lb_av] MEDEN T ([facility], ) Body weight 156.12 [lb_av] 156.12 [lb_av] eCW1 ([facility]) Body height 58.5 [in_i] 58.5 [in_i] W1 ([facility]) Body mass index (BMI) [Ratio] 32.07 kg/m2 32.07 kg/m2 [facility] ([facility]) Heart rate 67 /min 67 /min eCW1 ([facility]) Respiratory rate 16 /min 16 /min eCW1 ([facility]) Body temperature 96.7 [degF] 96.7 [degF] eCW1 ( [facility]) Systolic blood pressure 145 mm[Hg] 145 mm[Hg] e CW1 ([facility]) Diastolic blood pressure 66 mm[Hg] 66 mm[Hg] eCW1 ([facility]) Systolic blood pressure 120 mm[Hg] 120 mm[Hg] [facility] Diastolic blood pressure 55 mm[Hg] 55 mm[Hg] [facility] Heart rate 69 /min 69 /min [facility] Body height 152.4 cm 152.4 cm [facility] Body weight 68.947 kg 68.947 kg [facility] Body mass index (BMI) [Ratio] 29.69 kg/m2 29.69 kg/m2 [facility] Systolic blood pressure 102 mm[Hg] 102 mm[Hg] M EDENT ([facility], ) Diastolic blood pressure 62 mm[Hg] 62 mm[Hg] MEDENT ([facility], ) Body weight 71.215 kg 71.215 kg [facility] ([facility], ) [place] body weight 100 [lb_av] 100 [lb_av] MEDEN T ([facility], ) Body surface area Derived from formula 1.67 m2 1.67 m2 [facility], ) Heart rate 72 /min 72 /min [facility] ([facility], ) Oxygen saturation in Arterial blood by Pulse oximetry 93 % 93 % [facility] ([facility], ) Body temperature 96.7 [degF] 96.7 [degF] MEDENT ([facility], ) Body height 59.5 [in_i] 59.5 [in_i] MEDENT ([facility], ) 4'11.50" Body weight 157.00 [lb_av] 157.00 [lb_av] MEDEN T ([facility], ) Body mass index (BMI) [Ratio] 31.2 kg/m2 31.2 k g/m2 [facility] ([facility]) Systolic blood pressure 140 mm[Hg] 140 mm[Hg] [facility] Diastolic blood pressure 80 mm[Hg] 80 mm[Hg] [facility] ([facility]) Heart rate 74 /min 74 /min [facility] ([facility]) Oxygen saturation in Arterial blood by Pulse oximetry 92 % 92 % [facility] ([facility]) Body height 59.5 [in_i] 59.5 [in_i] [facility] ([facility]) 4'11.50" Body weight 152.00 [lb_av] 152.00 [lb_av] [facility] per patient Body mass index (BMI) [Ratio] 30.2 kg/m2 30.2 k g/m2 [facility] ([facility]) [place] body weight 100 [lb_av] 100 [lb_av] [facility] Body weight 68.947 kg 68.947 kg [facility] ([facility]) Body surface area Derived from formula 1.65 m2 1.65 m2 [facility] ([facility]) Patient Treatment Plan of Care Planned Activity Planned Date Details Description Data Source (s) Lidocaine Hydrochloride 20 MG/ML Mucous Membrane Topic al Solution 01/21/2021 12:00:00 AM EDT [facility] Calcium Carbonate 500 MG Chewable Tablet 01/14/2021 12:00:00 AM EDT [facility] pantoprazole 40 MG Delayed Release Oral Tablet 01/14/2021 12:00:00 AM EDT [facility] Sucralfate 1000 MG Oral Tablet 01/14/2021 12:00:00 AM EDT [facility] Simethicone 80 MG Chewable Tablet 01/14/2021 12:00:00 AM EDT [facility] Prochlorperazine 5 MG/ML Injectable Solution 01/09/2021 09:34:02 AM EDT [facility] dextrose 10 % infusion 01/03/2021 11:39:35 AM EDT [facility] sennosides, ALF 8.6 MG Oral Tablet 12/29/2020 01:47:08 PM EDT [facility] Lidocaine 5 % 10/11/2020 12:00:00 AM EDT eCW1 ([facility]) Lidocaine 5 % 10/11/2020 12:00:00 AM EDT eCW1 ([facility]) Lidocaine 5 % 10/11/2020 12:00:00 AM EDT eCW1 ([facility]) Lidocaine 5 % 10/11/2020 12:00:00 AM EDT eCW1 ([facility]) Lidocaine 5 % 10/11/2020 12:00:00 AM EDT eCW1 ([facility]) valacyclovir 1000 MG Oral Tablet 10/04/2020 12:00:00 AM EDT eCW1 ([facility]) valacyclovir 1000 MG Oral Tablet 10/04/2020 12:00:00 AM EDT eCW1 ([facility]) valacyclovir 1000 MG Oral Tablet 10/04/2020 12:00:00 AM EDT eCW1 ([facility]) valacyclovir 1000 MG Oral Tablet 10/04/2020 12:00:00 AM EDT eCW1 ([facility]) valacyclovir 1000 MG Oral Tablet 10/04/2020 12:00:00 AM EDT eCW1 ([facility]) valacyclovir 1000 MG Oral Tablet 10/04/2020 12:00:00 AM EDT eCW1 ([facility]) Hydrochlorothiazide 25 MG / valsartan 320 MG Oral Tabl et 03/27/2020 12:00:00 AM EST [facility] pantoprazole 40 MG Delayed Release Oral Tablet 10/17/2019 12:00:00 AM EDT [facility] Colchicine 0.6 MG Oral Tablet [Colcrys] 09/26/2019 12:00:00 AM EDT [facility] fluticasone (FLONASE) 50 MCG/ACT nasal spray 08/31/2019 12:00:00 AM EDT [facility] Hydrocortisone 25 MG/ML Topical Cream 08/29/2019 12:00:00 AM EDT [facility] Amylases [id number] UNT / Endopeptidases 760 00 UNT / Lipase 39342 UNT Delayed Release Oral Capsule [Creon] 08/15/2019 12:00:00 AM EDT [facility] Albuterol 0.833 MG/ML / Ipratropium [place] 0.167 MG/M L Inhalant Solution 07/28/2017 12:00:00 AM EDT [facility] Simethicone 125 MG Chewable Tablet 07/28/2017 12:00:00 AM EDT [facility] Acetaminophen 325 MG Oral Capsule 07/28/2017 12:00:00 AM EDT [facility] Clonazepam 1 MG Oral Tablet 07/25/2012 12:00:00 AM EDT [facility] Sucralfate 1000 MG Oral Tablet [facility] Prednisone 10 MG Oral Tablet [facility] albuterol (VENTOLIN HFA) 108 (90 Base) MCG/ACT inhaler [facility] EPINEPHrine (EPIPEN 2-DAREN) 0.3 MG/0.3ML SOAJ [facility] Sucralfate 1000 MG Oral Tablet [facility] cefdinir 300 MG Oral Capsule [facility] 30 ACTUAT fluticasone furoate 0.2 MG/ACT UAT / vilanterol 0.025 MG/ACTUAT Dry Powder Inhaler [facility] Sucralfate 1000 MG Oral Tablet [facility]
[2021-02-06 12:47] VITALS: BP 154/68
== END | disposition home or self-care (01) ==
LOC: M OPP 12:32
PROVIDERS: ATTEND Surgery
DX: R13.10 Dysphagia, unspecified (principal); Z53.8 Procedure and treatment not carried out for other reasons

== ENCOUNTER → 2021-03-14 | Outpatient (REF) | payer OTHER ==
[~2021-03-14] MED LIST changes: -NS 1,000 ML IV ONE
== END ==
LOC: M LAB REF 13:16
PROVIDERS: ATTEND Internal Medicine Pulmonary Disease
DX: J44.9 Chronic obstructive pulmonary disease, unspecified (principal)
CPT/HCPCS: 87205; G0463

== ENCOUNTER → 2021-03-18 | Outpatient (CLI) | payer OTHER ==
--- NOTE | 2021-03-18 12:01 | REP ---
INDICATION: RT RENAL MASS COMPARISON: None TECHNIQUE: Axial noncontrast images from the lung bases to the pubic symphysis with coronal and sagittal reformations. This CT examination was performed using the following dose reduction techniques: Automated exposure control, adjustment of mA and/or kv according to the patient's size, and use of iterative reconstruction technique. FINDINGS: There is a 5.2 cm solid renal mass involving the mid to lower pole of the right kidney. Evaluation is limited by the lack of intravenous contrast enhancement. There is no obvious hydronephrosis or acute perinephric stranding. The left kidney appears grossly normal. Possible lymph nodes adjacent to the uncinate pancreas suggested. Liver, spleen, pancreas, and bilateral adrenal glands are normal. Evaluation of the enteric system demonstrates small hiatal hernia. No evidence for bowel obstruction or acute inflammatory process. Scattered sigmoid diverticula noted without acute diverticulitis. Pelvis demonstrates collapsed bladder and evidence for prior hysterectomy. No ascites. No obvious retroperitoneal adenopathy. Abdominal aorta without aneurysm. Musculoskeletal structures demonstrate nonspecific changes likely degenerative in nature. The lung bases include chronic appearing changes with small right pleural effusion. IMPRESSION: 1. 5.2 cm solid right renal mass cannot be further evaluated. Findings are consistent with renal cell carcinoma unless proven otherwise and adenopathy cannot be excluded. 2. Nonacute findings as noted above including small hiatal hernia and sigmoid diverticula. 3. Small right pleural effusion. <Electronically signed by Fernando Pham > 03/18/21 [id number]
== END ==
LOC: M PLAIMG 10:02
PROVIDERS: ATTEND Nurse Practitioner Women's Health
DX: N28.89 Other specified disorders of kidney and ureter (principal); J90 Pleural effusion, not elsewhere classified

== ENCOUNTER → 2021-03-25 | Outpatient (REF) | payer OTHER | LOC: M LAB REF 15:53 | PROVIDERS: ATTEND Physician Assistant | DX: J44.9 Chronic obstructive pulmonary disease, unspecified (principal); I10 Essential (primary) hypertension | CPT/HCPCS: 80053; 85025; 87070; 87077; 87186; 87205; G0463 ==

== ENCOUNTER → 2021-03-25 | Outpatient (REF) | payer OTHER ==
[2021-03-25 16:17] LABS: BASO % 0.4 % (0.0-1.0); EOS # 0.1 10^3/uL (0.0-0.5); EOS % 1.3 % (0.0-3.0); HEMOGLOBIN 8.2 g/dl (12.0-15.5); LYMPH % 14.2 % (24.0-44.0); MEAN CORPUSCULAR HEMOGLOBIN 29.7 pg (27.0-33.0); MEAN CORPUSCULAR HGB CONC 31.5 g/dl (32.0-36.5); MEAN CORPUSCULAR VOLUME 94.2 fl (80.0-96.0); MONO # 0.5 10^3/uL (0.0-0.8); MONO % 7.3 % (2.0-8.0); NEUTROPHILS # 5.1 10^3/uL (1.5-8.5); NEUTROPHILS % 76.5 % (36.0-66.0); PLATELET COUNT, AUTOMATED 207 10^3/uL (150-450); RED BLOOD COUNT 2.76 10^6/uL (4.00-5.40); WHITE BLOOD COUNT 6.7 10^3/uL (4.0-10.0)
[2021-03-25 16:45] LABS: ALBUMIN 2.6 GM/DL (3.2-5.2); BILIRUBIN,TOTAL 0.3 MG/DL (0.2-1.0); CALCIUM LEVEL 8.1 MG/DL (8.8-10.2); CREATININE FOR GFR 1.16 MG/DL (0.55-1.30); GLOMERULAR FILTRATION RATE 47.2 (>32); POTASSIUM SERUM 3.3 MEQ/L (3.5-5.1); TOTAL PROTEIN 6.7 GM/DL (6.4-8.2)
== END ==
LOC: M SFHCCLAY 13:47
PROVIDERS: ATTEND Family Medicine
DX: I10 Essential (primary) hypertension (principal)